=== PATIENT | female | born 1970 | race Caucasian/White ===

== ENCOUNTER 2020-03-21 13:27 | Emergency (ER) | payer BC, SELFPAY ==
[2020-03-21 13:34] VITALS: BP 143/101; PULSE 91; RESP 20; TEMP 35.7; O2SAT 100
--- NOTE | 2020-03-21 13:53 | ED.WOUNDLAC ---
HPI - Wound/Laceration General Chief Complaint: Wound/Laceration Stated Complaint: L FINGER LAC Time Seen by Provider: 03/21/20 13:30 Source: patient and RN notes reviewed Mode of arrival: ambulatory Limitations: no limitations History of Present Illness HPI narrative: 49-year-old female presents with concern for an injury to her finger that she sustained last night while using a knife in the kitchen. She reports she has been unable to get it to stop bleeding. Reports she is used a bandage, elevation, pressure with no success. Related Data Home Medications Medication Instructions Recorded Confirmed alprazolam 03/21/20 amlodipine 03/21/20 carvedilol 03/21/20 duloxetine mg PO 03/21/20 Allergies Allergy/AdvReac Type Severity Reaction Status Date / Time No Known Allergies Allergy Verified 09/02/18 07:28 Review of Systems Review of Systems: Narrative: CONSTITUTIONAL: Denies malaise, chills, sweats, or fever. CARDIOVASCULAR: Denies chest pain, palpitations, or edema. RESPIRATORY: Denies cough or dyspnea. SKIN: Reports wound to the second digit of the left hand MUSCULOSKELETAL: Denies musculoskeletal pain NEUROLOGIC: Denies numbness, weakness All systems reviewed & are unremarkable except as noted in HPI and below PMFSH Comments At time of signature, agree with nursing past medical, surgical, social and family history. There is no relevant family history pertinent to the presenting complaint Exam Narrative: Exam Narrative: GENERAL: Well-appearing, well-nourished, and in no acute distress. HEAD: Normocephalic EYES: PERRLA, conjunctivae clear NECK: Supple. CHEST: Speaks in full sentences. No respiratory distress. HEART: Regular rate and rhythm. Normal and equal peripheral pulses. EXTREMITIES: Second digit of left hand has normal strength and sensation. 5/5 strength with digit flexion, extension. Range of motion normal. No clubbing, cyanosis, or edema noted. No tenderness. Normal digital cascade with flexion of fingers, median, ulnar and radial nerve intact. Normal sensation of each side of finger. Normal thumb opposition. Good capillary refill and radial pulse. Distal capillary refill less than 3 seconds. SKIN: Warn, dry, intact, pink. Avulsion approximately 1 cm x 0.5 cm noted to the lateral edge of the second digit of the left hand NEURO: Alert and oriented x3. PSYCH: Normal mood and affect Course Course Emergency Course: Surgicel applied to the wound, pressure held and finger elevated until hemostasis achieved. Sterile dressing applied. Patient is aware of diagnosis, understands and agrees to treatment plan. Anticipatory guidance given. Patient agrees to follow-up as directed and is aware of reasons to seek care at the emergency department. Portions of this record may have been created with voice recognition software Vital Signs Vital signs: Vital Signs Temperature 96.2 F L 03/21/20 13:34 Pulse Rate 91 03/21/20 13:34 Respiratory Rate 20 03/21/20 13:34 Blood Pressure 143/101 H 03/21/20 13:34 Pulse Oximetry 100 03/21/20 13:34 Temperature 96.2 F L 03/21/20 13:34 Pulse Rate 91 03/21/20 13:34 Respiratory Rate 20 03/21/20 13:34 Blood Pressure 143/101 H 03/21/20 13:34 Pulse Oximetry 100 03/21/20 13:34 Reviewed. Patient has history of hypertension MDM - Wound/Laceration MDM Narrative Medical decision making narrative: Exam findings show no acute concerns or changes; patient is non-toxic appearing and is in no distress. Patient is appropriate for outpatient treatment and follow-up. Differential Diagnosis Differential diagnosis: Likely laceration, abrasion and avulsion of skin Critical Care Time Critical Care Time Critical Care Time: No Discharge Plan Discharge Clinical Impression: Avulsion of skin Patient Disposition: Home, Self-Care Condition: Stable Instructions: Skin Avulsion (ED) Additional Instructions: Keep bandage in place for 24 hours. When y
== END 2020-03-21 14:05 | disposition home or self-care (01) ==
PROVIDERS: Emergency Provider Nurse Practitioner; PCP Nurse Practitioner Family
DX: S61.201A Unspecified open wound of left index finger without damage to nail, initial encounter (principal); W26.0XXA Contact with knife, initial encounter; I10 Essential (primary) hypertension
CPT/HCPCS: 99212; G0463

== ENCOUNTER 2020-09-05 12:38 | Outpatient (CLI) | payer OTHER, SELFPAY | END 2020-09-05 12:39 | disposition home or self-care (01) | LOC: ANHLAB 12:45 | PROVIDERS: PCP Nurse Practitioner Family; Visit Provider Nurse Practitioner Family | DX: R77.8 Other specified abnormalities of plasma proteins (principal) | CPT/HCPCS: 36415; 81256 ==

== ENCOUNTER → 2023-01-07 15:28 | Outpatient (CLI) | payer OTHER, SELFPAY ==
--- NOTE | ~2023-01-07 | US_ITS ---
EXAMINATION: US soft tissue head and neck DATE: 01/07/2023 16:27 INDICATION: Mass at the left base of the neck with difficulty swallowing TECHNIQUE: Multiple grayscale and Doppler ultrasound images of the neck were obtained. COMPARISON: None FINDINGS: Right thyroid lobe measures 5.2 x 1.7 x 1.5 cm. The left thyroid lobe measures 4.6 x 1.5 x 1.4 cm. 5 mm wide than tall solid very hypoechoic right thyroid nodule with smooth margins and no echogenic foc i (TI-RADS 4, moderately suspicious , FNA if >=1.5 cm, annual followup is >=1 cm). The thyroid isthmu s measures 4 mm in thickness. There are couple normal-sized left cervical lymph nodes in the region o f the palpable abnormality which measure 4 mm and 3 mm in short axis diameter with central echogenic fatty hilum. No other abnormal masses or fluid collections identified. There is a similar normal righ t cervical lymph node measuring 5 mm in short axis diameter with central fatty echogenic hilum. IMPRESSION: 1. Normal sized and appearing bilateral cervical lymph nodes. No abnormal masses or fluid collections identified. 2. 5 mm BI-RADS 4 right thyroid nodule which remains below criteria for either biopsy or follow-up. Reviewed, dictated and finalized at location B. IMPRESSION: 1. Normal sized and appearing bilateral cervical lymph nodes. No abnormal pippa s or fluid collections identified. 2. 5 mm BI-RADS 4 right thyroid nodule which remains below criteria for either biopsy or follow-up.
== END ==
PROVIDERS: PCP Nurse Practitioner Family; Visit Provider Nurse Practitioner Family
DX: E04.1 Nontoxic single thyroid nodule (principal)
CPT/HCPCS: 76536

== ENCOUNTER 2023-03-07 11:52 | Emergency (ER) | payer OTHER, SELFPAY ==
[2023-03-07 12:06] VITALS: BP 118/82; PULSE 92; RESP 16; TEMP 36.7; O2SAT 99
--- NOTE | 2023-03-07 12:11 | ED.EYEPROB ---
HPI - Eye Problem General Chief complaint: Eye Problems Stated complaint: Rt Eye Irritation Source: patient and RN notes reviewed History of Present Illness HPI Narrative: 52 yo F presents to urgent care with complaints of right eye pain x 3 nights. Pt states she woke up 3 nights ago with severe right eye pain. Pt has a hx of dry eyes so she attempted treating for this with eye drops, ointment, and eye mask without relief. Pt denies any known scratch or injury. Reports watery drainage from the right eye. Reports somewhat blurry vision but doesn't know if this is from the watery eye and/or pain. Pt does not wear contacts but does wear glasses. Pt states 2 months ago she was dx with a corneal abrasion and infection and was placed a couple different Abx for this. Pt also states she developed a stye in this eye about a month ago. Related Data Home Medications Medication Instructions Recorded Confirmed alprazolam 0.25 mg tablet 0.25 mg PO PRN PRN Anxiety 03/21/20 03/07/23 amlodipine 5 mg tablet 5 mg PO DAILY 03/21/20 03/07/23 lamotrigine 100 mg tablet 100 mg PO DAILY 03/07/23 03/07/23 losartan 50 mg tablet 50 mg PO DAILY 03/07/23 03/07/23 rosuvastatin 10 mg tablet 10 mg PO HS 03/07/23 03/07/23 sertraline 50 mg tablet 50 mg PO DAILY 03/07/23 03/07/23 venlafaxine 75 mg capsule,extended 75 mg PO DAILY 03/07/23 03/07/23 release 24 hr Allergies Allergy/AdvReac Type Severity Reaction Status Date / Time No Known Allergies Allergy Verified 03/07/23 12:07 Review of Systems Review of Systems: CONSTITUTIONAL: Denies fever, chills, or sweats. EYES: right eye pain and watery discharge ENT: Denies otalgia and sore throat CARDIOVASCULAR: Denies chest pain, palpitations, or edema. RESPIRATORY: Denies cough or dyspnea. GASTROINTESTINAL: Denies abdominal pain, nausea, vomiting, or diarrhea. GENITOURINARY: Denies dysuria or hematuria. SKIN: Denies rash or itching. MUSCULOSKELETAL: Denies back pain, joint pain, or myalgia. NEUROLOGIC: Denies headache, numbness, or weakness. Pertinent positives per HPI. PMFSH Comments At the time of my signature, I reviewed and agree with the nursing past medical, surgical, social, and family history. There is no relevant family history pertinent to the patient complaint. Exam Narrative: GENERAL: This is a well-nourished, well-developed patient, in no apparent distress. HEAD: normocephalic, atraumatic. EYES: Sclera clear/white. Conjunctivae pale pink. no discharge. Vision is grossly intact. Mackay lamp exam performed. No fluorecin uptake noted. No FB noted. No abrasion. Lid inversion performed with no acute findings. EARS: External ears normal, auditory canals clear and without drainage, TMs normal without perforation. Hearing grossly intact. NOSE: External nose normal with no obvious nasal discharge, nares without redness, no rhinorrhea. THROAT: Mucous membranes moist, posterior pharynx clear. NECK: Neck supple, non-tender without lymphadenopathy, masses or thyromegaly. CARDIOVASCULAR: Regular rate RESPIRATORY: No respiratory distress SKIN: warm, intact with no suspicious lesions or rash, good texture and turgor. NEURO: awake, alert, and oriented to person, place and time. There were no obvious focal neurologic abnormalities. Course Course Level of Care: Express Care Visit Vital Signs Vital signs: Vital Signs Temperature 98.1 F 03/07/23 12:06 Pulse Rate 92 03/07/23 12:06 Respiratory Rate 16 03/07/23 12:06 Blood Pressure 118/82 03/07/23 12:06 Pulse Oximetry 99 03/07/23 12:06 Oxygen Delivery Room Air 03/07/23 12:06 Temperature 98.1 F 03/07/23 12:06 Pulse Rate 92 03/07/23 12:06 Respiratory Rate 16 03/07/23 12:06 Blood Pressure 118/82 03/07/23 12:06 Pulse Oximetry 99 03/07/23 12:06 Oxygen Delivery Room Air 03/07/23 12:06 reviewed MDM - Eye Problem MDM Narrative Medical decision making narrative: Mackay lamp exam performed wi
== END 2023-03-07 12:57 | disposition short-term general hospital (02) ==
PROVIDERS: Emergency Provider Nurse Practitioner Family; PCP Nurse Practitioner Family
DX: H57.11 Ocular pain, right eye (principal); E78.00 Pure hypercholesterolemia, unspecified; I10 Essential (primary) hypertension; F41.9 Anxiety disorder, unspecified; F32.A Depression, unspecified
CPT/HCPCS: 99213; A9270; G0463

== ENCOUNTER 2024-03-24 16:02 | Emergency (ER) | payer OTHER, SELFPAY ==
[2024-03-24] VITALS (19 sets, daily range): BP systolic 114–155; BP diastolic 86–99; PULSE 75–95; RESP 12–18; TEMP 36.4; O2SAT 96–100
--- NOTE | ~2024-03-24 | XR_ITS ---
XR chest 2V Ordering provider: David Og MD History: 53 years Female with . cp . Comparison: August 24, 2008 FINDINGS: MEDIASTINUM: The cardiac silhouette is not enlarged. LUNGS: No infiltrates, effusions or pneumothorax. OTHER: No free air under the diaphragm. IMPRESSION: No acute cardiopulmonary pathology. Reviewed, dictated and finalized at location A.
--- NOTE | 2024-03-24 16:05 | ECG_ITS ---
Test Date: 2024-03-24 20:00:54 Measurements Intervals [place] Rate: 73 P: 18 AL: 155 QRS: -18 QRSD: 89 T: 73 QT: 402 QTc: 443 Interpretive Statements SINUS RHYTHM POOR R WAVE PROGRESSION NONSPECIFIC T-WAVE ABNORMALITY Compared to ECG 03/24/2024 16:11:51 NO SIGNIFICANT CAHNGES Electronically Signed On 03-25-2024 15:30:00 CDT by Dean Wilson M.D.
[2024-03-24 16:27] LABS: Basophils Absolute Auto 0.1 K/mm3 (0.0-0.1); Basophils Percent Auto 0.8 % (0.2-1.2); Eosinophils Absolute Auto 0.1 K/mm3 (0-0.3); Eosinophils Percent Auto 0.9 % (0-4.4); Hematocrit 43.5 % (37.0-47.0); Hemoglobin 14.4 g/dL (12.0-15.0); Immature Granulocyte Absolute 0.03 K/mm3 (0.00-0.031); Immature Granulocyte Percent A 0.3 % (0-0.5); Lymphocytes Percent Auto 28.5 % (18.3-44.2); Mean Corpuscular HGB Conc 33.1 g/dl (32-36); Mean Corpuscular Hemoglobin 30.8 pg (26-34); Mean Corpuscular Volume 92.9 fl (80-100); Mean Platelet Volume 10.3 fl (7.4-10.4); Monocytes Absolute Auto 0.7 K/mm3 (0.1-0.6); Monocytes Percent Auto 6.4 % (2.6-8.5); Neutrophils Absolute Auto 6.4 K/mm3 (1.3-6.7); Neutrophils Percent Auto 63.1 % (45.5-73.1); Platelet Count Result 372 k/mm3 (150-375); Red Blood Count 4.68 M/mm3 (4.2-5.4); Red Cell Distribution Width 12.9 % (11.5-14.5); White Blood Count 10.2 K/mm3 (4.5-10.0)
[2024-03-24] MEDS: ASPIRIN 81 MG CHEWABLE TABLET 324 MG PO (16:35)
[2024-03-24 16:38] LABS: Alanine Aminotransferase 21 U/L (6-35); Alkaline Phosphatase 74 U/L (38-126); Anion Gap 10 mmol/L (4-12); Aspartate Amino Transferase 25 U/L (14-36); Bilirubin,Total 0.4 mg/dL (0.2-1.3); Blood Urea Nitrogen 16 mg/dL (7-17); Calcium 10.3 mg/dL (8.4-10.2); Carbon Dioxide 28 mmol/L (22-30); Chloride 99 mmol/L (98-107); Estimated CRCL calculation 80 ml/min; Estimated Glomerular Filt Rate > 60; Glucose 94 mg/dL (65-110); Lipase 150 U/L (23-300); Potassium 4.5 mmol/L (3.4-5.0); Sodium 137 mmol/L (137-145)
[2024-03-24 16:39] LABS: Prothrombin Time 13.4 Seconds (11.1-14.7)
[2024-03-24 16:40] LABS: Partial Thromboplastin Time 28.4 Seconds (22.3-36.8)
[2024-03-24 16:50] LABS: Troponin I < 0.012 ng/mL (0.000-0.034)
--- NOTE | 2024-03-24 17:14 | ED.CHESTPAIN ---
HPI - Chest Pain General Chief Complaint: Chest Pain Stated Complaint: chest pressure, dizzy, sob, fluctuating BP Time Seen by Provider: 03/24/24 16:59 History of Present Illness HPI narrative: 53-year-old female with history of prediabetes, hyperlipidemia and hypertension presents to the emergency department for exertional dyspnea, intermittent chest pressure, lightheadedness, fatigue and palpitations with exertion for 2 weeks. Patient states her symptoms started 2 weeks ago with tachycardia when she would stand and lightheadedness. She states she would check her blood pressure and note that it was elevated she finally sit down. She went to her PCPs office and they discontinued her amlodipine and her losartan due to concerns that she was becoming hypotensive while standing. Patient states she has not been taking his medications for approximately 1 week her symptoms have persisted. States she began having exertional dyspnea, and fatigue ambulation. She denies radiating chest pain symptoms, cough or congestion, fever, hemoptysis, lower extremity edema, history of VTE. She has no known personal history of cardiac disease but does state that her parents and brother have known cardiac disease. Related Data Home Medications Medication Instructions Recorded Confirmed alprazolam 0.25 mg tablet 0.25 mg PO PRN PRN Anxiety 03/21/20 03/07/23 amlodipine 5 mg tablet 5 mg PO DAILY 03/21/20 03/07/23 lamotrigine 100 mg tablet 100 mg PO DAILY 03/07/23 03/07/23 losartan 50 mg tablet 50 mg PO DAILY 03/07/23 03/07/23 rosuvastatin 10 mg tablet 10 mg PO HS 03/07/23 03/07/23 sertraline 50 mg tablet 50 mg PO DAILY 03/07/23 03/07/23 venlafaxine 75 mg capsule,extended 75 mg PO DAILY 03/07/23 03/07/23 release 24 hr Allergies Allergy/AdvReac Type Severity Reaction Status Date / Time No Known Allergies Allergy Verified 03/24/24 16:04 Review of Systems Review of Systems: All systems reviewed & are unremarkable except as noted in HPI and below Exam Narrative: GENERAL: Well-appearing, well-nourished, and in no acute distress. HEAD: Normocephalic, atraumatic. EYES: PERRLA and EOMI. ENT: Nares clear, no rhinorrhea or epistaxis. Mucous membranes dry. NECK: Supple. CHEST: Clear to auscultation. No respiratory distress. HEART: Regular rate and rhythm. No murmur heard. Normal peripheral pulses. ABDOMEN: Soft, nontender, nondistended, normal active bowel sounds. EXTREMITIES: Normal range of motion. No edema. negative Homans bilaterally SKIN: Warm, dry, no rash. NEURO: No focal deficits. Alert and oriented x3 Course Vital Signs Vital signs: Vital Signs Temperature 97.6 F 03/24/24 16:06 Pulse Rate 91 03/24/24 16:06 Respiratory Rate 16 03/24/24 16:06 Blood Pressure 121/89 03/24/24 16:06 Pulse Oximetry 97 03/24/24 16:06 Oxygen Delivery Room Air 03/24/24 16:06 Temperature 97.6 F 03/24/24 16:06 Pulse Rate 87 03/24/24 20:45 Respiratory Rate 16 03/24/24 20:45 Blood Pressure 119/93 H 03/24/24 19:50 Pulse Oximetry 100 03/24/24 20:45 Oxygen Delivery Room Air 03/24/24 16:28 MDM - Chest Pain MDM Narrative Medical decision making narrative: 53-year-old female with history of prediabetes, hypertension and hyperlipidemia presents to the emergency department for exertional dyspnea, intermittent chest pressure, palpitations, fatigue for 2 weeks. Her triage vitals are stable. On exam she is well-appearing and resting comfortably in the exam bed with normal vital signs. Her exam is significant for dry mucous membranes. Will obtain chest pain workup, D-dimer, chest x-ray, orthostatic vital signs and provide a L of fluids and re-evaluate. CBC with mild leukocytosis of 10.2. Chemistries with no electrolyte derangements. EKG reveals sinus rhythm, nonspecific T-wave abnormality, normal MS interval, normal QRS duration, normal QTC, no ischemic changes. Troponin is undetectable x2. BNP is within normal limits. D-dimer is mildly elevated at 0.51, however VTE is excluded with Years criteria and age adjusted D-dimer. UPT is negative. Urinalysis is indicative of a UTI with positive nitrates, 6-10 wbc's and 2+ bacteria 1+ leuk esterase. urine culture pending. Patient was started on Keflex. COVID, flu and RSV are negative. Chest x-ray shows no acute findings. Orthostatic vital signs are positive. Workup discussed with the patient. She received a total 2 L of fluids. She did remain orthostatic positive when vitals were repeated, however she does states that she feels much better. She is ambulatory in the ED and states her sx have improved, however does feel somewhat lightheaded still. I discussed admission for rehydration and further management, however she politely declined states she would like to go home. I discussed her need to follow-up closely with cardiology she will also benefit from a stress test given her history. I advised her to increase fluid intake and follow closely with her PCP. Strict ED return precautions discussed. She is agreeable to plan verbalized understanding. Discharged in stable condition. Lab Data 03/24/24 16:19 03/24/24 16:19 Labs: Lab Results 03/24/24 03/24/24 03/24/24 Range/Units 16:19 17:20 17:25 WBC 10.2 H (4.5-10.0) K/mm3 RBC 4.68 (4.2-5.4) M/mm3 Hgb 14.4 (12.0-15.0) g/dL Hct 43.5 (37.0-47.0) % MCV 92.9 (80-100) fl MCH 30.8 (26-34) pg MCHC 33.1 (32-36) g/dl RDW 12.9 (11.5-14.5) % Plt Count 372 (150-375) k/mm3 MPV 10.3 (7.4-10.4) fl Immature Gran % (Auto) 0.3 (0-0.5) % Neut % (Auto) 63.1 (45.5-73.1) % Lymph % (Auto) 28.5 (18.3-44.2) % [place] % (Auto) 6.4 (2.6-8.5) % Eos % (Auto) 0.9 (0-4.4) % Baso % (Auto) 0.8 (0.2-1.2) % Lymph # (Auto) 2.90 (0.9-3.2) K/mm3 [place] # (Auto) 0.7 H (0.1-0.6) K/mm3 Eos # (Auto) 0.1 (0-0.3) K/mm3 Baso # (Auto) 0.1 (0.0-0.1) K/mm3 Abs Immat Gran (auto) 0.03 (0.00-0.031) K/mm3 Absolute Neuts (auto) 6.4 (1.3-6.7) K/mm3 Absolute Nucleated RBC 0.000 (0.0-0.012) K/mm3 Nucleated RBC % 0.0 (0.0-0.2) % PT 13.4 (11.1-14.7) Seconds INR 1.0 APTT 28.4 (22.3-36.8) Seconds D-Dimer 0.51 H (<0.48) ug/mL Sodium 137 (137-145) mmol/L Potassium 4.5 (3.4-5.0) mmol/L Chloride 99 (98-107) mmol/L Carbon Dioxide 28 (22-30) mmol/L Anion Gap 10 (4-12) mmol/L BUN 16 (7-17) mg/dL Creatinine 0.80 (0.7-1.0) mg/dL Estim Creat Clear Calc 80 ml/min Estimated GFR > 60 (59 - ) Glucose 94 (65-110) mg/dL Calcium 10.3 H (8.4-10.2) mg/dL Total Bilirubin 0.4 (0.2-1.3) mg/dL AST 25 (14-36) U/L ALT 21 (6-35) U/L Alkaline Phosphatase 74 (38-126) U/L Troponin I < 0.012 (0.000-0.034) ng/mL NT-Pro-B Natriuret Pep 37 (19.9-100) pg/mL Total Protein 9.0 H (6.3-8.2) g/dL Albumin 5.0 (3.5-5.1) g/dL Lipase 150 (23-300) U/L Urine Color Yellow (Yellow) Urine Appearance Clear (Clear) Urine pH 7.0 (5.0-9.0) Ur Specific [place] 1.024 (1.001-1.035) Urine Protein Negative (Negative) mg/dL Urine Glucose (UA) Negative (Negative) mg/dL Urine Ketones Trace H (Negative) mg/dL Ur Blood (Man) Negative (Negative) Urine Nitrate Positive H (Negative) Urine Bilirubin Negative (Negative) Urine Urobilinogen 1.0 (<2.0) mg/dL Leukocyte Esterase Rfl 1+ H (Negative) LEE/UL Urine RBC 3-5 H (0-2) /hpf Urine WBC 6-10 H (0-3) /hpf Ur Squamous Epith Cells Few (Few) /hpf Urine Bacteria 2+ H /hpf Urine Casts 0-2 POC Urine HCG, Qual (Negative) Influenza A (RT-PCR) Negative (Negative) Influenza B (RT-PCR) Negative (Negative) RSV (RT-PCR) Negative (Negative) SARS-CoV-2 RNA (RT-PCR) Negative (Negative) 03/24/24 03/24/24 Range/Units 17:27 18:54 WBC (4.5-10.0) K/mm3 RBC (4.2-5.4) M/mm3 Hgb (12.0-15.0) g/dL Hct (37.0-47.0) % MCV (80-100) fl MCH (26-34) pg MCHC (32-36) g/dl RDW (11.5-14.5) % Plt Count (150-375) k/mm3 MPV (7.4-10.4) fl Immature Gran % (Auto) (0-0.5) % Neut % (Auto) (45.5-73.1) % Lymph % (Auto) (18.3-44.2) % [place] % (Auto) (2.6-8.5) % Eos % (Auto) (0-4.4) % Baso % (Auto) (0.2-1.2) % Lymph # (Auto) (0.9-3.2) K/mm3 [place] # (Auto) (0.1-0.6) K/mm3 Eos # (Auto) (0-0.3) K/mm3 Baso # (Auto) (0.0-0.1) K/mm3 Abs Immat Gran (auto) (0.00-0.031) K/mm3 Absolute Neuts (auto) (1.3-6.7) K/mm3 Absolute Nucleated RBC (0.0-0.012) K/mm3 Nucleated RBC % (0.0-0.2) % PT (11.1-14.7) Seconds INR APTT (22.3-36.8) Seconds D-Dimer (<0.48) ug/mL Sodium (137-145) mmol/L Potassium (3.4-5.0) mmol/L Chloride (98-107) mmol/L Carbon Dioxide (22-30) mmol/L Anion Gap (4-12) mmol/L BUN (7-17) mg/dL Creatinine (0.7-1.0) mg/dL Estim Creat Clear Calc ml/min Estimated GFR (59 - ) Glucose (65-110) mg/dL Calcium (8.4-10.2) mg/dL Total Bilirubin (0.2-1.3) mg/dL AST (14-36) U/L ALT (6-35) U/L Alkaline Phosphatase (38-126) U/L Troponin I < 0.012 (0.000-0.034) ng/mL NT-Pro-B Natriuret Pep (19.9-100) pg/mL Total Protein (6.3-8.2) g/dL Albumin (3.5-5.1) g/dL Lipase (23-300) U/L Urine Color (Yellow) Urine Appearance (Clear) Urine pH (5.0-9.0) Ur Specific [place] (1.001-1.035) Urine Protein (Negative) mg/dL Urine Glucose (UA) (Negative) mg/dL Urine Ketones (Negative) mg/dL Ur Blood (Man) (Negative) Urine Nitrate (Negative) Urine Bilirubin (Negative) Urine Urobilinogen (<2.0) mg/dL Leukocyte Esterase Rfl (Negative) LEE/UL Urine RBC (0-2) /hpf Urine WBC (0-3) /hpf Ur Squamous Epith Cells (Few) /hpf Urine Bacteria /hpf Urine Casts POC Urine HCG, Qual Negative (Negative) Influenza A (RT-PCR) (Negative) Influenza B (RT-PCR) (Negative) RSV (RT-PCR) (Negative) SARS-CoV-2 RNA (RT-PCR) (Negative) Discharge Plan Discharge Clinical Impression: Orthostatic hypotension UTI (urinary tract infection) Qualifiers: Urinary tract infection type: acute cystitis Hematuria presence: with hematuria Qualified Code(s): N30.01 - Acute cystitis with hematuria Patient Disposition: Home, Self-Care Condition: Stable Instructions: Antibiotic Form, Urinary Tract Infection in Women (DC), Hypotension (DC) Additional Instructions: Your evaluated in the emergency department for dizziness, weakness, shortness of breath and chest discomfort. Your found have urinary tract infection or also found have low blood pressure when he stand. This may be secondary to dehydration. We discussed having the stay in the hospital for further workup and management, however you would like to go home. Please make sure to increase her fluid intake and follow closely with her primary care provider and retail loan originator assistant I have referred you to. Return to the emergency department if you develop chest pain, shortness of breath, worsening lightheadedness, fever or other concerning symptoms. Please take the antibiotic as directed for UTI. Prescriptions: New cephalexin 500 mg capsule 500 mg PO Q6H Qty: 28 0RF No Action losartan 50 mg tablet 50 mg PO DAILY venlafaxine 75 mg capsule,extended release 24hr 75 mg PO DAILY sertraline 50 mg tablet 50 mg PO DAILY lamotrigine 100 mg tablet 100 mg PO DAILY rosuvastatin 10 mg tablet 10 mg PO HS amlodipine 5 mg tablet 5 mg PO DAILY alprazolam 0.25 mg tablet 0.25 mg PO PRN PRN (Reason: Anxiety) Follow-up/Referrals: Dean Wilson MD [Physician] - 1 Day Huber,Margarette Guerra APRN [Primary Care Provider] -
[2024-03-24 17:29] LABS: BEDSIDEPREGUCG Negative (Negative)
[2024-03-24 17:31] LABS: NT Pro B Type Natriuretic Pept 37 pg/mL (19.9-100)
[2024-03-24] MEDS: SODIUM CHLORIDE 0.9% IV 1,000 ML 999 ML IV CONT ×2 (17:31→18:55)
[2024-03-24 17:36] LABS: Add Urine Microscopic? YES; Appearance Urine Clear (Clear); Bacteria Urine 2+ /hpf; Bilirubin Urine Negative (Negative); Blood Urine Negative (Negative); Color Urine Yellow (Yellow); Glucose Urine UA Negative (Negative); Ketones Urine Trace mg/dL (Negative); Leukocyte Esterase Ur 1+ LEU/UL (Negative); Nitrate Urine Positive (Negative); Non Pathogenic Casts 0-2; Protein Urine Negative (Negative); Specific Grav Ur 1.024 (1.001-1.035); Squamous Epithelial Cell Urine Few /hpf (Few)
[2024-03-24 17:54] LABS: D Dimer 0.51 ug/mL (<0.48)
[2024-03-24 18:02] LABS: Influenza A QL RT-PCR Negative (Negative); Influenza B QL RT-PCR Negative (Negative); RSV RNA, RT-PCR Negative (Negative); SARS-CoV-2 RNA PCR Negative (Negative)
--- NOTE | 2024-03-24 19:05 | ECG_ITS ---
Test Date: 2024-03-24 16:11:51 Measurements Intervals [place] Rate: 89 P: 40 ND: 135 QRS: -22 QRSD: 90 T: 77 QT: 360 QTc: 440 Interpretive Statements SINUS RHYTHM POOR R WAVE PROGRESSION No previous ECG available for comparison Electronically Signed On 03-25-2024 15:25:22 CDT by Dean Wilson M.D.
[2024-03-24 19:23] LABS: Troponin I < 0.012 ng/mL (0.000-0.034)
[2024-03-24] MEDS: CEPHALEXIN 500 MG CAPSULE PO (20:55)
== END 2024-03-24 21:02 | disposition home or self-care (01) ==
PROVIDERS: Family Medicine; Emergency Provider Physician Assistant
DX: I95.1 Orthostatic hypotension (principal); N30.01 Acute cystitis with hematuria; I10 Essential (primary) hypertension; E78.5 Hyperlipidemia, unspecified; Z20.822 Contact with and (suspected) exposure to COVID-19
CPT/HCPCS: 36415; 71046; 80053; 81001; 81025; 83690; 83880; 84484; 85025; 85380; 85610; 85730; 87077; 87086; 87186; 87637; 93005; 96360; 96361; 99284; A9270; J7030

== ENCOUNTER 2024-05-07 13:23 | Emergency (ER) | payer OTHER, SELFPAY ==
[2024-05-07 13:32] VITALS: BP 117/89; PULSE 86; RESP 16; TEMP 35.9; O2SAT 100
--- NOTE | 2024-05-07 13:32 | ED.NAVMDI ---
HPI - Nausea/Vomiting/Diarrhea General Chief complaint: Nausea/Vomiting/Diarrhea Stated complaint: Diarrhea/Stomach Pain Time Seen by Provider: 05/07/24 13:32 Source: patient and RN notes reviewed Mode of arrival: ambulatory Limitations: no limitations History of Present Illness HPI Narrative: 53 y/o female presented for c/o diarrhea after returning from [facility] 2 days ago. Reports diarrhea hourly x3 -4 days described as liquid brown, as well as cramping to lower abdomen and stomach pains, also possible fever 2 days ago. Endorses decreased appetite, last ate mcdonalds last night. Pt denies vomiting dizziness, or lethargy, hematochezia. Has not taken anything for symptoms. Related Data Home Medications Medication Instructions Recorded Confirmed alprazolam 0.25 mg tablet 0.25 mg PO PRN PRN Anxiety 03/21/20 03/07/23 amlodipine 5 mg tablet 5 mg PO DAILY 03/21/20 03/07/23 lamotrigine 100 mg tablet 100 mg PO DAILY 03/07/23 03/07/23 losartan 50 mg tablet 50 mg PO DAILY 03/07/23 03/07/23 rosuvastatin 10 mg tablet 10 mg PO HS 03/07/23 03/07/23 sertraline 50 mg tablet 50 mg PO DAILY 03/07/23 03/07/23 venlafaxine 75 mg capsule,extended 75 mg PO DAILY 03/07/23 03/07/23 release 24 hr Allergies Allergy/AdvReac Type Severity Reaction Status Date / Time No Known Allergies Allergy Verified 03/24/24 16:04 Review of Systems Review of Systems: CONSTITUTIONAL: Denies body aches, reports fever ENT: Reports rhinorrhea, congestion CARDIOVASCULAR: Denies chest pain, palpitations, or edema. RESPIRATORY: Denies cough or dyspnea. GASTROINTESTINAL: Endorses abdominal pain, diarrhea. Denies nausea, vomiting, hematochezia, melena GENITOURINARY: Denies dysuria, hematuria, or CVA tenderness. SKIN: Denies rash MUSCULOSKELETAL: Denies back pain, joint pain, or myalgia. NEUROLOGIC: Denies headache, numbness, tingling, or weakness. All systems reviewed & are unremarkable except as noted in HPI and below PENDING SALE TO [facility] Past Medical History Medical History (Updated 05/07/24 @ 14:06 by Anastasiya Nobles, JAY) Pre-diabetes Comments At time of signature, I have reviewed and agree with nursing past medical, surgical, social and family history unless otherwise noted. Please see nursing chart for further information. There is no relevant family history pertinent to the presenting complaint Exam Narrative: GENERAL: mildly ill-appearing, and in no acute distress. EYES: EOMI. Conjunctivae normal. ENT: Mucous membranes pink and moist. CHEST: No respiratory distress. Clear to auscultation. HEART: Regular rate and rhythm. No murmur appreciated. Normal peripheral pulses. ABDOMEN: abd soft, nondistended, normal active bowel sounds. Tender abdomen, generalized. No guarding, rebound tenderness, asymmetry EXTREMITIES: Normal range of motion. No edema. SKIN: Warm, dry, no rash. Capillary refill normal. Normal skin turgor. NEURO: No focal deficits. Alert and oriented x3. PSYCH: Normal affect. Course Course Emergency Course: Patient is aware of diagnosis, understands and agrees to treatment plan. Anticipatory guidance given. Patient agrees to follow-up as directed and is aware of reasons to seek care at the emergency department. Portions of this record may have been created with voice recognition software Level of Care: Express Care Visit Transfer Transfered to: [facility] Transportation: Other (Private vehicle) Transfer rationale: Pt is agreeable to transfer. Requests transfer to [facility] via private vehicle. Risks of transportation reviewed with pt including injury, worsening of condition and . v/u. Report called to hospital, spoke with Martha Aragon NP, accepting physician. Pt is in stable condition at time of transfer. Advised to remain NPO and go directly to the hospital. MDM - Nausea/Vomiting/Diarrhea MDM Narrative Medical decision making narrative: Discussed physical exam findings, abdominal pain with diarrhea after international travel. Advised ER transfer. Differential Diagnosis Differential diagnosis: Likely traveler's diarrhea, food poisoning, gastroenteritis, clostridium difficile infection, dehydration and other (gastroenteritis, gastritis, appendicitis, pancreatitis, bowel obstruction, bowel perforation, hernia, gall bladder disease) Discharge Plan Discharge Clinical Impression: Traveler's diarrhea Patient Disposition: Acute Care Hospital Condition: Stable Prescriptions: No Action losartan 50 mg tablet 50 mg PO DAILY venlafaxine 75 mg capsule,extended release 24hr 75 mg PO DAILY sertraline 50 mg tablet 50 mg PO DAILY lamotrigine 100 mg tablet 100 mg PO DAILY rosuvastatin 10 mg tablet 10 mg PO HS amlodipine 5 mg tablet 5 mg PO DAILY alprazolam 0.25 mg tablet 0.25 mg PO PRN PRN (Reason: Anxiety) cephalexin 500 mg capsule 500 mg PO Q6H Qty: 28 0RF Follow-up/Referrals: Huber,Margarette Guerra, SOFTLINES SUPERVISOR [Primary Care Provider] - Time of Disposition: 14:06
== END 2024-05-07 13:55 | disposition short-term general hospital (02) ==
PROVIDERS: Emergency Provider Nurse Practitioner Family
DX: A09 Infectious gastroenteritis and colitis, unspecified (principal); R73.03 Prediabetes
CPT/HCPCS: 99212; 99213; G0463

== ENCOUNTER 2024-05-07 14:55 | Emergency (ER) | payer OTHER, SELFPAY ==
[2024-05-07 14:58] VITALS: BP 143/94; PULSE 74; RESP 16; TEMP 36.4; O2SAT 98
--- NOTE | 2024-05-07 20:34 | PC.NURSE ---
Pt ambulatory to triage desk reporting she was no longer wanting to be seen d/t wait times. pt educated on importance of returning to closes emergency facility if sx persist or worsen. pt ambulatory out of dept w steady gait.
== END 2024-05-07 20:34 | disposition left against medical advice (07) ==
DX: R10.9 Unspecified abdominal pain (principal)
CPT/HCPCS: 99199

== ENCOUNTER 2024-05-08 10:38 | Emergency (ER) | payer OTHER, SELFPAY ==
--- NOTE | ~2024-05-08 | CT_ITS ---
EXAMINATION: CT abdomen pelvis w con DATE: 05/08/2024 16:30 INDICATION: Abdominal pain, nausea, vomiting, diarrhea TECHNIQUE: Computed tomography (CT) of the abdomen and pelvis was performed without intravenous contr ast. Automated exposure control and iterative reconstruction technique were employed. Exam dose: 536 .45 mGy-cm total exam DLP. COMPARISON: None. FINDINGS: The lung bases are clear of infiltrate or consolidation. Normal heart size. No pericardial or pleural effusion. The liver, gallbladder, bile ducts, pancreas, pancreatic duct, spleen and adrenal glands are unremark able. No renal mass lesion or urinary tract calculus or hydroureteronephrosis. Normal caliber of the abdominal aorta. No intraperitoneal or retroperitoneal or pelvic mass lesion or adenopathy or ascites. Status post hysterectomy. The urinary bladder is unremarkable. Small sliding hiatal hernia. Normal appendix. There are air-fluid levels rectum, suggesting enterocolitis. No bowel wall thickening or pneumatosis or intraperitoneal free air is detected. Probable 12 mm sebaceous cyst of the upper mid anterior abdominal wall. Included skeletal structures are unremarkable. No suspicious osteolytic or osteoblastic lesions. IMPRESSION: Enterocolitis Normal appendix Small sliding hiatal hernia Reviewed, dictated and finalized at [facility] Reviewed, dictated and finalized at [facility]. [facility]
[2024-05-08 11:08] VITALS: BP 124/62; PULSE 129; RESP 20; TEMP 36.8; O2SAT 100
--- NOTE | 2024-05-08 14:24 | ED_ITS ---
HPI - Abdominal Pain General Chief Complaint: Abdominal Pain Stated Complaint: abd cramping/N/D/chills Time Seen by Provider: 05/08/24 14:06 Source: patient Mode of arrival: ambulatory Limitations: no limitations History of Present Illness HPI narrative: Patient is a 53-year-old female who presents the ED with report of diarrhea and abdominal pain. Patient recently traveled with her family to [facility] for 2 weeks. They returned home late last week. She states she experienced some diarrhea while traveling, but has had worsening diarrhea and abdominal pain since being home. Complains of multiple episodes of watery diarrhea per day. Complains of diffuse pain throughout her abdomen, cramping in nature. Reports nausea, denies vomiting. Reports some chills, denies known fever. States her family has had similar symptoms. Daughter was seen in the ED yesterday and had malaria and dengue fever testing performed. Patient also reports urinary frequency. Denies dysuria, hematuria. Related Data Home Medications Medication Instructions Recorded Confirmed alprazolam 0.25 mg tablet 0.25 mg PO PRN PRN Anxiety 03/21/20 03/07/23 amlodipine 5 mg tablet 5 mg PO DAILY 03/21/20 03/07/23 lamotrigine 100 mg tablet 100 mg PO DAILY 03/07/23 03/07/23 losartan 50 mg tablet 50 mg PO DAILY 03/07/23 03/07/23 rosuvastatin 10 mg tablet 10 mg PO HS 03/07/23 03/07/23 sertraline 50 mg tablet 50 mg PO DAILY 03/07/23 03/07/23 venlafaxine 75 mg capsule,extended 75 mg PO DAILY 03/07/23 03/07/23 release 24 hr Allergies Allergy/AdvReac Type Severity Reaction Status Date / Time No Known Allergies Allergy Verified 05/08/24 11:13 Review of Systems Review of Systems: All systems reviewed & are unremarkable except as noted in HPI. All systems reviewed & are unremarkable except as noted in HPI and below PMFSH Past Medical History Medical History Pre-diabetes Exam Narrative: GENERAL: Mildly ill/uncomfortable appearing, well-nourished, non-toxic, in no acute distress. HEAD: Normocephalic, atraumatic. RESPIRATORY: Airway patent, respirations nonlabored. Clear to auscultation bilaterally, no rales, rhonchi, wheezing. CARDIOVASCULAR: Tachycardic with regular rhythm without murmurs, rubs, or gallops. ABDOMINAL: Soft, diffuse tenderness throughout abdomen, worse throughout left lower quadrant. Nondistended. Normoactive BS. MUSCULOSKELETAL: Moves all extremities. No gross deformities. SKIN: Warm, dry, normal color. NEURO: A&O X3. Speech clear. Cranial nerves II-XII grossly intact. Steady gait. No ataxic movements. PSYCHIATRIC: Appropriate mood and affect. Normal interaction. Course Vital Signs Vital signs: Vital Signs Temperature 98.3 F 05/08/24 11:08 Pulse Rate 129 H 05/08/24 11:08 Respiratory Rate 20 05/08/24 11:08 Blood Pressure 124/62 05/08/24 11:08 Pulse Oximetry 100 05/08/24 11:08 Oxygen Delivery Room Air 05/08/24 11:08 Temperature 98.3 F 05/08/24 11:08 Pulse Rate 73 05/08/24 18:17 Respiratory Rate 18 05/08/24 18:17 Blood Pressure 130/87 05/08/24 18:17 Pulse Oximetry 100 05/08/24 18:17 Oxygen Delivery Room Air 05/08/24 11:08 MDM - Abdominal Pain MDM Narrative Medical decision making narrative: Patient presented to ED with diarrhea, diffuse abdominal pain, recent travel to [place]. Family members with similar symptoms. Patient is tachycardic upon arrival. Fluids initiated. She is afebrile here. Denies fevers at home. Laboratory studies without leukocytosis or anemia. Stable electrolytes, bicarb slightly low at 20. Fluids ongoing. Stable kidney function. Lactic acid is elevated to 3.9. Fluids ongoing. UA with trace ketones, multiple blood, no WBC, 2+ urine bacteria. Sent for culture. Stool culture was obtained as well. CDiff testing negative. Testing for malaria and dengue fever were sent out. CT scan of abdomen/pelvis was obtained and showing findings consistent with enterocolitis. Consistent with clinical picture. Patient given 2 L of fluid in the ED in addition to pain and nausea medicine. Repeat lactic acid has normalized. She is feeling much better with supportive therapy. Discussed discharge home on antibiotics versus admission for IV antibiotics for colitis and continued hydration. Utilize shared decision-making with patient. Patient would prefer to go home. She feels comfortable going home. Will discharge on Cipro and Flagyl, with pain meds/zofran. Recommended close follow-up with PCP for further evaluation. Given strict return precautions. Patient voiced understanding. In agreement with plan. Discharged in stable condition. Vital signs stable at time of D/C. Medical Records Attestation: I reviewed the patient's medical records. Lab Data Attestation: I reviewed the patient's lab results. 05/08/24 14:35 05/08/24 14:35 Labs: Lab Results 05/08/24 05/08/24 Range/Units 14:35 17:48 WBC 8.8 (4.5-10.0) K/mm3 RBC 4.40 (4.2-5.4) M/mm3 Hgb 13.6 (12.0-15.0) g/dL Hct 41.0 (37.0-47.0) % MCV 93.2 (80-100) fl MCH 30.9 (26-34) pg MCHC 33.2 (32-36) g/dl RDW 14.1 (11.5-14.5) % Plt Count 319 (150-375) k/mm3 MPV 10.6 H (7.4-10.4) fl Immature Gran % (Auto) 0.3 (0-0.5) % Neut % (Auto) 69.4 (45.5-73.1) % Lymph % (Auto) 20.8 (18.3-44.2) % Barren % (Auto) 8.7 H (2.6-8.5) % Eos % (Auto) 0.5 (0-4.4) % Baso % (Auto) 0.3 (0.2-1.2) % Lymph # (Auto) 1.82 (0.9-3.2) K/mm3 Barren # (Auto) 0.8 H (0.1-0.6) K/mm3 Eos # (Auto) 0.0 (0-0.3) K/mm3 Baso # (Auto) 0.0 (0.0-0.1) K/mm3 Abs Immat Gran (auto) 0.03 (0.00-0.031) K/mm3 Absolute Neuts (auto) 6.1 (1.3-6.7) K/mm3 Absolute Nucleated RBC 0.000 (0.0-0.012) K/mm3 Nucleated RBC % 0.0 (0.0-0.2) % Sodium 137 (137-145) mmol/L Potassium 3.5 (3.4-5.0) mmol/L Chloride 106 (98-107) mmol/L Carbon Dioxide 20 L (22-30) mmol/L Anion Gap 11 (4-12) mmol/L BUN 9 D (7-17) mg/dL Creatinine 0.80 (0.7-1.0) mg/dL Estim Creat Clear Calc 71 ml/min Estimated GFR > 60 (59 - ) Glucose 110 (65-110) mg/dL Lactic Acid 3.9 H 1.5 (0.7-2.0) mmol/L Calcium 9.8 (8.4-10.2) mg/dL Magnesium 1.8 (1.6-2.3) mg/dL Total Bilirubin 0.7 (0.2-1.3) mg/dL AST 22 (14-36) U/L ALT 20 (6-35) U/L Alkaline Phosphatase 68 (38-126) U/L Total Protein 7.0 (6.3-8.2) g/dL Albumin 4.5 (3.5-5.1) g/dL Lipase 99 (23-300) U/L Urine Color Yellow (Yellow) Urine Appearance Cloudy H (Clear) Urine pH 5.0 (5.0-9.0) Ur Specific [place] 1.031 (1.001-1.035) Urine Protein 1+ H (Negative) mg/dL Urine Glucose (UA) Negative (Negative) mg/dL Urine Ketones Trace H (Negative) mg/dL Ur Blood (Man) 3+ H (Negative) Urine Nitrate Negative (Negative) Urine Bilirubin Negative (Negative) Urine Urobilinogen 0.2 (<2.0) mg/dL Add Ur Microanalysis Reviewed Leukocyte Esterase Rfl Trace H (Negative) LEE/UL Urine RBC 51-100 H (0-2) /hpf Urine WBC 0-5 (0-3) /hpf Ur Squamous Epith Cells Many H (Few) /hpf Calcium Oxalate Crystal Present (None) /hpf Urine Bacteria 2+ H /hpf Urine Casts 0-2 C. difficile (PCR) Negative (NEGATIVE) Malaria Smear Pending Imaging Data Attestation: I personally reviewed and interpreted this imaging study as follows: Radiologist's impression: ITS Impressions Abdomen/Pelvis CT 05/08/24 16:40 IMPRESSION: Enterocolitis Normal appendix Small sliding hiatal hernia Discharge Plan Discharge Clinical Impression: Enterocolitis, Travelers' diarrhea Patient Disposition: Home, Self-Care Condition: Stable Instructions: Antibiotic Form, Traveler's Diarrhea (ED), Acute Diarrhea (ED), Colitis (ED) Additional Instructions: Take antibiotics as prescribed. It is important you finish both courses. Avoid alcohol while taking Flagyl. Continue Tylenol and ibuprofen as needed for pain. [place] as needed for more severe pain. Utilize Zofran as needed for nausea. Stay very well hydrated, recommended increasing fluid intake. Recommend electrolyte rich fluids, Gatorade, Pedialyte, body armor. Follow-up with your primary care doctor for further evaluation. Return to the ED if you experience worsening or severe symptoms, unable to keep down food or drink, persistent fevers, difficulty breathing, severe pain, rectal bleeding, dark black stools, or any other symptoms of concern. Prescriptions: New hydrocodone-acetaminophen 5-325 mg tablet 1 tablet PO Q6H PRN (Reason: pain) Qty: 10 0RF metronidazole 500 mg tablet 500 mg PO Q8H 7 Days Qty: 21 0RF ciprofloxacin HCl 500 mg tablet 500 mg PO Q12H 7 Days Qty: 14 0RF ondansetron 4 mg tablet,disintegrating 4 mg PO Q8H PRN (Reason: nausea and vomiting) Qty: 15 0RF No Action losartan 50 mg tablet 50 mg PO DAILY venlafaxine 75 mg capsule,extended release 24hr 75 mg PO DAILY sertraline 50 mg tablet 50 mg PO DAILY lamotrigine 100 mg tablet 100 mg PO DAILY rosuvastatin 10 mg tablet 10 mg PO HS amlodipine 5 mg tablet 5 mg PO DAILY alprazolam 0.25 mg tablet 0.25 mg PO PRN PRN (Reason: Anxiety) cephalexin 500 mg capsule 500 mg PO Q6H Qty: 28 0RF Follow-up/Referrals: Huber,Margarette Guerra, JAVA SPRING DEVELOPER [Primary Care Provider] - Time of Disposition: 17:55
[2024-05-08 14:30] VITALS: BP 117/81; PULSE 108; RESP 18; O2SAT 98
[2024-05-08] MEDS: SODIUM CHLORIDE 0.9% IV 1,000 ML 999 ML IV CONT ×2 (14:36→17:04)
[2024-05-08] MEDS: ONDANSETRON INJ 4 MG/2 ML VIAL IV PUSH (14:37)
[2024-05-08] MEDS: MORPHINE SULFATE (*CRX) 4 MG/ML INJ IV PUSH (14:38)
[2024-05-08 14:48] LABS: Basophils Percent Auto 0.3 % (0.2-1.2); Eosinophils Percent Auto 0.5 % (0-4.4); Hemoglobin 13.6 g/dL (12.0-15.0); Immature Granulocyte Absolute 0.03 K/mm3 (0.00-0.031); Immature Granulocyte Percent A 0.3 % (0-0.5); Lymphocytes Absolute Auto 1.82 K/mm3 (0.9-3.2); Lymphocytes Percent Auto 20.8 % (18.3-44.2); Mean Corpuscular HGB Conc 33.2 g/dl (32-36); Mean Corpuscular Hemoglobin 30.9 pg (26-34); Mean Corpuscular Volume 93.2 fl (80-100); Mean Platelet Volume 10.6 fl (7.4-10.4); Monocytes Absolute Auto 0.8 K/mm3 (0.1-0.6); Monocytes Percent Auto 8.7 % (2.6-8.5); Neutrophils Absolute Auto 6.1 K/mm3 (1.3-6.7); Neutrophils Percent Auto 69.4 % (45.5-73.1); Platelet Count Result 319 k/mm3 (150-375); Red Cell Distribution Width 14.1 % (11.5-14.5); White Blood Count 8.8 K/mm3 (4.5-10.0)
[2024-05-08 14:57] LABS: Lactic Acid Reflex 3.9 mmol/L (0.7-2.0)
[2024-05-08 14:58] LABS: Alanine Aminotransferase 20 U/L (6-35); Albumin Level 4.5 g/dL (3.5-5.1); Alkaline Phosphatase 68 U/L (38-126); Anion Gap 11 mmol/L (4-12); Aspartate Amino Transferase 22 U/L (14-36); Bilirubin,Total 0.7 mg/dL (0.2-1.3); Blood Urea Nitrogen 9 mg/dL (7-17); Calcium 9.8 mg/dL (8.4-10.2); Carbon Dioxide 20 mmol/L (22-30); Chloride 106 mmol/L (98-107); Estimated CRCL calculation 71 ml/min; Estimated Glomerular Filt Rate > 60; Glucose 110 mg/dL (65-110); Lipase 99 U/L (23-300); Magnesium 1.8 mg/dL (1.6-2.3); Potassium 3.5 mmol/L (3.4-5.0); Sodium 137 mmol/L (137-145)
[2024-05-08 15:02] LABS: Add Urine Microscopic? YES; Appearance Urine Cloudy (Clear); Bacteria Urine 2+ /hpf; Bilirubin Urine Negative (Negative); Blood Urine 3+ (Negative); Calcium Oxalate Crystals Urine Present /hpf; Color Urine Yellow (Yellow); Glucose Urine UA Negative (Negative); Ketones Urine Trace mg/dL (Negative); Leukocyte Esterase Ur Trace LEU/UL (Negative); Need Manual Microscopic Reviewed; Nitrate Urine Negative (Negative); Non Pathogenic Casts 0-2; Protein Urine 1+ mg/dL (Negative); RBC Urine 51-100 /hpf (0-2); Specific Grav Ur 1.031 (1.001-1.035); Squamous Epithelial Cell Urine Many /hpf (Few); Urobilinogen Urine 0.2 mg/dL (<2.0); WBC Urine 0-5 /hpf (0-3)
[2024-05-08 15:30] VITALS: BP 135/90; PULSE 104; RESP 14; O2SAT 97
[2024-05-08 15:36] LABS: Toxigenic C. Diff NEGATIVE (NEGATIVE)
[2024-05-08 16:30] VITALS: BP 152/97; PULSE 100; RESP 18; O2SAT 95
[2024-05-08 17:45] LABS: Reflex Lactic Acid Yes or No Add Lactic
[2024-05-08 18:08] LABS: Lactic Acid 1.5 mmol/L (0.7-2.0)
[2024-05-08] MEDS: CIPROFLOXACIN 500 MG TAB PO (18:12)
[2024-05-08] MEDS: metroNIDAZOLE 500 MG TABLET PO (18:12)
[2024-05-08 18:17] VITALS: BP 130/87; PULSE 73; RESP 18; O2SAT 100
== END 2024-05-08 18:21 | disposition home or self-care (01) ==
PROVIDERS: Emergency Provider Physician Assistant
DX: K52.9 Noninfective gastroenteritis and colitis, unspecified (principal)
CPT/HCPCS: 36415; 74177; 80053; 81001; 83605; 83690; 83735; 85025; 87045; 87086; 87207; 87427; 87449; 87493; 96361; 96374; 96375; 99284; A9270; J2270; J2405; J7030; Q9967

== ENCOUNTER 2024-07-01 13:34 | Emergency (ER) | payer OTHER, SELFPAY ==
[2024-07-01] VITALS (11 sets, daily range): BP systolic 111–148; BP diastolic 74–93; PULSE 68–100; RESP 9–16; TEMP 36.6; O2SAT 96–100
--- NOTE | ~2024-07-01 | XR_ITS ---
EXAMINATION: XR abdomen/kub 1V DATE: 07/01/2024 22:00 INDICATION: Left ureteral stone. TECHNIQUE: A supine view of the abdomen was obtained. COMPARISON: CT abdomen and pelvis 07/01/2024 FINDINGS: There are no dilated loops of bowel. There are phleboliths in the pelvis. IMPRESSION: 1. No visible urolithiasis. Reviewed, dictated and finalized at location A. H RANGING CREWMEMBER IMPRESSION: 1. No visible urolithiasis.
--- NOTE | ~2024-07-01 | CT_ITS ---
EXAMINATION: CT abdomen pelvis wo con DATE: 07/01/2024 18:25 INDICATION: Left flank pain. TECHNIQUE: Computed tomography (CT) of the abdomen and pelvis was performed without intravenous contr ast. Automated exposure control and iterative reconstruction technique were employed. The dose-length product was 237.95 mGy-cm. COMPARISON: CT abdomen and pelvis 05/08/2024 FINDINGS: The visualized portions of the lung bases demonstrate mild atelectasis. No pleural effusion . The heart size is normal. No pericardial effusion. The liver, spleen, gallbladder, pancreas, adrena l glands, and right kidney are normal. There is mild left hydronephrosis. There is a 4 mm stone in pr oximal left ureter. There is diverticulosis of the colon without evidence of diverticulitis. The appe ndix is normal. There are no pathologically enlarged lymph nodes. There is no free intraperitoneal fl uid. There is a 12 mm subcutaneous cyst in the epigastric region, likely a sebaceous cyst. There is m ild thoracic and lumbar spondylosis. IMPRESSION: 1. 4 mm stone in proximal left ureter with mild left hydronephrosis. Reviewed, dictated and finalized at location A. TMAKER
--- OUTSIDE RECORDS SUMMARY | 2024-07-01 13:37 | XMS_ITS | Clinical Summary ---
Author Organization [facility] Address [address] [place] [address] Care Team Providers Care Personnel Manager Name Role Phone Corinna Coburn JOURNEYMAN WIREMAN Primary Care Provider + Amanda Pabon MD Unavailable [phone] Allergies No known active allergies Medications DULoxetine DR (CYMBALTA) 60 mg capsule 90 mg daily 60mg & 30mg every day 2 11/23/2018 Active ALPRAZolam (XANAX) 0.25 mg tablet TK 1 T PO QD PRA 09/07/2019 Active rosuvastatin (CRESTOR) 10 mg tablet TAKE 1 TABLET BY MOUTH EVERY DAY AT NIGHT 08/29/2020 Active sertraline (ZOLOFT) 50 mg tablet Take 50 mg by mouth daily 08/22/2020 Active amLODIPine (NORVASC) 5 mg tablet Take 1 tablet (5 mg total) by mouth daily 30 tablet 11 12/27/2020 Active lamoTRIgine (LaMICtal) 100 mg tablet 08/07/2021 Active Active Problems Problem Noted Date Diagnosed Date Essential hypertension 12/14/2019 BERTRAND (obstructive sleep apnea) 12/14/2019 Chest pain 12/14/2019 Migraine without aura and responsive to treatmen t 02/03/2017 Mixed anxiety depressive disorder 08/27/2016 Hyperlipidemia 08/27/2016 Episodic tension-type headache 07/14/2016 Atypical facial pain 07/14/2016 Immunizations Name Administration Dates Next Due DTaP, Unspecified 06/01/2009 Influenza, Trivalent, Preser vative Free, Intramuscular 03/25/2015,07/13/2013,06/29/2013 Surgical History Surgery Date Site/Laterality Comments COLONOSCOPY ABDOMINAL HYSTERECTOMY BREAST BIOPSY 08/20/2021 Left Medical History Medical History Date Comments Personal history of traumatic brain injury History of concussion - 1983 (Added by TW Conv) Personal history of urinary calculi History of kidney stones - (Added by TW Conv) Chronic migraine without aur a without status migrainosus, not intractable Chronic migraine w ithout aura without status migrainosus, not intractable - (Added by TW Conv) Anxiety and depression Hypertension Hyperlipidemia Family History Medical History Relation Name Comments Heart attack Brother Huber Family history of myocardial infarction - (Added by TW Conv) Hypertension Brother Huber Basal cell carcinoma Father Crohn's disease Father Family histo ry of Crohn's disease - (Added by TW Conv) Hypertension Father Family history of hypertension - (Added by TW Conv) Squamous cell carcinoma Father of t ongue Heart attack Maternal Grandfather Family history of myocardial infarction - Relation: Grandfather (Added by TW Conv) Heart attack Mother Family history of myocardial infarction - (Added by TW Conv) Hypertension Mother Family history of hypertension - (Added by TW Conv) Migraines Mother Family history of migraine headaches - (Added by TW Conv) Breast cancer Mother's Sister 1 Flakito Breast cancer Mother's Sister 2 Eloy Breast cancer Mother's Sister 3 Nohemi Breast cancer Other 1 M Great Aunt Breast cancer Other 2 M Great Aunt Esophageal cancer Paternal Grandfather esophageal cancer Paternal Grandfather Leukemia Paternal Grandmother Relation Name Status Comments Brother Huber Alive Father Alive Father's Brother Huber (Age 62) d. hea rt Father's Sister Hernando Alive Maternal Grandfather (Age 55) d heart Maternal Grandmother (Age 34) d. child Mother Alive Mother's Sister 1 Flakito Alive Mother's Sister 2 Eloy Alive Mother's Sister 3 Nohemi Alive Mother's Sister 4 Pauline Alive Other 1 M Great Aunt Other 2 M Great Aunt Paternal Grandfather (Age 80) Paternal Grandmother (Age 95) Social History Tobacco Use Types Packs/Day Years Used Date Smoking Tobacco: Never Smokeless Tobacco: Never AUDIT-C Answer Date Recorded Q1: How often do you have a drink containing alc ohol? 2-4 times a month 01/16/2022 Q2: How many drinks containi ng alcohol do you have on a typical day when you are drinking? 1 or 2 01/16/2022 Q3: How often do you have si x or more drinks on one occasion? 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 Not on file Not on file Not on file Obstetrics History Last Filed Vital Signs Vital Sign Reading Time Taken Comments Blood Pressure 148/98 01/16/2022 12:57 PM CDT hi gh bp Pulse 85 01/16/2022 12:57 PM CDT Temperature 37.1 ??C (98.8 ??F) 01/16/2022 12:57 PM C DT Respiratory Rate 20 01/16/2022 12:57 PM CDT Oxygen Saturation 100% 01/16/2022 12:57 PM CDT Inhaled Oxygen Concentration - - Weight 94.9 kg (209 lb 3.2 oz) 01/16/2022 12:57 PM CDT Height 172.7 cm (5' 8 ) 01/16/2022 12:57 PM CDT Body Mass Index 31.81 01/16/2022 12:57 PM CDT Plan of Treatment Health Maintenance Due Date Last Done Comments Cervical Cancer Screening 1970 Colon Cancer Screening-Colonoscopy 1970 Depression Screening 1970 Hepatitis C Screening 1970 Hepatitis B Screening 1988 Regular Well Visit/Exam 18-64 1988 Zoster Vaccine (1 of 2) 2020 Covid-19 Vaccine (3 - 2023- season) 2024 07/31/2020, 07/03/2020 Influenza Vaccine (#1) 2024 5, 03/25/2015, 07/13/2013, Additional history exists Breast Cancer Screening-Mammogram 09/13/2024 09/14/2023, 09/12/2022, 09/12/2022, Additional history exists DTaP/Tdap/Td Vaccine (3 - Td or Tdap) 06/01/2028 06/01/2018, 06/01/2009 Pneumococcal vaccine <65 Aged Out No longer eligible based on patient's age to complete this topic Procedures Procedure Name Priority Date/Time Associated Diagnosis Comments SCREENING MAMMOGRAM BILATERAL W [place] Schedule Routine, Read Routine (OP Routine) 09/14/2023 1:30 PM CDT Screening mammogram, encounter for from Last 3 Months or Most Recently Relevant to Health Maintenance Results * (ABNORMAL) Screening Mammogram Bilateral W [place] (09/14/2023 1:30 PM CDT) Anatomical Region Laterality Modality Breast Bilateral Mammography Narrative 09/14/2023 1:40 PM CDT Examination: Screening Mammogram Bilateral W [place]: 09/14/23 Clinical: Screening mammogram, encounter for. Prior Study Comparisons: Comparison was made to the prior available relevant studies at the time of interpretation. Findings: Screening Mammogram Bilateral W [place] Left 1) Asymmetry: There is an asymmetry seen in the outer region of the left breast on the CC view. Right No significant masses, malignant type calcifications, skin thickening, nipple retraction, or significant lymphadenopathy is noted in this breast. The CAD review showed no significant findings. The breasts are heterogeneously dense, which may obscure small masses. The patient will be notified of results by letter. Impression: BI-RADS?? ATLAS category (overall): 0 - Incomplete: Needs Additional Imaging Evaluation ?? Additional Mammography views with possible ultrasound is recommended. Overall Assessment: 0 - Incomplete: Needs Additional Imaging Evaluation us Self Screening Mammogram IMG MAMMO PROCEDURES Fi nal Result from Last 3 Months or Most Recently Relevant to Health Maintenance [place] [address] [facility] [id number] [place] [address] Member Subscriber Plan / Payer ( fective 2021-Present) Name:Zahira Mark Relation to Subscriber:Spouse Name:OMEGA MARK Date of :1972 (Home) Address: [place] [address] Payer ID:[id number] Group ID:[id number] Type:COMMERCIAL Address: [address] [place] [address] [facility] Member Subscriber Plan / Payer ( fective 2021-Present) Name:Zahira Mark Relation to Subscriber:Spouse Name:OMEGA MARK Date of :1972 (Home) Address: [place] [address] Payer ID:[id number] Group ID:[id number] Type:MANAGED CARE OTHER Address: [address] [place] [address] Care Teams Personnel Manager Relationship Specialty Start Date End Date Corinna Coburn NP [address] [place] [address] [place] [address] PCP - General Nurse Practitioner 11/14/19 Amanda Pabon MD [address] [place] [address] Medical Oncologist/Hematologis t Hematology and Oncology 09/12/21
--- OUTSIDE RECORDS SUMMARY | 2024-07-01 13:37 | XMS_ITS | Referral Summary ---
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 Not on file Not on file Not on file Last Filed Vital Signs Vital Sign Reading [...] 01/16/2022 12:57 PM CDT Plan of Treatment Not on file Procedures Procedure Name Priority Date/Time Associated Diagnosis [...] Most Recently Relevant to [place] [address] [place] [id number] [place] Member Subscriber Plan / Payer (Ef fective 2021-Present) Name:Zahira Mark Relation to Subscriber:Spouse Name:OMEGA MARK Date of :1972 (Home) Address: [address] [place], [place] [address] [address] Payer ID:[id number] Group ID:[id number] Type:COMMERCIAL Address: [id number] [place] [id number] [place] [address] [facility] Member Subscriber Plan / Payer (Ef fective 2021-Present) Name:Zahira Mark Relation to Subscriber:Spouse Name:JASOMEGA Gloria Date of :1972 (Home) Address: [address] [place], [place] [address] [address] Payer ID:[id number] Group ID:[id number] Type:MANAGED CARE OTHER Address: [id number] [place] [address] Care Teams Nanofabrication Specialist Relationship Specialty Start Date End Date Corinna Coburn NP [address] [facility] [place] [address] PCP - General Nurse Practitioner 11/14/19 Amanda Pabon MD [address] [place] [address] Medical Oncologist/Hematologis t Hematology and Oncology 09/12/21
--- OUTSIDE RECORDS SUMMARY | 2024-07-01 13:37 | XMS_ITS | Data Portability ---
Author Organization [facility] [address], Main Office Address [address] [place] [address] Care Team Providers Care E Commerce Architect Name Role Phone KARTIK ADHIKARI Primary Care Provider Assessment No assessment recorded. Plan of Treatment Reminders Order Date Submit Date Provider Last Modified By Organization Details Last Modified Time Details Appointments None recorded. Lab glycohemogl obin, total, blood [address] (Lab), [address] [place], [address], 4 08:13:44 glycohemogl obin, total, blood [address] (Lab), [address] [place], [address], 4 08:08:12 CBC w/ auto diff 2023 024 [facility] (Lab), [address] [place], [address], 4 20:34:02 iron + total iron-bindin g capacity (TIBC), serum [address] (Lab), [address] [place], [address], 4 08:13:38 Referral None recorded. Procedures colonoscopy screening (PROC) 2023 024 [facility] (Pre-Screen), [address] [place], [address], 4 13:22:18 upper endoscopy procedure (EGD) (PROC) 2023 024 [facility] (Pre-Screen), [address] [place], [address], 4 13:21:58 Surgeries None recorded. Imaging [place], modified barium swallow study [email or web address] ([facility] Sched[facility]), [address] [place], [address], 4 08:16:59 Medication Orders Ozempic 0.25 mg or 0.5 mg (2 mg/3 mL) subcutaneou s pen injector 2023 [id number] [address] [place], [address], 4 12:39:01 Golytely 236 gram-22.74 gram-6.74 gram-5.86 gram oral solution [address] [facility]/Pharmacy #3259, [address] [place], [address], 4 11:49:36 losartan 50 mg tablet 2023 024 [facility]/Pharmacy #3259, [address] [place], [address], 4 12:03:36 amlodipine 5 mg tablet 2023 024 [facility]/Pharmacy #3259, [address] [place], [address], 4 12:03:37 rosuvastati n 10 mg tablet 2023 024 [facility]/Pharmacy #3259, [address] [place], [address], 4 12:03:39 Macrobid 100 mg capsule [address] [facility]/Pharmacy #3259, [address] [place], [address], 15:38:03 Patient TargetsNo targets recorded. Patient Instructions Encounter Date Encounter Id Patient Instructions Last Modified By Organization Details Last Modified Time 11/18/2023 [id number] GOLYTELY/ REFLUX DIET [email or web address] Not available 11/18/2023 15:37:53 PT NEEDS A SCREENING COLON . R/O POLYP . RECOMMEND A COLONOSOPY. PT WITH DYSPHAGIA. R/O H. PYLORI/ STRICTURE / MOTILITY D/O . RECOMMEND EGD /MBS. RISKS BENEFITS AND COMPLICATIONS WERE EXPLAINED TO PT . ( BLEEDING , PERFORATION , INFECTION , ) PT VERBALIZES UNDERSTANDING AND IS WILLING TO PROCEDE . [email or web address] Not available 11/18/2023 15:38:38 Reason for Referral None Reported. Results Created Date Observation Date Name Description Value Unit Range Abnormal Flag Note LastModifiedBy Organization Detail LastModifiedTime 09/14/1909/14/2023 adilson ACOSTA, sherry al, bilat eral No observ ation record ed. [place] [address] , [place], [address], 09/17/2023 08:38:45 10/05/19 24 10/05/2023 adilson ACOSTA, bilat eral No observ ation record ed. [email or web address], [place], [address], 11/24/2023 11:14:27 10/05/19 24 10/05/2023 adilson ACOSTA bilat eral No observ ation record ed. [address] , [place], [address], 11/24/2023 11:14:37 03/24/20 24 03/24/2024 XR, chest , 2 view No observ ation record ed. [facility] [address], [place], [address], 03/25/2024 09:05:55 05/09/20 24 05/08/2024 CT, abdom en + pelvi s, w/ contr ast No observ ation record ed. [facility] [address], [place], [address], 05/10/2024 11:10:56 Result Notes None recorded. Problems Name Problem SNOMED Code Status Onset Date Resolution Date Notes Provider Name and Address Organization Details Recorded Time Excessive cerumen in ear canal 517813648 Active Not Available [facility] 3 07:31:35 Abscess 362049204 Active 2016 Not Available [facility] 3 07:31:35 Otalgia 84783559 Active 2016 Not Available [facility] 3 07:31:36 Family history of Rheumatoid arthritis 223738579 Active 2017 Not Available [facility] 3 07:31:36 Mammograph y abnormal 209757506 Active 2021 Not Available [facility] 3 07:31:36 Mood swings 77235329 Active 2020 Not Available [facility] 3 07:31:36 Feeling stressed 121746109 Active Not Available [facility] 3 07:31:36 Screening mammograph y Active 2021 Not Available [facility] 3 07:31:36 Knee pain Active Not Available [facility] 3 07:31:36 Depressive disorder 13940893 Active Not Available [facility] 3 07:31:36 Elevated blood-pres sure reading without diagnosis of hypertensi on 191598020 Active Not Available [facility] 3 07:31:36 Screening for malignant neoplasm of colon done 6771069408769 01 Active 2020 Not Available [facility] 3 07:31:36 Anxiety 32220743 Active Not Available [facility] 3 07:31:37 Hyperlipid emia 16998043 Active Not Available [facility] 3 07:31:37 Joint pain 29748316 Active 2017 Not Available [facility] 3 07:31:37 Diarrhea 91313725 Active Not Available [facility] 3 07:31:37 Snoring 85262253 Active 2016 Not Available [facility] 3 07:31:37 Stress 13299525 Active Not Available [facility] 3 07:31:37 Posterior rhinorrhea 63196889 Active Not Available [facility] 3 07:31:37 Obstructiv e sleep apnea syndrome 39503887 Active 2017 Not Available [facility] 3 07:31:37 Neck pain 79583897 Active 2016 Not Available [facility] 3 07:31:37 Fatigue 32381028 Active 2016 Not Available [facility] 3 07:31:38 Lesion of scalp 080596789004 Active Not Available [facility] 3 07:31:38 Disorder of the nose 43436106 Active Not Available [facility] 3 07:31:38 Skin lesion 74288663 Active Not Available [facility] 3 07:31:38 Essential hypertensi on 80510763 Active 2022 Corinna Coburn NP [address], [place], [address] , [employer] 3 12:07:44 Difficulty swallowing 658575290 Active 2022 Corinna Coburn NP [address], [place], [address] , [employer] 3 12:08:24 Mass of neck 876405724 Active 2022 Corinna Coburn NP [address], [place], [address] , [employer] 3 12:48:07 Obesity 611687317 Active 2023 LENNY Weiss [address], [place], [address] , [place] [facility] 4 11:04:29 Dry eyes 603205690 Active 2023 LENNY Weiss [address], [place], [address] , [place] [facility] 4 11:06:44 Feeling of lump in throat 461269416 Active 2023 LENNY Weiss [address], [place], [address] , [place] [facility] [facility] 4 11:13:12 Deviated nasal septum 641964749 Active 2023 Dmitri Tran MD [address], [place], [address] , [place] [facility] 4 16:37:16 Hypertroph y of nasal turbinates 70732825 Active 2023 Dmitri Tran MD [address], [place], [address] , [place] [facility] 4 16:37:30 Chronic maxillary sinusitis 38783989 Active 2023 Dmitri Tran MD [address], [place], [address] , [place] [facility] 4 16:37:48 Dysphagia 09828595 Active 2023 Dmitri Tran MD [address], [place], [address] , [place] [facility] 4 16:41:54 Acute sinusitis 74985802 Active 2023 Dmitri Tran MD [address], [place], [address] , [place] [facility] 4 16:43:25 Prediabete s 332992370 Active 2023 LENNY Weiss [address] [facility], [place], [address] , [facility] [employer] [facility] 4 14:28:35 Esophageal dysphagia 82226197 Active 2023 Marie Hoskins MD [address], [place], [address] , [facility] [employer] [facility] 4 15:37:33 Orthostati c hypotensio n 85552088 Active [address] 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 [address], [place], [address] , [facility] [employer] [facility] [employer] [facility] 5 15:37:26 Problem Notes None recorded. Procedures Surgical History Date Name Laterality Status Provider Name and Address Organization Details Recorded Time 09/14/19 24 Most Recent Mammogram completed Corinna Sotelo RN [facility] [employer] [facility] 03/03/2024 11:53:52 06/01/19 18 Date of Last Colonoscopy completed Not Available [facility] 07/30/2022 07:27:15 Hysterectomy, Partial completed Not Available [facility] 07/30/2022 07:27:16 biopsy of breast completed Not Available [facility] 07/30/2022 07:27:16 Imaging Results Imaging Date Name Status LastModified by [facility] Details LastModified Time 09/14/2023 MAMMO, screening, digital, bilateral completed [email or web address] [address], [place], [address], 09/17/2023 08:38:45 10/05/2023 MAMMO, screening, bilateral completed [email or web address] [facility] [address] , [place], [address], 11/24/2023 11:14:27 10/05/2023 MAMMO, screening, bilateral completed [email or web address] [facility] [address], [place], [address], 11/24/2023 11:14:37 03/24/2024 XR, chest, [address], [place], [address], 03/25/2024 09:05:55 05/08/2024 CT, abdomen + pelvis, w/ contrast completed [address], [place], [address], 05/10/2024 11:10:56 Procedure Notes None recorded. Medical Equipment None Reported. Allergies No known drug allergies Medications Name Sig Start Date Stop Date Status Note LastModified by Organization Details LastModified Time Prescripti on - Prior Authorizat ion Request active Not Available Not Available Not Available losartan 50 mg tablet Take 1 tablet every day by oral route for 90 days. active Not Available Not Available No t Available cyclobenza abeba 10 mg tablet Take 1 tablet 3 times a day by oral route as needed. active Not Available Not Available No t Available amoxicilli n 500 mg capsule Take 1 capsule every 12 hours by oral route. active Not Available Not Available No t Available medroxypro gesterone 10 mg tablet 08/25 completed Not Available Not Available Not Available venlafaxin e ER 37.5 mg capsule,ex tended release 24 hr TAKE 1 CAPSULE BY MOUTH EVERY MORNING 01/02 completed Not Available Not Available Not Available venlafaxin e ER 75 mg capsule,ex tended release 24 hr TAKE 1 CAPSULE BY MOUTH IN THE MORNING ONCE A DAY FOR 90 DAYS active Not Available Not Available No t Available doxycyclin e hyclate 100 mg capsule active Not Available Not Available Not Available carvedilol 12.5 mg tablet TK 1 T PO BID 01/27 completed Not Available Not Available Not Available cetirizine 10 mg tablet TK 1 T PO D 02/10 completed Not Available Not Available Not Available atorvastat in 10 mg tablet take one tablet daily 08/30 completed Not Available Not Available Not Available ibuprofen 800 mg tablet active Not Available Not Available Not Available ofloxacin 0.3 % eye drops INSTILL 1 DROP IN RIGHT EYE FOUR TIMES DAILY AFTER SURGERY FOR 7 DAYS 09/02 completed Not Available Not Available Not Available fluconazol e 150 mg tablet TAKE 1 TABLET BY MOUTH ONCE DIRECTED 01/27 completed Not Available Not Available Not Available sumatripta n 100 mg tablet TK 1 T PO AOS OF HEADACHE . MAY REPEAT 1 TIME AFTER 2 H NEEDED. DO NOT EXCEED 2 T IN 24 H 08/08 completed Not Available Not Available Not Available hydrocodon e 5 mg-acetami nophen 325 mg tablet Take 1 tablet every 6-8 hours by oral route as needed for 7 days. 08/25 completed Not Available Not Available Not Available meloxicam 15 mg tablet Take 1 tablet every day by oral route. active Not Available Not Available No t Available atovaquone 250 mg-proguan il 100 mg tablet active Not Available Not Available Not Available dextroamph etamine-am phetamine 10 mg tablet TAKE 1 TABLET BY MOUTH TWICE DAILY 01/27 completed Not Available Not Available Not Available rizatripta n 10 mg tablet 08/24 completed Not Available Not Available Not Available sumatripta n 50 mg tablet 02/10 completed Not Available Not Available Not Available topiramate 25 mg tablet TAKE 1 TABLET BY MOUTH ONCE DAILY ALONG WITH 100 MG TABLET. 08/24 completed Not Available Not Available Not Available meclizine 12.5 mg tablet TK 1 T PO TID PRF DIZZINES S 02/10 completed Not Available Not Available Not Available metronidaz ole 500 mg tablet 06/03 completed Not Available Not Available Not Available acetaminop hen 300 mg-codeine 30 mg tablet 12/08 completed Not Available Not Available Not Available amlodipine 5 mg tablet TAKE 1 TABLET BY MOUTH EVERY DAY active Not Available Not Available No t Available ciprofloxa rah 500 mg tablet Take 1 tablet every 12 hours by oral route for 5 days. 06/03 completed Not Available Not Available Not Available peg-electr olyte solution 420 gram oral solution 01/27 completed Not Available Not Available Not Available omeprazole 40 mg capsule,de layed release Take 1 capsule every day by oral route for 30 days. 08/30 completed Not Available Not Available Not Available aspirin 81 mg tablet,del ayed release TK 1 T PO D 08/08 completed Not Available Not Available Not Available tramadol 50 mg tablet 12/08 completed Not Available Not Available Not Available acyclovir 800 mg tablet TAKE 1 TABLET BY MOUTH TWICE DAILY X7 DAYS 10/11 completed Not Available Not Available Not Available lamotrigin e 25 mg tablet TAKE 1 TABLET BY MOUTH EVERY NIGHT AT BEDTIME FOR 2 WEEKS. INCREASE TO 2 TABLETS AT BEDTIME 01/27 completed Not Available Not Available Not Available oxycodone- acetaminop hen 5 mg-325 mg tablet active Not Available Not Available Not Available ceftriaxon e 1 gram solution for injection Take 1 g by injectio n route. 08/25 completed Not Available Not Available Not Available alprazolam 0.25 mg tablet TAKE 1 TABLET BY MOUTH EVERY DAY NEEDED FOR ANXIETY active Not Available Not Available No t Available prednisolo ne acetate 1 % eye drops,susp ension SHAKE LIQUID AND INSTILL 1 DROP IN RIGHT EYE THREE TIMES DAILY FOR 14 DAYS AFTER SURGERY 10/11 completed Not Available Not Available Not Available topiramate 25 mg sprinkle capsule 08/08 completed Not Available Not Available Not Available ropinirole 0.25 mg tablet TK 1 T PO QHS 11/04 completed Not Available Not Available Not Available cephalexin 500 mg capsule TAKE 1 CAPSULE BY MOUTH EVERY 6 HOURS 06/03 completed Not Available Not Available Not Available pantoprazo le 40 mg tablet,del ayed release TAKE 1 TABLET BY MOUTH ONCE A DAY FOR ACID REFLUX 30 MIN BEFORE BREAKFAS T active Not Available Not Available No t Available simvastati n 20 mg tablet 1 tab po nightly. 02/10 completed Not Available Not Available Not Available ferrous sulfate 325 mg (65 mg iron) tablet TAKE 1 T PO D 02/10 completed Not Available Not Available Not Available buspirone 10 mg tablet active Not Available Not Available Not Available clotrimazo le-betamet hasone 1 %-0.05 % topical cream 01/27 completed Not Available Not Available Not Available dextroamph etamine-am phetamine 15 mg tablet TAKE 1 TABLET BY MOUTH TWICE DAILY 01/27 completed Not Available Not Available Not Available diclofenac sodium 75 mg tablet,del ayed release TK 1 T PO BID WITH FOOD 12/08 completed Not Available Not Available Not Available folic acid 1 mg tablet TAKE 1 TABLET BY MOUTH EVERY DAY 01/27 completed Not Available Not Available Not Available desonide 0.05 % lotion active Not Available Not Available Not Available ibuprofen 600 mg tablet Take 1 tablet every 8 hours by oral route as needed for 7 days. active Not Available Not Available No t Available methylpred nisolone 4 mg tablets in a dose pack FPD 08/08 completed Not Available Not Available Not Available Vitamin D2 1,250 mcg (50,000 unit) capsule Take 1 capsule every week by oral route. 08/08 completed Not Available Not Available Not Available topiramate 100 mg tablet TAKE 1 TABLET PO DAILY WITH THE 25 MG TABLET 01/27 completed Not Available Not Available Not Available fluticason e propionate 50 mcg/actuat ion nasal spray,susp ension active Not Available Not Available Not Available sertraline 50 mg tablet TAKE 1 TABLET BY MOUTH EVERY DAY FOR 90 DAYS active Not Available Not Available No t Available lamotrigin e 100 mg tablet TAKE 1 TABLET BY MOUTH EVERY DAY active Not Available Not Available No t Available amoxicilli n 875 mg-potassi um clavulanat e 125 mg tablet 07/06 completed Not Available Not Available Not Available buspirone 15 mg tablet TK 1 T PO BID 11/04 completed Not Available Not Available Not Available Bactrim DS 800 mg-160 mg tablet Take 1 tablet every 12 hours by oral route for 4 days. 08/25 completed Not Available Not Available Not Available azithromyc in 500 mg tablet Take 1 tablet every day by oral route for 3 days. 06/03 completed Not Available Not Available Not Available escitalopr am 10 mg tablet TK 1 T PO QD 08/25 completed Not Available Not Available Not Available escitalopr am 20 mg tablet active Not Available Not Available Not Available atomoxetin e 25 mg capsule 03/03 completed Not Available Not Available Not Available atomoxetin e 40 mg capsule TAKE 1 CAPSULE BY MOUTH EVERY DAY IN THE MORNING 03/17 completed Not Available Not Available Not Available moxifloxac in 0.5 % eye drops INSTILL 1 DROP IN RIGHT EYE ONCE EVERY DAY 09/02 completed Not Available Not Available Not Available rosuvastat in 5 mg tablet TK 1 T PO QD 12/08 completed not taking recentl y- went off after hystere ctomy. Not Available Not Available Not Available rosuvastat in 10 mg tablet TAKE 1 TABLET BY MOUTH EVERY NIGHT active Not Available Not Available No t Available rosuvastat in 40 mg tablet 1 tab po nightly 08/08 completed Not Available Not Available Not Available bupropion HCl XL 150 mg 24 hr tablet, extended release TK 1 T PO QAM 12/08 completed Not Available Not Available Not Available escitalopr am 5 mg tablet 08/25 completed Not Available Not Available Not Available nitrofuran toin monohydrat e/macrocry stals 100 mg capsule Take 1 capsule every 12 hours by oral route for 10 days. active Not Available Not Available No t Available duloxetine 30 mg capsule,de layed release TAKE 1 CAPSULE BY MOUTH EVERY DAY 09/02 completed Not Available Not Available Not Available duloxetine 60 mg capsule,de layed release TAKE 1 CAPSULE BY MOUTH EVERY DAY 01/02 completed Not Available Not Available Not Available Flovent HFA 220 mcg/actuat ion aerosol inhaler active Not Available Not Available Not Available multivitam in 2 gummies daily 08/30 completed Not Available Not Available Not Available atomoxetin e 80 mg capsule TAKE 1 CAPSULE BY MOUTH DAILY IN THE MORNING FOR 90 DAYS active Not Available Not Available No t Available Fish Oil 1,000 mg capsule 2 DAILY 08/30 completed Not Available Not Available Not Available Vyvanse 30 mg capsule TAKE 1 CAPSULE BY MOUTH EVERY MORNING 01/27 completed Not Available Not Available Not Available Besivance 0.6 % eye drops,susp ension INSTILL 1 DROP IN AFFECTED EYE(S) EVERY 2 HOURS WHILE AWAKE 09/02 completed Not Available Not Available Not Available GaviLyte-G 236 gram-22.74 gram-6.74 gram-5.86 gram oral solution DIRECTED 03/03 completed Not Available Not Available Not Available Lo Loestrin Fe 1 mg-10 mcg (24)/10 mcg (2) tablet Take 1 tablet every day by oral route as directed . 08/30 completed Not Available Not Available Not Available Dialyvite Vitamin D3 Max 1,250 mcg (50,000 unit) tablet TK ONE T PO EVERY WEEK 02/10 completed Not Available Not Available Not Available Trulicity 0.75 mg/0.5 mL subcutaneo us pen injector Inject by subcutan eous route for 28 days. 12/06 completed Not Available Not Available Not Available Fluvirin 9419-5592 45 mcg (15 mcg x 3)/0.5 mL intramuscu lar suspension active Not Available Not Available N ot Available Xiidra 5 % eye drops in a dropperett e INSTILL 1 DROP INTO BOTH EYES TWICE A DAY active Not Available Not Available No t Available Qelbree 200 mg capsule,ex tended release TAKE 2 CAPSULES BY MOUTH DAILY 03/03 completed Not Available Not Available Not Available Ozempic 0.25 mg or 0.5 mg (2 mg/3 mL) subcutaneo us pen injector Inject by subcutan eous route for 28 days. 12/06 completed Not Available Not Available Not Available Zepbound 10 mg/0.5 mL subcutaneo us pen injector INJECT 10 MG EVERY WEEK BY SUBCUTAN EOUS ROUTE DIRECTED FOR 28 DAYS. active Not Available Not Available No t Available Zepbound 5 mg/0.5 mL subcutaneo us pen injector INJECT 5 MG EVERY WEEK BY SUBCUTAN EOUS ROUTE DIRECTED FOR 28 DAYS. 03/03 completed Not Available Not Available Not Available Zepbound 2.5 mg/0.5 mL subcutaneo us pen injector INJECT 2.5 MG EVERY WEEK BY SUBCUTAN EOUS ROUTE DIRECTED FOR 28 DAYS. 03/03 completed Not Available Not Available Not Available Zepbound 12.5 mg/0.5 mL subcutaneo us pen injector INJECT 12.5 MG EVERY WEEK BY SUBCUTAN EOUS ROUTE DIRECTED FOR 28 DAYS. active Not Available Not Available No t Available Zepbound 7.5 mg/0.5 mL subcutaneo us pen injector Inject 7.5 mg every week by subcutan eous route as directed for 28 days. active Not Available Not Available No t Available Vitals Date Recorded Body height Provider Name an d Address Organization Details Last Updated DateTime 10/12/2023 172.72 cm Corinna Sotelo RN [facility] [employer] [facility] 10/12/2023 14:05:41 Date Recorded Body mass index (BMI) Body weight Provider Name and Address Organization Details Last Updated DateTime 10/12/2023 32.7 kg/m2 34097.36 g Corinna Sotelo RN [facility] [employer] [facility] 10/12/2023 14:05:50 Date Recorded Body temperature Provider Name a nd Address Organization Details Last Updated DateTime 10/12/2023 95.9 [degF] Corinna Sotelo RN [facility] [employer] [facility] 10/12/2023 14:08:14 Date Recorded Heart rate Provider Name an d Address Organization Details Last Updated DateTime 10/12/2023 113 /min Corinna Sotelo RN [facility] [employer] [facility] 10/12/2023 14:08:22 Date Recorded Respiratory rate Provider Name a nd Address Organization Details Last Updated DateTime 10/12/2023 20 /min Corinna Sotelo RN [facility] [employer] [facility] 10/12/2023 14:08:27 Date Recorded Oxygen saturation Oxygen saturation in Arterial blood by Pulse oximetry Provider Name and Address Organization Details Last Updated DateTime 10/12/2023 98 % 98 % Corinna Sotelo RN [facility] [employer] [facility] 10/12/2023 14:08:32 Date Recorded Pain severity - 0-10 verbal numeric rating [Score] - Reported Provider Name and Address Organization Details Last Updated DateTime 10/12/2023 0 Corinna Sotelo RN [facility] [employer] [facility] 10/12/2023 14:08:37 Date Recorded Body height Provider Name an d Address Organization Details Last Updated DateTime 11/18/2023 172.72 cm Sudha French [place] [employer] [facility] [employer] [facility] 11/18/2023 15:30:36 Date Recorded Body mass index (BMI) Provider Name and Address Organization Details Last Updated DateTime 11/18/2023 32.7 kg/m2 Sudha French [place] [employer] [facility] [employer] [facility] 11/18/2023 15:30:39 Date Recorded Body weight Provider Name an d Address Organization Details Last Updated DateTime 11/18/2023 92606.36 g Sudha French [facility] [employer] [facility] [employer] [facility] 11/18/2023 15:30:40 Date Recorded Heart rate Provider Name an d Address Organization Details Last Updated DateTime 11/18/2023 105 /min Sudha French [facility] [employer] [facility] [employer] [facility] 11/18/2023 15:30:47 Date Recorded Oxygen saturation Oxygen saturation in Arterial blood by Pulse oximetry Provider Name and Address Organization Details Last Updated DateTime 11/18/2023 99 % 99 % Sudha French [facility] [employer] [facility] 11/18/2023 15:30:50 Date Recorded Body height Provider Name an d Address Organization Details Last Updated DateTime 03/03/2024 172.72 cm Corinna Sotelo RN [facility] [employer] [facility] 03/03/2024 11:48:41 Date Recorded Body mass index (BMI) Body weight Provider Name and Address Organization Details Last Updated DateTime 03/03/2024 30.1 kg/m2 74855.29 g Corinna Sotelo RN [facility] [employer] [facility] 03/03/2024 11:48:46 Date Recorded Body temperature Provider Name a nd Address Organization Details Last Updated DateTime 03/03/2024 97.3 [degF] Corinna Sotelo RN [facility] [employer] [facility] 03/03/2024 11:51:08 Date Recorded Heart rate Provider Name an d Address Organization Details Last Updated DateTime 03/03/2024 89 /min Cornina Sotelo RN [facility] [employer] [facility] 03/03/2024 11:51:42 Date Recorded Respiratory rate Provider Name a nd Address Organization Details Last Updated DateTime 03/03/2024 20 /min Corinna Sotelo RN [facility] [employer] [facility] 03/03/2024 11:51:44 Date Recorded Oxygen saturation Oxygen saturation in Arterial blood by Pulse oximetry Provider Name and Address Organization Details Last Updated DateTime 03/03/2024 97 % 97 % Corinna Sotelo RN [facility] [employer] [facility] 03/03/2024 11:51:52 Date Recorded Pain severity - 0-10 verbal numeric rating [Score] - Reported Provider Name and Address Organization Details Last Updated DateTime 03/03/2024 0 Corinna Sotelo RN [facility] [employer] [facility] 03/03/2024 11:51:56 Date Recorded Body height Provider Name an d Address Organization Details Last Updated DateTime 03/17/2024 172.72 cm Corinna Sotelo RN [facility] [employer] [facility] 03/17/2024 09:47:03 Date Recorded Body mass index (BMI) Body weight Provider Name and Address Organization Details Last Updated DateTime 03/17/2024 28.4 kg/m2 60450.33 g Corinna Sotelo RN [facility] [employer] [facility] 03/17/2024 09:47:09 Date Recorded Body temperature Provider Name a nd Address Organization Details Last Updated DateTime 03/17/2024 96.8 [degF] Corinna Sotelo RN [facility] [employer] [facility] 03/17/2024 09:48:41 Date Recorded Heart rate Provider Name an d Address Organization Details Last Updated DateTime 03/17/2024 95 /min Corinna Sotelo RN [facility] [employer] [facility] 03/17/2024 09:48:50 Date Recorded Respiratory rate Provider Name a nd Address Organization Details Last Updated DateTime 03/17/2024 20 /min Corinna Sotelo RN [facility] [employer] [facility] 03/17/2024 09:48:55 Date Recorded Oxygen saturation Oxygen saturation in Arterial blood by Pulse oximetry Provider Name and Address Organization Details Last Updated DateTime 03/17/2024 99 % 99 % Corinna Sotelo RN [facility] [employer] [facility] 03/17/2024 09:49:02 Date Recorded Pain severity - 0-10 verbal numeric rating [Score] - Reported Provider Name and Address Organization Details Last Updated DateTime 03/17/2024 2 Corinna Sotelo RN [facility] [employer] [facility] 03/17/2024 09:49:13 Date Recorded Body height Provider Name an d Address Organization Details Last Updated DateTime 06/03/2024 172.72 cm Corinna Sotelo RN [facility] [employer] [facility] 06/03/2024 15:27:40 Date Recorded Body mass index (BMI) Body weight Provider Name and Address Organization Details Last Updated DateTime 06/03/2024 26.9 kg/m2 01732.2 g Corinna Sotelo RN [facility] [employer] [facility] 06/03/2024 15:27:46 Date Recorded Body temperature Provider Name a nd Address Organization Details Last Updated DateTime 06/03/2024 97.2 [degF] Corinna Sotelo RN [facility] [employer] [facility] 06/03/2024 15:29:18 Date Recorded Heart rate Provider Name an d Address Organization Details Last Updated DateTime 06/03/2024 99 /min Corinna Sotleo RN [facility] [employer] [facility] 06/03/2024 15:29:26 Date Recorded Respiratory rate Provider Name a nd Address Organization Details Last Updated DateTime 06/03/2024 20 /min Corinna Sotelo RN [facility] [employer] [facility] 06/03/2024 15:29:30 Date Recorded Oxygen saturation Oxygen saturation in Arterial blood by Pulse oximetry Provider Name and Address Organization Details Last Updated DateTime 06/03/2024 97 % 97 % Corinna Sotelo RN [facility] [employer] [facility] 06/03/2024 15:29:33 Date Recorded Pain severity - 0-10 verbal numeric rating [Score] - Reported Provider Name and Address Organization Details Last Updated DateTime 06/03/2024 2 Corinna Sotelo RN [facility] [employer] [facility] 06/03/2024 15:30:33 Date Recorded Systolic blood pressure Diastolic blood pressure Provider Name and Address Organization Details Last Updated DateTime 10/12/2023 138 mm[Hg] 84 mm[Hg] Corinna Sotelo RN [facility] [employer] [facility] 10/12/2023 14:09:59 Date Recorded Systolic blood pressure Diastolic blood pressure Provider Name and Address Organization Details Last Updated DateTime 11/18/2023 134 mm[Hg] 80 mm[Hg] YOSELIN Rao [facility] [employer] [facility] 11/18/2023 15:30:44 Date Recorded Systolic blood pressure Diastolic blood pressure Provider Name and Address Organization Details Last Updated DateTime 03/03/2024 126 mm[Hg] 84 mm[Hg] Corinna Sotelo RN [facility] [employer] [facility] 03/03/2024 11:52:59 Date Recorded Systolic blood pressure Diastolic blood pressure Provider Name and Address Organization Details Last Updated DateTime 03/17/2024 130 mm[Hg] 90 mm[Hg] Corinna Sotelo RN [facility] 03/17/2024 09:50:15 Date Recorded Systolic blood pressure Diastolic blood pressure Provider Name and Address Organization Details Last Updated DateTime 06/03/2024 130 mm[Hg] 90 mm[Hg] Corinna Sotelo RN [facility] [employer] 06/03/2024 15:31:41 Social History Question Answer Notes LastModified by Organizat ion Details LastModified Time Tobacco Smoking Status Never Smoker Not Available [employer] 07/30/2022 07:26:56 Do You Have An Advance Directive? No Information not available 01/02/2023 What Is Your Level Of Alcohol Consumption? Occasional [id number] Information not available 07/30/2022 Is Blood Transfusion Acceptable In An Emergency? Yes Information not available 01/02/2023 What Is Your Level Of Caffeine Consumption? Moderate MIGRATION.[id number] Information not available 07/30/2022 What Is Your Code Status? Full Code Information not available 01/02/2023 In The 14 Days Before Symptom Onset, Have You Had Close Contact With A Laboratory-confir med COVID-19 While That Case Was Ill? No MIGRATION.[id number] Information not available 07/30/2022 In The 14 Days Before Symptom Onset, Have You Had Close Contact With A Person Who Is Under Investigation For COVID-19 While That Person Was Ill? No MIGRATION.[id number] Information not available 07/30/2022 Are You Currently Employed? Yes Information not available 10/12/2023 What Type Of Diet Are You Following? REGULAR MIGRATION.[id number] [id number] Information not available 07/30/2022 What Is The Highest Grade Or Level Of School You Have Completed Or The Highest Degree You Have Received? 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 No MIGRATION.19439 61197 Information not available 07/30/2022 Do You Use Insect Repellent Routinely? No MIGRATION.67331 54305 Information not available 07/30/2022 Where Do You Live? [place]House MIGRATION.61170 85928 Information not available 07/30/2022 Do You Have A Medical Power Of Blood Bank Attendant? No Information not available 01/02/2023 How Many Children Do You Have? 2 Information not available 03/03/2024 Do You Have Any Pets? Yes MIGRATION.12191 75253 Information not available 07/30/2022 What Is Your Relationship Status? MIGRATION.69036 41220 Information not available 07/30/2022 Do You Use Your Seat Belt Or Car Seat Routinely? Yes Information not available 01/02/2023 Do You Have Smoke And Carbon Monoxide Detectors In Your Home? Yes MIGRATION.54741 77802 Information not available 07/30/2022 Are You Passively Exposed To Smoke? No MIGRATION.67294 62868 Information not available 07/30/2022 Are There Any Smokers In Your House? No MIGRATION.75840 01123 Information not available 07/30/2022 Do You Participate In Social Media? Yes MIGRATION.69358 15533 Information not available 07/30/2022 Do You Feel Stressed (tense, Restless, Nervous, Or Anxious, Or Unable To Sleep At Night)? [id number] MIGRATION.24840 61419 Information not available 07/30/2022 Do You Use Sunscreen Routinely? Yes MIGRATION.13375 97632 Information not available 07/30/2022 Have You Recently Traveled Abroad? No Information not available 01/02/2023 Are You Currently In School? No MIGRATION.82205 72116 Information not available 07/30/2022 Do You Have Any Dietary Restrictions? No MIGRATION.26215 04464 Information not available 07/30/2022 Sex: Female Functional Status Question Answer Note LastModified by Organizat ion Details LastModified Time What is your exercise level? None [id number] Information not available 07/30/2022 Mental Status None recorded. Family History Relationship Description Onset Age of this Age Resolved Age Notes LastModified by Organization Details LastModified Time Father Hyperlipidem ia [email or web address] Not available 03/03 11:38:17 Father Essential hypertension [email or web address] Not available 11:38:17 Father Tongue carcinoma [email or web address] Not available 03/03 11:38:17 Father Crohn's disease [email or web address] Not available 03/03 11:38:17 Maternal Uncle Hyperlipidem ia [email or web address] Not available 03/03 11:38:17 Brother Hyperlipidem ia [email or web address] Not available 03/03 11:38:17 Brother Essential hypertension [email or web address] Not available 11:38:18 Brother Seasonal allergy [email or web address] Not available 03/03 11:38:18 Brother Myocardial infarction [id number].[id number] Not available 07/30/2022 07:27:18 Brother Asthma MIGRATION.[id number] Not available 07/30/2022 07:27:18 Mother Essential hypertension [email or web address] Not available 11:38:18 Mother Rheumatoid arthritis [email or web address] Not available 03/03 11:38:18 Mother Seasonal allergy [email or web address] Not available 03/03 11:38:18 Mother Myocardial infarction MIGRATION.[id number] Not available 07/30/2022 07:27:18 Mother Asthma MIGRATION.[id number] Not available 07/30/2022 07:27:18 Medical History Condition Response BLINDNESS N RHEUMATIC FEVER N BLADDER PROBLEMS N KIDNEY STONES N MRSA N OTHER # 1 N POLIO N LUNG DISEASE/DISORDER N RADIATION / CHEMOTHERAPY N COPD N Other # 2 N BLOOD DISEASES N SURGERY N EAR OR HEARING PROBLEMS N MUMPS N DEPRESSION (INCLUDING POST ) N FEMALE PROBLEMS / INFECTIONS N BOWEL PROBLEMS N STROKE/TIA N THYROID DISEASE N ULCERS N BENIGN PROSTATIC HYPERPLASIA N MEASLES N CERVICALGIA N HYPOTENSION Y TB SKIN TEST N MYOCARDIAL INFARCTION N PARAPELGIA N OBESITY Y GERD/NAUSEA Y ANEURYSM N URINARY/BLADDER/KIDNEY PROBLEMS N CORONARY ARTERY DISEASE (CAD) N MENIERE'S DISEASE N ADDICTION CONCERNS N ENDOMETRIOSIS N USE OF BLOOD THINNERS N SKIN PROBLEMS N EMPHYSEMA N GASTROINTESTINAL DISORDER N MUSCLE,JOINT OR BONE PROBLEMS N GASTROINTESTINAL BLEEDING N BLOOD CLOTS N ASTHMA N CATARACTS N ERECTILE DYSFUNCTION N GI PROBLEMS N CHF N Low Testosterone N NEUROPATHY N INFERTILITY N AIDS/HIV N FRACTURES N CHEMOTHERAPY / RADIATION N VISION/EYE PROBLEMS N LIVER DISEASE N MALE HYPOGONADISM N HYPERTENSION Y ANXIETY DISORDER N BLOOD TRANSFUSION N ANEMIA/BLOOD DISORDER N CHRONIC EAR INFECTIONS N BRONCHITIS N TUBERCULOSIS N GLAUCOMA N FOOT PROBLEM N DIVERTICULITIS N CHICKENPOX N SLEEP APNEA N ALLERGIES/HAYFEVER N INFECTIOUS DISEASE N HEART ARRHYTHMIA N PROSTATE N INSOMNIA N HIGH CHOLESTEROL / HYPERLIPIDEMIA Y HYPERTHYROIDISM N EYE PROBLEMS N EATING DISORDER N NEUROLOGICAL PROBLEMS N EDEMA N CHRONIC PAIN SYNDROME N HYPOTHYROIDISM N CAROTID BLOCKAGE N CONSTIPATION N BACK / NECK PROBLEMS N HAVE YOU BEEN HOSPITALIZED OR SEEN IN THE MEDICAL CENTER IN THE PAST YEAR ? N ATHEROSCLEROSIS N BREAST PROBLEMS N DIALYSIS N ECZEMA N FIBROMYALGIA N OSTEOPOROSIS N ARTHRITIS N NO SIGNIFICANT PAST MEDICAL HISTORY N APPENDICITIS N DIABETES, TYPE N BAD TEETH N HEARTBURN / REFLUX N ADD/ADHD N AUTISM SPECTRUM DISORDER (ASD) N HEPATITIS / LIVER DISEASE N PULMONARY DISEASE N GOUT N SLEEP DISORDER N ALZHEIMER'S DISEASE N PAIN N HERPES N DEMENTIA N HEADACHES/MIGRAINES N SEIZURES/EPILEPSY N VASCULAR DISEASE N PACEMAKER N DIZZINESS N HEART DISEASE/HEART PROBLEMS N KIDNEY DISEASE N DEVELOPMENTAL OR BEHAVIORAL DISORDERS N MULTIPLE SCLEROSIS N SCARLET FEVER N MENTAL DISORDER/ILLNESS N CARDIAC ARRHYTHMIA N CANCER: SPECIFY N PNEUMONIA N ATRIAL FIBRILLATION N Gall Stones N PULMONARY EMBOLISM N AUTOIMMUNE DISEASE N Gynecological History Statement/Question Response If Post Menopausal, Age at Menopause Date of Last Mammogram 09/12/2022 Date of Last Colonoscopy 06/01/2017 Most Recent Bone Density Date of LMP Date of Last Pap 06/01/2021 Date of Last Pap Smear Most Recent Mammogram 09/14/2023 Obstetrics History GPAL:G 2 P 0 0 0 2 Type Value Living 2 Total 2 Immunizations Vaccine Type Date Status Note Provider Nam e and Address Organization Details Recorded Time SARS-COV-2 (COVID-19) vaccine, UNSPECIFIED 1 completed Not Available [facility] 07/30/2022 07:37:33 SARS-COV-2 (COVID-19) vaccine, UNSPECIFIED 1 completed Not Available [facility] 07/30/2022 07:37:33 SARS-COV-2 (COVID-19) vaccine, UNSPECIFIED 1 completed Not Available [facility] 07/30/2022 07:37:33 Tdap 9 completed Not Available [facility] 07/30/2022 07:37:33 Influenza, split virus, trivalent, preservative 5 completed Not Available [facility] 07/30/2022 07:37:33 Influenza, split virus, trivalent, preservative 4 completed Not Available [facility] 07/30/2022 07:37:33 DTaP, unspecified formulation 0 completed Not Available [facility] 07/30/2022 07:37:34 Influenza, split virus, trivalent, PF 4 completed Not Available [facility] 07/30/2022 07:37:34 Past Encounters Encounter ID Performer Location Encounter Start Date Encounter Closed Date Diagnosis/Indication Diagnosis SNOMED-CT Code Diagnosis ICD10 Code Diagnosis Note [id number] [address] [address] 08/24/2020 00:00:00 08/24/2020 16:16:[id number] [address] 01/27/2022 00:00:00 01/27/2022 10:36:05 [id number] Corinna Coburn NP [address] [address] 01/02/2023 12:13:59 01/02/2023 13:54:49 Hyperlipidemia 37726666 E78.5 rosuvastat in 10 mg po nightly.Lo w fat diet. Essential hypertension 71774311 I10 Amlodipine 5 mg po daily.Add on losartan 50 mg po daily on 01/02/23 Difficulty swallowing 28 1741913 R13.10 Referring to GI. Diabetes m ellitus screening 058346969 Z13.1 Anemia screening 6975561 07 Z13.0 Screening for malignant neoplasm of colon 834418188 Z12.11 Mass of neck 830603824 R 22.1 US neck soft tissueUS thyroid Thyroid di sorder screening 240502266 Z13.29 [id number] LENNY Weiss [address] [address] 09/03/2023 10:26:36 09/03/2023 11:26:55 Hyperlipidemia 59400093 E78.5 Essential hypertension 86305707 I10 Screening for malignant neoplasm of colon 060786555 Z12.11 Obesity 553284284 E66.9 Dry eyes 637219419 H04.1 23 Feeling of lump in throat 246922694 R09.89 [id number] [facility] ENT Mari Donaldson [address] [place] [address] 09/30/2023 15:24:41 10/01/2023 11:00:18 Deviated nasal septum 044291531 J34.2 Hypertroph y of nasal turbinates 72789943 J34.3 Chronic ma xillary sinusitis 24042949 J32.0 Dysphagia 40121716 R13.1 0 she has [id number] Marie Hoskins MD [facility] General Surgery [address] [facility] [place] [address] 11/18/2023 15:29:59 11/23/2023 09:02:23 Screening for malignant neoplasm of colon 792405056 Z12.11 History of polyp of colon 436758038 Z86.010 Esophageal dysphagia 408 23808 R13.19 R/O ACHALASIA . [id number] Kartik Adhikari [address] [address] 10/12/2023 14:01:07 10/12/2023 15:04:51 Prediabetes 712550495 R73.03 [id number] Kartik Adhikari [address] [address] 03/03/2024 11:36:02 03/03/2024 12:07:21 Essential hypertension 51990178 I10 Well controlled with current regimen. May D/C medication s with future weight loss Prediabetes 199706018 R7 3.03 Will increase Zepbound at next refill Hyperlipidemia 24272019 E78.5 [id number] LENNY Weiss [address] [address] 03/17/2024 09:40:19 03/17/2024 10:11:06 Orthostatic hypotension 50655866 I95.1 Advised to hold amlodipine and losartan [id number] Kartik Adhikari [address] [place] [address] 06/03/2024 15:16:15 06/03/2024 15:54:45 Acute urinary tract infection 182732117 N39.0 Health Concerns Section Related Observation LastModified by Organization Detai ls LastModified Time None Recorded Concern Status LastModified by Organization Details LastModified Time None Recorded Advance Directives Directive N: Payers Encounter Date Sequence Insurance Name Policy Number Policy Zuniga Covered Member ID Zuniga Member ID Guarantor Name 10/12/2023 1 [employer] Gerald Terry [id number] Zahira Terry 11/18/2023 1 [employer] Gerald Bendert [id number] Zahira Bendert 03/03/2024 1 [employer] Gerald Terry [id number] Zahira Bendert 03/17/2024 1 [employer] Gerald Terry [id number] Zahira Bendert 06/03/2024 1 [employer] Gerald Terry [id number] Zahira Terry Notes Date Note Type Note Provider Name and Address Organization Details Recorded Time 10/12/2023 text/html Zahira Bender is a 52 year old female patient here today to follow up on blood work. Her most recent labs resulted that she is prediabetic, A1C of 6.0. She would like to start medication. She is obese. Her cholesterol is elevated. She is taking rosuvastatin 10 mg and does not want to increase today. Kartik Adhikari, LENNY [address] [facility], [place] [address], [place], [address], [place] [facility] [place] [employer] [facility] 10/12/2023 14:42:58 11/18/2023 text/html PT WAS SEEN IN T HE OFFICE TODAY FOR COLON SCREENING . PT DENIES ABD PAIN /N/V/D/BLEEDING /WT LOSS. LAST COLON WAS X 3 YRS WITH A LARGE POLYP .PT WAS SEEN IN THE OFFICE C/O DYSPHAGIA . SHE REPORTS A ROCK LIKE FEELING IN THE RIGHT SIDE OF HER . THROAT PT WAS SEEN BY ENT W/U WAS NEGATIVE . SHE ADMITS TO OCCASSIONAL PYROSIS . SHE REGURGITATES WHAT SHE JUST ATE . SHE STATES THAT FOOD WOULD STACK IN HER ESOPHAGUS. DENIES ALLERGIES . Marie Hoskins MD [address] [facility], [place], [address], [employer] 11/18/2023 15:51:58 03/03/2024 text/html Zahira Bender is a 52 year old female patient here today to follow up on blood work. Her most recent labs resulted that she is prediabetic, A1C of 6.0. She would like to start medication. We initiated Zepbound 7.5 mg weekly. She is down 34 pounds.Admits that she is struggling with protein intake She is obese. Her cholesterol is elevated. She is taking rosuvastatin 10 mg and does not want to increase today. She has hypertension LENNY Weiss [address], [place], [address], [employer] 03/03/2024 12:04:48 03/17/2024 text/html Zahira Terry is a 53 year old female patient here today to FU on BP Since losing weight, she has noticed low blood pressures. She notes she will have light-headedness and dizziness upon changing positions. She stopped taking her losartan this weekend. She notes her home BP is normal but is still low some mornings. She also states she is feeling SOB and weak with activity and will have palpitations. States this is not dependant on the level of activity. States she this is now occurring every time she stands up. Orthostatic hypotension on assessment.Supine: 132/86Sittin/82Standin/82 LENNY Weiss [address], [address], [place], [address], [employer] 03/17/2024 10:08:09 06/03/2024 text/html Zahira Terry is a 53 year old female patient here today for urinary concerns. Notes that on MIMA she had very dark urine, she believes this was urine. She has had dark urine since. She is having burning in the urethra. She is having some mild stomach pain. She recently had colitis and took two different antibiotics. Was told she had UTI while in ER LENNY Weiss [address], [place], [address], [employer] [id number] [employer] 06/03/2024 15:53:31 OBGyn Episode No OBEpisode recorded.
--- OUTSIDE RECORDS SUMMARY | 2024-07-01 13:38 | XMS_ITS | Clinical Summary ---
Author Organization [facility] Address [address] [place] [address] Care Team Providers Care Windsmith Name Role Phone Corinna Coburn APRN-SUPERVISOR [facility] ROOM Primary Care Provider Source Comments [facility],non-owned Affiliates and Associated Physician Practices is amultiple site organization consisting of ambulatory clinics and hospital sitesin [place], [place], [place] and [place]. This disclosure is being madepursuant to the Care Everywhere program and may not contain all information available regarding this patient. Last updated 18.[facility] Allergies No known active allergies Medications * Be aware that medications may not be up to date on this document. Alwaysverify current medications with the patient. Medication Sig Dispensed Refills Start Date End Date Status ALPRAZolam (XANAX) 0.25 MG tablet Take 0.25 mg by mouth once daily as needed FOR ANXIETY 08/28/2021 Active amLODIPine (NORVASC) 5 MG tablet 10/09/2021 Active DULoxetine (CYMBALTA) 60 MG capsule Take 60 mg by mouth once daily 09/30/2021 Active lamoTRIgine (LAMICTAL) 100 MG tablet 10/07/2021 Active rosuvastatin (CRESTOR) 10 MG tablet TAKE 1 TABLET BY MOUTH EVERY NIGHT 09/30/2021 Active sertraline (ZOLOFT) 50 MG tablet Take 50 mg by mouth once daily 10/02/2021 Active moxifloxacin (Vigamox) 0.5 % ophthalmic solution Instill 1 (one) drop into right eye once daily 3 mL 2 04/15/2023 Active sodium chloride, hypertonic, (Jassi 128) 5 % Instill 1 (one) Each into right eye at bedtime 3.5 g 1 04/15/2023 Active Active Problems Problem Noted Date Diagnosed Date Right corneal abrasion 03/07/2023 Hordeolum externum of right lower eyelid 023 Seborrheic keratosis 10/24/2021 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 (AF LURIA, FLUZONE TRIVALENT; 6MO+) (IIV3) 03/26/2015,06/29/2013 Covid Moderna primary monovalent 12+ yr 0.5mL ,07/03/2020 DTAP, HISTORIC VACCINE 06/01/2009 FLU VACCINE TRI IIV3 SPLIT PF IM (FLUVIRIN) 07/02 TDAP (7yrs+) 06/01/2018 Social History Tobacco Use Types Packs/Day Years Used Date Smoking Tobacco: Never Smokeless Tobacco: Never Tobacco Cessation:Counseling Given: Not Answered Alcohol Use Standard Drinks/Week Comments Yes 0 (1 standard drink = 0.6 oz pur e alcohol) occasionally Sex and Gender Information Value Date Recorded Sex Assigned at Not on file Gender Identity Not on file Sexual Orientation Not on file Last Filed Vital Signs Vital Sign Reading Time Taken Comments Blood Pressure 155/95 03/07/2023 1:34 PM CDT Pulse 94 03/07/2023 1:34 PM CDT Temperature 36.6 ??C (97.9 ??F) 03/07/2023 1:34 PM CD T Respiratory Rate 18 03/07/2023 1:34 PM CDT Oxygen Saturation 99% 03/07/2023 1:34 PM CDT Inhaled Oxygen Concentration - - Weight 97.5 kg (215 lb) 03/07/2023 1:34 PM CDT Height 172.7 cm (5' 8 ) 03/07/2023 1:34 PM CDT Body Mass Index 32.69 03/07/2023 1:34 PM CDT Plan of Treatment Health Maintenance Due Date Last Done Comments COLOGUARD (AGES 45-75) - COLON CA SCREENING 1970 COLON MONITORING 1970 COLONOSCOPY - COLON CA SCREENING 1970 CT COLONOGRAPHY - COLON CA SCREENING 1970 Colorectal Cancer Screening 1970 FIT - COLON CA SCREENING 1970 FLEX SIG - COLON CA SCREENING 1970 PAP SMEAR 1970 HIV SCREENING 1985 HEPATITIS C SCREENING 11/08/1988 HEPATITIS B VACCINE (1 of 3 - 19+ 3-dose series) 1989 PNEUMOCOCCAL VACCINE 50+ (1 of 1 - PCV) 2020 ZOSTER VACCINE (1 of 2) 2020 SCREENING FOR DIABETES 03/17/2023 COVID-19 VACCINE ( season) 2024 04/25/2022, 05/09/2021, 07/31/2020, Additional history exists INFLUENZA VACCINE (#1) 2024 , 05/09/2021, 03/26/2015, Additional history exists DEPRESSION SCREENING 06/01/2024 MAMMOGRAM 09/12/2024 09/12/2022, 08/30, 08/06/2021 DTAP/TDAP/TD VACCINES (3 - Td or Tdap) 06/01/2028 06/01/2018, 06/01/2009 HIB VACCINE Aged Out No longer eligi ble based on patient's age to complete this topic HPV VACCINE Aged Out No longer eligi ble based on patient's age to complete this topic MENINGOCOCCAL (Group B) VACCINE Aged Out No longer eligible based on patient's age to complete this topic MENINGOCOCCAL VACCINE Aged Out No ramesh johnson eligible based on patient's age to complete this topic PNEUMOCOCCAL VACCINE Aged Out No long er eligible based on patient's age to complete this topic Care Teams Windsmith Relationship Specialty Start Date End Date Corinna Coburn, ASSOCIATE THEATRE PROFESSOR-SUPERVISOR [facility] ROOM [address] [place] [phone] PCP - General 09/02/21
--- OUTSIDE RECORDS SUMMARY | 2024-07-01 13:38 | XMS_ITS | CONTINUITY OF CARE DOCUMENT ---
Author Name vidhi, filemonratna Address Unknown Organization [facility] Address [address] [place] [address] Phone [phone] Care Team Providers Care Canned Food Reconditioning Inspector Name Role Phone Trey MITCHELL, Danny Unavailable Huber C SOFTWARE DEVELOPER, Margarette Unavailable [phone] [place] STITCHER AROUND-BC, Corinna L Unavailable PROBLEMS Condition Status Date Provider Notes Vitamin D deficiency active Danny Brown B12 deficiency active Danny Yang MD IRON DEFICIENCY active Danny Yang MD Migraine headaches active Danny Yang MD FAMILY HISTORY OF HEART DISEASE active Danny Yang MD mothe mi and brother mi Hyperlipidemia active Danny Yang MD Dizziness completed - Danny Yang MD Screening active Danny Yang MD Obesity active Danny Yang MD Diastolic dysfunction active Danny Yang MD Hypertriglyceridemia active Danny Brown HTN borderline active Danny Yang MD SLEEP APNEA;on rx active Danny Yang MD ENCOUNTERS Date Type Provider Location Encounter Diag nosis - In-person encounter Office Visit Danny Yang MD [place] [facility] DizzinessScreeningDiastolic dysfunctionHypertriglyceridemiaHTN borderlineSLEEP APNEA;on rx - In-person encounter Office Visit Danny Yang MD [place] [facility] Migraine headachesFAMILY HISTORY OF HEART DISEASEHyperlipidemiaScreeningObesity VITAL SIGNS Date Observation Value Provider Body Mass Index (Ratio) 30.86 kg/m2 Raymond Yang MD blood pressure, cuff size regular Cy oksana Pérez blood pressure, diastolic 80 mm[Hg] Cy oksana Pérez blood pressure, systolic 124 mm[Hg] Angi debbie Pérez oxygen saturation, oximetry 98 % Vale éPrez respiratory rate E&M 16 /min Vale Pérez pulse rate 81 /min Vale bean weight E&M 203 [lb_av] Vale Mcgarry l height E&M 68 [in_i] Vale Vasquezbel l blood pressure, diastolic 84 mm[Hg] Chema Tamez blood pressure, systolic 110 mm[Hg] Robyb Tamez Body Mass Index (Ratio) 30.77 kg/m2 Wanda ica N Enmanuel blood pressure, cuff size regular Je ssica N Enmanuel blood pressure, diastolic 80 mm[Hg] Je ssica N Enmanuel blood pressure, systolic 120 mm[Hg] Génesis orlando N Enmanuel oxygen saturation, oximetry 99 % Dary N Enmanuel respiratory rate E&M 18 /min Dary N Enmanuel pulse rate 73 /min Dary N Wilso n weight E&M 202.4 [lb_av] Dary N Wils on Body Mass Index (Ratio) 31.11 kg/m2 Wanda ica N Enmanuel blood pressure, cuff size regular Je ssica N Enmanuel blood pressure, diastolic 90 mm[Hg] Je ssica N Enmanuel blood pressure, systolic 140 mm[Hg] Génesis orlando N Enmanuel oxygen saturation, oximetry 99 % Dary N Enmanuel respiratory rate E&M 18 /min Dary N Enmanuel pulse rate 79 /min Dary Katty Mccormick n weight E&M 204.6 [lb_av] Dary Katty Arenas on Body Mass Index (Ratio) 31.62 kg/m2 Raymond Yang MD blood pressure, cuff size regular Cy oksana Pérez blood pressure, diastolic 84 mm[Hg] Cy oksana Pérez blood pressure, systolic 120 mm[Hg] Angi Pérez oxygen saturation, oximetry 98 % Vale Pérez respiratory rate E&M 18 /min Vale Pérez pulse rate 71 /min Vale bean height E&M 68 [in_i] Vale Mcgarry l weight E&M 208 [lb_av] Vale Mcgarry l ALLERGIES No Known Drug Allergies RESULTS Date Observation Value Provider Reference Range Interpretation Location B-12, serum 502 pg/mL [facility] 232-1245 lipoprotein, beta, serum, point, quantitative, calculated See report mg/dL [facility] 0-99 very low density lipoproteins See report mg/dL [facility] 5-40 HDL cholesterol, serum 36 mg/dL [facility] >39 Low triglyceride, serum, random 469 mg/dL [facility] 0-149 High cholesterol, serum 265 mg/dL [facility] 100-199 High ferritin, serum 640 ng/mL [facility] 15-150 High iron saturation percent, serum 50 % [facility] 15-55 iron, serum 132 ug/dL [facility] 27-159 iron binding capacity, unsaturated 133 ug/dL [facility] 671-855 4583/09/ 21 iron binding capacity, total 265 ug/dL [facility] 305-491 7160/09/ 21 basophil count, absolute 0.1 x10E3/uL [facility] 0.0-0.2 Eosinophil Absolute Count 0.0 X10E3/UL [facility] 0.0-0.4 monocyte count, blood, automated 0.9 X10E3/UL [facility] 0.1-0.9 lymphocyte count, blood, automated 3.4 X10E3/UL [facility] 0.7-3.1 High Absolute Neutrophils 6.6 X10E3/UL [facility] 1.4-7.0 basophils as percent of blood leukocytes 1 % [facility] Not Estab. eosinophils as percent of blood leukocytes 0 % [facility] Not Estab. monocytes as percent of blood leukocytes 8 % [facility] Not Estab. lymphocytes as percent of blood leukocytes 31 % [facility] Not Estab. neutrophils as percent of blood leukocytes 60 % [facility] Not Estab. platelet count 296 X10E3/UL [facility] 375-420 2629/09/ 21 red blood cell distribution width 14.8 % [facility] 12.3-15.4 mean corpuscular hemoglobin concentration, RBC 32.5 G/DL [facility] 31.5-35.7 mean corpuscular hemoglobin, RBC 31.5 pg [facility] 26.6-33.0 mean corpuscular volume, RBC 97 fL [facility] 79-97 hematocrit, blood 42.8 % [facility] 34.0-46.6 hemoglobin, blood 13.9 g/dL [facility] 11.1-15.9 erythrocyte (RBC) count 4.41 X10E6/UL [facility] 3.77-5.28 leukocyte count, blood 10.9 X10E3/UL [facility] 3.4-10.8 High ferritin, serum 41 ng/mL [facility] 15-150 B-12, serum 244 pg/mL [facility] 232-1245 iron saturation percent, serum 19 % [facility] 15-55 iron, serum 76 ug/dL [facility] 27-159 iron binding capacity, unsaturated 322 ug/dL [facility] 105-868 3418/08/ 01 iron binding capacity, total 398 ug/dL [facility] 094-237 6692/08/ 01 prothrombin time (patient) 9.9 s [facility] 9.1-12.0 international normalized ratio (INR) 1.0 [facility] 0.8-1.2 lipoprotein, beta, serum, point, quantitative, calculated 159 mg/dL [facility] 0-99 High very low density lipoproteins 59 mg/dL [facility] 5-40 High HDL cholesterol, serum 42 mg/dL [facility] >39 triglyceride, serum, random 297 mg/dL [facility] 0-149 High cholesterol, serum 260 mg/dL [facility] 100-199 High basophil count, absolute 0.1 x10E3/uL [facility] 0.0-0.2 Eosinophil Absolute Count 0.2 X10E3/UL [facility] 0.0-0.4 monocyte count, blood, automated 0.7 X10E3/UL [facility] 0.1-0.9 lymphocyte count, blood, automated 3.1 X10E3/UL [facility] 0.7-3.1 Absolute Neutrophils 5.6 X10E3/UL [facility] 1.4-7.0 basophils as percent of blood leukocytes 1 % [facility] Not Estab. eosinophils as percent of blood leukocytes 2 % [facility] Not Estab. monocytes as percent of blood leukocytes 7 % [facility] Not Estab. lymphocytes as percent of blood leukocytes 32 % [facility] Not Estab. neutrophils as percent of blood leukocytes 58 % [facility] Not Estab. platelet count 285 X10E3/UL [facility] 360-370 2628/08/ 01 red blood cell distribution width 13.9 % [facility] 12.3-15.4 mean corpuscular hemoglobin concentration, RBC 33.1 G/DL [facility] 31.5-35.7 mean corpuscular hemoglobin, RBC 30.9 pg [facility] 26.6-33.0 mean corpuscular volume, RBC 93 fL [facility] 79-97 hematocrit, blood 40.8 % [facility] 34.0-46.6 hemoglobin, blood 13.5 g/dL [facility] 11.1-15.9 erythrocyte (RBC) count 4.37 X10E6/UL [facility] 3.77-5.28 leukocyte count, blood 9.7 X10E3/UL [facility] 3.4-10.8 alanine aminotransferase (SGPT), serum 14 1/L [facility] 0-32 aspartate aminotransferase (SGOT), serum 16 1/L [facility] 0-40 alkaline phosphatase, serum 67 1/L [facility] 39-117 bilirubin, serum, total 0.3 mg/dL [facility] 0.0-1.2 albumin/globulin ratio, serum 1.9 [facility] 1.2-2.2 globulin, serum 2.5 [facility] 1.5-4.5 albumin, serum 4.7 g/dL [facility] 3.5-5.5 protein, total, serum 7.2 g/dL [facility] 6.0-8.5 calcium, serum 9.6 mg/dL [facility] 8.7-10.2 carbon dioxide, venous blood 22 mmol/L [facility] 20-29 chloride, serum 108 mmol/L [facility] 96-106 High potassium, serum 4.4 mmol/L [facility] 3.5-5.2 sodium, serum 142 mmol/L [facility] 516-503 9444/08/ 01 urea nitrogen/creatinine ratio, serum 15 [facility] 9-23 eGFR if 105 mL/min/{1. 73_m2} [facility] >59 eGFR if not 91 mL/min/{1. 73_m2} [facility] >59 creatinine, serum 0.78 mg/dL [facility] 0.57-1.00 urea nitrogen, blood 12 mg/dL [facility] 6-24 blood glucose, random 73 mg/dL [facility] 65-99 HISTORY OF MEDICATION USE Medication Status Instructions Dates Provider Indications Com ments CRESTOR 10 MG ORAL TABLET active ONE TAB. DAILY Danny Yang MD COREG 12.5 MG ORAL TABLET active ONE TAB. TWICE DAILY as needed for blood pressure Danny Yang MD ADIPEX-P 37.5 MG ORAL TABLET active one tab by mouth daily Danny Yang MD CYMBALTA 60 MG ORAL CAPSULE DELAYED RELEASE PARTICLES active take 1 tab daily Vale Pérez CRESTOR 40 MG ORAL TABLET completed ONE TAB. DAILY - Vale Pérez VITAMIN D3 48250 UNIT ORAL TABLET active TAKE ONE TAB BY MOUTH WEEKLY Danny Yagn MD FERROUS SULFATE 325 (65 FE) MG ORAL TABLET completed ONE PER DAY - Charlene Cervantes VITAMIN B-12 1000 MCG ORAL TABLET active One tablet daily Danny Yang MD ASPIRIN ADULT LOW DOSE 81 MG ORAL TABLET DELAYED RELEASE completed One Tab By Mouth Daily - Vale Pérez TOPIRAMATE 100 MG ORAL TABLET active Take one tablet daily Vale Pérez TOPIRAMATE 25 MG ORAL TABLET active Take once daily Vale Pérez SOCIAL HISTORY Date Observation Value Provider social history E&M Smoking Histo ry: P ateugenie has never smoked. Danny Ynag MD social history reviewed E&M revi ewed - no changes required Danny Yang MD smoking status Never smoker Hoa Tamez social history E&M S moking History: P atient has never smoked. Danny Yang MD social history reviewed E&M revi ewed - no changes required Danny Yang MD smoking status Never smoker Vale miranda FUNCTIONAL STATUS Date Observation Value Provider periodic limb movement index absent (0) Hoa Tamez FAMILY HISTORY Family Member Condition Full Brother Family History of Hy pertension: Full Brother Family History of CV A or Stroke: Father Family History of Hy pertension: Father Family History of Hy perlipidemia: Mother Family History of Hy pertension: Mother Family History of Hy perlipidemia: Mother Family History of CV A or Stroke: INSURANCE PROVIDERS Payer name Policy type / Coverage type [employer] red libertarian [employer] Other [id number] ADVANCE DIRECTIVES Name Date DISCUSSED - NO DECISION MADE TREATMENT PLAN Date Name Performer Cardiology follow up Danny herrmann MD Cardiology follow up Danny herrmann MD Cardiology follow up Danny herrmann MD Cardiology follow up Danny herrmann MD Cardiology follow up Danny herrmann MD Cardiology follow up :will rx Gan carla Yang MD Cardiology follow up :zero ganesh and negt treadmill adn zio and brain elizabeth Danny Yang MD Cardiology follow up :better wit infuision Danny Yang MD Cardiology follow up Danny herrmann MD Cardiology New Patient Danny hollis MD Cardiology New Patient Danny hollis MD Cardiology New Patient Danny hollis MD Cardiology New Patient :has scri pt but not taken Danny Yang MD Date Name LIPID PANEL VITAMIN B12 IRON AND TOTAL IRON BINDING CAPACITY FERRITIN CBC (INCLUDES DIFF/P LT) CXR- PA/Lat IRON AND TOTAL IRON BINDING CAPACITY FERRITIN COMPREHENSIVE METABO LIC PANEL, W/EGFR VITAMIN B12 Vitamin D, 25-Hydrox y Holter Monitor 24 Hr PROTHROMBIN TIME WIT H INR LIPID PANEL CBC (INCLUDES DIFF/P LT) STR - Routine Complete Echo CT, Coronary Calcium Score HISTORY OF PROCEDURES Procedure Date Procedure Name Provider Procedure Notes S tatus EKG Danny Yang MD complete d IM or SQ Injection Danny Yang MD completed B12 Injection Danny Yang MD compl eted IM or SQ Injection Danny Yang MD completed B12 Injection Danny Yang MD compl eted Stress EKG Diaz Krishna Jiang completed IM or SQ Injection Danny Yang MD completed B12 Injection Danny Yang MD compl eted Injectafer 750mg Danny Yang MD co mpleted Therapeutic IV Infus ion up to 1 hour Danny Yang MD completed IM or SQ Injection Danny Yang MD completed B12 Injection Danny Yang MD compl eted Injectafer 750mg Danny Yang MD co mpleted Therapeutic IV Infus ion up to 1 hour Danny Yang MD completed PAPO Yang MD c ompleted EKG Danny Yang MD complete d
--- OUTSIDE RECORDS SUMMARY | 2024-07-01 13:38 | XMS_ITS | Patient Health Summary ---
Author Organization [facility] Address [address] [place] [address] Care Team Providers Care Typing Teacher Name Role Phone Corinna Coburn APRN-REGULATORY AFFAIRS STRATEGY SPECIALIST Primary Care Provider Note from [facility],non-owned Affiliates and Associated Physician Practices is amultiple site organization consisting of ambulatory clinics and hospital sitesin [place], [place], [place] and [place]. This disclosure is being madepursuant to the Care Everywhere program and may not contain all information available regarding this patient. Last updated 18.[facility] Allergies No known active allergies Medications * Be aware that medications may not be up to date on this document. Alwaysverify current medications with the patient. * ALPRAZolam (XANAX) 0.25 MG tablet(Started 08/28/2021) Take 0.25 mg by mouth once daily as needed FOR ANXIETY * amLODIPine (NORVASC) 5 MG tablet(Started 10/09/2021) * DULoxetine (CYMBALTA) 60 MG capsule(Started 09/30/2021) Take 60 mg by mouth once daily * lamoTRIgine (LAMICTAL) 100 MG tablet(Started 10/07/2021) * rosuvastatin (CRESTOR) 10 MG tablet(Started 09/30/2021) TAKE 1 TABLET BY MOUTH EVERY NIGHT * sertraline (ZOLOFT) 50 MG tablet(Started 10/02/2021) Take 50 mg by mouth once daily * moxifloxacin (Vigamox) 0.5 % ophthalmic solution(Started 04/15/2023) Instill 1 (one) drop into right eye once daily 2 refills by 04/14/2024 * sodium chloride, hypertonic, (Jassi 128) 5 %(Started 04/15/2023) Instill 1 (one) Each into right eye at bedtime 1 refill by 04/14/2024 Active Problems Problem Noted Date Diagnosed Date Right corneal abrasion 03/07/2023 Hordeolum externum of right lower eyelid 023 Seborrheic keratosis 10/24/2021 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 (AFLURIA, FLUZONE TRIVALENT; 6MO+) (IIV3)(Given 03/26/2015, 06/29/2013) * Covid Moderna primary monovalent 12+ yr 0.5mL(Given 07/31/2020, 07/03/2020) * DTAP, HISTORIC VACCINE(Given 06/01/2009) * FLU VACCINE TRI IIV3 SPLIT PF IM (FLUVIRIN)(Given 07/13/2013) * TDAP (7yrs+)(Given 06/01/2018) Social History Tobacco Use Types Packs/Day Years [...] Mass Index 32.69 03/07/2023 1:34 PM CDT Care Teams Typing Teacher Relationship Specialty Start Date End Date Corinna Coburn, INSURANCE LOSS CONTROL SURVEYOR-REGULATORY AFFAIRS STRATEGY SPECIALIST [address] [place] [phone] PCP - General 09/02/21
--- OUTSIDE RECORDS SUMMARY | 2024-07-01 13:38 | XMS_ITS | Encounter Summary ---
Author Organization [facility] Address [address] [place] [address] Care Team Providers Care Analytical Clerk Name Role Phone Corinna Coburn Primary Care Provider Encounter Details Date Type Department Care Team (Late st Contact Info) Description 03/07/2023 Ophth Exam [facility] - Ophthalmology [address] [place] [address] Jessie Martin MD [address] [facility] [place] [address] Social History Tobacco Use Types Packs/Day Years Used Date Smoking Tobacco: Never Smokeless Tobacco: Never Alcohol Use Standard Drinks/Week Comments Yes 0 (1 standard drink = 0.6 oz pur e alcohol) occasionally Sex and Gender Information Value Date Recorded Sex Assigned at Not on file Gender Identity Not on file Sexual Orientation Not on file documented as of this encounter Plan of Treatment Not on file documented as of this encounter Visit Diagnoses Not on filedocumented in this encounter Care Teams Analytical Clerk Relationship Specialty Start Date End Date Corinna Coburn APRN-CNP [address] [place] [phone] PCP - General 09/02/21 documented as of this encounter
--- OUTSIDE RECORDS SUMMARY | 2024-07-01 13:38 | XMS_ITS | Clinical Summary ---
Author Organization [facility] Address [address] [place] [address] Care Team Providers Care Charge Manager Name Role Phone Unavailable Primary Care Provider Unavailabl e Social History Tobacco Use Types Packs/Day Years Used Date Smoking Tobacco: Never Assessed Comments Unknown Sex and Gender Information Value Date Recorded Sex Assigned at Not on file Legal Sex Female 3:47 PM QUALITY CLOTH TESTER Gender Identity Not on file Sexual Orientation Not on file Plan of Treatment Health Maintenance Due Date Last Done Comments Hepatitis C Virus (HCV) Screening 1970 TdaP Immunization 1970 Hepatitis B Immunization (1 of 3 - 19+ 3-dose series) 1989 Pap Smear 11/14/1991 Cervical Cancer Screening (CCS) 2000 HPV/Cotest 2000 Colonoscopy 11/14/2015 Colorectal Cancer Screening 11/14/2015 Cologuard 2020 Immunochemical Fecal Occult Blood 2020 Mammogram 2020 Pneumococcal Immunization (5 0+ years) (1 of 1 - PCV) 2020 Zoster Immunization (1 of 2) 2020 Influenza Immunization (#1) 01/31/202403/02, 07/13/2013, 06/29/2013 SARS-COV-2 Immunization ( season) 2024 Respiratory Syncytial Virus (RSV) Immunization (Adult) (1 - 1-dose 75+ series) 2045 DTaP/Tdap/Td Immunization Discontinued 06/01/2009 Meningococcal Immunization (ACWY) Aged Out No longer eligible based on patient's age to complete this topic Pneumococcal Immunization Combined Aged Out No longer eligible based on patient's age to complete this topic Rotavirus Immunization Aged Out No lo nger eligible based on patient's age to complete this topic
--- OUTSIDE RECORDS SUMMARY | 2024-07-01 13:38 | XMS_ITS | Referral Summary ---
Author Organization [facility] Address [address] [facility] [place] [address] Care Team Providers Care Cement Sprayer Helper Name Role Phone Corinna Coburn APRN-BLOCKER HAND Primary Care Provider Source Comments [facility],non-owned Affiliates and Associated Physician Practices is amultiple site organization consisting of ambulatory clinics and hospital sitesin [place], [place], [place] and [place]. This disclosure is being madepursuant to the Care Everywhere program and may not contain all information available regarding this patient. Last updated 18.[facility] Allergies No known active allergies Medications * [...] 03/07/2023 1:34 PM CDT Plan of Treatment Not on file Care Teams Cement Sprayer Helper Relationship Specialty Start Date End Date Corinna Coburn, MANAGER OF CONSTRUCTION-BLOCKER HAND [address] [place] [phone] PCP - General 09/02/21
--- NOTE | 2024-07-01 14:24 | ED.BACK ---
HPI - Back Pain/Injury General Chief Complaint: Back Pain/Injury <Lashanda Vogt PA-C - Last Filed: 07/02/24 16:45> Stated Complaint: L. lower back pain <Lashanda Vogt PA-C - Last Filed: 07/02/24 16:45> Time Seen by Provider: 07/01/24 14:24 <Lashanda Vogt PA-C - Last Filed: 07/02/24 16:45> Focused HPI: This is a 53 year old female that presents to the ER for left flank pain. Ongoing since this morning. Reports history of kidney stones. Reports she has been fighting a UTI for some time. Reports hematuria. Denies fevers. GENERAL: Well-appearing, well-nourished, and in no acute distress. HEAD: Normocephalic, atraumatic. CHEST: Clear to auscultation. ?No respiratory distress. HEART: Regular rate and rhythm.? NEURO: ?Alert and oriented x3. Patient screened in triage and initial orders placed.? ?Additional care and disposition to be based upon?diagnostic testing and treatment. <Lashanda Vogt PA-C - Last Filed: 07/02/24 16:45> History of Present Illness HPI Narrative: 53-year-old female presents to the ED for hematuria for the past several days and left flank pain that started today. Patient endorses a history of kidney stone 14 years ago and had undergo lithotripsy. She has not established with urologist. She denies dysuria, urinary frequency urgency, fever. She is reporting some left lower quadrant abdominal pain. States over the past few months she has been treated for urinary tract infection. Most recently she was on Macrobid and finished a course June 13. <Christina Wong PA-C - Last Filed: 07/01/24 22:47> Related Data Home Medications: Home Medications ?Medication ?Instructions ?Recorded ?Confirmed ?Last Taken ?Type alprazolam 0.25 mg tablet 0.25 mg PO PRN PRN Anxiety 03/21/20 03/07/23 Unknown History amlodipine 5 mg tablet 5 mg PO DAILY 03/21/20 03/07/23 Unknown History lamotrigine 100 mg tablet 100 mg PO DAILY 03/07/23 03/07/23 Unknown History losartan 50 mg tablet 50 mg PO DAILY 03/07/23 03/07/23 Unknown History rosuvastatin 10 mg tablet 10 mg PO HS 03/07/23 03/07/23 Unknown History sertraline 50 mg tablet 50 mg PO DAILY 03/07/23 03/07/23 Unknown History venlafaxine 75 mg capsule,extended 75 mg PO DAILY 03/07/23 03/07/23 Unknown History release 24 hr <Lashanda Vogt PA-C - Last Filed: 07/02/24 16:45> Allergies/Adverse Reactions: Allergies Allergy/AdvReac Type Severity Reaction Status Date / Time No Known Allergies Allergy Verified 07/01/24 13:36 <Lashanda Vogt PA-C - Last Filed: 07/02/24 16:45> Review of Systems Review of Systems: All systems reviewed & are unremarkable except as noted in HPI and below <Christina Wong PA-C - Last Filed: 07/01/24 22:47> PMFSH Past Medical History Medical History: Medical History Pre-diabetes <Lashanda Vogt PA-C - Last Filed: 07/02/24 16:45> Exam Narrative: GENERAL: Well-appearing, well-nourished, and in no acute distress. HEAD: Normocephalic, atraumatic. EYES: EOMI. ENT: Nares clear, no rhinorrhea or epistaxis. Mucous membranes moist. NECK: Supple. CHEST: Clear to auscultation. No respiratory distress. HEART: Regular rate and rhythm. No murmur heard. Normal peripheral pulses. ABDOMEN: Soft, nontender, nondistended, normal active bowel sounds. No rebound, guarding or rigidity. No CVA tenderness EXTREMITIES: Normal range of motion. No edema. SKIN: Warm, dry, no rash. NEURO: No focal deficits. Alert and oriented x3 <Christina Wong PA-C - Last Filed: 07/01/24 22:47> Course Vital Signs Vital signs: Vital Signs Temperature 97.9 F 07/01/24 14:19 Pulse Rate 100 07/01/24 14:19 Respiratory Rate 16 07/01/24 14:19 Blood Pressure 111/84 07/01/24 14:19 Temperature 97.9 F 07/01/24 17:21 Pulse Rate 75 07/01/24 22:16 Respiratory Rate 15 07/01/24 22:16 Blood Pressure 140/89 07/01/24 22:16 Pulse Oximetry 99 07/01/24 22:16 <Lashanda Vogt PA-C - Last Filed: 07/02/24 16:45> Vital Signs Temperature 97.9 F 07/01/24 14:19 Pulse Rate 100 07/01/24 14:19 Respiratory Rate 16 07/01/24 14:19 Blood Pressure 111/84 07/01/24 14:19 Temperature 97.9 F 07/01/24 17:21 Pulse Rate 75 07/01/24 22:16 Respiratory Rate 15 07/01/24 22:16 Blood Pressure 140/89 07/01/24 22:16 Pulse Oximetry 99 07/01/24 22:16 <Christina Wong PA-C - Last Filed: 07/01/24 22:47> MDM - Back Pain/Injury MDM Narrative Medical decision making narrative: 53-year-old female presents emergency department for hematuria for the past several days and left flank pain that started today. Triage vitals are stable. Patient is afebrile nontoxic appearing. Exam significant for the above. CBC without leukocytosis. Chemistries are unremarkable, creatinine stable at 0.85. UA with large amount of hematuria, 6-10 wbc's, 4+ bacteria, many squamous cells. Urine culture pending. CT abdomen pelvis shows a 4 mm stone in the proximal left ureter with mild left hydronephrosis. Patient and at bedside updated on workup. She received morphine and Toradol with improvement. Discussed findings with urologist on-call, Dr. Varner, who advises antibiotics, KUB, Flomax and outpatient follow-up. Patient was started on Keflex, [place], Zofran and Flomax to pharmacy. Return precautions discussed. She and her are agreeable with the plan verbalized understanding. Discharged in stable condition. <Christina Wong PA-C - Last Filed: 07/01/24 22:47> Lab Data Result diagrams: 07/01/24 17:14 07/01/24 17:14 <Lashanda Vogt PA-C - Last Filed: 07/02/24 16:45> Labs: Lab Results 07/01/24 Range/Units 17:14 WBC 9.1 (4.5-10.0) K/mm3 RBC 4.95 (4.2-5.4) M/mm3 Hgb 15.1 H (12.0-15.0) g/dL Hct 46.0 (37.0-47.0) % MCV 92.9 (80-100) fl MCH 30.5 (26-34) pg MCHC 32.8 (32-36) g/dl RDW 13.2 (11.5-14.5) % Plt Count 382 H (150-375) k/mm3 MPV 10.6 H (7.4-10.4) fl Immature Gran % (Auto) 0.2 (0-0.5) % Neut % (Auto) 63.9 (45.5-73.1) % Lymph % (Auto) 26.0 (18.3-44.2) % Faulkner % (Auto) 8.4 (2.6-8.5) % Eos % (Auto) 0.8 (0-4.4) % Baso % (Auto) 0.7 (0.2-1.2) % Lymph # (Auto) 2.36 (0.9-3.2) K/mm3 Faulkner # (Auto) 0.8 H (0.1-0.6) K/mm3 Eos # (Auto) 0.1 (0-0.3) K/mm3 Baso # (Auto) 0.1 (0.0-0.1) K/mm3 Abs Immat Gran (auto) 0.02 (0.00-0.031) K/mm3 Absolute Neuts (auto) 5.8 (1.3-6.7) K/mm3 Absolute Nucleated RBC 0.000 (0.0-0.012) K/mm3 Nucleated RBC % 0.0 (0.0-0.2) % Sodium 141 (137-145) mmol/L Potassium 4.4 (3.4-5.0) mmol/L Chloride 102 (98-107) mmol/L Carbon Dioxide 27 (22-30) mmol/L Anion Gap 12 (4-12) mmol/L BUN 14 D (7-17) mg/dL Creatinine 0.85 (0.7-1.0) mg/dL Estim Creat Clear Calc 68 ml/min Estimated GFR > 60 (59 - ) Glucose 86 (65-110) mg/dL Calcium 10.6 H (8.4-10.2) mg/dL Total Bilirubin 0.5 (0.2-1.3) mg/dL AST 23 (14-36) U/L ALT 20 (6-35) U/L Alkaline Phosphatase 89 (38-126) U/L Total Protein 8.0 (6.3-8.2) g/dL Albumin 4.7 (3.5-5.1) g/dL Lipase 222 (23-300) U/L Urine Color Dark yellow (Yellow) Urine Appearance Turbid H (Clear) Urine pH 6.5 (5.0-9.0) Ur Specific [place] 1.022 (1.001-1.035) Urine Protein 2+ H (Negative) mg/dL Urine Glucose (UA) Negative (Negative) mg/dL Urine Ketones Trace H (Negative) mg/dL Ur Blood (Man) 3+ H (Negative) Urine Nitrate Negative (Negative) Urine Bilirubin 1+ H (Negative) Urine Urobilinogen 1.0 (<2.0) mg/dL Add Ur Microanalysis Reviewed Leukocyte Esterase Rfl 1+ H (Negative) LEE/UL Urine RBC >100 H (0-2) /hpf Urine WBC 6-10 H (0-3) /hpf Ur Squamous Epith Cells Many H (Few) /hpf Urine Bacteria 4+ H /hpf Urine Casts 3-5 Urine Mucus Present /lpf <Lashanda Vogt PA-C - Last Filed: 07/02/24 16:45> Lab Results 07/01/24 Range/Units 17:14 WBC 9.1 (4.5-10.0) K/mm3 RBC 4.95 (4.2-5.4) M/mm3 Hgb 15.1 H (12.0-15.0) g/dL Hct 46.0 (37.0-47.0) % MCV 92.9 (80-100) fl MCH 30.5 (26-34) pg MCHC 32.8 (32-36) g/dl RDW 13.2 (11.5-14.5) % Plt Count 382 H (150-375) k/mm3 MPV 10.6 H (7.4-10.4) fl Immature Gran % (Auto) 0.2 (0-0.5) % Neut % (Auto) 63.9 (45.5-73.1) % Lymph % (Auto) 26.0 (18.3-44.2) % Faulkner % (Auto) 8.4 (2.6-8.5) % Eos % (Auto) 0.8 (0-4.4) % Baso % (Auto) 0.7 (0.2-1.2) % Lymph # (Auto) 2.36 (0.9-3.2) K/mm3 [place] # (Auto) 0.8 H (0.1-0.6) K/mm3 Eos # (Auto) 0.1 (0-0.3) K/mm3 Baso # (Auto) 0.1 (0.0-0.1) K/mm3 Abs Immat Gran (auto) 0.02 (0.00-0.031) K/mm3 Absolute Neuts (auto) 5.8 (1.3-6.7) K/mm3 Absolute Nucleated RBC 0.000 (0.0-0.012) K/mm3 Nucleated RBC % 0.0 (0.0-0.2) % Sodium 141 (137-145) mmol/L Potassium 4.4 (3.4-5.0) mmol/L Chloride 102 (98-107) mmol/L Carbon Dioxide 27 (22-30) mmol/L Anion Gap 12 (4-12) mmol/L BUN 14 D (7-17) mg/dL Creatinine 0.85 (0.7-1.0) mg/dL Estim Creat Clear Calc 68 ml/min Estimated GFR > 60 (59 - ) Glucose 86 (65-110) mg/dL Calcium 10.6 H (8.4-10.2) mg/dL Total Bilirubin 0.5 (0.2-1.3) mg/dL AST 23 (14-36) U/L ALT 20 (6-35) U/L Alkaline Phosphatase 89 (38-126) U/L Total Protein 8.0 (6.3-8.2) g/dL Albumin 4.7 (3.5-5.1) g/dL Lipase 222 (23-300) U/L Urine Color Dark yellow (Yellow) Urine Appearance Turbid H (Clear) Urine pH 6.5 (5.0-9.0) Ur Specific [place] 1.022 (1.001-1.035) Urine Protein 2+ H (Negative) mg/dL Urine Glucose (UA) Negative (Negative) mg/dL Urine Ketones Trace H (Negative) mg/dL Ur Blood (Man) 3+ H (Negative) Urine Nitrate Negative (Negative) Urine Bilirubin 1+ H (Negative) Urine Urobilinogen 1.0 (<2.0) mg/dL Add Ur Microanalysis Reviewed Leukocyte Esterase Rfl 1+ H (Negative) LEE/UL Urine RBC >100 H (0-2) /hpf Urine WBC 6-10 H (0-3) /hpf Ur Squamous Epith Cells Many H (Few) /hpf Urine Bacteria 4+ H /hpf Urine Casts 3-5 Urine Mucus Present /lpf <Christina Wong PA-C - Last Filed: 07/01/24 22:47> Imaging Data Radiologist's impression: ITS Impressions Abdomen/Pelvis CT 07/01/24 18:30 IMPRESSION: 1. 4 mm stone in proximal left ureter with mild left hydronephrosis. Abdomen X-Ray 07/01/24 22:01 IMPRESSION: 1. No visible urolithiasis. <Lashanda Vogt PA-C - Last Filed: 07/02/24 16:45> Critical Care Time Critical Care Time Critical Care Time: No <SHAKIRA Farr Last Filed: 07/02/24 16:45> Discharge Plan Discharge Clinical Impression: Left ureteral calculus <SHAKIRA Farr Last Filed: 07/02/24 16:45> Patient Disposition: Home, Self-Care <SHAKIRA Farr Last Filed: 07/02/24 16:45> Condition: Stable <SHAKIRA Farr Last Filed: 07/02/24 16:45> Instructions: Antibiotic Form, Kidney Stones (ED) <SHAKIRA Farr Last Filed: 07/02/24 16:45> Additional Instructions: Your evaluated in the emergency department for back pain and abdominal pain. Your found have a 4 mm stone in the left ureter as discussed. Please take Flomax as directed, hydrocodone as needed for pain, ondansetron as needed for nausea. Use the urine strainer as directed. Follow-up with urologist. Return to the emergency department if he develops uncontrollable pain, fever, you are unable to tolerate food or fluids, or other concerning symptoms. <Lashanda Vogt PA-C - Last Filed: 07/02/24 16:45> Patient Language: Georgian <Lashanda Vogt PA-C - Last Filed: 07/02/24 16:45> Prescriptions: New hydrocodone-acetaminophen 5-325 mg tablet 1 tablet PO Q8H PRN (Reason: pain) Qty: 14 0RF tamsulosin [Flomax] 0.4 mg capsule 0.4 mg PO HS Qty: 14 0RF cephalexin 500 mg capsule 500 mg PO Q6H Qty: 28 0RF ondansetron 4 mg tablet,disintegrating 4 mg PO Q8H Qty: 14 0RF No Action losartan 50 mg tablet 50 mg PO DAILY venlafaxine 75 mg capsule,extended release 24hr 75 mg PO DAILY sertraline 50 mg tablet 50 mg PO DAILY lamotrigine 100 mg tablet 100 mg PO DAILY rosuvastatin 10 mg tablet 10 mg PO HS amlodipine 5 mg tablet 5 mg PO DAILY alprazolam 0.25 mg tablet 0.25 mg PO PRN PRN (Reason: Anxiety) cephalexin 500 mg capsule 500 mg PO Q6H Qty: 28 0RF hydrocodone-acetaminophen 5-325 mg tablet 1 tablet PO Q6H PRN (Reason: pain) Qty: 10 0RF metronidazole 500 mg tablet 500 mg PO Q8H 7 Days Qty: 21 0RF ciprofloxacin HCl 500 mg tablet 500 mg PO Q12H 7 Days Qty: 14 0RF ondansetron 4 mg tablet,disintegrating 4 mg PO Q8H PRN (Reason: nausea and vomiting) Qty: 15 0RF <Lashanda Vogt PA-C - Last Filed: 07/02/24 16:45> Follow-up/Referrals: Jeff Varner MD [Physician] - Huber,Margarette Guerra APRN [Primary Care Provider] - <Lashanda Vogt PA-C - Last Filed: 07/02/24 16:45>
[2024-07-01 17:27] LABS: Basophils Absolute Auto 0.1 K/mm3 (0.0-0.1); Basophils Percent Auto 0.7 % (0.2-1.2); Eosinophils Absolute Auto 0.1 K/mm3 (0-0.3); Eosinophils Percent Auto 0.8 % (0-4.4); Hemoglobin 15.1 g/dL (12.0-15.0); Immature Granulocyte Absolute 0.02 K/mm3 (0.00-0.031); Immature Granulocyte Percent A 0.2 % (0-0.5); Lymphocytes Absolute Auto 2.36 K/mm3 (0.9-3.2); Mean Corpuscular HGB Conc 32.8 g/dl (32-36); Mean Corpuscular Hemoglobin 30.5 pg (26-34); Mean Corpuscular Volume 92.9 fl (80-100); Mean Platelet Volume 10.6 fl (7.4-10.4); Monocytes Absolute Auto 0.8 K/mm3 (0.1-0.6); Monocytes Percent Auto 8.4 % (2.6-8.5); Neutrophils Absolute Auto 5.8 K/mm3 (1.3-6.7); Neutrophils Percent Auto 63.9 % (45.5-73.1); Platelet Count Result 382 k/mm3 (150-375); Red Blood Count 4.95 M/mm3 (4.2-5.4); Red Cell Distribution Width 13.2 % (11.5-14.5); White Blood Count 9.1 K/mm3 (4.5-10.0)
[2024-07-01 17:40] LABS: Alanine Aminotransferase 20 U/L (6-35); Albumin Level 4.7 g/dL (3.5-5.1); Alkaline Phosphatase 89 U/L (38-126); Anion Gap 12 mmol/L (4-12); Aspartate Amino Transferase 23 U/L (14-36); Bilirubin,Total 0.5 mg/dL (0.2-1.3); Blood Urea Nitrogen 14 mg/dL (7-17); Calcium 10.6 mg/dL (8.4-10.2); Carbon Dioxide 27 mmol/L (22-30); Chloride 102 mmol/L (98-107); Estimated CRCL calculation 68 ml/min; Estimated Glomerular Filt Rate > 60; Glucose 86 mg/dL (65-110); Lipase 222 U/L (23-300); Potassium 4.4 mmol/L (3.4-5.0); Sodium 141 mmol/L (137-145)
[2024-07-01 17:52] LABS: Add Urine Microscopic? YES; Appearance Urine Turbid (Clear); Bacteria Urine 4+ /hpf; Bilirubin Urine 1+ (Negative); Blood Urine 3+ (Negative); Color Urine Dark Yellow (Yellow); Glucose Urine UA Negative (Negative); Ketones Urine Trace mg/dL (Negative); Leukocyte Esterase Ur 1+ LEU/UL (Negative); Mucus Urine Present /lpf; Need Manual Microscopic Reviewed; Nitrate Urine Negative (Negative); Protein Urine 2+ mg/dL (Negative); RBC Urine >100 /hpf (0-2); Specific Grav Ur 1.022 (1.001-1.035); Squamous Epithelial Cell Urine Many /hpf (Few); pH Urine 6.5 (5.0-9.0)
--- OUTSIDE RECORDS SUMMARY | 2024-07-01 20:51 | XMS_ITS | Clinical Summary ---
Author Organization [facility] [employer] Address [address] [place] [address] Care Team Providers Care Cone Chocolate Dipper Name Role Phone Corinna Coburn APRN-SEEING EYE DOG TRAINER Primary Care Provider Source Comments [facility] [employer],non-owned Affiliates and Associated Physician Practices is amultiple site organization consisting of ambulatory clinics and hospital sitesin [place], [place], [place] and [place]. This disclosure is being madepursuant to the Care Everywhere program and may not contain all information available regarding this patient. Last updated 18.[facility] [employer] Allergies No known active allergies Medications * [...] age to complete this topic Care Teams Cone Chocolate Dipper Relationship Specialty Start Date End Date Corinna Coburn, SEPARATOR TENDER-SEEING EYE DOG TRAINER [address] [place] [id number] PCP - General 09/02/21
--- OUTSIDE RECORDS SUMMARY | 2024-07-01 20:51 | XMS_ITS | Clinical Summary ---
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
--- OUTSIDE RECORDS SUMMARY | 2024-07-01 20:51 | XMS_ITS | Referral Summary ---
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 Not on file Not on file [...] Relevant to [place] [address] [place] [id number] [place] Member Subscriber Plan / Payer (Ef fective 2021-Present) Name:Zahira Mark Relation to Subscriber:Spouse Name:OMEGA MARK Date of :1972 (Home) Address: [address] [place], [place] [address] [address] Payer ID:[id number] Group ID:[id number] Type:COMMERCIAL Address: [address] [place] [address] [place] [address] [facility] Member Subscriber Plan / Payer (Ef fective 2021-Present) Name:Zahira Mark Relation to Subscriber:Spouse Name:JASOMEGA Gloria Date of :1972 (Home) Address: [address] [place], [place] [address] [address] Payer ID:[id number] Group ID:[id number] Type:MANAGED CARE OTHER Address: [id number] [place] [address] Care Teams Service Tech Relationship Specialty Start Date End Date Corinna Coburn NP [address] [facility] DEPT [place] [address] PCP - General Nurse Practitioner 11/14/19 Amanda Pabon MD [address] [place] [address] Medical Oncologist/Hematologis t Hematology and Oncology 09/12/21
--- OUTSIDE RECORDS SUMMARY | 2024-07-01 20:51 | XMS_ITS | Clinical Summary ---
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 Not on file [...] to Health Maintenance [place] [address] [facility] [address] [place] [address] Member Subscriber Plan / Payer ( fective 2021-Present) Name:Zahira Mark Relation to Subscriber:Spouse Name:OMEGA MARK Date of :1972 (Home) Address: [place] [address] Payer ID:[id number] Group ID:[id number] Type:COMMERCIAL Address: [address] [place] [address] PSYCHIATRIC Member Subscriber Plan / Payer ( fective 2021-Present) Name:Zahira Mark Relation to Subscriber:Spouse Name:OMEGA MARK Date of :1972 (Home) Address: [place] [address] Payer ID:[id number] Group ID:[id number] Type:MANAGED CARE OTHER Address: [address] [place] [address] Care Teams Commercial Lending Assistant Relationship Specialty Start Date End Date Corinna Coburn NP [address] [place] [address] DE[place] [address] PCP - General Nurse Practitioner 11/14/19 Amanda Pabon MD [address] [place] [address] Medical Oncologist/Hematologis t Hematology and Oncology 09/12/21
--- OUTSIDE RECORDS SUMMARY | 2024-07-01 20:51 | XMS_ITS | CONTINUITY OF CARE DOCUMENT ---
Author Name vidhi, filemonratna Address Unknown Organization [facility] Address [address] [place] [address] Phone [phone] Care Team Providers Care School Psychologist Assistant Name Role Phone Trey MITCHELL, Danny Unavailable Huber ENAMEL APPLIER, Margarette Unavailable [phone] Upatoi SUPERVISOR GAME FARM-BC, Corinna L Unavailable [phone] PROBLEMS Condition Status Date Provider Notes Vitamin [...] In-person encounter Office Visit Danny Yang MD [facility] DizzinessScreeningDiastolic dysfunctionHypertriglyceridemiaHTN borderlineSLEEP APNEA;on rx - In-person encounter Office Visit Danny Yang MD [facility] Migraine headachesFAMILY HISTORY OF HEART DISEASEHyperlipidemiaScreeningObesity VITAL SIGNS Date Observation Value Provider Body Mass Index (Ratio) 30.86 kg/m2 Raymond Yang MD blood pressure, cuff size regular Cy oksana Pérez blood pressure, diastolic 80 mm[Hg] Cy oksana Pérez blood pressure, systolic 124 mm[Hg] Angi debbie Pérez oxygen saturation, oximetry 98 % Vale Pérez respiratory rate E&M 16 /min Vale Pérez pulse rate 81 /min Vale bean weight E&M 203 [lb_av] Vale Mcgarry l height E&M 68 [in_i] Vale Vasquezbel l blood pressure, diastolic 84 mm[Hg] Chema Tamez blood pressure, systolic 110 mm[Hg] Robby Tamez Body Mass Index (Ratio) 30.77 kg/m2 [...] iron binding capacity, unsaturated 133 ug/dL [employer] [phone]/09/ 21 iron binding capacity, total 265 ug/dL [employer] 300-290 2617/09/ 21 basophil count, absolute 0.1 x10E3/uL [employer] [...] Not Estab. platelet count 296 X10E3/UL [employer] 332-304 2915/09/ 21 red blood cell distribution width 14.8 [...] iron binding capacity, unsaturated 322 ug/dL [employer] [phone]/08/ 01 iron binding capacity, total 398 ug/dL [employer] 125-536 5387/08/ 01 prothrombin time (patient) 9.9 s [employer] [...] Not Estab. platelet count 285 X10E3/UL [employer] [phone]/08/ 01 red blood cell distribution width 13.9 [...] [employer] 3.5-5.2 sodium, serum 142 mmol/L [employer] [phone]/08/ 01 urea nitrogen/creatinine ratio, serum 15 [employer] [...] TAB. DAILY - Vale Pérez VITAMIN D3 52303 UNIT ORAL TABLET active TAKE ONE TAB BY MOUTH WEEKLY Danny Yang MD FERROUS SULFATE 325 (65 FE) MG [...] ry: P ateugenie has never smoked. Danny Yang MD social [...] red libertarian ID [facility] Other [id number] ADVANCE DIRECTIVES Name Date DISCUSSED - NO [...]
--- OUTSIDE RECORDS SUMMARY | 2024-07-01 20:51 | XMS_ITS | Patient Health Summary ---
Author Organization [facility] Address [address] [place] [address] Care Team Providers Care Net Development Manager Name Role Phone Corinna Coburn APRN-INDUSTRIAL MACHINE SYSTEM TECHNICIAN Primary Care Provider Note from [facility],non-owned Affiliates and Associated Physician Practices is amultiple site organization consisting of ambulatory clinics and hospital sitesin [place], [place], [place] and [place]. This disclosure is being madepursuant to the Care Everywhere program and may not contain all information available regarding this patient. Last updated 18.[facility] Allergies No known active allergies Medications [...] 32.69 03/07/2023 1:34 PM CDT Care Teams Net Development Manager Relationship Specialty Start Date End Date Corinna Coburn, INSULATION INSPECTOR-INDUSTRIAL MACHINE SYSTEM TECHNICIAN [address] [place] [phone] PCP - General 09/02/21
--- OUTSIDE RECORDS SUMMARY | 2024-07-01 20:51 | XMS_ITS | Referral Summary ---
Author Organization [facility] Address [address] [facility] [place] [address] Care Team Providers Care Batch Plant Operator Name Role Phone Corinna Coburn APRN-PRESS SET UP PERSON Primary Care Provider Source Comments [facility] [employer],non-owned Affiliates and Associated Physician Practices is amultiple site organization consisting of ambulatory clinics and hospital sitesin [place], [place], [place] and [place]. This disclosure is being madepursuant to the Care Everywhere program and may not contain all information available regarding this patient. Last updated 18.[facility] [employer] Allergies No known active allergies Medications * [...] of Treatment Not on file Care Teams Batch Plant Operator Relationship Specialty Start Date End Date Corinna Coburn, ANIMAL STICKER-PRESS SET UP PERSON [address] [place] [address] PCP - General 09/02/21
--- OUTSIDE RECORDS SUMMARY | 2024-07-01 20:51 | XMS_ITS | Encounter Summary ---
Author Organization [facility] Address [address] [place] [address] Care Team Providers Care Supervisor Delivery Department Name Role Phone Corinna Coburn Primary Care Provider Encounter Details Date Type Department Care Team (Late st Contact Info) Description 03/07/2023 Ophth Exam [facility] - Ophthalmology [address] [place] [address] Jessie Martin MD [address] [facility] [place] [address] Social History Tobacco Use Types [...] on filedocumented in this encounter Care Teams Supervisor Delivery Department Relationship Specialty Start Date End Date Corinna Coburn APRN-CNP [address] [place] [address] PCP - General 09/02/21 documented as of this encounter
[2024-07-01] MEDS: CEPHALEXIN 500 MG CAPSULE PO (22:14)
[2024-07-01] MEDS: KETOROLAC 15 MG/ML VIAL (*BKC) IV PUSH (22:14)
[2024-07-01] MEDS: MORPHINE SULFATE (*CRX) 4 MG/ML INJ IV PUSH (22:16)
== END 2024-07-01 23:33 | disposition home or self-care (01) ==
PROVIDERS: Physician Assistant; Emergency Provider Physician Assistant
DX: N20.1 Calculus of ureter (principal)
CPT/HCPCS: 36415; 74018; 74176; 80053; 81001; 83690; 85025; 96374; 96375; 99284; A9270; J1885; J2270

== ENCOUNTER 2024-08-24 16:43 | Outpatient (CLI) | payer OTHER, SELFPAY ==
--- NOTE | ~2024-08-24 | XR_ITS ---
XR abdomen/kub 1V 08/24/2024 17:04 Indication: Left ureteral stone Procedure: KUB Comparison: CT dated 08/24/2024 Findings: There is a left renal stone. There are pelvic phleboliths. Bowel gas pattern nonobstructive . No acute osseous abnormality. Impression: 1: Left nephrolithiasis. Reviewed, dictated and finalized at location A. Impression: 1: Left nephrolithiasis.
--- NOTE | ~2024-08-24 | CT_ITS ---
EXAMINATION: CT abdomen pelvis wo con DATE: 08/24/2024 17:01 INDICATION: Left ureteral stone TECHNIQUE: Computed tomography (CT) of the abdomen and pelvis was performed without intravenous contr ast. The dose-length product was 194.76 mGy-cm. Automated exposure control and iterative reconstructi on technique were employed. COMPARISON: None. FINDINGS: Lung bases unremarkable. Heart size normal. No significant pleural or pericardial effusion. There are nonobstructing left renal stones. There are pelvic phleboliths. No ureteral stone is ident ified. Colonic diverticulosis without evidence for diverticulitis. There is a small low-density mass in the subcutaneous tissues of the abdomen anteriorly on image 61, likely sebaceous cyst. The liver, spleen, pancreas, adrenal glands and right kidney are unremarkable. Normal appendix. Nonobstructive b owel gas pattern. No acute osseous abnormality. IMPRESSION: 1. Nonobstructing left nephrolithiasis Reviewed, dictated and finalized at location A.
--- OUTSIDE RECORDS SUMMARY | 2024-08-24 17:17 | XMS_ITS | Referral Summary ---
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 Impression: BI-RADS ATLAS category (overall): 0 - Incomplete: Needs Additional Imaging Evaluation Additional Mammography views with possible ultrasound is recommended. Overall Assessment: 0 - Incomplete: Needs Additional Imaging Evaluation us Self Screening Mammogram IMG MAMMO PROCEDURES Fi nal Result from Last 3 Months or Most Recently Relevant to Health [place] [address] [place] [address] Member Subscriber Plan / Payer (Ef fective 2021-Present) Name:Zahira Mark Relation to Subscriber:Spouse Name:OMEGA MARK Date of :1972 (Home) Address: [address] [place], [place] [address] [address] Payer ID:[id number] Group ID:[id number] Type:COMMERCIAL Address: [address] [place] [address] [facility] Member Subscriber Plan / Payer (Ef fective 2021-Present) Name:Zahira aMrk Relation to Subscriber:Spouse Name:JASOMEGA Gloria Date of :1972 (Home) Address: [place] [address] Payer ID:[id number] Group ID:[id number] Type:MANAGED CARE OTHER Address: [phone] [place] [address] Care Teams Stapler Hand Relationship Specialty Start Date End Date Corinna Coburn NP PCP - General Nurse Practitioner 11/14/19 Amanda Pabon MD [address] [place] [address] Medical Oncologist/Disassembler Hematology and Oncology 09/12/21
--- OUTSIDE RECORDS SUMMARY | 2024-08-24 17:17 | XMS_ITS | Data Portability ---
Author Organization [facility] [employer], Main Office Address [address] [place] [address] Care Team Providers Care Supervisor Wound Name Role Phone KARTIK ADHIKARI Primary Care Provider Assessment No assessment recorded. Plan of Treatment Reminders Order Date Submit Date Provider Last Modified By Organization Details Last Modified Time Details Appointments None recorded. Lab CBC w/ auto diff 2023 024 [facility] (Lab), [address] [place], [address], 4 20:34:02 iron + total iron-bindin g capacity (TIBC), serum [address] (Lab), [address] [place], [address], 4 08:13:38 glycohemogl obin, total, blood [address] (Lab), [address] [place], [address], 4 08:08:12 glycohemogl obin, total, blood [address] (Lab), [address] [place], [address], 4 08:13:44 Referral None recorded. Procedures colonoscopy screening (PROC) 2023 024 [facility] (Pre-Screen), [address] [place], [address], 4 13:22:18 upper endoscopy procedure (EGD) (PROC) 2023 024 [facility] (Pre-Screen), [address] [place], [address], 4 13:21:58 Surgeries None recorded. Imaging [place], modified barium swallow study [address] (One Call Scheduling), [address] [place], [address], 4 08:16:59 Medication Orders Macrobid 100 mg capsule 2024 025 [facility]Pharmacy #3259, [address] [place], [address], 5 15:38:03 losartan 50 mg tablet 2023 024 [facility]Pharmacy #3259, [address] [place], [address], 4 12:03:36 amlodipine 5 mg tablet 2023 024 [facility]acy #3259, [address] [place], [address], 4 12:03:37 rosuvastati n 10 mg tablet 2023 024 [facility]Pharmacy #3259, [address] [place], [address], 4 12:03:39 Golytely 236 gram-22.74 gram-6.74 gram-5.86 gram oral solution 2023 024 [facility]/Pharmacy #3259, [address] [place], [address], 11:49:36 Ozempic 0.25 mg or 0.5 mg (2 mg/3 mL) subcutaneou s pen injector 2023 Shayna he [id number], [address] [place], [address], 12:39:01 Patient TargetsNo targets recorded. Patient Instructions Encounter Date Encounter Id Patient Instructions Last Modified By Organization Details Last Modified Time 11/18/2023 [id number] GOLYTELY/ REFLUX DIET [email or web address] Not available 11/18/2023 15:37:53 PT NEEDS A SCREENING COLON . R/O POLYP . RECOMMEND A COLONOSOPY. PT WITH DYSPHAGIA. R/O H. PYLORI/ STRICTURE / MOTILITY D/O . RECOMMEND EGD /MBS. RISKS BENEFITS AND COMPLICATIONS WERE EXPLAINED TO PT . ( BLEEDING , PERFORATION , INFECTION , ) PT VERBALIZES UNDERSTANDING AND IS WILLING TO PROCEDE . [email or web address] Not available 11/18/2023 15:38:38 Reason for Referral None Reported. Results Created Date Observation Date Name Description Value Unit Range Abnormal Flag Note LastModifiedBy Organization Detail LastModifiedTime 09/14/1909/14/2023 adilson ACOSTA, sherry al, bilat eral No observ ation record ed. [email or web address] , [place], [address], 09/17/2023 08:38:45 10/05/1910/05/2023 adilson ACOSTA, bilat eral No observ ation record ed. [email or web address], [place], [address], 11/24/2023 11:14:27 10/05/19 24 10/05/2023 adilson ACOSTA bilat eral No observ ation record ed. [address] , [place], [address], 11/24/2023 11:14:37 03/24/20 24 03/24/2024 XR, chest , 2 view No observ ation record ed. [address], [place], [address], 03/25/2024 09:05:55 05/09/20 24 05/08/2024 CT, abdom en + pelvi s, w/ contr ast No observ ation record ed. [address], [place], [address], 05/10/2024 11:10:56 07/02/19 25 07/01/2024 CT, abdom en + pelvi s, w/ contr ast No observ ation record ed. [address], [place], [address], 07/03/2024 11:00:41 Result Notes None recorded. Problems Name Problem SNOMED Code Status Onset Date Resolution Date Notes Provider Name and Address Organization Details Recorded Time Excessive cerumen in ear canal 930586494 Active Not Available [employer] 3 07:31:35 Abscess 583727796 Active 2016 Not Available [facility] 3 07:31:35 Otalgia 08056844 Active 2016 Not Available [facility] 3 07:31:36 Family history of Rheumatoid arthritis 905038157 Active 2017 Not Available [facility] 3 07:31:36 Mammograph y abnormal 716762445 Active 2021 Not Available [facility] 3 07:31:36 Mood swings 34916989 Active 2020 Not Available [facility] 3 07:31:36 Feeling stressed 745577263 Active Not Available [facility] 3 07:31:36 Screening mammograph y Active 2021 Not Available [facility] 3 07:31:36 Knee pain Active Not Available [facility] 3 07:31:36 Depressive disorder 95242276 Active Not Available [facility] 3 07:31:36 Elevated blood-pres sure reading without diagnosis of hypertensi on 202371368 Active Not Available [facility] 3 07:31:36 Screening for malignant neoplasm of colon done 9564774267465 01 Active 2020 Not Available [facility] 3 07:31:36 Anxiety 17216148 Active Not Available [facility] 3 07:31:37 Hyperlipid emia 09145824 Active Not Available [facility] 3 07:31:37 Joint pain 10069204 Active 2017 Not Available [facility] 3 07:31:37 Diarrhea 61210384 Active Not Available [facility] 3 07:31:37 Snoring 54182183 Active 2016 Not Available [facility] 3 07:31:37 Stress 18529684 Active Not Available [facility] 3 07:31:37 Posterior rhinorrhea 29946962 Active Not Available [facility] 3 07:31:37 Obstructiv e sleep apnea syndrome 82298260 Active 2017 Not Available [facility] 3 07:31:37 Neck pain 28820095 Active 2016 Not Available [facility] 3 07:31:37 Fatigue 80672840 Active 2016 Not Available [facility] 3 07:31:38 Lesion of scalp 836771481839 Active Not Available [facility] 3 07:31:38 Disorder of the nose 62159381 Active Not Available [facility] 3 07:31:38 Skin lesion 77384762 Active Not Available [facility] 3 07:31:38 Essential hypertensi on 75913620 Active 2022 Corinna Coburn NP [address], [place] [address], [place], [address] , [employer] [facility] [employer] 3 12:07:44 Difficulty swallowing 509577655 Active 2022 Corinna Coburn NP [address], [facility] [address], [place], [address] , [facility] [employer] [facility] 3 12:08:24 Mass of neck 730670487 Active 2022 Corinna Coburn NP [address], [place], [address] , [facility] 3 12:48:07 Obesity 626594690 Active 2023 LENNY Weiss [address], [place], [address] , [facility] 4 11:04:29 Dry eyes 128975601 Active 2023 LENNY Weiss [address], [place], [address] , [facility] 4 11:06:44 Feeling of lump in throat 447930104 Active 2023 LENNY Weiss [address], [place], [address] , [facility] 4 11:13:12 Deviated nasal septum 648437389 Active 2023 Dmitri Tran MD [address], [place], [address] , [facility] 4 16:37:16 Hypertroph y of nasal turbinates 12059024 Active 2023 Dmitri Tran MD [address], [place], [address] , [facility] 4 16:37:30 Chronic maxillary sinusitis 54241397 Active 2023 Dmitri Tran MD [address], [place], [address] , [facility] 4 16:37:48 Dysphagia 03682376 Active 2023 Dmitri Tran MD [address], [place], [address] , [facility] 4 16:41:54 Acute sinusitis 26242295 Active 2023 Dmitri Tran MD [address], [place], [address] , [facility] [employer] [facility] 4 16:43:25 Prediabete s 782433825 Active 2023 LENNY Weiss [address], [place], [address] , [facility] [employer] [facility] [employer] [facility] 4 14:28:35 Esophageal dysphagia 88030467 Active 2023 Marie Hoskins MD [address], [place], [address] , [facility] [employer] [facility] [employer] [facility] 4 15:37:33 Orthostati c hypotensio n 02428753 Active [address] [facility], [address] [address], [place], [address] , [facility] [employer] [facility] [employer] 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 4 08:28:11 Acute urinary tract infection 622502349 Active [address] [facility], [address] [address], [place], [address] , [facility] [employer] [facility] 5 15:37:26 Problem Notes None recorded. Procedures Surgical History Date Name Laterality Status Provider Name and Address Organization Details Recorded Time 09/14/19 24 Most Recent Mammogram completed Corinna Sotelo RN [facility] [employer] [facility] 03/03/2024 11:53:52 06/01/19 18 Date of Last Colonoscopy completed Not Available [facility] 07/30/2022 07:27:15 Hysterectomy, Partial completed Not Available [facility] 07/30/2022 07:27:16 biopsy of breast completed Not Available [facility] 07/30/2022 07:27:16 Imaging Results Imaging Date Name Status LastModified by [facility] Details LastModified Time 09/14/2023 MAMMO, screening, digital, bilateral completed [email or web address] [facility] [address], [place], [address], 09/17/2023 08:38:45 10/05/2023 MAMMO, screening, bilateral completed [email or web address] [facility] [address], [place], [address], 11/24/2023 11:14:27 10/05/2023 MAMMO, screening, bilateral completed [email or web address] [facility] [address] , [place], [address], 11/24/2023 11:14:37 03/24/2024 XR, chest, 2 view completed [address] [place] [address], [address], 03/25/2024 09:05:55 05/08/2024 CT, abdomen + pelvis, w/ contrast completed [address] [place] [address], [address], 05/10/2024 11:10:56 07/01/2024 CT, abdomen + pelvis, w/ contrast completed [address], [address], 07/03/2024 11:00:41 Procedure Notes None recorded. Medical Equipment None [...] Not Available Not Available No t Available meloxicam 15 mg tablet Take 1 [...] completed Not Available Not Available Not Available tamsulosin 0.4 mg capsule active Not Available Not Available Not Available topiramate 25 mg sprinkle capsule 08/08 completed Not Available Not Available Not Available ropinirole 0.25 mg tablet TK 1 T PO QHS 11/04 completed Not Available Not Available Not Available cephalexin 500 mg capsule TAKE 1 CAPSULE BY MOUTH EVERY 6 HOURS active Not Available Not Available No t Available pantoprazo le 40 mg tablet,del ayed [...] completed Not Available Not Available Not Available ondansetro n 4 mg disintegra ting tablet active Not Available Not Available Not Available topiramate [...] Not Available Not Available Not Available Fluvirin 6583-8421 45 mcg (15 mcg x 3)/0.5 mL [...] 2.5 mg/0.5 mL subcutaneo us pen injector active Not Available Not Available Not Available Zepbound 15 mg/0.5 mL subcutaneo us pen injector INJECT 15 MG EVERY WEEK BY SUBCUTAN EOUS ROUTE DIRECTED FOR 28 DAYS. active Not Available Not Available No t Available Zepbound 12.5 mg/0.5 mL subcutaneo us [...] t Available Vitals Date Recorded Body height Body mass index (BMI) Body weight Body temperature Heart rate Respiratory rate Oxygen saturation Oxygen saturation in Arterial blood by Pulse oximetry Pain severity - 0-10 verbal numeric rating [Score] - Reported Systolic blood pressure Diastolic blood pressure Provider Name and Address Organization Details Last Updated DateTime 4 172.72 cm 32.7 kg/m2 55210.3 6 g 95.9 [degF] 113 /min 20 /min 98 % 98 % 0 138 mm[Hg] 84 mm[Hg] Corinna Sotelo RN [facility] [employer] 4 14:09:59 Date Recorded Body height Body mass index (BMI) Body weight Heart rate Oxygen saturation Oxygen saturation in Arterial blood by Pulse oximetry Systolic blood pressure Diastolic blood pressure Provider Name and Address Organization Details Last Updated DateTime 4 172.72 cm 32.7 kg/m2 63606.3 6 g 105 /min 99 % 99 % 134 mm[Hg] 80 mm[Hg] YOSELIN Rao [place] [employer] [facility] [employer] 4 15:30:44 Date Recorded Body height Body mass index (BMI) Body weight Body temperature Heart rate Respiratory rate Oxygen saturation Oxygen saturation in Arterial blood by Pulse oximetry Pain severity - 0-10 verbal numeric rating [Score] - Reported Systolic blood pressure Diastolic blood pressure Provider Name and Address Organization Details Last Updated DateTime 4 172.72 cm 30.1 kg/m2 00786.2 9 g 97.3 [degF] 89 /min 20 /min 97 % 97 % 0 126 mm[Hg] 84 mm[Hg] Corinna Sotelo RN [facility] [employer] [facility] 4 11:52:59 Date Recorded Body height Body mass index (BMI) Body weight Body temperature Heart rate Respiratory rate Oxygen saturation Oxygen saturation in Arterial blood by Pulse oximetry Pain severity - 0-10 verbal numeric rating [Score] - Reported Systolic blood pressure Diastolic blood pressure Provider Name and Address Organization Details Last Updated DateTime 4 172.72 cm 28.4 kg/m2 86239.3 3 g 96.8 [degF] 95 /min 20 /min 99 % 99 % 2 130 mm[Hg] 90 mm[Hg] Corinna Sotelo RN [facility] 4 09:50:15 Date Recorded Body height Body mass index (BMI) Body weight Body temperature Heart rate Respiratory rate Oxygen saturation Oxygen saturation in Arterial blood by Pulse oximetry Pain severity - 0-10 verbal numeric rating [Score] - Reported Systolic blood pressure Diastolic blood pressure Provider Name and Address Organization Details Last Updated DateTime 5 172.72 cm 26.9 kg/m2 06971.2 g 97.2 [degF] 99 /min 20 /min 97 % 97 % 2 130 mm[Hg] 90 mm[Hg] Corinna Sotelo RN [facility] [employer] 5 15:31:41 Social History Question Answer Notes LastModified by Organizat ion Details LastModified Time Tobacco Smoking Status Never Smoker Not Available [facility] 07/30/2022 07:26:56 Do You Have An Advance Directive? No Information not available 01/02/2023 What Is Your Level Of Alcohol Consumption? Occasional [id number] Information not available 07/30/2022 Is Blood Transfusion Acceptable In An Emergency? Yes Information not available 01/02/2023 What Is Your Level Of Caffeine Consumption? Moderate MIGRATION.54336 48477 Information not available 07/30/2022 What Is Your Code Status? Full Code Information not available 01/02/2023 In The 14 Days Before Symptom Onset, Have You Had Close Contact With A Laboratory-confir med COVID-19 While That Case Was Ill? No MIGRATION.83479 [id number] Information not available 07/30/2022 In The 14 Days Before Symptom Onset, Have You Had Close Contact With A Person Who Is Under Investigation For COVID-19 While That Person Was Ill? No MIGRATION.48678 73355 Information not available 07/30/2022 Are You Currently Employed? Yes Information not available 10/12/2023 What Type Of Diet Are You Following? REGULAR MIGRATION.55353 59445 Information not available 07/30/2022 What Is The Highest Grade Or Level Of School You Have Completed Or The Highest Degree You Have Received? [id number] MIGRATION.48948 73031 Information not available 07/30/2022 What Is Your Occupation? [employer]ifon[employer] MIGRATION.17009 33326 Information not available 07/30/2022 Have There Been Any Changes To Your Family Or Social Situation? No MIGRATION.86548 52761 Information not available 07/30/2022 Do You Use Insect Repellent Routinely? No MIGRATION.47883 82644 Information not available 07/30/2022 Where Do You Live? [place]House MIGRATION.53409 24319 Information not available 07/30/2022 Do You Have A Medical Power Of Spiral Gear Generator? No Information not available 01/02/2023 How Many Children Do You Have? 2 Information not available 03/03/2024 Do You Have Any Pets? Yes MIGRATION.65964 19683 Information not available 07/30/2022 What Is Your Relationship Status? MIGRATION.65233 77329 Information not available 07/30/2022 Do You Use Your Seat Belt Or Car Seat Routinely? Yes Information not available 01/02/2023 Do You Have Smoke And Carbon Monoxide Detectors In Your Home? Yes MIGRATION.56761 07653 Information not available 07/30/2022 Are You Passively Exposed To Smoke? No MIGRATION.23292 21158 Information not available 07/30/2022 Are There Any Smokers In Your House? No MIGRATION.00891 04913 Information not available 07/30/2022 Do You Participate In Social Media? Yes MIGRATION.11095 10828 Information not available 07/30/2022 Do You Feel Stressed (tense, Restless, Nervous, Or Anxious, Or Unable To Sleep At Night)? [id number] MIGRATION.64256 63237 Information not available 07/30/2022 Do You Use Sunscreen Routinely? Yes MIGRATION.62372 81541 Information not available 07/30/2022 Have You Recently Traveled Abroad? No Information not available 01/02/2023 Are You Currently In School? No MIGRATION.21794 32192 Information not available 07/30/2022 Do You Have Any Dietary Restrictions? No MIGRATION.94246 06530 Information not available 07/30/2022 Sex: Female Functional Status Question Answer Note LastModified by Organizat ion Details LastModified Time What is your exercise level? None [id number] Information not available 07/30/2022 Mental Status None recorded. Family History Relationship Description Onset Age of this Age Resolved Age Notes LastModified by Organization Details LastModified Time Father Hyperlipidem ia [email or web address] Not available 03/03 11:38:17 Father Essential hypertension [email or web address] Not available 11:38:17 Father Tongue carcinoma Not available 03/03 11:38:17 Father Crohn's disease [email or web address] Not available 03/03 11:38:17 Maternal Uncle Hyperlipidem ia [email or web address] Not available 03/03 11:38:17 Brother Hyperlipidem ia Not available 03/03 11:38:17 Brother Essential hypertension [email or web address] Not available 11:38:18 Brother Seasonal allergy [email or web address] Not available 03/03 11:38:18 Brother Myocardial infarction MIGRATION.791 [id number] Not available 07/30/2022 07:27:18 Brother Asthma MIGRATION.021 [id number] Not available 07/30/2022 07:27:18 Mother Essential hypertension [email or web address] Not available 11:38:18 Mother Rheumatoid arthritis [email or web address] Not available 03/03 11:38:18 Mother Seasonal allergy [email or web address] Not available 03/03 11:38:18 Mother Myocardial infarction MIGRATION.594 [id number] Not available 07/30/2022 07:27:18 Mother Asthma MIGRATION.199 [id number] Not available 07/30/2022 07:27:18 Medical History Condition Response BLINDNESS N RHEUMATIC FEVER N KIDNEY STONES N BLADDER PROBLEMS N MRSA N OTHER # 1 N POLIO N LUNG DISEASE/DISORDER N RADIATION / CHEMOTHERAPY N COPD N Other # 2 N BLOOD DISEASES N SURGERY N EAR OR HEARING PROBLEMS N MUMPS N BOWEL PROBLEMS N FEMALE PROBLEMS / INFECTIONS N DEPRESSION (INCLUDING POST ) N STROKE/TIA N THYROID DISEASE N ULCERS [...] HAVE YOU BEEN HOSPITALIZED OR SEEN IN [facility] IN THE PAST YEAR ? [...] (COVID-19) vaccine, UNSPECIFIED 1 completed Not Available [facility] 07/30/2022 07:37:33 SARS-COV-2 (COVID-19) vaccine, UNSPECIFIED 1 completed Not Available [facility] 07/30/2022 07:37:33 SARS-COV-2 (COVID-19) vaccine, UNSPECIFIED 1 completed Not Available [facility] 07/30/2022 07:37:33 Tdap 9 completed Not Available [facility] 07/30/2022 07:37:33 Influenza, split virus, trivalent, preservative 5 completed Not Available [facility] 07/30/2022 07:37:33 Influenza, split virus, trivalent, preservative 4 completed Not Available [facility] 07/30/2022 07:37:33 DTaP, unspecified formulation 0 completed Not Available [facility] 07/30/2022 07:37:34 Influenza, split virus, trivalent, PF 4 completed Not Available [facility] 07/30/2022 07:37:34 Past Encounters Encounter ID Performer Location Encounter Start Date Encounter Closed Date Diagnosis/Indication Diagnosis SNOMED-CT Code Diagnosis ICD10 Code Diagnosis Note [id number] [address] [address] 08/24/2020 00:00:00 08/24/2020 16:16:[id number] [address] 01/27/2022 00:00:00 01/27/2022 10:36:05 [id number] Corinna Coburn NP [address] [address] 01/02/2023 12:13:59 01/02/2023 13:54:49 Hyperlipidemia 69635956 E78.5 rosuvastat in 10 mg po nightly.Lo w fat diet. Essential hypertension 70882330 I10 Amlodipine 5 mg po daily.Add on losartan 50 mg po daily on 01/02/23 Difficulty swallowing 28 8929078 R13.10 Referring to GI. Diabetes m ellitus screening 972004181 Z13.1 Anemia screening 2482904 07 Z13.0 Screening for malignant neoplasm of colon 461884713 Z12.11 Mass of neck 153296741 R 22.1 US neck soft tissueUS thyroid Thyroid di sorder screening 814716994 Z13.29 [id number] [facility] [address] [address] 09/03/2023 10:26:36 09/03/2023 11:26:55 Hyperlipidemia 28108533 E78.5 Essential hypertension 93426233 I10 Screening for malignant neoplasm of colon 577483506 Z12.11 Obesity 200639809 E66.9 Dry eyes 277998508 H04.1 23 Feeling of lump in throat 361755736 R09.[id number] [facility] [place] [address] [place] [address] 09/30/2023 15:24:41 10/01/2023 11:00:18 Deviated nasal septum 945053999 J34.2 Hypertroph y of nasal turbinates 11930559 J34.3 Chronic ma xillary sinusitis 15308648 J32.0 Dysphagia 06193939 R13.1 0 she has [id number] Marie Hoskins MD [facility] General Surgery 4 [facility] [address] [place] [address] 11/18/2023 15:29:59 11/23/2023 09:02:23 Screening for malignant neoplasm of colon 334696183 Z12.11 History of polyp of colon 244092404 Z86.010 Esophageal dysphagia 408 [address] R13.19 R/O ACHALASIA . [id number] LENNY Weiss [address] [address] 10/12/2023 14:01:07 10/12/2023 15:04:51 Prediabetes 178726198 R73.03 [id number] Kartik [facility]hikari [facility] [address] [place] [address] 03/03/2024 11:36:02 03/03/2024 12:07:21 Essential hypertension 21791668 I10 Well controlled with current regimen. May D/C medication s with future weight loss Prediabetes 676915330 R7 3.03 Will increase Zepbound at next refill Hyperlipidemia 26422347 E78.5 [id number] [facility]ik [facility] [address] 03/17/2024 09:40:19 03/17/2024 10:11:06 Orthostatic hypotension 51078021 I95.1 Advised to hold amlodipine and losartan [id number] Kartik Adhikari [address] [address] 06/03/2024 15:16:15 06/03/2024 15:54:45 Acute urinary tract infection 150392074 N39.0 Health Concerns Section Related Observation LastModified by Organization Detai ls LastModified Time None Recorded Concern Status LastModified by Organization Details LastModified Time None Recorded Advance Directives Directive N: Payers Encounter Date Sequence Insurance Name Policy Number Policy Zuniga Covered Member ID Zuniga Member ID Guarantor Name 10/12/2023 1 [facility] Gerald Bendert [id number] Zahira Bendert 11/18/2023 1 [facility] Gerald Bendert [id number] Zahira Bendert 03/03/2024 1 [facility] Gerald Bendert [id number] Zahira Bendert 03/17/2024 1 [facility] Gerald Bendert [id number] Zahira Bendert 06/03/2024 1 [facility] Gerald Bendert [id number] Zahira Bendert Notes Date Note Type Note Provider Name [...] and does not want to increase today. LENNY Weiss [address], [address], [place], [address], [employer] [facility] [employer] 10/12/2023 14:42:58 11/18/2023 text/html PT WAS SEEN [...] ALLERGIES . Marie Hoskins MD [address] [facility], [place], [address], [employer] 11/18/2023 15:51:58 03/03/2024 text/html Zahira Bender is [...] She has hypertension LENNY Weiss [address], [place], [address], [employer] [facility] [employer] 03/03/2024 12:04:48 03/17/2024 text/html Zahira Terry is [...] hypotension on assessment.Supine: 132/86Sittin/82Standin/82 LENNY Weiss [address] [facility], [facility] [address], [place], [address], [employer] 03/17/2024 10:08:09 06/03/2024 text/html Zahira Terry is [...] told she had UTI while in ER Kartik Adhikari, LENNY [address] [facility], [address] [address], [place], [address], [employer] 06/03/2024 15:53:31 OBGyn Episode No OBEpisode recorded.
--- OUTSIDE RECORDS SUMMARY | 2024-08-24 17:17 | XMS_ITS ---
Author Organization [facility] [employer] [facility] Address [address] [facility] [address] [place] [address] Care Team Providers Care Director Of Technology Name Role Phone Corinna Fields Primary Care Provider Cathleen Andrés Andino Unavailable [phone] REASON FOR VISIT Bill Social History Sex Assigned At : Social History Observation Description Sex Assigned At Female Encounters Encounter Location Date Provider Diagnosis [facility] [employer] [facility] [address] [facility] [address] [place] [address] 08/11/2024 Andrés Garcia Plan Of Treatment Next Appt Details Provider Name:Andrés Garcia , 10/12/2024 02:00:00 PM, [address], [facility] [address], [place], [address], Progress Notes * JASELIAS GloriaIDOB:1970 ( 53 yo F)Acc No.[id number]:08/11/2024 Patient: ASTON WATSON :1970 A ge:53 Y S ex:Female Address:[address] [place] [address] [address], [place], [address] * true * Date: Generated for Domo nuno/Farichg/eTransmitting on: 0 08/24/2024 05:17 PM CDT
--- OUTSIDE RECORDS SUMMARY | 2024-08-24 17:17 | XMS_ITS | Clinical Summary ---
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 Not on file Not on file Not [...] to Health Maintenance [place] [address] [place] [id number] [place] [address] Member Subscriber Plan / Payer ( fective 2021-Present) Name:Zahira Mark Relation to Subscriber:Spouse Name:OMEGA MARK Date of :1972 (Home) Address: [place] [address] Payer ID:[id number] Group ID:[id number] Type:COMMERCIAL Address: [phone] [place] [address] [place] [address] [facility] Member Subscriber Plan / Payer ( fective 2021-Present) Name:Zahira Mark Relation to Subscriber:Spouse Name:JASOMEGA Date of :1972 (Home) Address: [address] [place] [address] Payer ID:[id number] Group ID:[id number] Type:MANAGED CARE OTHER Address: [address] [place] [address] Care Teams Marine Steam Fitter Helper Relationship Specialty Start Date End Date Corinna Coburn NP PCP - General Nurse Practitioner 11/14/19 Amanda Pabon MD [address] [place] [address] Medical Oncologist/Amr Physician Hematology and Oncology 09/12/21
--- OUTSIDE RECORDS SUMMARY | 2024-08-24 17:17 | XMS_ITS | Clinical Summary ---
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
--- OUTSIDE RECORDS SUMMARY | 2024-08-24 17:18 | XMS_ITS ---
Author Organization [facility] [employer] [facility] Address [address] [facility] [facility] [address] [facility] [address] [place] [address] Care Team Providers Care Planer Setup Operator Name Role Phone Corinna Fields Primary Care Provider Cathleen Andrés Andino Unavailable [phone] Social History Sex Assigned At : Social History Observation Description Sex Assigned At Female Encounters Encounter Location Date Provider Diagnosis [facility] [address] [facility] [address] [place] [address] 06/23/2024 Andrés Garcia Plan Of Treatment Next Appt Details Provider Name:Andrés Garcia , 10/12/2024 02:00:00 PM, [address], [facility] [address], [place], [address], Progress Notes * ELIAS MARKIDOB:1970 ( 53 yo F)Acc No.[id number]:06/23/2024 Patient: ASTON WATSON :1970 A ge:53 Y S ex:Female Address:[address] [place] [address] [address], [place], [address] * true * Date: Generated for Domo nuno/Esa/eTransmitting on: 0 08/24/2024 05:18 PM CDT
--- OUTSIDE RECORDS SUMMARY | 2024-08-24 17:18 | XMS_ITS | Clinical Summary ---
Author Organization [facility] [employer] Address [address] [facility] [place] [address] Care Team Providers Care Skull Splitter Name Role Phone Corinna Coburn APRN-[facility] Primary Care Provider Source Comments [facility] [employer],non-owned Affiliates and Associated Physician Practices is amultiple site organization consisting of ambulatory clinics and hospital sitesin [place], [place], [place] and [place]. This disclosure is being madepursuant to the Care Everywhere program and may not contain all information available regarding this patient. Last updated 18.[facility] [employer] Allergies No known active allergies Medications * [...] 94 03/07/2023 1:34 PM CDT Temperature 36.6 C (97.9 F) 03/07/2023 1:34 PM CDT Respiratory Rate 18 03/07/2023 1:34 PM CDT [...] complete this topic MENINGOCOCCAL (Group B) VACCINE SHARED DECISION-MAKING Aged Out No longer eligible based on patient's age to complete this topic MENINGOCOCCAL GROUPS A/C/Y/W VACCINE Aged Out No longer eligible based on patient's age to complete this topic Care Teams Skull Splitter Relationship Specialty Start Date End Date Corinna Coburn, ENGINEER SPECIALIST-[facility] [address] [place] [address] PCP - General 09/02/21
--- OUTSIDE RECORDS SUMMARY | 2024-08-24 17:18 | XMS_ITS ---
Author Organization [facility] [employer] Address [address] [facility] [address] [place] [address] Care Team Providers Care Procurement Engineer Name Role Phone Corinna Fields Primary Care Provider Andrés Newman Unavailable [phone] Allergies No Known Allergies REASON FOR VISIT f/u, Depression screening positive Medications Medication SIG (Take, Route, Frequency, Duration) Notes Start Date End Date Status lamoTRIgine 100 MG TAKE 1 TABLET BY SHUKRI TH EVERY DAY FOR 30 DAYS for 90 Active Sertraline HCl 50 MG TAKE 1 TABLET BY MO UTH EVERY DAY FOR 30 DAYS for 90 Active GaviLyte-G 236 GM Oral for 1 Days Active Xiidra 5 % Ophthalmic for 90 Days Active Zepbound 12.5 MG/0.5ML 0.5 mL Subcutaneous Active Venlafaxine HCl ER 75 MG 1 capsule in th e morning Oral Once a day for 90 days Active Rosuvastatin Calcium 10 MG Oral for 90 Days Active ALPRAZolam 0.25 MG 1 tablet Orally once a day for 30 days As needed Active lamoTRIgine 100 MG 1 tablet Orally Once a day for 90 days Active Sertraline HCl 50 MG 1 tablet Oral Once a day for 90 days Active Venlafaxine HCl ER 75 MG 1 capsule in th e morning Oral Once a day for 90 days Active Social History Tobacco Use: Social History Observation Description Date Details (start date - stop date) Never Smoker NA - NA Sex Assigned At : Social History Observation Description Sex Assigned At Female Tobacco Control (Standard) Question Answer Notes Tobacco use: Nonsmoker Vital Signs Blood pressure systolic 112 mm Hg 07/20/19 25 Blood pressure diastolic 79 mm Hg 025 Heart Rate 80 /min 07/20/2024 Height 68 in 07/20/2024 Weight 171.2 lbs 07/20/2024 BMI 26.03 kg/m2 07/20/2024 Height-cm 172.72 cm 07/20/2024 Weight-kg 77.66 kg 07/20/2024 Encounters Encounter Location Date Provider Diagnosis [facility] [address] [place] [address] [place] [address] 07/20/2024 Andrés Link Major depressive disorder, recurrent, mild F33.0 ; JUMANA (generalized anxiety disorder) F41.1 and ADHD, predominantly inattentive type F90.0 Assessments Encounter Date Diagnosis (ICD Code) Assessment Notes Treatment Notes Treatment Clinical Notes Section Notes 07/20/2024 Major depressive disorder, recurrent, mild (ICD-10 - F33.0) 07/20/2024 JUMANA (generalized anxiety disorder) (ICD-10 - F41.1) 07/20/2024 ADHD, predominantly inattentive type (ICD-10 - F90.0) 07/20/2024 Other Mild Depression - Assessment: Patient has mild depression. - Plan: - Continue venlafaxine 75 mg in the morning - Continue sertraline 50 mg once a day - Continue lamotrigine 100 mg daily - Monitor for any worsening of symptoms and adjust treatment as needed Anxiety - Assessment: Patient reports increased frequency and severity of anxiety attacks. Patient is reluctant to change medications despite increased anxiety. - Plan: - Continue Xanax as needed for anxiety attacks - Encourage patient to monitor frequency and severity of anxiety attacks - Consider referral to therapy for additional support if anxiety worsens - Discuss patient's reluctance to change medications Insomnia - Plan: - Encourage patient to maintain good sleep hygiene - Monitor sleep quality and consider adjustments to medications if sleep does not improve Decreased Appetite - Assessment: Patient experiences decreased appetite secondary to Zepbound. - Plan: - Monitor appetite and weight - Consider adjustments to medications if appetite does not improve or weight loss becomes concerning Recent Medical Issues - Assessment: Patient reports recent colitis and kidney stone. - Plan: - Encourage patient to follow up with primary care physician for further evaluation and management of these issues - Monitor for any impact on mental health and adjust treatment as needed Follow-up - Plan: - Schedule a follow-up appointment in 3 months to reassess patient's mental health and overall well-being - Encourage patient to contact the clinic if any concerns or worsening of symptoms occur before the next appointment Plan Of Treatment Medication Medication Name Sig Start Date Stop Date Notes ALPRAZolam 0.25 MG 1 tablet Orally once a day for 30 days lamoTRIgine 100 MG 1 tablet Orally Once a day for 90 days Sertraline HCl 50 MG 1 tablet Oral Once a day for 90 days Venlafaxine HCl ER 75 MG 1 capsule in th e morning Oral Once a day for 90 days Next Appt Details Follow Up: 3 Months, Reason: Provider Name:Andrés Link , 10/12/2024 02:00:00 PM, [address], [facility] [address], [place], [address], Progress Notes * ELIAS MARKIDOB:1970 ( 53 yo F)Acc No.[id number]:07/20/2024 Patient: ASTON WATSON Provider: Loco LINK MD :1970 A ge:53 Y S ex:Female Date:07/20/2024 Address:[address] [place] [address] [address], [facility] Pcp:Corinna GALVEZ- Subjective: * Chief Complaints: * F /uDepression screening positive * HPI: F unctional Status: The patient had three office/outpatient visits with LENNY Weiss. On March 03, 2024, the patient was diagnosed with essential hypertension, hyperlipidemia, and prediabetes. A subsequent visit on March 17, 2024, revealed the patient was suffering from orthostatic hypotension. The most recent visit on June 03, 2024, indicated an acute urinary tract infection. The patient's conditions suggest a need for ongoing management of cardiovascular risk factors and urinary health.View MoreExternal Results Test Name: CT, abdomen + pelvis, w/ contrastDate Performed: [id number]/Findings: Data not providedTest Name: CT, abdomen + pelvis, w/ contrastDate Performed: [id number]/Findings: Data not providedTest Name: XR, chest, 2 viewDate Performed: [id number]/Findings: Data not provided The note is transcribed using speech recognition software. It is a reflection of a visit with the patient. It might have some inaccuracy, including medication names and transcribing errors, though efforts have been made to correct them. Chief Complaint: Increased stress and anxiety The patient reports experiencing increased stress and anxiety over the past month, accompanied by a decrease in motivation. She notes more frequent small panic attacks and increased fatigue throughout the day, often feeling the need to nap. Medical History: The patient has recently dealt with several medical issues, including: - Salmonella poisoning and colitis after returning from vacation - A recent ER visit for a kidney stone These physical health issues have contributed to her overall feeling of unwellness. Mental Health: The patient mentions the of her best friend shortly before her last visit in January as a contributing factor to her current emotional state. She reports increased stress and worrying, particularly in the last month since the inauguration. Sleep Patterns: While her sleep pattern remains largely unchanged, with easy awakening but quick return to sleep, she reports feeling more fatigued during the day. Appetite: Her appetite has not significantly changed, as she is currently taking Zepbound, which suppresses her appetite. Support System: The patient has support at home. Medications: The patient is currently taking Zepbound, which affects her appetite. D epression screening: PHQ-9 L ittle interest or pleasure in doing things?Several days F eeling down, depressed, or hopeless S everal days T rouble falling or staying asleep, or sleeping too much S everal days F eeling tired or having little energy S everal days P oor appetite or overeating S everal F eeling bad about yourself or that you are a failure, or have let yourself or your family down S everal days T rouble concentrating on things, such as reading the newspaper or watching television S everal days M oving or speaking so slowly that other people could have noticed; or the opposite, being so fidgety or restless that you have been moving around a lot more than usual S everal days T houghts that you would be better off or of hurting yourself in some way N ot at all T otal Score 8 I nterpretation M ild Depression Intervention D epression Screening Findings P osquin F ollow-Up for Depression M entmt health treatment assessment, Patient follow-up to return when and if necessary S uicide Risk Assessment Performed 0 07/20/2024 A dditional Evaluation for Depression P sychiatric interview and evaluation N paige of the standardized tool used for adult depression screening: P atient Health Questionnaire (PHQ-9) D epression Screening: JUMANA-7 (2018 Edition) F eeling nervous, anxious, or on edge N early every day N ot being able to stop or control worrying?Nearly every day W orrying too much about different things N early every day T rouble relaxing M ore than half the days B eing so restless that it is hard to sit still M ore than half the days B ecoming easily annoyed or irritable M ore than half the days F eeling afraid as if something awful might happen M ore than half the days T otal JUMANA-7 Score 1 7 I nterpretation of Total ( 15 and over) Severe * Medical History: * Medications: T akingZepbound 12.5 MG/0.5ML Solution Auto-injector 0.5 mL Subcutaneous Xiidra 5 % Solution Ophthalmic GaviLyte-G 236 GM Solution Reconstituted Oral Rosuvastatin Calcium 10 MG Tablet Oral ALPRAZolam 0.25 MG Tablet 1 tablet Orally once a day As neededVenlafaxine HCl ER 75 MG Capsule Extended Release 24 Hour 1 capsule in the morning Oral Once a day Sertraline HCl 50 MG Tablet TAKE 1 TABLET BY MOUTH EVERY DAY FOR 30 DAYS lamoTRIgine 100 MG Tablet TAKE 1 TABLET BY MOUTH EVERY DAY FOR 30 DAYS Taking Zepbound 12.5 MG/0.5ML Solution Auto-injector 0.5 mL Subcutaneous Taking Xiidra 5 % Solution Ophthalmic Taking GaviLyte-G 236 GM Solution Reconstituted Oral Taking Rosuvastatin Calcium 10 MG Tablet Oral Taking ALPRAZolam 0.25 MG Tablet 1 tablet Orally once a day As neededTaking Venlafaxine HCl ER 75 MG Capsule Extended Release 24 Hour 1 capsule in the morning Oral Once a day Taking Sertraline HCl 50 MG Tablet TAKE 1 TABLET BY MOUTH EVERY DAY FOR 30 DAYS Taking lamoTRIgine 100 MG Tablet TAKE 1 TABLET BY MOUTH EVERY DAY FOR 30 DAYS DiscontinuedamLODIPine Besylate 5 MG Tablet TAKE 1 TABLET BY MOUTH EVERY DAY Oral Losartan Potassium 50 MG Tablet Oral Atomoxetine HCl 80 MG Capsule 1 capsule every morning Orally Once a day Medication List reviewed and reconciled with the patientDiscontinued amLODIPine Besylate 5 MG Tablet TAKE 1 TABLET BY MOUTH EVERY DAY Oral Discontinued Losartan Potassium 50 MG Tablet Oral Discontinued Atomoxetine HCl 80 MG Capsule 1 capsule every morning Orally Once a day Medication List reviewed and reconciled with the patient * Allergies: N .K.D.A.no[Allergies Verified] Objective: * Vitals: B P:112/79mm Hg, HR:80/min, Wt:171.2lbs, Wt-k.66 kg, Ht: 68 in, Ht-cm: 172.72 cm, BMI:26.03Index, Body Surface Area: 1.93. * Examination: G eneral Examination: M ental Status Examination: Patient reports increased stress and anxiety, with small, more frequent anxiety attacks. Describes decreased motivation and general feelings of being overwhelmed. Reports feelings of depression, possibly exacerbated by anxiety. Sleep pattern includes waking easily but generally able to return to sleep; however, feels more tired throughout the day. No significant changes in appetite reported, attributed to Zepbound medication. Vital Signs: in the chart Physical Examination: Patient reports recent medical issues including insomnia and poisoning after returning from vacation, colitis, and a kidney stone. Physical discomfort mentioned, but specific findings not documented. Patient feels physically unwell and alone, despite having support at home. Diagnostic Test Results and Labs: Abdominal CT scan performed, specific date and findings not documented. Mention of recent ER visit for a kidney stone, but no specific dates or results provided. Assessment: * Assessment: 1. M ajor depressive disorder, recurrent, mild - F33.0 (Primary) 2 . G AD (generalized anxiety disorder) - F41.1 3 . A DHD, predominantly inattentive type - F90.0 Plan: * Treatment: 2. G AD (generalized anxiety disorder) Continue ALPRAZolam Tablet, 0.25 MG, 1 tablet, Orally, once a day As needed, 30 days, 30 Tablet, Refills 0. 3. O thers Clinical Notes: Mild Depression - Assessment: Patient has mild depression. - Plan: - Continue venlafaxine 75 mg in the morning - Continue sertraline 50 mg once a day - Continue lamotrigine 100 mg daily - Monitor for any worsening of symptoms and adjust treatment as needed Anxiety - Assessment: Patient reports increased frequency and severity of anxiety attacks. Patient is reluctant to change medications despite increased anxiety. - Plan: - Continue Xanax as needed for anxiety attacks - Encourage patient to monitor frequency and severity of anxiety attacks - Consider referral to therapy for additional support if anxiety worsens - Discuss patient's reluctance to change medications Insomnia - Plan: - Encourage patient to maintain good sleep hygiene - Monitor sleep quality and consider adjustments to medications if sleep does not improve Decreased Appetite - Assessment: Patient experiences decreased appetite secondary to Zepbound. - Plan: - Monitor appetite and weight - Consider adjustments to medications if appetite does not improve or weight loss becomes concerning Recent Medical Issues - Assessment: Patient reports recent colitis and kidney stone. - Plan: - Encourage patient to follow up with primary care physician for further evaluation and management of these issues - Monitor for any impact on mental health and adjust treatment as needed Follow-up - Plan: - Schedule a follow-up appointment in 3 months to reassess patient's mental health and overall well-being - Encourage patient to contact the clinic if any concerns or worsening of symptoms occur before the next appointment * Procedure Codes: 9 6127 BEHAV ASSMT W/SCORE & DOCD/STAND [id number] CLIN DEPRESSION SCREEN DOC * Follow Up: 3 Months * Billing Information: * Visit Code: 48158 OFFICE OUTPATIENT VISIT 25 MINUTES DETAILED HISTORY AND EXAM/MODERATE MEDICAL DECISION MAKING. * Procedure Codes: 47149 BEHAV ASSMT W/SCORE & DOCD/STAND INSTRUMENT. G8431 CLIN DEPRESSION SCREEN DOC. * HER TENDER Sign off status: Completed true * Provider: Loco LINK MD Date: 0 07/20/2024 Generated for Domo nuno/Esa/eTransmkeely on: 0 08/24/2024 05:17 PM CDT History and Physical Notes * HPI (History of Present Illness) Category Sub-Category Detail Notes Category Not es Depression screening PHQ-9 Little inte rest or pleasure in doing things: Several days Feeling down, depressed, or hopeless: Se veral days Trouble falling or staying asleep, or sl eeping too much: Several days Feeling tired or having little energy: S everal days Poor appetite or overeating: Several day s Feeling bad about yourself o r that you are a failure, or have let yourself or your family down: Several days Trouble concentrating on thi ngs, such as reading the newspaper or watching television: Several days Moving or speaking so slowly that other people could have noticed; or the opposite, being so fidgety or restless that you have been moving around a lot more than usual: Several days Thoughts that you would be b ling off or of hurting yourself in some way: Not at all Total Score: 8 Interpretation: Mild Depression Intervention Depression Screening Findings: P ositve Follow-Up for Depression: [facility] treatment assessment, Patient follow-up to return when and if necessary Suicide Risk Assessment Performed: 07/20 Additional Evaluation for Depression: Ps ychiatric interview and evaluation Name of the standardized too l used for adult depression screening:: Patient Health Questionnaire (PHQ-9) Depression Screening JUMANA-7 (2018 Edition) Feelin g nervous, anxious, or on edge: Nearly every day Not being able to stop or control worryi ng: Nearly every day Worrying too much about different things : Nearly every day Trouble relaxing: More than half the day s Being so restless that it is hard to sit still: More than half the days Becoming easily annoyed or irritable: Mo re than half the days Feeling afraid as if something awful boston ht happen: More than half the days Total JUMANA-7 Score: 17 Interpretation of Total: (15 and over) S evere Examination Category Sub-Category Detail Notes Category Not es General Examination Mental Status Examination: Patient reports increased stress and anxiety, with small, more frequent anxiety attacks. Describes decreased motivation and general feelings of being overwhelmed. Reports feelings of depression, possibly exacerbated by anxiety. Sleep pattern includes waking easily but generally able to return to sleep; however, feels more tired throughout the day. No significant changes in appetite reported, attributed to Zepbound medication. Vital Signs: in the chart Physical Examination: Patient reports recent medical issues including insomnia and poisoning after returning from vacation, colitis, and a kidney stone. Physical discomfort mentioned, but specific findings not documented. Patient feels physically unwell and alone, despite having support at home. Diagnostic Test Results and Labs: Abdominal CT scan performed, specific date and findings not documented. Mention of recent ER visit for a kidney stone, but no specific dates or results provided.
--- OUTSIDE RECORDS SUMMARY | 2024-08-24 17:18 | XMS_ITS | Patient Health Record ---
Author Organization 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 Name Role Phone Corinna Fields Primary Care Provider Andrés Newman Unavailable [phone] Migration, Provider Unavailable Unavailable Allergies No Known Allergies Results Component Value Reference Range Notes UDT Reviewed date:11/20/2023 02:41:47 PM Interpretation: Performing Lab: Notes/Report: THC neg 0 - 50 ng/ml Cocaine neg Amphetamine neg Buprenorphine (BUP) neg Secobarbital (Bar) neg Oxazepam (BZO) neg 6-dlnwtrutbb-1,9-yqnlhasn-3,3-diphenylpyrrolidine (LIZZETH P) neg Methamphetamine (MET) neg Methylenedioxymethamphetamine (MDMA) neg Morphine (MOP 300/TZQ2301) neg Methadone (MTD) neg Phencyclidine (PCP) neg Nortriptyline (TCA) neg x neg Reason For Referral No Information Medications Medication SIG (Take, Route, Frequency, Duration) Notes Start Date End Date Status GaviLyte-G 236 GM Oral for 1 Days Active Xiidra 5 % Ophthalmic for 90 Days Active Zepbound 12.5 MG/0.5ML 0.5 mL Subcutaneous Active ALPRAZolam 0.25 MG 1 tablet Orally once a day for 30 days As needed Active lamoTRIgine 100 MG TAKE 1 TABLET BY SH[facility] EVERY DAY FOR 30 DAYS for 90 Active lamoTRIgine 100 MG 1 tablet Orally Once a day for 90 days Active Sertraline HCl 50 MG TAKE 1 TABLET BY [facility] EVERY DAY FOR 30 DAYS for 90 Active Sertraline HCl 50 MG 1 tablet Oral Once a day for 90 days Active Venlafaxine HCl ER 75 MG 1 capsule in th e morning Oral Once a day for 90 days Active Venlafaxine HCl ER 75 MG 1 capsule in th e morning Oral Once a day for 90 days Active Rosuvastatin Calcium 10 MG Oral for 90 Days Active Social History Tobacco Use: Social History Observation Description Date Details (start date - stop date) Never Smoker NA - NA Sex Assigned At : Social History Observation Description Sex Assigned At Female Tobacco Control (Standard) Question Answer Notes Tobacco use: Nonsmoker AUDIT-C (Standard) Question Answer Notes Did you have a drink contain ing alcohol in the past year? Yes How often did you have six o r more drinks on one occasion in the past year? Never (0 point) How many drinks did you have on a typical day when you were drinking in the past year? 1 or 2 drinks (0 point) How often did you have a dri nk containing alcohol in the past year? 2 to 4 times a month (2 points) Points 2 Interpretation Negative Problems Problem Type SNOMED Code ICD Code Onset Dates Problem Status W/U Status Risk Notes Problem 882958900 Major depressive disorder, recurrent, mild (F33.0) Active confirmed Problem [id number] JUMANA (generalized anxiety disorder) (F41.1) Active confirmed Problem 36341731 ADHD, predominantly inattentive type (F90.0) Active confirmed Vital Signs Heart Rate 80 /min 07/20/2024 Height-cm 172.72 cm 07/20/2024 Blood pressure diastolic 79 mm Hg 07/20/2024 Weight-kg 77.66 kg 07/20/2024 Height 68 in 07/20/2024 Blood pressure systolic 112 mm Hg 07/20/2024 Weight 171.2 lbs 07/20/2024 BMI 26.03 kg/m2 07/20/2024 Encounters Encounter Location Date Provider Diagnosis [employer] [address] [place] [address] 11/20/2023 Andrés Jose Major depressive disorder, recurrent, mild F33.0 ; JUMANA (generalized anxiety disorder) F41.1 and ADHD, predominantly inattentive type F90.0 [facility] [employer] [facility] [address] [place] [address] 11/25/2023 Andrés Garcia ADHD (attention deficit hyperactivity disorder), combined type 314.01 [employer] [facility] [address] [place] [address] 12/18/2023 Andrés Jose Major depressive disorder, recurrent, mild F33.0 ; JUMANA (generalized anxiety disorder) F41.1 and ADHD, predominantly inattentive type F90.0 [facility] [address] [place] [address] 02/19/2024 Andrés Jose Major depressive disorder, recurrent, mild F33.0 ; JUMANA (generalized anxiety disorder) F41.1 and ADHD, predominantly inattentive type F90.0 [facility] [address] [place] [address] 05/20/[address] [facility], [facility] [address] [place] [address] 07/20/2024 Andrés Jose Major depressive disorder, recurrent, mild F33.0 ; JUMANA (generalized anxiety disorder) F41.1 and ADHD, predominantly inattentive type F90.0 [facility] [address] [place] [address] 10/15/[address] [facility], [facility] [address] [place] [address] 10/17/[address] [facility], [facility] [address] [place] [address] 10/18/[address] [facility], [facility] [address] [place] [address] 04/15/[address] [facility], [facility] [address] [place] [address] 06/23/[address] [facility], [facility] [address] [place] [address] 01/31/2024 Andrés Jose ADHD, predominantly inattentive type F90.0 [facility] [address] [place] [address] 04/18/[address] [facility], [facility] [address] [place] [address] 08/11/2024 Andrés Jose Assessments Encounter Date Diagnosis (ICD Code) Assessment Notes Treatment Notes Treatment Clinical Notes Section Notes 11/25/2023 ADHD (attention deficit hyperactivity disorder), combined type (ICD9-CM - 314.01) 12/18/2023 Major depressive disorder, recurrent, mild (ICD-10 - F33.0) ADHD, Inattentive Type (mild) - Assessment: Based on the patient's self-report and rating scales, a mild inattentive type ADHD diagnosis is suspected, despite the test not picking up ADHD symptoms. - Plan: Start Atomoxetine (Strattera) at 25 mg once a day for one month, then increase to 40 mg daily. Monitor for improvement in attention and tolerability. Elevated Blood Pressure - Assessment: Patient reported forgetting to take Losartan last night, resulting in elevated blood pressure today (172/107). - Plan: Instruct the patient to take their blood pressure medication as prescribed and monitor blood pressure for five days before starting Atomoxetine. Advise the patient to carry their blood pressure medication with them. Depression and Anxiety - Assessment: Patient is currently on Bupropion and Sertraline 50 mg daily. - Plan: Continue Bupropion and Sertraline 50 mg daily. Monitor for changes in mood and anxiety levels. Lamotrigine Therapy - Assessment: Patient has been on Lamotrigine for two to three years and reports attention issues throughout their life. - Plan: Continue Lamotrigine at the current dose. Monitor for any worsening of inattentive symptoms. If ADHD is not improving or Atomoxetine is not tolerated, consider tapering Lamotrigine and trying a different medication. Discontinuation of Qelbree - Assessment: Patient stopped taking Qelbree due to stomach issues. - Plan: No further action needed as Atomoxetine will be initiated as an alternative treatment for ADHD. 01/31/2024 ADHD, predominantly inattentive type (ICD-10 - F90.0) 02/19/2024 Major depressive disorder, recurrent, mild (ICD-10 - F33.0) Grief and Coping - Assessment: Patient is experiencing grief due to the recent loss of her best friend and is considering seeking grief counseling from the hospice that provided care. - Plan: - Encourage patient to reach out to the hospice for grief counseling. - Continue attending sessions with current counselor at [facility] in [place]. Patient last saw counselor on Thursday. Attention Deficit Disorder (ADD) - Assessment: Patient reports some improvement in mood and interest in hobbies since starting atomoxetine, but feels she could benefit from a higher dose. Both patient and noticed general mood and interest improvement. - Plan: - Increase atomoxetine dosage from 40 mg to 80 mg daily. - Provide a 90-day prescription. Depression - Assessment: Patient is currently on venlafaxine ER 75 mg, sertraline 50 mg, and lamotrigine 100 mg for depression management. Last venlafaxine refill was in October. - Plan: - Continue current medications and dosages. - Provide 90-day prescriptions for venlafaxine ER 75 mg, sertraline 50 mg, and lamotrigine 100 mg. Anxiety - Assessment: Patient has a history of using Xanax 0.25 mg as needed for severe anxiety and requests a refill. Currently has about 15 tablets left, not anticipating running out in next 3 months. Last filled in June with 30 tablets. - Plan: - Send prescription for Xanax 0.25 mg to pharmacy with instructions not to fill until March 20. Prescription valid for up to 6 months. Follow-up - Plan: - Schedule follow-up appointment in 3 months to assess patient's progress and medication effectiveness. 11/20/2023 Major depressive disorder, recurrent, mild (ICD-10 - F33.0) Depression - Assessment: Patient reports mild to moderate depression, with a history of more severe episodes in the past. Currently on Sertraline 50 mg daily and Effexor XR 75 mg daily. - Plan: Continue current medications (Sertraline 50 mg daily and Effexor XR 75 mg daily). Monitor for any changes in depressive symptoms. Anxiety - Assessment: Patient experiences occasional anxiety attacks and has Xanax on hand for rare occurrences. No recent severe anxiety attacks reported. - Plan: Continue current management with Xanax as needed. Monitor for any changes in anxiety symptoms. ADHD (Inattentive type) - Assessment: Patient was diagnosed with ADHD a few years ago but has not been consistently treated. Reports positive effects from stimulant medications but experienced side effects and insurance issues. - Plan: Redo ADHD testing. Start non-stimulant medication, Qelbree. If samples are available, take one 200 mg capsule once a day for a week, then increase to two capsules. If no samples, write a prescription for 200 mg, two capsules a day to the pharmacy. Monitor for any changes in ADHD symptoms and side effects. Hypertension - Assessment: Patient is on two medications for high blood pressure. - Plan: Continue current medications for hypertension. Monitor blood pressure regularly. Pre-diabetes - Assessment: Patient was recently diagnosed as pre-diabetic. - Plan: Encourage lifestyle modifications, including a healthy diet and regular exercise. Monitor blood sugar levels and follow up as needed. Medication Management - Assessment: Patient is on Lamotrigine 100 mg daily, which can have a negative impact on concentration at higher doses. No reported sensitivity to medication side effects. - Plan: Keep current medications the same. Monitor for any side effects or changes in symptoms. Provide a 90-day prescription as per insurance policy for recurring prescriptions. 11/20/2023 JUMANA (generalized anxiety disorder) (ICD-10 - F41.1) Depression - Assessment: Patient reports mild to moderate depression, with a history of more severe episodes in the past. Currently on Sertraline 50 mg daily and Effexor XR 75 mg daily. - Plan: Continue current medications (Sertraline 50 mg daily and Effexor XR 75 mg daily). Monitor for any changes in depressive symptoms. Anxiety - Assessment: Patient experiences occasional anxiety attacks and has Xanax on hand for rare occurrences. No recent severe anxiety attacks reported. - Plan: Continue current management with Xanax as needed. Monitor for any changes in anxiety symptoms. ADHD (Inattentive type) - Assessment: Patient was diagnosed with ADHD a few years ago but has not been consistently treated. Reports positive effects from stimulant medications but experienced side effects and insurance issues. - Plan: Redo ADHD testing. Start non-stimulant medication, Qelbree. If samples are available, take one 200 mg capsule once a day for a week, then increase to two capsules. If no samples, write a prescription for 200 mg, two capsules a day to the pharmacy. Monitor for any changes in ADHD symptoms and side effects. Hypertension - Assessment: Patient is on two medications for high blood pressure. - Plan: Continue current medications for hypertension. Monitor blood pressure regularly. Pre-diabetes - Assessment: Patient was recently diagnosed as pre-diabetic. - Plan: Encourage lifestyle modifications, including a healthy diet and regular exercise. Monitor blood sugar levels and follow up as needed. Medication Management - Assessment: Patient is on Lamotrigine 100 mg daily, which can have a negative impact on concentration at higher doses. No reported sensitivity to medication side effects. - Plan: Keep current medications the same. Monitor for any side effects or changes in symptoms. Provide a 90-day prescription as per insurance policy for recurring prescriptions. 07/20/2024 Major depressive disorder, recurrent, mild (ICD-10 - F33.0) 07/20/2024 JUMANA (generalized anxiety disorder) (ICD-10 - F41.1) 11/20/2023 ADHD, predominantly inattentive type (ICD-10 - F90.0) Depression - Assessment: Patient reports mild to moderate depression, with a history of more severe episodes in the past. Currently on Sertraline 50 mg daily and Effexor XR 75 mg daily. - Plan: Continue current medications (Sertraline 50 mg daily and Effexor XR 75 mg daily). Monitor for any changes in depressive symptoms. Anxiety - Assessment: Patient experiences occasional anxiety attacks and has Xanax on hand for rare occurrences. No recent severe anxiety attacks reported. - Plan: Continue current management with Xanax as needed. Monitor for any changes in anxiety symptoms. ADHD (Inattentive type) - Assessment: Patient was diagnosed with ADHD a few years ago but has not been consistently treated. Reports positive effects from stimulant medications but experienced side effects and insurance issues. - Plan: Redo ADHD testing. Start non-stimulant medication, Qelbree. If samples are available, take one 200 mg capsule once a day for a week, then increase to two capsules. If no samples, write a prescription for 200 mg, two capsules a day to the pharmacy. Monitor for any changes in ADHD symptoms and side effects. Hypertension - Assessment: Patient is on two medications for high blood pressure. - Plan: Continue current medications for hypertension. Monitor blood pressure regularly. Pre-diabetes - Assessment: Patient was recently diagnosed as pre-diabetic. - Plan: Encourage lifestyle modifications, including a healthy diet and regular exercise. Monitor blood sugar levels and follow up as needed. Medication Management - Assessment: Patient is on Lamotrigine 100 mg daily, which can have a negative impact on concentration at higher doses. No reported sensitivity to medication side effects. - Plan: Keep current medications the same. Monitor for any side effects or changes in symptoms. Provide a 90-day prescription as per insurance policy for recurring prescriptions. 02/19/2024 JUMANA (generalized anxiety disorder) (ICD-10 - F41.1) Grief and Coping - Assessment: Patient is experiencing grief due to the recent loss of her best friend and is considering seeking grief counseling from the hospice that provided care. - Plan: - Encourage patient to reach out to the hospice for grief counseling. - Continue attending sessions with current counselor at [facility] in [place]. Patient last saw counselor on Thursday. Attention Deficit Disorder (ADD) - Assessment: Patient reports some improvement in mood and interest in hobbies since starting atomoxetine, but feels she could benefit from a higher dose. Both patient and noticed general mood and interest improvement. - Plan: - Increase atomoxetine dosage from 40 mg to 80 mg daily. - Provide a 90-day prescription. Depression - Assessment: Patient is currently on venlafaxine ER 75 mg, sertraline 50 mg, and lamotrigine 100 mg for depression management. Last venlafaxine refill was in October. - Plan: - Continue current medications and dosages. - Provide 90-day prescriptions for venlafaxine ER 75 mg, sertraline 50 mg, and lamotrigine 100 mg. Anxiety - Assessment: Patient has a history of using Xanax 0.25 mg as needed for severe anxiety and requests a refill. Currently has about 15 tablets left, not anticipating running out in next 3 months. Last filled in June with 30 tablets. - Plan: - Send prescription for Xanax 0.25 mg to pharmacy with instructions not to fill until March 20. Prescription valid for up to 6 months. Follow-up - Plan: - Schedule follow-up appointment in 3 months to assess patient's progress and medication effectiveness. 12/18/2023 JUMANA (generalized anxiety disorder) (ICD-10 - F41.1) ADHD, Inattentive Type (mild) - Assessment: Based on the patient's self-report and rating scales, a mild inattentive type ADHD diagnosis is suspected, despite the test not picking up ADHD symptoms. - Plan: Start Atomoxetine (Strattera) at 25 mg once a day for one month, then increase to 40 mg daily. Monitor for improvement in attention and tolerability. Elevated Blood Pressure - Assessment: Patient reported forgetting to take Losartan last night, resulting in elevated blood pressure today (172/107). - Plan: Instruct the patient to take their blood pressure medication as prescribed and monitor blood pressure for five days before starting Atomoxetine. Advise the patient to carry their blood pressure medication with them. Depression and Anxiety - Assessment: Patient is currently on Bupropion and Sertraline 50 mg daily. - Plan: Continue Bupropion and Sertraline 50 mg daily. Monitor for changes in mood and anxiety levels. Lamotrigine Therapy - Assessment: Patient has been on Lamotrigine for two to three years and reports attention issues throughout their life. - Plan: Continue Lamotrigine at the current dose. Monitor for any worsening of inattentive symptoms. If ADHD is not improving or Atomoxetine is not tolerated, consider tapering Lamotrigine and trying a different medication. Discontinuation of Qelbree - Assessment: Patient stopped taking Qelbree due to stomach issues. - Plan: No further action needed as Atomoxetine will be initiated as an alternative treatment for ADHD. 12/18/2023 ADHD, predominantly inattentive type (ICD-10 - F90.0) ADHD, Inattentive Type (mild) - Assessment: Based on the patient's self-report and rating scales, a mild inattentive type ADHD diagnosis is suspected, despite the test not picking up ADHD symptoms. - Plan: Start Atomoxetine (Strattera) at 25 mg once a day for one month, then increase to 40 mg daily. Monitor for improvement in attention and tolerability. Elevated Blood Pressure - Assessment: Patient reported forgetting to take Losartan last night, resulting in elevated blood pressure today (172/107). - Plan: Instruct the patient to take their blood pressure medication as prescribed and monitor blood pressure for five days before starting Atomoxetine. Advise the patient to carry their blood pressure medication with them. Depression and Anxiety - Assessment: Patient is currently on Bupropion and Sertraline 50 mg daily. - Plan: Continue Bupropion and Sertraline 50 mg daily. Monitor for changes in mood and anxiety levels. Lamotrigine Therapy - Assessment: Patient has been on Lamotrigine for two to three years and reports attention issues throughout their life. - Plan: Continue Lamotrigine at the current dose. Monitor for any worsening of inattentive symptoms. If ADHD is not improving or Atomoxetine is not tolerated, consider tapering Lamotrigine and trying a different medication. Discontinuation of Qelbree - Assessment: Patient stopped taking Qelbree due to stomach issues. - Plan: No further action needed as Atomoxetine will be initiated as an alternative treatment for ADHD. 02/19/2024 ADHD, predominantly inattentive type (ICD-10 - F90.0) Grief and Coping - Assessment: Patient is experiencing grief due to the recent loss of her best friend and is considering seeking grief counseling from the hospice that provided care. - Plan: - Encourage patient to reach out to the hospice for grief counseling. - Continue attending sessions with current counselor at [facility] in [place]. Patient last saw counselor on Thursday. Attention Deficit Disorder (ADD) - Assessment: Patient reports some improvement in mood and interest in hobbies since starting atomoxetine, but feels she could benefit from a higher dose. Both patient and noticed general mood and interest improvement. - Plan: - Increase atomoxetine dosage from 40 mg to 80 mg daily. - Provide a 90-day prescription. Depression - Assessment: Patient is currently on venlafaxine ER 75 mg, sertraline 50 mg, and lamotrigine 100 mg for depression management. Last venlafaxine refill was in October. - Plan: - Continue current medications and dosages. - Provide 90-day prescriptions for venlafaxine ER 75 mg, sertraline 50 mg, and lamotrigine 100 mg. Anxiety - Assessment: Patient has a history of using Xanax 0.25 mg as needed for severe anxiety and requests a refill. Currently has about 15 tablets left, not anticipating running out in next 3 months. Last filled in June with 30 tablets. - Plan: - Send prescription for Xanax 0.25 mg to pharmacy with instructions not to fill until March 20. Prescription valid for up to 6 months. Follow-up - Plan: - Schedule follow-up appointment in 3 months to assess patient's progress and medication effectiveness. 07/20/2024 ADHD, predominantly inattentive type (ICD-10 - F90.0) 11/20/2023 Other Learning About Depression Screening material was printed Depression - Assessment: Patient reports mild to moderate depression, with a history of more severe episodes in the past. Currently on Sertraline 50 mg daily and Effexor XR 75 mg daily. - Plan: Continue current medications (Sertraline 50 mg daily and Effexor XR 75 mg daily). Monitor for any changes in depressive symptoms. Anxiety - Assessment: Patient experiences occasional anxiety attacks and has Xanax on hand for rare occurrences. No recent severe anxiety attacks reported. - Plan: Continue current management with Xanax as needed. Monitor for any changes in anxiety symptoms. ADHD (Inattentive type) - Assessment: Patient was diagnosed with ADHD a few years ago but has not been consistently treated. Reports positive effects from stimulant medications but experienced side effects and insurance issues. - Plan: Redo ADHD testing. Start non-stimulant medication, Qelbree. If samples are available, take one 200 mg capsule once a day for a week, then increase to two capsules. If no samples, write a prescription for 200 mg, two capsules a day to the pharmacy. Monitor for any changes in ADHD symptoms and side effects. Hypertension - Assessment: Patient is on two medications for high blood pressure. - Plan: Continue current medications for hypertension. Monitor blood pressure regularly. Pre-diabetes - Assessment: Patient was recently diagnosed as pre-diabetic. - Plan: Encourage lifestyle modifications, including a healthy diet and regular exercise. Monitor blood sugar levels and follow up as needed. Medication Management - Assessment: Patient is on Lamotrigine 100 mg daily, which can have a negative impact on concentration at higher doses. No reported sensitivity to medication side effects. - Plan: Keep current medications the same. Monitor for any side effects or changes in symptoms. Provide a 90-day prescription as per insurance policy for recurring prescriptions. 07/20/2024 Other Mild Depression - Assessment: Patient [...] before the next appointment Plan Of Treatment Pending Test Test Name Order Date UDT 11/25/2023 Future Test Test Name Order Date ADHD Testing 11/20/2023 Next Appt Details Provider Name:Andrés Garcia , 10/12/2024 02:00:00 PM, [address], [facility] [address], [place], [address], Insurance Providers Payer Name Payer Address Payer Phone Subscriber Number Group Number Insured Name Patient Relationship to Insured Coverage Start Date Coverage End Date [employer] Administrative Services [address] [place] [address] [id number] ASTON MARK Self - patient is the insured Medical (General) History Medical History History ICD Code Past Psychiatric History: Anxiety Disord er,Panic Disorder abdominal aortic aneurysm: No atrial fibrillation: No chronic fatigue syndrome: No essential tremor: No hyperlipidemia: No hypertension: Yes Parkinson's disease: No restless leg syndrome: Yes stroke: No subdural hematoma: No type 1 diabetes mellitus: No type 2 diabetes mellitus: No vitamin B12 deficiency: Yes vitamin D deficiency: Yes Surgical History Surgery Date(Month/Year) partial hysterectomy 06/2017
--- OUTSIDE RECORDS SUMMARY | 2024-08-24 17:18 | XMS_ITS | CONTINUITY OF CARE DOCUMENT ---
Author Name vidhi, filemonratna Address Unknown Organization [facility] Address [address] [place] [address] Phone [phone] Care Team Providers Care Special Delivery Worker Name Role Phone Trey MITCHELL, Danny Unavailable [phone] [facility] TRAVEL REGISTERED NURSE ONCOLOGY, Margarette Unavailable [phone] [employer] INDIVIDUAL PENSION ADVISER-BC, Corinna L Unavailable PROBLEMS Condition Status Date Provider Notes Vitamin D deficiency active Danny Brown B12 deficiency active Danny Yang MD IRON DEFICIENCY active Danny Yang MD Migraine headaches active Danny Yang MD FAMILY HISTORY OF HEART DISEASE active Danny Yang MD mothe mi and brother mi Hyperlipidemia active Danny Yagn MD Dizziness completed - Danny Yang MD Screening active Danny Yang MD Obesity active Danny Yang MD Diastolic dysfunction active Danny Yang MD Hypertriglyceridemia active Danny Brown HTN borderline active Danny Yang MD SLEEP APNEA;on rx active Danny Yang MD ENCOUNTERS Date Type Provider Location Encounter Diag nosis - In-person encounter Office Visit Danny Yang MD [place] [facility] DizzinessScreeningDiastolic dysfunctionHypertriglyceridemiaHTN borderlineSLEEP APNEA;on rx - In-person encounter Office Visit Danny Yang MD [place] [facility] Migraine headachesFAMILY HISTORY OF HEART DISEASEHyperlipidemiaScreeningObesity [...] iron binding capacity, unsaturated 133 ug/dL [employer] [phone]/09/ 21 iron binding capacity, total 265 ug/dL [employer] 371-096 4209/09/ 21 basophil count, absolute 0.1 x10E3/uL [employer]Log[employer] [...] Not Estab. platelet count 296 X10E3/UL [employer] [phone]/09/ 21 red blood cell distribution width 14.8 [...] iron binding capacity, unsaturated 322 ug/dL [employer] 232-108 7563/08/ 01 iron binding capacity, total 398 ug/dL [employer] 852-373 1270/08/ 01 prothrombin time (patient) 9.9 s LinkLogic [...] Not Estab. platelet count 285 X10E3/UL [facility] 294-253 5731/08/ 01 red blood cell distribution width 13.9 [...] LinkLogic 3.5-5.2 sodium, serum 142 mmol/L [employer] [phone]/08/ 01 urea nitrogen/creatinine ratio, serum 15 LinkLogic [...] TAB. DAILY - Vale Pérez VITAMIN D3 73964 UNIT ORAL TABLET active TAKE ONE TAB [...] Policy type / Coverage type Sedrick red alliance party ID [employer] Other [id number] ADVANCE DIRECTIVES Name Date DISCUSSED - NO [...]
--- OUTSIDE RECORDS SUMMARY | 2024-08-24 17:18 | XMS_ITS | Encounter Summary ---
Author Organization [facility] Address [address] [place] [address] Care Team Providers Care Supervisor Wet Room Name Role Phone Corinna Coburn Primary Care Provider Encounter Details Date Type Department Care Team (Late st Contact Info) Description 03/07/2023 Ophth Exam [facility] - Ophthalmology [address] [place] [address] Jessie Martin MD [address] [facility] [place] [address] Social History Tobacco Use Types [...] filedocumented in this encounter Care Teams Supervisor Wet Room Relationship Specialty Start Date End Date Corinna Coburn APRN-CNP [address] [place] [address] PCP - General 09/02/21 documented as of this encounter
== END 2024-08-24 16:44 | disposition home or self-care (01) ==
PROVIDERS: Visit Provider Urology
DX: N20.2 Calculus of kidney with calculus of ureter (principal)
CPT/HCPCS: 74018; 74176

== ENCOUNTER 2024-09-19 14:30 | Outpatient (CLI) | payer OTHER, SELFPAY ==
[2024-09-19 15:11] LABS: Prothrombin Time 13.5 Seconds (11.1-14.7)
[2024-09-19 15:13] LABS: Partial Thromboplastin Time 27.9 Seconds (22.3-36.8)
--- OUTSIDE RECORDS SUMMARY | 2024-09-19 16:27 | XMS_ITS | Referral Summary ---
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 Not on file Not on file [...] Relevant to Health [place] [address] [place] [address] Member Subscriber Plan / Payer (Ef fective 2021-Present) Name:Zahira Mark Relation to Subscriber:Spouse Name:OMEGA MARK Date of :1972 (Home) Address: [address] [place], [place] [address] [address] Payer ID:[id number] Group ID:[id number] Type:COMMERCIAL Address: [address] [place] [address] [facility] Member Subscriber Plan / Payer (Ef fective 2021-Present) Name:Zahira Mark Relation to Subscriber:Spouse Name:JASOMEGA Gloria Date of :1972 (Home) Address: [place] [address] Payer ID:[id number] Group ID:[id number] Type:MANAGED CARE OTHER Address: [id number] [place] [address] Care Teams Clinical Business Analyst Relationship Specialty Start Date End Date Margarette Ngo NP [address] [place] [address] PCP - General Nurse Practitioner 09/19/24 Amanda Pabon MD [address] [place] [address] Medical Oncologist/Hematologis t Hematology and Oncology 09/12/21
--- OUTSIDE RECORDS SUMMARY | 2024-09-19 16:27 | XMS_ITS | Clinical Summary ---
Author Organization [facility] Address [address] [place] [address] Care Team Providers Care Instructional Manager Name Role Phone Unavailable Primary Care Provider Unavailabl e Social History Tobacco Use Types Packs/Day Years Used Date Smoking Tobacco: Never Assessed Comments Unknown Sex and Gender Information Value Date Recorded Sex Assigned at Not on file Legal Sex Female 3:47 PM CASING FLUID TENDER Gender Identity Not on file Sexual Orientation [...]
--- OUTSIDE RECORDS SUMMARY | 2024-09-19 16:27 | XMS_ITS | Clinical Summary ---
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 Not on file Not on file [...] Vaccine (1 of 2) 2020 Covid-19 Vaccine ( - 2023- season) 2024 07/31/2020, 07/03/2020 Breast Cancer Screening-Mammogram 09/13/2024 09/14/2023, 09/12/2022, 09/12/2022, Additional history exists Influenza Vaccine (Season Ended) 2025 03/26/2015, 03/25/2015, 07/13/2013, Additional history exists DTaP/Tdap/Td Vaccine (3 - [...] to Health Maintenance [place] [address] [facility] [id number] [place] [address] Member Subscriber Plan / Payer ( fective 2021-Present) Name:Zahira Mark Relation to Subscriber:Spouse Name:OMEGA MARK Date of :1972 (Home) Address: [place] [address] Payer ID:[id number] Group ID:[id number] Type:COMMERCIAL Address: [address] [place] [address] [place] [address] [facility] Member Subscriber Plan / Payer ( fective 2021-Present) Name:Zahira Mark Relation to Subscriber:Spouse Name:OMEGA MARK Date of :1972 (Home) Address: [address] [place] [address] Payer ID:[id number] Group ID:[id number] Type:MANAGED CARE OTHER Address: [address] [place] [address] Care Teams Boat Outboard Engine Mechanic Relationship Specialty Start Date End Date Margarette Ngo NP [address] [place] [address] PCP - General Nurse Practitioner 09/19/24 Amanda Pabon MD [address] [place] [address] Medical Oncologist/Hematologis t Hematology and Oncology 09/12/21
--- OUTSIDE RECORDS SUMMARY | 2024-09-19 16:28 | XMS_ITS | CONTINUITY OF CARE DOCUMENT ---
Author Name vidhi, filemonratna Address Unknown Organization [facility] Address [address] [place] [address] Phone [phone] Care Team Providers Care Bottle House Quality Control Technician Name Role Phone Trey MITCHELL, Danny Unavailable [phone] [facility] DENTAL TECHNICIAN INSTRUCTOR, Margarette Unavailable [phone] [place] FILM MASKER-BC, Corinna L Unavailable [phone] PROBLEMS Condition Status Date Provider Notes Vitamin D deficiency active Danny Brown B12 deficiency active Danny Yang MD IRON DEFICIENCY active Danny Yang MD Screening active Danny Yang MD SLEEP APNEA;on rx active Danny Yang MD HTN borderline active Danny Yang MD Hypertriglyceridemia active Danny Brown Diastolic dysfunction active Danny Yang MD Obesity active Danny Yang MD Dizziness completed - Danny Yang MD Hyperlipidemia active Danny Yang MD FAMILY HISTORY OF HEART DISEASE active Danny Yang MD mothe mi and brother mi Migraine headaches active Danny Yang MD ENCOUNTERS Date Type Provider Location Encounter Diag nosis - In-person encounter Office Visit Danny Yang MD [place] [facility] DizzinessScreeningDiastolic dysfunctionHypertriglyceridemiaHTN borderlineSLEEP APNEA;on rx - In-person encounter Office Visit Danny Yang MD [place] [facility] Migraine headachesFAMILY HISTORY OF HEART DISEASEHyperlipidemiaScreeningObesity [...] Vale Pérez pulse rate 81 /min Vale bena weight E&M 203 [lb_av] Vale Mcgarry l height E&M 68 [in_i] Vale Vasquezbel l blood pressure, diastolic 84 mm[Hg] Chema Tamez blood pressure, systolic 110 mm[Hg] Robby Tamez Body Mass Index (Ratio) 30.77 kg/m2 Wanda ica N Enmanuel blood pressure, cuff size regular Je ssica N Enmanuel blood pressure, diastolic 80 mm[Hg] Je ssica N Enmanuel blood pressure, systolic 120 mm[Hg] Égnesis orlando N Enmanuel oxygen saturation, oximetry 99 [...] iron binding capacity, unsaturated 133 ug/dL [facility] 550-357 8630/09/ 21 iron binding capacity, total 265 ug/dL [facility] 396-703 8907/09/ 21 basophil count, absolute 0.1 x10E3/uL [employer]Logic [...] Not Estab. platelet count 296 X10E3/UL [facility] 493-558 1944/09/ 21 red blood cell distribution width 14.8 [...] iron binding capacity, unsaturated 322 ug/dL [facility]Log[facility] 505-211 3596/08/ 01 iron binding capacity, total 398 ug/dL [facility] [phone]/08/ 01 prothrombin time (patient) 9.9 s LinkLogic [...] Not Estab. platelet count 285 X10E3/UL [facility] [phone]/08/ 01 red blood cell distribution width 13.9 [...] LinkLogic 3.5-5.2 sodium, serum 142 mmol/L [facility] [phone]/08/ 01 urea nitrogen/creatinine ratio, serum 15 LinkLogic [...] active one tab by mouth daily Danny Ynag MD CYMBALTA 60 MG ORAL CAPSULE DELAYED RELEASE PARTICLES active take 1 tab daily Vale Pérez CRESTOR 40 MG ORAL TABLET completed ONE TAB. DAILY - Vale Pérez VITAMIN D3 06895 UNIT ORAL TABLET active TAKE ONE TAB [...] red libertarian ID [employer] Other [id number] ADVANCE DIRECTIVES Name Date DISCUSSED - NO [...]
--- OUTSIDE RECORDS SUMMARY | 2024-09-19 16:28 | XMS_ITS | Clinical Summary ---
Author Organization [facility] Address [address] [facility] [place] [address] Care Team Providers Care Web Site Administrator Name Role Phone Corinna Coburn APRN-FORMS ANALYSIS MANAGER Primary Care Provider Source Comments [facility],non-owned Affiliates and Associated Physician Practices is amultiple site organization consisting of ambulatory clinics and hospital sitesin [place], [place], [place] and [place]. This disclosure is being madepursuant to the Care Everywhere program and may not contain all information available regarding this patient. Last updated 18.[facility] Allergies No known active allergies Medications * Be aware that medications may not be up to date on this document. Alwaysverify current medications with the patient. ALPRAZolam (XANAX) 0.25 MG tablet Take 0.25 [...] 10/24/2021 Dermatofibroma of right calf 10/24/2021 Immunizations Immunization Administration Dates Next Due INFLUENZA VACCINE, TRIV. [...] = 0.6 oz pur e alcohol) occasionally Comments Unknown Sex and Gender Information Value Date Recorded Sex Assigned at Not on file Legal Sex Female 1:39 PM CDT Gender Identity Not on file Sexual Orientation [...] 2024 04/25/2022, 05/09/2021, 07/31/2020, Additional history exists DEPRESSION SCREENING 06/01/2024 MAMMOGRAM 09/12/2024 09/12/2022, 08/30, 08/06/2021 INFLUENZA VACCINE (Season Ended) 2025 05/09/2022, 05/09/2021, 03/26/2015, Additional history exists DTAP/TDAP/TD VACCINES (3 - Td or Tdap) [...] on patient's age to complete this topic Insurance [place] [address] COMMERCIAL GENERIC Member Subscriber Plan / Payer (Ef fective 2020-Present) Name:Zahira [place] Relation to Subscriber:Spouse Name:Omega [place] Date of :1972 (Home) Address: [address] [place] [address] [place] [address] Payer ID:Not on file Group ID:[id number] Type:Commercial Address: [facility] [id number] [place] [address] [place] [address] Care Teams Web Site Administrator Relationship Specialty Start Date End Date Corinna Coburn, TEACHER [employer]-FORMS ANALYSIS MANAGER [address] [place] [address] PCP - General 09/02/21
--- OUTSIDE RECORDS SUMMARY | 2024-09-19 16:28 | XMS_ITS | Encounter Summary ---
Author Organization [facility] Address [address] [place] [address] Care Team Providers Care Charge Account Identification Clerk Name Role Phone Corinna Coburn Primary Care Provider Encounter Details Date Type Department Care Team (Late st Contact Info) Description 03/07/2023 Ophth Exam [facility] - Ophthalmology [address] [place] [address] Jessie Martin MD [address] [facility] [place] [address] Social History Tobacco Use Types [...] on filedocumented in this encounter Care Teams Charge Account Identification Clerk Relationship Specialty Start Date End Date Corinna Coburn APRN-CNP [address] [place] [address] PCP - General 09/02/21 documented as of this encounter
--- OUTSIDE RECORDS SUMMARY | 2024-09-19 16:28 | XMS_ITS | Patient Health Record ---
Author Organization [facility] [facility] Address [address] [facility] [address] [place] [address] Care Team Providers Care Messenger Copy Name Role Phone Corinna Fields Primary Care Provider Andrés Newman Unavailable [phone] Migration, Provider Unavailable Unavailable Allergies No Known Allergies Results Component Value Reference Range Notes UDT Reviewed date:11/20/2023 02:41:47 PM Interpretation: Performing Lab: Notes/Report: THC neg 0 - 50 ng/ml Cocaine neg Amphetamine neg Buprenorphine (BUP) neg Secobarbital (Bar) neg Oxazepam (BZO) neg 8-hnzjjkgmxq-9,0-omufwgwo-9,3-diphenylpyrrolidine (LIZZETH P) neg Methamphetamine (MET) neg Methylenedioxymethamphetamine (MDMA) neg Morphine (MOP 300/ERK4257) neg Methadone (MTD) neg Phencyclidine (PCP) neg [...] 50 MG TAKE 1 TABLET BY [facility] EVERY DAY FOR 30 DAYS for 90 [...] Problem Status W/U Status Risk Notes Problem [id number] Major depressive disorder, recurrent, mild (F33.0) Active confirmed Problem 58535328 JUMANA (generalized anxiety disorder) (F41.1) Active confirmed Problem 47823131 ADHD, predominantly inattentive type (F90.0) Active confirmed Vital Signs Heart Rate 80 /min 07/20/2024 Height-cm 172.72 cm 07/20/2024 Blood pressure diastolic 79 mm Hg 07/20/2024 Weight-kg 77.66 kg 07/20/2024 Height 68 in 07/20/2024 Blood pressure systolic 112 mm Hg 07/20/2024 Weight 171.2 lbs 07/20/2024 BMI 26.03 kg/m2 07/20/2024 Encounters Encounter Location Date Provider Diagnosis [employer] [address] [place] [address] 11/20/2023 Andrés Jose Major depressive disorder, recurrent, mild F33.0 ; JUMANA (generalized anxiety disorder) F41.1 and ADHD, predominantly inattentive type F90.0 [facility] [address] [place] [address] 11/25/2023 Andrés Garcia ADHD (attention deficit hyperactivity disorder), combined type 314.01 [employer] [facility] [address] [place] [address] 12/18/2023 Andrés Jose Major depressive disorder, recurrent, mild F33.0 ; JUMANA (generalized anxiety disorder) F41.1 and ADHD, predominantly inattentive type F90.0 [facility] [address] [place] [address] 02/19/2024 Andrés Jose Major depressive disorder, recurrent, mild F33.0 ; JUMANA (generalized anxiety disorder) F41.1 and ADHD, predominantly inattentive type F90.0 [facility] [address] [place] [address] 05/20/2024 Andrés Garcia [facility], [facility] [address] [place] [address] 07/20/2024 Andrés Jose Major depressive disorder, recurrent, mild F33.0 ; JUMANA (generalized anxiety disorder) F41.1 and ADHD, predominantly inattentive type F90.0 [facility] [address] [place] [address] 10/15/2023 Provider Migration [facility], [facility] [address] [place] [address] 10/17/2023 Provider Migration [facility], [facility] [address] [place] [address] 10/18/2023 Provider Migration [facility], [facility] [address] [place] [address] 04/15/2024 Andrés Garcia [facility], [facility] [address] [place] [address] 06/23/2024 Andrés Garcia [facility], [facility] [address] [place] [address] 01/31/2024 Andrés Jose ADHD, predominantly inattentive type F90.0 [facility] [address] [place] [address] 04/18/2024 Nadrés Jose [facility], [facility] [address] [place] [address] 08/11/2024 Andrés Jose Assessments Encounter Date Diagnosis [...] Continue attending sessions with current counselor at [facility] in [place]. Patient last saw counselor on Thursday. Attention [...] Continue attending sessions with current counselor at [facility] in [place]. Patient last saw counselor on Thursday. Attention [...] Continue attending sessions with current counselor at [facility] in [place]. Patient last saw counselor on Thursday. Attention [...] 10/12/2024 02:00:00 PM, [address], [facility] [address], [place], [address], Insurance Providers Payer Name Payer Address Payer Phone Subscriber Number Group Number Insured Name Patient Relationship to Insured Coverage Start Date Coverage End Date [employer] Administrative Services [address] [place] [address] [id number] ASTON MARK Self - patient is the [...]
--- OUTSIDE RECORDS SUMMARY | 2024-09-19 16:28 | XMS_ITS | Data Portability ---
Author Organization [facility], Main Office Address [address] [place] [address] Care Team Providers Care Chief Supply Chain Officer Name Role Phone KARTIK ADHIKARI Primary Care Provider [phone] Assessment No assessment recorded. Plan of Treatment Reminders Order Date Submit Date Provider Last Modified By Organization Details Last Modified Time Details Appointments None recorded. Lab CBC w/ auto diff 2023 024 [facility] (Lab), [address] [place], [address], 4 20:34:02 iron + total iron-bindin g capacity (TIBC), serum [address] (Lab), [address] [place], [address], 4 08:13:38 glycohemogl obin, total, blood [address] (Lab), [address] [place], [address], 4 08:08:12 glycohemogl obin, total, blood [address] (Lab), [address] [place], [address], 4 08:13:44 Referral None recorded. Procedures colonoscopy screening (PROC) 2023 024 [facility] (Pre-Screen), [address] [place], [address], 4 13:22:18 upper endoscopy procedure (EGD) (PROC) 2023 024 [facility] (Pre-Screen), [address] [place], [address], 4 13:21:58 Surgeries None recorded. Imaging [place], modified barium swallow study [address] ([facility] Scheduling), [address] [place], [address], 4 08:16:59 Medication Orders Macrobid 100 mg capsule 2024 025 [facility] #3259, [address] [place], [address], 5 15:38:03 losartan 50 mg tablet 2023 024 [facility] #3259, [address] [place], [address], 4 12:03:36 amlodipine 5 mg tablet 2023 024 [facility]armacy #3259, [address] [place], [address], 4 12:03:37 rosuvastati n 10 mg tablet 2023 024 [facility] #3259, [address] [place], [address], 4 12:03:39 Golytely 236 gram-22.74 gram-6.74 gram-5.86 gram oral solution 2023 024 [facility]/Pharmacy #3259, [address] [place], [address], 11:49:36 Ozempic 0.25 mg or 0.5 mg (2 mg/3 mL) subcutaneou s pen injector 2023 Shayna he [facility], [address] [place], [address], 12:39:01 Patient TargetsNo targets recorded. Patient Instructions Encounter Date Encounter Id Patient Instructions Last Modified By Organization Details Last Modified Time 11/18/2023 [id number] GOLYTELY/ REFLUX DIET Not available 11/18/2023 15:37:53 PT NEEDS A SCREENING COLON . R/O POLYP . RECOMMEND A COLONOSOPY. PT WITH DYSPHAGIA. R/O H. PYLORI/ STRICTURE / MOTILITY D/O . RECOMMEND EGD /MBS. RISKS BENEFITS AND COMPLICATIONS WERE EXPLAINED TO PT . ( BLEEDING , PERFORATION , INFECTION , ) PT VERBALIZES UNDERSTANDING AND IS WILLING TO PROCEDE . [email or web address] Not available 11/18/2023 15:38:38 Reason for Referral None Reported. Results Created Date Observation Date Name Description Value Unit Range Abnormal Flag Note LastModifiedBy Organization Detail LastModifiedTime 09/14/1909/14/2023 adilson ACOSTA, sherry al, bilat eral No observ ation record ed. [email or web address] [id number] , [place], [address], 09/17/2023 08:38:45 10/05/1910/05/2023 adilson ACOSTA, bilat eral No observ ation record ed. [email or web address], [place], [address], 11/24/2023 11:14:27 10/05/19 24 10/05/2023 adilson ACOSTA bilat eral No observ ation record ed. [address] , [place], [address], 11/24/2023 11:14:37 03/24/20 24 03/24/2024 XR, chest , 2 view No observ ation record ed. [address], [place], [address], 03/25/2024 09:05:55 05/09/20 24 05/08/2024 CT, abdom en + pelvi s, w/ contr ast No observ ation record ed. [address], [place], [address], 05/10/2024 11:10:56 07/02/19 25 07/01/2024 CT, abdom en + pelvi s, w/ contr ast No observ ation record ed. [address] [facility], [place], [address], 07/03/2024 11:00:41 08/26/19 25 08/24/2024 XR, abdom en No observ ation record ed. [address] [facility], [place], [address], 08/25/2024 12:39:14 08/26/19 25 08/24/2024 XR, abdom en No observ ation record ed. [address] [facility], [place], [address], 08/25/2024 16:51:16 Result Notes None recorded. Problems Name Problem SNOMED Code Status Onset Date Resolution Date Notes Provider Name and Address Organization Details Recorded Time Excessive cerumen in ear canal 282320223 Active Not Available [facility] 3 07:31:35 Abscess 311041143 Active 2016 Not Available [facility] 3 07:31:35 Otalgia 09216775 Active 2016 Not Available [facility] 3 07:31:36 Family history of Rheumatoid arthritis 751573898 Active 2017 Not Available [facility] 3 07:31:36 Mammograph y abnormal 986562314 Active 2021 Not Available [facility] 3 07:31:36 Mood swings 53588272 Active 2020 Not Available [facility] 3 07:31:36 Feeling stressed 525622034 Active Not Available [facility] 3 07:31:36 Screening mammograph y Active 2021 Not Available [facility] 3 07:31:36 Knee pain Active Not Available [facility] 3 07:31:36 Depressive disorder 91658619 Active Not Available [employer] 3 07:31:36 Elevated blood-pres sure reading without diagnosis of hypertensi on 949007697 Active Not Available [facility] 3 07:31:36 Screening for malignant neoplasm of colon done 8723296393749 01 Active 2020 Not Available [facility] 3 07:31:36 Anxiety 56522368 Active Not Available [facility] 3 07:31:37 Hyperlipid emia 62404425 Active Not Available [facility] 3 07:31:37 Joint pain 89184426 Active 2017 Not Available [facility] 3 07:31:37 Diarrhea 94415450 Active Not Available [facility] 3 07:31:37 Snoring 06597658 Active 2016 Not Available [facility] 3 07:31:37 Stress 42101054 Active Not Available [facility] 3 07:31:37 Posterior rhinorrhea 09609479 Active Not Available [facility] 3 07:31:37 Obstructiv e sleep apnea syndrome 60316338 Active 2017 Not Available [facility] 3 07:31:37 Neck pain 37631305 Active 2016 Not Available [facility] 3 07:31:37 Fatigue 80451095 Active 2016 Not Available [facility] 3 07:31:38 Lesion of scalp 609115842152 Active Not Available [facility] 3 07:31:38 Disorder of the nose 25316823 Active Not Available [facility] 3 07:31:38 Skin lesion 11591525 Active Not Available [facility] 3 07:31:38 Essential hypertensi on 99844942 Active 2022 Corinna Coburn NP [address], [place], [address] , [employer] 3 12:07:44 Difficulty swallowing 052679489 Active 2022 Corinna Coburn NP [address], [address], [place], [address] , [employer] 3 12:08:24 Mass of neck 986966594 Active 2022 Corinna Coburn NP [address], [address], [place], [address] , [employer] 3 12:48:07 Obesity 532499730 Active 2023 LENNY Weiss [address], [address] [employer], [place], [address] , [employer] 4 11:04:29 Dry eyes 268323335 Active 2023 LENNY Weiss [address], [place], [address] , [employer] 4 11:06:44 Feeling of lump in throat 215584317 Active 2023 LENNY Weiss [address], [address], [place], [address] , [employer] 4 11:13:12 Deviated nasal septum 562239536 Active 2023 Dmitri Tran MD [address], [address], [place], [address] , [employer] 4 16:37:16 Hypertroph y of nasal turbinates 72891423 Active 2023 Dmitri Tran MD [address], [address], [place], [address] , [employer] 4 16:37:30 Chronic maxillary sinusitis 19097050 Active 2023 Dmitri Tran MD [address], [place], [address] , [facility] 4 16:37:48 Dysphagia 49852763 Active 2023 Dmitri Tran MD [address], [place], [address] , [facility] 4 16:41:54 Acute sinusitis 48611815 Active 2023 Dmitri Tran MD [address], [place], [address] , [facility] 4 16:43:25 Prediabete s 372082323 Active 2023 LENNY Weiss [address], [place], [address] , [facility] 4 14:28:35 Esophageal dysphagia 41885588 Active 2023 Marie Hoskins MD [address], [place], [address] , [facility] 4 15:37:33 Orthostati c hypotensio n 42399129 Active 2023 LENNY Weiss [address], [place], [address] , [facility] 4 10:01:45 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 Procedures Surgical History Date Name Laterality Status Provider Name and Address Organization Details Recorded Time 09/14/19 Most Recent Mammogram completed TRACY Figueroa - [facility] [place] [email or web address] [facility] 03/03/2024 11:53:52 06/01/19 18 Date of Last Colonoscopy completed Not Available [facility] 07/30/2022 07:27:15 Hysterectomy, Partial completed Not Available [facility] 07/30/2022 07:27:16 biopsy of breast completed Not Available [facility] 07/30/2022 07:27:16 Imaging Results Imaging Date Name Status LastModified by [facility] Details LastModified Time 09/14/2023 MAMMO, screening, digital, bilateral completed [place] [address] , [place], [address], 09/17/2023 08:38:45 10/05/2023 MAMMO, screening, bilateral completed [place] [address] , [place], [address], 11/24/2023 11:14:27 10/05/2023 MAMMO, screening, bilateral completed [place] [address] , [place], [address], 11/24/2023 11:14:37 03/24/2024 XR, chest, [address], [address], 03/25/2024 09:05:55 05/08/2024 CT, abdomen + pelvis, w/ contrast completed [address], [address], 05/10/2024 11:10:56 07/01/2024 CT, abdomen + pelvis, w/ contrast completed [address], [address], 07/03/2024 11:00:41 08/24/2024 XR, abdomen completed [address], [place], [address], 08/25/2024 12:39:14 08/24/2024 XR, abdomen completed [facility] [address] [facility] [address], [place], [address], 08/25/2024 16:51:16 Procedure Notes None recorded. Medical Equipment None [...] hr TAKE 1 CAPSULE BY MOUTH EVERY DAY IN THE MORNING active Not Available Not Available No t [...] TABLET BY MOUTH EVERY DAY AT NIGHT active Not Available Not Available No [...] Not Available Not Available Not Available Fluvirin 1359-5336 45 mcg (15 mcg x 3)/0.5 mL [...] Updated DateTime 4 172.72 cm 32.7 kg/m2 74082.3 6 g 95.9 [degF] 113 /min 20 /min 98 % 98 % 0 138 mm[Hg] 84 mm[Hg] Corinna Sotelo RN [facility] [employer] [facility] 4 14:09:59 Date Recorded Body height Body mass index (BMI) Body weight Heart rate Oxygen saturation Oxygen saturation in Arterial blood by Pulse oximetry Systolic blood pressure Diastolic blood pressure Provider Name and Address Organization Details Last Updated DateTime 4 172.72 cm 32.7 kg/m2 16144.3 6 g 105 /min 99 % 99 % 134 mm[Hg] 80 mm[Hg] YOSELIN Rao [facility] [employer] [facility] 4 15:30:44 Date Recorded Body height Body mass index (BMI) Body weight Body temperature Heart rate Respiratory rate Oxygen saturation Oxygen saturation in Arterial blood by Pulse oximetry Pain severity - 0-10 verbal numeric rating [Score] - Reported Systolic blood pressure Diastolic blood pressure Provider Name and Address Organization Details Last Updated DateTime 4 172.72 cm 30.1 kg/m2 20769.2 9 g 97.3 [degF] 89 /min 20 /min 97 % 97 % 0 126 mm[Hg] 84 mm[Hg] Corinna Sotelo RN [facility] [employer] [facility] 4 11:52:59 Date Recorded Body height Body mass index (BMI) Body weight Body temperature Heart rate Respiratory rate Oxygen saturation Oxygen saturation in Arterial blood by Pulse oximetry Pain severity - 0-10 verbal numeric rating [Score] - Reported Systolic blood pressure Diastolic blood pressure Provider Name and Address Organization Details Last Updated DateTime 4 172.72 cm 28.4 kg/m2 58363.3 3 g 96.8 [degF] 95 /min 20 /min 99 % 99 % 2 130 mm[Hg] 90 mm[Hg] Corinna Sotelo RN [facility] [employer] [facility] 4 09:50:15 Date Recorded Body height Body mass index (BMI) Body weight Body temperature Heart rate Respiratory rate Oxygen saturation Oxygen saturation in Arterial blood by Pulse oximetry Pain severity - 0-10 verbal numeric rating [Score] - Reported Systolic blood pressure Diastolic blood pressure Provider Name and Address Organization Details Last Updated DateTime 5 172.72 cm 26.9 kg/m2 32858.2 g 97.2 [degF] 99 /min 20 /min 97 % 97 % 2 130 mm[Hg] 90 mm[Hg] Corinna Sotelo RN [place] [facility] [email or web address] 5 15:31:41 Social History Question Answer Notes LastModified by Organizat ion Details LastModified Time Tobacco Smoking Status Never Smoker Not Available [facility] 07/30/2022 07:26:56 Do You Have An Advance Directive? No Information not available 01/02/2023 What Is Your Level Of Alcohol Consumption? Occasional MIGRATION.[id number] Information not available 07/30/2022 Is Blood Transfusion Acceptable In An Emergency? Yes Information not available 01/02/2023 What Is Your Level Of Caffeine Consumption? Moderate MIGRATION.32949 22791 Information not available 07/30/2022 What Is Your Code Status? Full Code Information not available 01/02/2023 In The 14 Days Before Symptom Onset, Have You Had Close Contact With A Laboratory-confir med COVID-19 While That Case Was Ill? No MIGRATION.40603 08838 Information not available 07/30/2022 In The 14 Days Before Symptom Onset, Have You Had Close Contact With A Person Who Is Under Investigation For COVID-19 While That Person Was Ill? No MIGRATION.47079 47517 Information not available 07/30/2022 Are You Currently Employed? Yes Information not available 10/12/2023 What Type Of Diet Are You Following? REGULAR MIGRATION.60142 54944 Information not available 07/30/2022 What Is The Highest Grade Or Level Of School You Have Completed Or The Highest Degree You Have Received? 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 No MIGRATION.90380 12326 Information not available 07/30/2022 Do You Use Insect Repellent Routinely? No MIGRATION.24172 77304 Information not available 07/30/2022 Where Do You Live? [place]House MIGRATION.62672 07079 Information not available 07/30/2022 Do You Have A Medical Power Of Enamel Burner? No Information not available 01/02/2023 How Many Children Do You Have? 2 Information not available 03/03/2024 Do You Have Any Pets? Yes MIGRATION.33258 78909 Information not available 07/30/2022 What Is Your Relationship Status? MIGRATION.22702 60722 Information not available 07/30/2022 Do You Use Your Seat Belt Or Car Seat Routinely? Yes Information not available 01/02/2023 Do You Have Smoke And Carbon Monoxide Detectors In Your Home? Yes MIGRATION.79831 90665 Information not available 07/30/2022 Are You Passively Exposed To Smoke? No MIGRATION.48324 84421 Information not available 07/30/2022 Are There Any Smokers In Your House? No MIGRATION.52493 44849 Information not available 07/30/2022 Do You Participate In Social Media? Yes MIGRATION.50246 07905 Information not available 07/30/2022 Do You Feel Stressed (tense, Restless, Nervous, Or Anxious, Or Unable To Sleep At Night)? HI65370-0 MIGRATION.73947 33101 Information not available 07/30/2022 Do You Use Sunscreen Routinely? Yes MIGRATION.67674 14968 Information not available 07/30/2022 Have You Recently Traveled Abroad? No Information not available 01/02/2023 Are You Currently In School? No MIGRATION.88723 94079 Information not available 07/30/2022 Do You Have Any Dietary Restrictions? No MIGRATION.09761 96810 Information not available 07/30/2022 Sex: Female Functional Status Question Answer Note LastModified by Organizat ion Details LastModified Time What is your exercise level? None [id number].[id number] Information not available 07/30/2022 Mental Status None recorded. Family History Relationship Description Onset Age of this Age Resolved Age Notes LastModified by Organization Details LastModified Time Father Hyperlipidem ia [email or web address] Not available 03/03 11:38:17 Father Essential hypertension Not available 11:38:17 Father Tongue carcinoma [email or web address] Not available 03/03 11:38:17 Father Crohn's disease [email or web address] Not available 03/03 11:38:17 Maternal Uncle Hyperlipidem ia [email or web address] Not available 03/03 11:38:17 Brother Hyperlipidem ia [email or web address] Not available 03/03 11:38:17 Brother Essential hypertension [email or web address] Not available 11:38:18 Brother Seasonal allergy [email or web address] Not available 03/03 11:38:18 Brother Myocardial infarction MIGRATION.461 [id number] Not available 07/30/2022 07:27:18 Brother Asthma MIGRATION.184 [id number] Not available 07/30/2022 07:27:18 Mother Essential hypertension [email or web address] Not available 11:38:18 Mother Rheumatoid arthritis [email or web address] Not available 03/03 11:38:18 Mother Seasonal allergy [email or web address] Not available 03/03 11:38:18 Mother Myocardial infarction MIGRATION.557 [id number] Not available 07/30/2022 07:27:18 Mother Asthma MIGRATION.796 [id number] Not available 07/30/2022 07:27:18 Medical History Condition Response BLINDNESS N RHEUMATIC FEVER N KIDNEY STONES N BLADDER PROBLEMS N MRSA N OTHER # 1 N POLIO N LUNG DISEASE/DISORDER N COPD N RADIATION / CHEMOTHERAPY N Other # 2 N BLOOD DISEASES N SURGERY N EAR OR HEARING PROBLEMS N MUMPS N FEMALE PROBLEMS / INFECTIONS N DEPRESSION (INCLUDING POST ) N BOWEL PROBLEMS N STROKE/TIA N THYROID DISEASE N ULCERS N BENIGN PROSTATIC HYPERPLASIA N MEASLES N CERVICALGIA N HYPOTENSION Y TB SKIN TEST N MYOCARDIAL INFARCTION N OBESITY Y PARAPELGIA N GERD/NAUSEA Y ANEURYSM N URINARY/BLADDER/KIDNEY PROBLEMS N [...] GLAUCOMA N FOOT PROBLEM N DIVERTICULITIS N SLEEP APNEA N CHICKENPOX N ALLERGIES/HAYFEVER N INFECTIOUS DISEASE N PROSTATE N HEART ARRHYTHMIA N INSOMNIA N HIGH CHOLESTEROL / HYPERLIPIDEMIA Y HYPERTHYROIDISM N EYE PROBLEMS N EATING DISORDER N NEUROLOGICAL PROBLEMS N EDEMA N CHRONIC PAIN SYNDROME N HYPOTHYROIDISM N CONSTIPATION N CAROTID BLOCKAGE N BACK / NECK PROBLEMS N HAVE YOU BEEN HOSPITALIZED OR SEEN IN [facility] IN THE PAST YEAR ? N ATHEROSCLEROSIS [...] N PAIN N HERPES N DEMENTIA N SEIZURES/EPILEPSY N HEADACHES/MIGRAINES N VASCULAR DISEASE N PACEMAKER N DIZZINESS N KIDNEY DISEASE N HEART DISEASE/HEART PROBLEMS N SCARLET FEVER N MULTIPLE SCLEROSIS N MENTAL DISORDER/ILLNESS N DEVELOPMENTAL OR BEHAVIORAL DISORDERS N CARDIAC ARRHYTHMIA N CANCER: SPECIFY N PNEUMONIA N Gall Stones N ATRIAL FIBRILLATION N PULMONARY EMBOLISM N AUTOIMMUNE DISEASE N [...] (COVID-19) vaccine, UNSPECIFIED 1 completed Not Available [facility] 07/30/2022 07:37:33 SARS-COV-2 (COVID-19) vaccine, UNSPECIFIED 1 completed Not Available [facility] 07/30/2022 07:37:33 SARS-COV-2 (COVID-19) vaccine, UNSPECIFIED 1 completed Not Available [facility] 07/30/2022 07:37:33 Tdap 9 completed Not Available [facility] 07/30/2022 07:37:33 Influenza, split virus, trivalent, preservative 5 completed Not Available [facility] 07/30/2022 07:37:33 Influenza, split virus, trivalent, preservative 4 completed Not Available [facility] 07/30/2022 07:37:33 DTaP, unspecified formulation 0 completed Not Available [facility] 07/30/2022 07:37:34 Influenza, split virus, trivalent, PF 4 completed Not Available [facility] 07/30/2022 07:37:34 Past Encounters Encounter ID Performer Location Encounter Start Date Encounter Closed Date Diagnosis/Indication Diagnosis SNOMED-CT Code Diagnosis ICD10 Code Diagnosis Note [id number] [address] [address] 08/24/2020 00:00:00 08/24/2020 16:16:[id number] [address] 01/27/2022 00:00:00 01/27/2022 10:36:05 [id number] Corinna Coburn NP [address] [address] 01/02/2023 12:13:59 01/02/2023 13:54:49 Hyperlipidemia 42409481 E78.5 rosuvastat in 10 mg po nightly.Lo w fat diet. Essential hypertension 97343618 I10 Amlodipine 5 mg po daily.Add on losartan 50 mg po daily on 01/02/23 Difficulty swallowing 28 0259622 R13.10 Referring to GI. Diabetes m ellitus screening 615869173 Z13.1 Anemia screening 1029912 07 Z13.0 Screening for malignant neoplasm of colon 632705459 Z12.11 Mass of neck 946157466 R 22.1 US neck soft tissueUS thyroid Thyroid di sorder screening 566817774 Z13.29 [id number] LENNY Weiss [address] [address] 09/03/2023 10:26:36 09/03/2023 11:26:55 Hyperlipidemia 63402144 E78.5 Essential hypertension 56301200 I10 Screening for malignant neoplasm of colon 710100308 Z12.11 Obesity 011044194 E66.9 Dry eyes 294766327 H04.1 23 Feeling of lump in throat 695638140 R09.[id number] [facility] ENT Mari Donaldson [address] [place] [address] 09/30/2023 15:24:41 10/01/2023 11:00:18 Deviated nasal septum 770722255 J34.2 Hypertroph y of nasal turbinates 06941757 J34.3 Chronic ma xillary sinusitis 90915770 J32.0 Dysphagia 61122057 R13.1 0 she has [id number] Marie Hoskins MD [facility] General Surgery [address] [facility] [facility] [address] [place] [address] 11/18/2023 15:29:59 11/23/2023 09:02:23 Screening for malignant neoplasm of colon 983290678 Z12.11 History of polyp of colon 196568891 Z86.010 Esophageal dysphagia 408 84773 R13.19 R/O ACHALASIA . [id number] Kartik Adhikari [address] [address] 10/12/2023 14:01:07 10/12/2023 15:04:51 Prediabetes 865384409 R73.03 [id number] Kartik Adhikari [address] [address] 03/03/2024 11:36:02 03/03/2024 12:07:21 Essential hypertension 48873510 I10 Well controlled with current regimen. May D/C medication s with future weight loss Prediabetes 349841313 R7 3.03 Will increase Zepbound at next refill Hyperlipidemia 88076702 E78.5 [id number] LENNY Weiss [address] [address] 03/17/2024 09:40:19 03/17/2024 10:11:06 Orthostatic hypotension 86467142 I95.1 Advised to hold amlodipine and losartan [id number] LENNY Weiss [address] [address] 06/03/2024 15:16:15 06/03/2024 15:54:45 Acute urinary tract infection 692065046 N39.0 Health Concerns Section Related Observation LastModified by Organization Detai ls LastModified Time None Recorded Concern Status LastModified by Organization Details LastModified Time None Recorded Advance Directives Directive N: Payers Encounter Date Sequence Insurance Name Policy Number Policy Zuniga Covered Member ID Zuniga Member ID Guarantor Name 10/12/2023 1 [employer] Gerald Terry [id number] Zahira Terry 11/18/2023 1 [employer] Gerald Terry [id number] Zahira Bendert 03/03/2024 1 [employer] Gerald Terry [id number] Zahira Bendert 03/17/2024 1 [employer] Gerald Bendert [id number] Zahira Bendert 06/03/2024 1 [employer] Gerald Terry [id number] Zahira Bendert Notes Date Note Type Note [...] want to increase today. LENNY Weiss [address] [facility], [place], [address], [employer] 10/12/2023 14:42:58 11/18/2023 text/html PT WAS SEEN [...] DENIES ALLERGIES . Marie Hoskins MD [address], [address], [place] [place], [address], [facility] 11/18/2023 15:51:58 03/03/2024 text/html Zahira Bender is [...] hypertension LENNY Weiss [address], [place], [address], [employer] [facility] [employer] 03/03/2024 12:04:48 03/17/2024 text/html Zahira Terry is [...] LENNY Weiss [address], [place], [address], [employer] [facility] [employer] 03/17/2024 10:08:09 06/03/2024 text/html Zahira Terry is [...] LENNY Weiss [address], [place], [address], [employer] [facility] 06/03/2024 15:53:31 OBGyn Episode No OBEpisode recorded.
== END 2024-09-19 14:31 | disposition home or self-care (01) ==
LOC: ANHSURGERY 14:33
PROVIDERS: Visit Provider Urology
DX: N20.0 Calculus of kidney (principal)
CPT/HCPCS: 36415; 85610; 85730; 87086

== ENCOUNTER 2024-09-23 02:16 | Day surgery (SDC) | payer OTHER, SELFPAY ==
[2024-09-16 10:34] VITALS: BMI 24.3
--- NOTE | 2024-09-16 10:44 | PC.NURSE ---
Report to the Outpatient Waiting Room, entrance under the green pavilion located off [facility], at time ____0600___ on date ___09/23/24____. Planned Procedure Time: ___729 .? Time changes happen often and if your time is changed the preop area will call you the afternoon before. - You and your visitor will be asked to self-screen and do not enter if you have any COVID symptoms. Please call surgeon if you need to reschedule. - A mask is optional within the hospital at this time. Patients may have clear liquids (water, carbonated beverages, clear teas, apple juice) until 3 hours prior to surgery with a maximum of 20 ounces. - No food from midnight until time of surgery and no smoking, or chewing tobacco (or any form of nicotine). No chewing gum, candy or mints. Take only the following medications with a SIP of water on the morning of surgery: ___alprazolam if needed, lamotrigine, sertraline, venlafaxine DO NOT STOP ANY OF YOUR OTHER PRESCRIPTION MEDICATIONS PRIOR TO SURGERY EXCEPT THE FOLLOWING Hold all vitamins and supplements for 3 days per anesthesiologist. Medications to discontinue per physician ____please HOLD tirzepatide for 10 days prior to surgery Please no make-up, nail danish, hairspray, perfume, deodorant, or body powder the day of surgery.? No jewelry (including any body piercings) or valuables the day of surgery, leave them at home.? Please take a shower or bath the night before, or the morning of, surgery with an antibacterial soap.? Wear comfortable, loose fitting clothing.? - Jewelry must be removed prior to entering the operating room.? Rings and piercings that are not removed may be cut off. - The hospital will not accept responsibility for valuables.? - Please leave all valuables, including medications, at home the day of surgery. If you are going home after surgery, a licensed hydraulic lift driver must drive you home.? - NO public transportation without another adult if you receive anesthesia. - We recommend that an adult stay with you for 24 hours following discharge. - We also recommend that you do not drive, make important decision, drink alcoholic beverages, or take any drugs that were not prescribed by your health care provider for at least 24 hours after your discharge time. Follow any additional instructions given to you from your surgeon. Telephone instructions given to Zahira and asked if any additional questions and then verbalized understanding. Patient advised to call surgeon office or pre surgery nurse liaison [phone] if any additional questions.
[2024-09-23] VITALS (8 sets, daily range): BP systolic 101–150; BP diastolic 74–94; PULSE 68–85; RESP 10–16; TEMP 36.4; O2SAT 96–100
--- NOTE | ~2024-09-23 | XR_ITS ---
Supine and upright views of the abdomen Clinical history: Lithotripsy COMPARISON: 08/24/2024 Findings: Bowel gas pattern is nonspecific. No evidence for obstruction or free air. 5 mm left renal stone noted. Osseous structures are intact. Impression: 5 mm left renal stone. Reviewed, dictated and finalized at [facility]. Impression: 5 mm left renal stone.
--- OUTSIDE RECORDS SUMMARY | 2024-09-23 02:23 | XMS_ITS | Referral Summary ---
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 Not on file Not on file [...] to Health [place] [address] [place] [address] Member Subscriber Plan / Payer (Ef fective 2021-Present) Name:Zahira Mark Relation to Subscriber:Spouse Name:OMEGA MARK Date of :1972 (Home) Address: [address] [place], [place] [address] [address] Payer ID:[id number] Group ID:[id number] Type:COMMERCIAL Address: [id number] [place] [address] [facility] Member Subscriber Plan / Payer (Ef fective 2021-Present) Name:Zahira Mark Relation to Subscriber:Spouse Name:JASOMEGA Gloria Date of :1972 (Home) Address: [place] [address] Payer ID:[id number] Group ID:[id number] Type:MANAGED CARE OTHER Address: [id number] [place] [address] Care Teams Rack Pusher Relationship Specialty Start Date End Date Margarette Ngo NP [address] [place] [address] PCP - General Nurse Practitioner 09/19/24 Amanda Pabon MD [address] [place] [address] Medical Oncologist/Hematologis t Hematology and Oncology 09/12/21
--- OUTSIDE RECORDS SUMMARY | 2024-09-23 02:23 | XMS_ITS | Data Portability ---
Author Organization [facility], Main Office Address [address] [place] [address] Care Team Providers Care Buyer Grain Name Role Phone KARTIK ADHIKARI Primary Care Provider Assessment No assessment recorded. Plan of Treatment Reminders Order Date Submit Date Provider Last Modified By Organization Details Last Modified Time Details Appointments None recorded. Lab CBC w/ auto diff 2023 024 [facility] (Lab), [address] [place], [address], 4 20:34:02 iron + total iron-bindin g capacity (TIBC), serum [address] (Lab), [address] [place], [address], 4 08:13:38 glycohemogl obin, total, blood [address] (Lab), [address] [place], [address], 4 08:08:12 glycohemogl obin, total, blood [address] (Lab), [address] [place], [address], 4 08:13:44 Referral None recorded. Procedures colonoscopy screening (PROC) 2023 024 [facility] (Pre-Screen), [address] [place], [address], 4 13:22:18 upper endoscopy procedure (EGD) (PROC) 2023 024 [facility] (Pre-Screen), [address] [place], [address], 4 13:21:58 Surgeries None recorded. Imaging [place], modified barium swallow study [address] (One Call Scheduling), [address] [place], [address], 4 08:16:59 Medication Orders Macrobid 100 mg capsule 2024 025 [facility]3259, [address] [place], [address], 5 15:38:03 losartan 50 mg tablet 2023 024 [facility]3259, [address] [place], [address], 4 12:03:36 amlodipine 5 mg tablet 2023 024 [facility]3259, [address] [place], [address], 4 12:03:37 rosuvastati n 10 mg tablet 2023 024 [facility]3259, [address] [place], [address], 4 12:03:39 Golytely 236 gram-22.74 gram-6.74 gram-5.86 gram oral solution 2023 024 [facility] #3259, [address] [place], [address], 11:49:36 Ozempic 0.25 mg or 0.5 mg (2 mg/3 mL) subcutaneou s pen injector 2023 Shayna he [id number], [address] [place], [address], 12:39:01 Patient TargetsNo targets recorded. Patient Instructions Encounter Date Encounter Id Patient Instructions Last Modified By Organization Details Last Modified Time 11/18/2023 [id number] GOLYTELY/ REFLUX DIET [id number] Not available 11/18/2023 15:37:53 PT NEEDS A SCREENING COLON . R/O POLYP . RECOMMEND A COLONOSOPY. PT WITH DYSPHAGIA. R/O H. PYLORI/ STRICTURE / MOTILITY D/O . RECOMMEND EGD /MBS. RISKS BENEFITS AND COMPLICATIONS WERE EXPLAINED TO PT . ( BLEEDING , PERFORATION , INFECTION , ) PT VERBALIZES UNDERSTANDING AND IS WILLING TO PROCEDE . [email or web address] Not available 11/18/2023 15:38:38 Reason for Referral None Reported. Results Created Date Observation Date Name Description Value Unit Range Abnormal Flag Note LastModifiedBy Organization Detail LastModifiedTime 09/14/1909/14/2023 adilson ACOSTA, sherry al, bilat eral No observ ation record ed. [email or web address] [id number] , [place], [address], 09/17/2023 08:38:45 10/05/1910/05/2023 adilson ACOSTA, bilat eral No observ ation record ed. [email or web address], [place], [address], 11/24/2023 11:14:27 10/05/19 24 10/05/2023 adilson ACOSTA bilat eral No observ ation record ed. [address] , [place], [address], 11/24/2023 11:14:37 03/24/20 24 03/24/2024 XR, chest , 2 view No observ ation record ed. [address], [place], [address], 03/25/2024 09:05:55 05/09/20 24 05/08/2024 CT, abdom en + pelvi s, w/ contr ast No observ ation record ed. [address], [place], [address], 05/10/2024 11:10:56 07/02/19 25 07/01/2024 CT, abdom en + pelvi s, w/ contr ast No observ ation record ed. [address] [facility], [place], [address], 07/03/2024 11:00:41 08/26/19 25 08/24/2024 XR, abdom en No observ ation record ed. [address] [facility], [place], [address], 08/25/2024 12:39:14 08/26/19 25 08/24/2024 XR, abdom en No observ ation record ed. [address] [facility], [place], [address], 08/25/2024 16:51:16 Result Notes None recorded. Problems Name Problem SNOMED Code Status Onset Date Resolution Date Notes Provider Name and Address Organization Details Recorded Time Excessive cerumen in ear canal 578160506 Active Not Available [facility] 3 07:31:35 Abscess 187445614 Active 2016 Not Available [facility] 3 07:31:35 Otalgia 55278995 Active 2016 Not Available [facility] 3 07:31:36 Family history of Rheumatoid arthritis 416804202 Active 2017 Not Available [facility] 3 07:31:36 Mammograph y abnormal 479761161 Active 2021 Not Available [facility] 3 07:31:36 Mood swings 62100430 Active 2020 Not Available [facility] 3 07:31:36 Feeling stressed 239420783 Active Not Available [facility] 3 07:31:36 Screening mammograph y Active 2021 Not Available [facility] 3 07:31:36 Knee pain Active Not Available [facility] 3 07:31:36 Depressive disorder 22461597 Active Not Available [facility] 3 07:31:36 Elevated blood-pres sure reading without diagnosis of hypertensi on 235704691 Active Not Available [facility] 3 07:31:36 Screening for malignant neoplasm of colon done 4603747876700 01 Active 2020 Not Available [facility] 3 07:31:36 Anxiety 49455877 Active Not Available [facility] 3 07:31:37 Hyperlipid emia 00144731 Active Not Available [facility] 3 07:31:37 Joint pain 63218483 Active 2017 Not Available [facility] 3 07:31:37 Diarrhea 02836355 Active Not Available [facility] 3 07:31:37 Snoring 22031563 Active 2016 Not Available [facility] 3 07:31:37 Stress 19576819 Active Not Available [facility] 3 07:31:37 Posterior rhinorrhea 01182098 Active Not Available [facility] 3 07:31:37 Obstructiv e sleep apnea syndrome 21565038 Active 2017 Not Available [facility] 3 07:31:37 Neck pain 07762934 Active 2016 Not Available [facility] 3 07:31:37 Fatigue 78847724 Active 2016 Not Available [facility] 3 07:31:38 Lesion of scalp 755768217501 Active Not Available [facility] 3 07:31:38 Disorder of the nose 13175146 Active Not Available [facility] 3 07:31:38 Skin lesion 68613381 Active Not Available [facility] 3 07:31:38 Essential hypertensi on 64239562 Active 2022 Corinna Coburn NP [address], [address], [place], [address] , [facility] 3 12:07:44 Difficulty swallowing 088255958 Active 2022 Corinna Coburn NP [address], [place], [address] , [facility] 3 12:08:24 Mass of neck 558700107 Active 2022 Corinna Coburn NP [address], [place], [address] , [facility] 3 12:48:07 Obesity 483866680 Active 2023 LENNY Weiss [address] [employer], [place], [address] , [facility] 4 11:04:29 Dry eyes 572411998 Active 2023 LENNY Weiss [address], [place], [address] , [facility] 4 11:06:44 Feeling of lump in throat 149825514 Active 2023 LENNY Weiss [address], [address], [place], [address] , [facility] 4 11:13:12 Deviated nasal septum 057649291 Active 2023 Dmitri Tran MD [address], [address], [place], [address] , [facility] 4 16:37:16 Hypertroph y of nasal turbinates 42244090 Active 2023 Dmitri Tran MD [address], [place], [address] , [facility] 4 16:37:30 Chronic maxillary sinusitis 18998352 Active 2023 Dmitri Tran MD [address], [place], [address] , [facility] 4 16:37:48 Dysphagia 02784616 Active 2023 Dmitri Tran MD [address], [place], [address] , [facility] 4 16:41:54 Acute sinusitis 10358053 Active 2023 Dmitri Tran MD [address], [place], [address] , [facility] 4 16:43:25 Prediabete s 744032953 Active 2023 LENNY Weiss [address], [place], [address] , [facility] 4 14:28:35 Esophageal dysphagia 43145480 Active 2023 Marie Hoskins MD [address], [place], [address] , [facility] 4 15:37:33 Orthostati c hypotensio n 03732807 Active 2023 LENNY Weiss [address], [place], [address] , [facility] 4 10:01:45 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 Procedures Surgical History Date Name Laterality Status Provider Name and Address Organization Details Recorded Time 09/14/19 Most Recent Mammogram completed TRACY Figueroa - [facility] [employer] [facility] 03/03/2024 11:53:52 06/01/19 18 Date of Last Colonoscopy completed Not Available [facility] 07/30/2022 07:27:15 Hysterectomy, Partial completed Not Available [facility] 07/30/2022 07:27:16 biopsy of breast completed Not Available [facility] 07/30/2022 07:27:16 Imaging Results Imaging Date Name Status LastModified by [facility] Details LastModified Time 09/14/2023 MAMMO, screening, digital, bilateral completed [place] [address] , [place], [address], 09/17/2023 08:38:45 10/05/2023 MAMMO, screening, bilateral completed [place] [address] , [place], [address], 11/24/2023 11:14:27 10/05/2023 MAMMO, screening, bilateral completed [place] [address] , [place], [address], 11/24/2023 11:14:37 03/24/2024 XR, chest, [address], [address], 03/25/2024 09:05:55 05/08/2024 CT, abdomen + pelvis, w/ contrast completed [address], [address], 05/10/2024 11:10:56 07/01/2024 CT, abdomen + pelvis, w/ contrast completed [address], [address], 07/03/2024 11:00:41 08/24/2024 XR, abdomen completed [address], [place], [address], 08/25/2024 12:39:14 08/24/2024 XR, abdomen completed [facility] [address] [facility] [address], [place], [address], 08/25/2024 16:51:16 Procedure Notes None recorded. Medical [...] Not Available Not Available Not Available Fluvirin 1063-1314 45 mcg (15 mcg x 3)/0.5 mL [...] Updated DateTime 4 172.72 cm 32.7 kg/m2 11638.3 6 g 95.9 [degF] 113 /min 20 /min 98 % 98 % 0 138 mm[Hg] 84 mm[Hg] Corinna Sotelo RN [facility] [employer] [facility] 4 14:09:59 Date Recorded Body height Body mass index (BMI) Body weight Heart rate Oxygen saturation Oxygen saturation in Arterial blood by Pulse oximetry Systolic blood pressure Diastolic blood pressure Provider Name and Address Organization Details Last Updated DateTime 4 172.72 cm 32.7 kg/m2 03783.3 6 g 105 /min 99 % 99 % 134 mm[Hg] 80 mm[Hg] YOSELIN Rao [facility] [employer] [facility] 4 15:30:44 Date Recorded Body height Body mass index (BMI) Body weight Body temperature Heart rate Respiratory rate Oxygen saturation Oxygen saturation in Arterial blood by Pulse oximetry Pain severity - 0-10 verbal numeric rating [Score] - Reported Systolic blood pressure Diastolic blood pressure Provider Name and Address Organization Details Last Updated DateTime 4 172.72 cm 30.1 kg/m2 70789.2 9 g 97.3 [degF] 89 /min 20 /min 97 % 97 % 0 126 mm[Hg] 84 mm[Hg] Corinna Sotelo RN [facility] [employer] [facility] 4 11:52:59 Date Recorded Body height Body mass index (BMI) Body weight Body temperature Heart rate Respiratory rate Oxygen saturation Oxygen saturation in Arterial blood by Pulse oximetry Pain severity - 0-10 verbal numeric rating [Score] - Reported Systolic blood pressure Diastolic blood pressure Provider Name and Address Organization Details Last Updated DateTime 4 172.72 cm 28.4 kg/m2 98553.3 3 g 96.8 [degF] 95 /min 20 /min 99 % 99 % 2 130 mm[Hg] 90 mm[Hg] Corinna Sotelo RN [facility] [employer] [facility] 4 09:50:15 Date Recorded Body height Body mass index (BMI) Body weight Body temperature Heart rate Respiratory rate Oxygen saturation Oxygen saturation in Arterial blood by Pulse oximetry Pain severity - 0-10 verbal numeric rating [Score] - Reported Systolic blood pressure Diastolic blood pressure Provider Name and Address Organization Details Last Updated DateTime 5 172.72 cm 26.9 kg/m2 93811.2 g 97.2 [degF] 99 /min 20 /min 97 % 97 % 2 130 mm[Hg] 90 mm[Hg] Corinna Sotelo RN [place] [facility] [employer] [facility] 5 15:31:41 Social History Question Answer Notes LastModified by Organizat ion Details LastModified Time Tobacco Smoking Status Never Smoker Not Available [facility] 07/30/2022 07:26:56 Do You Have An Advance Directive? No Information not available 01/02/2023 What Is Your Level Of Alcohol Consumption? Occasional MIGRATION.[id number] Information not available 07/30/2022 Is Blood Transfusion Acceptable In An Emergency? Yes Information not available 01/02/2023 What Is Your Level Of Caffeine Consumption? Moderate MIGRATION.52227 14850 Information not available 07/30/2022 What Is Your Code Status? Full Code Information not available 01/02/2023 In The 14 Days Before Symptom Onset, Have You Had Close Contact With A Laboratory-confir med COVID-19 While That Case Was Ill? No MIGRATION.56423 57737 Information not available 07/30/2022 In The 14 Days Before Symptom Onset, Have You Had Close Contact With A Person Who Is Under Investigation For COVID-19 While That Person Was Ill? No MIGRATION.52262 08373 Information not available 07/30/2022 Are You Currently Employed? Yes Information not available 10/12/2023 What Type Of Diet Are You Following? REGULAR MIGRATION.29177 54721 Information not available 07/30/2022 What Is The Highest Grade Or Level Of School You Have Completed Or The Highest Degree You Have Received? 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 No MIGRATION.40987 25757 Information not available 07/30/2022 Do You Use Insect Repellent Routinely? No MIGRATION.59938 65011 Information not available 07/30/2022 Where Do You Live? [place] MIGRATION.60281 51989 Information not available 07/30/2022 Do You Have A Medical Power Of Pad Machine Feeder? No Information not available 01/02/2023 How Many Children Do You Have? 2 Information not available 03/03/2024 Do You Have Any Pets? Yes MIGRATION.11901 71656 Information not available 07/30/2022 What Is Your Relationship Status? MIGRATION.26647 10538 Information not available 07/30/2022 Do You Use Your Seat Belt Or Car Seat Routinely? Yes Information not available 01/02/2023 Do You Have Smoke And Carbon Monoxide Detectors In Your Home? Yes MIGRATION.54066 38641 Information not available 07/30/2022 Are You Passively Exposed To Smoke? No MIGRATION.96761 49695 Information not available 07/30/2022 Are There Any Smokers In Your House? No MIGRATION.48670 87472 Information not available 07/30/2022 Do You Participate In Social Media? Yes MIGRATION.93963 19253 Information not available 07/30/2022 Do You Feel Stressed (tense, Restless, Nervous, Or Anxious, Or Unable To Sleep At Night)? [id number] MIGRATION.22111 78477 Information not available 07/30/2022 Do You Use Sunscreen Routinely? Yes MIGRATION.46817 79125 Information not available 07/30/2022 Have You Recently Traveled Abroad? No Information not available 01/02/2023 Are You Currently In School? No MIGRATION.15392 81561 Information not available 07/30/2022 Do You Have Any Dietary Restrictions? No MIGRATION.79674 10387 Information not available 07/30/2022 Sex: Female Functional Status Question Answer Note LastModified by Organizat ion Details LastModified Time What is your exercise level? None MIGRATION.[id number] Information not available 07/30/2022 Mental Status None recorded. Family History Relationship Description Onset Age of this Age Resolved Age Notes LastModified by Organization Details LastModified Time Father Hyperlipidem ia [email or web address] Not available 03/03 11:38:17 Father Essential hypertension [email or web address] Not available 11:38:17 Father Tongue carcinoma [email or web address] Not available 03/03 11:38:17 Father Crohn's disease [email or web address] Not available 03/03 11:38:17 Maternal Uncle Hyperlipidem ia Not available 03/03 11:38:17 Brother Hyperlipidem ia [email or web address] Not available 03/03 11:38:17 Brother Essential hypertension [email or web address] Not available 11:38:18 Brother Seasonal allergy [email or web address] Not available 03/03 11:38:18 Brother Myocardial infarction MIGRATION.838 [id number] Not available 07/30/2022 07:27:18 Brother Asthma MIGRATION.990 [id number] Not available 07/30/2022 07:27:18 Mother Essential hypertension [email or web address] Not available 11:38:18 Mother Rheumatoid arthritis [email or web address] Not available 03/03 11:38:18 Mother Seasonal allergy [email or web address] Not available 03/03 11:38:18 Mother Myocardial infarction MIGRATION.600 [id number] Not available 07/30/2022 07:27:18 Mother Asthma MIGRATION.473 [id number] Not available 07/30/2022 07:27:18 Medical History Condition Response BLINDNESS N RHEUMATIC FEVER N BLADDER PROBLEMS N KIDNEY STONES N MRSA N OTHER # 1 N POLIO N LUNG DISEASE/DISORDER N RADIATION / CHEMOTHERAPY N COPD N Other # 2 N BLOOD DISEASES N SURGERY N EAR OR HEARING PROBLEMS N MUMPS N DEPRESSION (INCLUDING POST ) N BOWEL PROBLEMS N FEMALE PROBLEMS / INFECTIONS N STROKE/TIA N THYROID DISEASE N ULCERS N BENIGN PROSTATIC HYPERPLASIA N MEASLES N CERVICALGIA N TB SKIN TEST N HYPOTENSION Y MYOCARDIAL INFARCTION N PARAPEL[place]IA N OBESITY Y [...] INSOMNIA N HIGH CHOLESTEROL / HYPERLIPIDEMIA Y EYE PROBLEMS N HYPERTHYROIDISM N EATING DISORDER N NEUROLOGICAL PROBLEMS N EDEMA N CHRONIC PAIN SYNDROME N HYPOTHYROIDISM N CONSTIPATION N CAROTID BLOCKAGE N BACK / NECK PROBLEMS N HAVE YOU BEEN HOSPITALIZED OR SEEN IN [facility] IN THE PAST YEAR ? N [...] DISORDER N ALZHEIMER'S DISEASE N PAIN N DEMENTIA N HERPES N SEIZURES/EPILEPSY N HEADACHES/MIGRAINES N VASCULAR DISEASE N PACEMAKER N DIZZINESS N HEART DISEASE/HEART PROBLEMS N KIDNEY DISEASE N SCARLET FEVER N MULTIPLE SCLEROSIS N DEVELOPMENTAL OR BEHAVIORAL DISORDERS N MENTAL DISORDER/ILLNESS N CANCER: SPECIFY N CARDIAC ARRHYTHMIA N PNEUMONIA N ATRIAL FIBRILLATION N Gall [...] (COVID-19) vaccine, UNSPECIFIED 1 completed Not Available [facility] 07/30/2022 07:37:33 SARS-COV-2 (COVID-19) vaccine, UNSPECIFIED 1 completed Not Available [facility] 07/30/2022 07:37:33 SARS-COV-2 (COVID-19) vaccine, UNSPECIFIED 1 completed Not Available [facility] 07/30/2022 07:37:33 Tdap 9 completed Not Available [facility] 07/30/2022 07:37:33 Influenza, split virus, trivalent, preservative 5 completed Not Available [facility] 07/30/2022 07:37:33 Influenza, split virus, trivalent, preservative 4 completed Not Available [facility] 07/30/2022 07:37:33 DTaP, unspecified formulation 0 completed Not Available [facility] 07/30/2022 07:37:34 Influenza, split virus, trivalent, PF 4 completed Not Available [facility] 07/30/2022 07:37:34 Past Encounters Encounter ID Performer Location Encounter Start Date Encounter Closed Date Diagnosis/Indication Diagnosis SNOMED-CT Code Diagnosis ICD10 Code Diagnosis Note [id number] [address] [address] 08/24/2020 00:00:00 08/24/2020 16:16:[id number] [address] 01/27/2022 00:00:00 01/27/2022 10:36:05 [id number] Corinna Coburn NP [address] [address] 01/02/2023 12:13:59 01/02/2023 13:54:49 Hyperlipidemia 63670322 E78.5 rosuvastat in 10 mg po nightly.Lo w fat diet. Essential hypertension 13996154 I10 Amlodipine 5 mg po daily.Add on losartan 50 mg po daily on 01/02/23 Difficulty swallowing 28 8229378 R13.10 Referring to GI. Diabetes m ellitus screening 270324315 Z13.1 Anemia screening 3477440 07 Z13.0 Screening for malignant neoplasm of colon 733186945 Z12.11 Mass of neck 361887297 R 22.1 US neck soft tissueUS thyroid Thyroid di sorder screening 867498009 Z13.29 [id number] LENNY Weiss [address] [address] 09/03/2023 10:26:36 09/03/2023 11:26:55 Hyperlipidemia 02837003 E78.5 Essential hypertension 74508101 I10 Screening for malignant neoplasm of colon 937128802 Z12.11 Obesity 406455840 E66.9 Dry eyes 716302143 H04.1 23 Feeling of lump in throat 473049204 R09.89 [id number] Dmitri Tran MD [facility] ENT Mari Donaldson [address] [place] [address] 09/30/2023 15:24:41 10/01/2023 11:00:18 Deviated nasal septum 600703306 J34.2 Hypertroph y of nasal turbinates 96257090 J34.3 Chronic ma xillary sinusitis 49722868 J32.0 Dysphagia 62505677 R13.1 0 she has [id number] Marie Hoskins MD [facility] [address] [facility] [place] [address] 11/18/2023 15:29:59 11/23/2023 09:02:23 Screening for malignant neoplasm of colon 685607996 Z12.11 History of polyp of colon 839356123 Z86.010 Esophageal dysphagia 408 [address]86 R13.19 R/O ACHALASIA . [id number] Kartik Adhikari [address] [address] 10/12/2023 14:01:07 10/12/2023 15:04:51 Prediabetes 705737522 R73.03 [id number] Kartik Adhikari [address] [address] 03/03/2024 11:36:02 03/03/2024 12:07:21 Essential hypertension 88400058 I10 Well controlled with current regimen. May D/C medication s with future weight loss Prediabetes 801907266 R7 3.03 Will increase Zepbound at next refill Hyperlipidemia 66784725 E78.5 [id number] LENNY Weiss [address] [address] 03/17/2024 09:40:19 03/17/2024 10:11:06 Orthostatic hypotension 77558704 I95.1 Advised to hold amlodipine and losartan [id number] LENNY Weiss [address] [address] 06/03/2024 15:16:15 06/03/2024 15:54:45 Acute urinary tract infection 348614150 N39.0 Health Concerns Section Related Observation LastModified by Organization Detai ls LastModified Time None Recorded Concern Status LastModified by Organization Details LastModified Time None Recorded Advance Directives Directive N: Payers Encounter Date Sequence Insurance Name Policy Number Policy Zuniga Covered Member ID Zuniga Member ID Guarantor Name 10/12/2023 1 [employer] Gerald Terry [id number] Zahira Terry 11/18/2023 1 [employer] Gerald Terry [id number] Zahira Bendert 03/03/2024 1 [employer] Gerald Terry [id number] Zahira Bendert 03/17/2024 1 [employer] Gerald Bendert [id number] Zahira Bendert 06/03/2024 1 [employer] Gerald Terry [id number] Zahira Bendert Notes Date Note Type Note [...] want to increase today. LENNY Weiss [address] [facility], [place], [address], [employer] 10/12/2023 14:42:58 11/18/2023 text/html PT WAS SEEN [...] Hoskins MD [address], [place], [address], [employer] 11/18/2023 15:51:58 03/03/2024 text/html Zahira Bender is [...] LENNY Weiss [address], [address], [place], [address], [employer] [facility] [employer] 03/03/2024 12:04:48 03/17/2024 text/html Zahira Terry is [...] LENNY Weiss [address], [place], [address], [employer] [facility] [facility] 03/17/2024 10:08:09 06/03/2024 text/html Zahira Terry is [...] LENNY Weiss [address], [address], [place], [address], [employer] [facility] 06/03/2024 15:53:31 OBGyn Episode No OBEpisode recorded.
--- OUTSIDE RECORDS SUMMARY | 2024-09-23 02:23 | XMS_ITS | Clinical Summary ---
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 Not on file Not on file [...] to Health Maintenance Insurance [place] [address] [facility] [address] [place] [address] Member Subscriber Plan / Payer ( fective 2021-Present) Name:Zahira Mark Relation to Subscriber:Spouse Name:OMEGA MARK Date of :1972 (Home) Address: [place] [address] Payer ID:[id number] Group ID:[id number] Type:COMMERCIAL Address: [address] [address] [place] [address] [facility] Member Subscriber Plan / Payer ( fective 2021-Present) Name:Zahira Mark Relation to Subscriber:Spouse Name:OMEGA MARK Date of :1972 (Home) Address: [address] [place] [address] Payer ID:[id number] Group ID:[id number] Type:MANAGED CARE OTHER Address: [address] [place] [address] Care Teams Dishing Machine Operator Relationship Specialty Start Date End Date Margarette Ngo NP [address] [place] [address] PCP - General Nurse Practitioner 09/19/24 Amanda Pabon MD [address] [place] [address] Medical Oncologist/Hematologis t Hematology and Oncology 09/12/21
--- OUTSIDE RECORDS SUMMARY | 2024-09-23 02:23 | XMS_ITS | Clinical Summary ---
Author Organization 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
--- OUTSIDE RECORDS SUMMARY | 2024-09-23 02:23 | XMS_ITS | Clinical Summary ---
Author Organization [facility] [employer] Address [address] [facility] [place] [address] Care Team Providers Care Cushion Former Name Role Phone Corinna Coburn APRN-CENTRIFUGAL SEPARATOR Primary Care Provider Source Comments [facility] [employer],non-owned Affiliates and Associated Physician Practices is amultiple site organization consisting of ambulatory clinics and hospital sitesin [place], [place], [place] and [place]. This disclosure is being madepursuant to the Care Everywhere program and may not contain all information available regarding this patient. Last updated 18.[facility] [employer] Allergies No known active allergies Medications * [...] complete this topic [place] [address] [employer] Member Subscriber Plan / Payer (Ef fective 2020-Present) Name:Zahira Terry Relation to Subscriber:Spouse Name:Omega Terry Date of :1972 (Home) Address: [address] [place] [address] [place] [address] Payer ID:Not on file Group ID:[id number] Type:Commercial Address: [facility] [address] [place] [address] [place] [address] Care Teams Cushion Former Relationship Specialty Start Date End Date Corinna Coburn, RN CHEMICAL DEPENDENCY-CENTRIFUGAL SEPARATOR [address] [place] [phone] PCP - General 09/02/21
--- OUTSIDE RECORDS SUMMARY | 2024-09-23 02:23 | XMS_ITS | Patient Health Record ---
Author Organization [facility] Patient Home Monitoring [facility] Address [address] [facility] [address] [place] [address] Care Team Providers Care Provider Relations Representative Name Role Phone Corinna Fields Primary Care Provider Andrés Newman Unavailable [phone] Migration, Provider Unavailable Unavailable Allergies No Known Allergies Results Component Value Reference Range Notes UDT Reviewed date:11/20/2023 02:41:47 PM Interpretation: Performing Lab: Notes/Report: THC neg 0 - 50 ng/ml Cocaine neg Amphetamine neg Buprenorphine (BUP) neg Secobarbital (Bar) neg Oxazepam (BZO) neg 9-rlfogleraa-7,3-jfnsoddw-2,3-diphenylpyrrolidine (LIZZETH P) neg Methamphetamine (MET) neg Methylenedioxymethamphetamine (MDMA) neg Morphine (MOP 300/LKY8021) neg Methadone (MTD) neg Phencyclidine (PCP) neg [...] 50 MG TAKE 1 TABLET BY [place] [facility] EVERY DAY FOR 30 DAYS for 90 [...] Problem Status W/U Status Risk Notes Problem [id number] Major depressive disorder, recurrent, mild (F33.0) Active confirmed Problem 70926319 JUMANA (generalized anxiety disorder) (F41.1) Active confirmed Problem 99298852 ADHD, predominantly inattentive type (F90.0) Active confirmed Vital Signs Heart Rate 80 /min 07/20/2024 Height-cm 172.72 cm 07/20/2024 Blood pressure diastolic 79 mm Hg 07/20/2024 Weight-kg 77.66 kg 07/20/2024 Height 68 in 07/20/2024 Blood pressure systolic 112 mm Hg 07/20/2024 Weight 171.2 lbs 07/20/2024 BMI 26.03 kg/m2 07/20/2024 Encounters Encounter Location Date Provider Diagnosis [email or web address] [address] [place] [address] 11/20/2023 Andrés Jose Major depressive disorder, recurrent, mild F33.0 ; JUMANA (generalized anxiety disorder) F41.1 and ADHD, predominantly inattentive type F90.0 [facility] [address] [place] [address] 11/25/2023 Andrés Garcia ADHD (attention deficit hyperactivity disorder), combined type 314.01 [facility] [address] [place] [address] 12/18/2023 Andrés Jose Major depressive disorder, recurrent, mild F33.0 ; JUMANA (generalized anxiety disorder) F41.1 and ADHD, predominantly inattentive type F90.0 [facility] [address] [place] [address] 02/19/2024 Andrés Jose Major depressive disorder, recurrent, mild F33.0 ; JUMANA (generalized anxiety disorder) F41.1 and ADHD, predominantly inattentive type F90.0 [facility] [address] [place] [address] 05/20/2024 Andrés Garcia [facility], [facility] [address] [place] [address] 07/20/2024 Andrés Jose Major depressive disorder, recurrent, mild F33.0 ; JUMANA (generalized anxiety disorder) F41.1 and ADHD, predominantly inattentive type F90.0 [facility] [address] [place] [address] 10/15/2023 Provider Migration [facility], [facility] [address] [place] [address] 10/17/2023 Provider Migration [facility], [facility] [address] [place] [address] 10/18/2023 Provider Migration [facility], [facility] [address] [place] [address] 04/15/2024 Andrés Garcia [facility], [facility] [address] [place] [address] 06/23/2024 Andrés Garcia [facility], [facility] [address] [place] [address] 01/31/2024 Andrés Jose ADHD, predominantly inattentive type F90.0 [facility] [address] [place] [address] 04/18/2024 Andrés Jose [facility], [facility] [address] [place] [address] 08/11/2024 Andrés Jose Assessments Encounter Date Diagnosis [...] Continue attending sessions with current counselor at [facility] [place]. Patient last saw counselor on Thursday. Attention [...] Continue attending sessions with current counselor at [facility] [place]. Patient last saw counselor on Thursday. Attention [...] Continue attending sessions with current counselor at [facility] [place]. Patient last saw counselor on Thursday. Attention [...] 10/12/2024 02:00:00 PM, [address], [facility] [address], [place], [address], Insurance Providers Payer Name Payer Address Payer Phone Subscriber Number Group Number Insured Name Patient Relationship to Insured Coverage Start Date Coverage End Date [employer] [address] [place] [address] [id number] ASTON MARK Self - patient is the [...]
--- OUTSIDE RECORDS SUMMARY | 2024-09-23 02:23 | XMS_ITS | Encounter Summary ---
Author Organization [facility] Address [address] [facility] [place] [address] Care Team Providers Care Mink Slicer Name Role Phone Corinna Coburn Primary Care Provider Encounter Details Date Type Department Care Team (Late st Contact Info) Description 03/07/2023 Ophth Exam [facility] - Ophthalmology [address] [place] [phone] Jessie Martin MD [address] [facility] [place] [address] Social History Tobacco Use Types [...] on filedocumented in this encounter Care Teams Mink Slicer Relationship Specialty Start Date End Date Corinna Coburn APRN-CNP [address] [place] [address] PCP - General 09/02/21 documented as of this encounter
--- OUTSIDE RECORDS SUMMARY | 2024-09-23 02:24 | XMS_ITS | CONTINUITY OF CARE DOCUMENT ---
Author Name vidhi, filemonratna Address Unknown Organization [facility] Address [address] [facility] [address] [place] [address] Phone [phone] Care Team Providers Care Pulverizer Operator Name Role Phone Trey MITCHELL, Danny Unavailable Huber INSOLE CHANNELER, Margarette Unavailable [place] PLATING TANK OPERATOR-BC, Corinna L Unavailable [phone] PROBLEMS Condition Status Date Provider Notes Vitamin [...] In-person encounter Office Visit Danny Yang MD [facility] DizzinessScreeningDiastolic dysfunctionHypertriglyceridemiaHTN borderlineSLEEP APNEA;on rx - In-person encounter Office Visit Danny Yang MD [facility] Migraine headachesFAMILY HISTORY OF HEART DISEASEHyperlipidemiaScreeningObesity [...] pressure, systolic 120 mm[Hg] Génesis orlando N Enmaunel oxygen saturation, oximetry 99 % Dary N [...] iron binding capacity, unsaturated 133 ug/dL [facility] [phone]/09/ 21 iron binding capacity, total 265 ug/dL [facility] [phone]/09/ 21 basophil count, absolute 0.1 x10E3/uL [facility] [...] Not Estab. platelet count 296 X10E3/UL [facility] [phone]/09/ 21 red blood cell distribution width 14.8 [...] iron binding capacity, unsaturated 322 ug/dL [facility] [phone]/08/ 01 iron binding capacity, total 398 ug/dL [facility] [phone]/08/ 01 prothrombin time (patient) 9.9 s [employer] [...] Not Estab. platelet count 285 X10E3/UL [facility] [phone]/08/ 01 red blood cell distribution width 13.9 [...] [employer] 3.5-5.2 sodium, serum 142 mmol/L [facility] [phone]/08/ 01 urea nitrogen/creatinine ratio, serum 15 [employer] [...] TAB. DAILY - Vale Pérez VITAMIN D3 16812 UNIT ORAL TABLET active TAKE ONE TAB [...] Policy type / Coverage type [place] red green party ID [employer] Other [id number] ADVANCE DIRECTIVES Name Date DISCUSSED - NO [...]
[2024-09-23] MEDS: LACTATED RINGERS 1,000 ML 30 ML IV CONT (06:30)
--- NOTE | 2024-09-23 06:44 | WPDANESEPPF ---
Anes - Initial Pre Proc Eval Procedure: Operation Date: 09/23/24 07:30 Proposed Procedures p Left Extracorporeal Shock Wave Lithotripsy - Jeff Varner MD Date/Time: 09/23/24 06:44 Surgeon: Jeff Varner MD Pre Op Diagnosis: left renal stone Patient Data Age: 53 Gender: F Height: 1.73 m Weight: 72.7 kg Allergies Allergy/AdvReac Type Severity Reaction Status Date / Time No Known Allergies Allergy Verified 09/16/24 10:28 Home Medications ?Medication ?Instructions ?Recorded ?Confirmed ?Type alprazolam 0.25 mg tablet 0.25 mg PO PRN PRN Anxiety 03/21/20 09/16/24 History lamotrigine 100 mg tablet 100 mg PO DAILY 03/07/23 09/16/24 History rosuvastatin 10 mg tablet 10 mg PO HS 03/07/23 09/16/24 History sertraline 50 mg tablet 50 mg PO DAILY 03/07/23 09/16/24 History venlafaxine 75 mg capsule,extended 75 mg PO DAILY 03/07/23 09/16/24 History release 24 hr lifitegrast 5 % eye drops in a 1 drp EACH EYE DAILY 09/16/24 09/16/24 History dropperette (Xiidra) tirzepatide (weight loss) 15 15 mg subcut WEEKLY 09/16/24 09/16/24 History mg/0.5 mL subcutaneous pen injector (Zepbound) Patient hx anesthesia problems: none Family hx anesthesia problems: none Results Review: All pre-operative results and documents have been reviewed as part of the pre-operative evaluation. [facility]LY [facility], [facility] Past Medical History Medical History (Updated 09/23/24 @ 06:47 by Huber Alejandre MD) BERTRAND on CPAP Anxiety Pre-diabetes Surgical History Surgical History (Updated 09/23/24 @ 06:47 by Huber Alejandre MD) H/O: hysterectomy Social History Social History Smoking status: Never smoker Living arrangements: with family Anes - Eval Final PreProcedure Day of Procedure 09/23/24 06:44 Patient weight: normal Heart: regular rate and rhythm Lungs: clear to auscultation Airway: Mallampati scale class II Neurological: alert and oriented Last oral intake: >/= 8 hours ASA classification: III Emergent: no Anesthetic plan: proceed Anesthesia type and monitoring: general LMA and standard monitoring Results Review: All pre-operative results and documents have been reviewed as part of the pre-operative evaluation. Informed Consent: The patient's anesthetic plan and its attendant risks and benefits were discussed with the patient/family/POA. Questions were solicited and answers provided to the satisfaction of the patient/family/POA.
[2024-09-23 06:52] LABS: Glucose Point of Care 104 mg/dl (65-105)
--- NOTE | 2024-09-23 07:22 | PM.IMHP ---
H&P: HPI History of Present Illness Date/Time: 09/23/24 07:22 Chief Complaint: left renal calculus Narrative: 53yr old female with left renal calculus. Review of Systems Review of Systems: All systems reviewed & are unremarkable except as noted in HPI and below PMFSH Past Medical History Medical History BERTRAND on CPAP Anxiety Pre-diabetes Surgical History Surgical History H/O: hysterectomy Social History Social History Smoking status: Never smoker Living arrangements: with family Meds Home Medications and Allergies Home Medications ?Medication ?Instructions ?Recorded ?Confirmed ?Type alprazolam 0.25 mg tablet 0.25 mg PO PRN PRN Anxiety 03/21/20 09/16/24 History lamotrigine 100 mg tablet 100 mg PO DAILY 03/07/23 09/16/24 History rosuvastatin 10 mg tablet 10 mg PO HS 03/07/23 09/16/24 History sertraline 50 mg tablet 50 mg PO DAILY 03/07/23 09/16/24 History venlafaxine 75 mg capsule,extended 75 mg PO DAILY 03/07/23 09/16/24 History release 24 hr lifitegrast 5 % eye drops in a 1 drp EACH EYE DAILY 09/16/24 09/16/24 History dropperette (Xiidra) tirzepatide (weight loss) 15 15 mg subcut WEEKLY 09/16/24 09/23/24 History mg/0.5 mL subcutaneous pen injector (Zepbound) Allergies Allergy/AdvReac Type Severity Reaction Status Date / Time No Known Allergies Allergy Verified 09/23/24 07:21 Exam Const: General: cooperative and comfortable Resp: Effort & Inspection: normal respiratory effort Cardio: Rate: regular rate Rhythm: regular rhythm Assessment and Plan Assessment and plan (1) Left renal stone: Code(s): N20.0 - Calculus of kidney Status: Acute Assessment and Plan: eswl of left renal calculus
--- NOTE | 2024-09-23 07:24 | WPDHPUPDATE1 ---
History and Physical Update Update Date/Time: 09/23/24 07:24 History and Physical has been reviewed, including an updated exam of the patient. There are NO changes in the patient's condition. Risks, benefits, and alternatives have been discussed and questions answered. Patient agrees to proceed with procedure.
[2024-09-23] MEDS: ceFAZolin 2 GM/D5W 50 ML 2 GM/50 ML BAG IVPB (07:30)
--- NOTE | 2024-09-23 08:03 | W.PM.PROC2 ---
Procedure Note - Detailed Date of Procedure 09/23/24 Pre-op Diagnosis left renal stone Post-op Diagnosis Same Procedure Performed Lithotripsy of left renal calculus 5- 6 mm Surgeon Jeff Varner MD Anesthesia General Description of Procedure Patient was taken to the operative suite correctly identified. Once anesthesia was obtained the stone was localized in both planes. Two thousand five hundred shocks were given. There appeared to be good fragmentation. Patient tolerated procedure well without any complications and was taken recovery room in stable condition. She will follow-up in 7-10 days with [facility]. This completes dictation. Please send a copy of op note to my office Estimated Blood Loss 0 Drains No Packing No Pathology None sent Complications No immediate complications Condition Stable Disposition PACU
[2024-09-23] MEDS: oxyCODONE HCL (*CRX) 5 MG TAB IR PO (09:24)
== END 2024-09-23 10:00 | disposition home or self-care (01) ==
PROVIDERS: Visit Provider Urology
PROC: (CPT 50590; principal; 2024-09-23 07:30)
DX: N20.0 Calculus of kidney (principal); G47.33 Obstructive sleep apnea (adult) (pediatric); Z99.89 Dependence on other enabling machines and devices; R73.03 Prediabetes; F41.9 Anxiety disorder, unspecified
CPT/HCPCS: 50590; 74018; 82948; A9270; J0690; J1100; J2003; J2250; J2405; J2704; J3010; J7120

== ENCOUNTER 2024-09-24 21:54 | Emergency (ER) | payer OTHER, SELFPAY ==
--- NOTE | ~2024-09-24 | CT_ITS ---
EXAMINATION: CT abdomen pelvis wo con DATE: 09/25/2024 02:37 INDICATION: Left flank pain, fevers post recent lithotripsy TECHNIQUE: Computed tomography (CT) of the abdomen and pelvis was performed without intravenous contr ast. Automated exposure control and iterative reconstruction technique were employed. The dose-length product was 357.57 mGy-cm. COMPARISON: 08/24/2024 FINDINGS: Lung bases are clear. Heart size is normal. No pericardial or pleural effusion. Liver, gallbladder, s pleen, pancreas, bilateral adrenal glands and right kidney are normal. 7 x 2 mm stone at the lower po le of the left kidney. No stones in the right kidney or along either ureter. Bladder is normal. The u terus is not identified and has likely been surgically resected. Moderate amount of stool scattere d throughout the colon. Moderate diverticulosis along the sigmoid colon without adjacent from trace s tranding to suggest diverticulitis. Bilateral adnexa are unremarkable. No free intraperitoneal gas or fluid. No pathologically enlarged abdominal or pelvic lymphadenopathy. 1 cm low-attenuation subderma l likely epidermoid cyst at the midline of the upper abdomen. Mild lumbar and lower thoracic spondylo sis. IMPRESSION: 1. 7 x 2 mm nonobstructing stone at the lower pole of the left kidney. No ureteral stones or hydronep hrosis. Reviewed, dictated and finalized at location A. IMPRESSION: 1. 7 x 2 mm nonobstructing stone at the lower pole of the left kidney. No urete ral stones or hydronephrosis.
--- NOTE | ~2024-09-24 | XR_ITS ---
EXAMINATION: XR chest 1V portable DATE: 09/25/2024 02:30 INDICATION: Fevers TECHNIQUE: frontal view of the chest was obtained. COMPARISON: Chest radiograph dated 03/24/2024 FINDINGS: The lungs are clear with no focal airspace opacities, pulmonary edema, pleural effusion or pneumothor ax. The cardiomediastinal silhouette is normal. Visualized bones and soft tissues are unremarkable. IMPRESSION: 1. Normal chest radiograph. Reviewed, dictated and finalized at location A. IMPRESSION: 1. Normal chest radiograph.
--- OUTSIDE RECORDS SUMMARY | 2024-09-24 21:56 | XMS_ITS | Clinical Summary ---
Author Organization [facility] [employer] Address [address] [facility] [place] [address] Care Team Providers Care Mobile Application Development Lead Name Role Phone Corinna Coburn APRN-COURIER Primary Care Provider Source Comments [facility] [employer],non-owned Affiliates and Associated Physician Practices is amultiple site organization consisting of ambulatory clinics and hospital sitesin [place], [place], [place] and [place]. This disclosure is being madepursuant to the Care Everywhere program and may not contain all information available regarding this patient. Last updated 18.[facility] [employer] Allergies No known active allergies Medications * [...] complete this topic [place] [address] [employer] Member Subscriber Plan / Payer (Ef fective 2020-Present) Name:Zahira Terry Relation to Subscriber:Spouse Name:Omega Terry Date of :1972 (Home) Address: [address] [place] [address] [place] [address] Payer ID:Not on file Group ID:[id number] Type:Commercial Address: [facility] [address] [place] [address] [place] [address] Care Teams Mobile Application Development Lead Relationship Specialty Start Date End Date Corinna Coburn, PLASTERER JOURNEYMAN-COURIER [address] [place] [phone] PCP - General 09/02/21
--- OUTSIDE RECORDS SUMMARY | 2024-09-24 21:56 | XMS_ITS | Clinical Summary ---
Author Organization [facility] Address [address] [place] [address] Care Team Providers Care Compression Molding Machine Setter Name Role Phone Unavailable Primary Care Provider Unavailabl e Social History Tobacco Use Types Packs/Day Years Used Date Smoking Tobacco: Never Assessed Comments Unknown Sex and Gender Information Value Date Recorded Sex Assigned at Not on file Legal Sex Female 3:47 PM EMULSION COATER Gender Identity Not on file Sexual Orientation [...]
--- OUTSIDE RECORDS SUMMARY | 2024-09-24 21:56 | XMS_ITS | Data Portability ---
Author Organization [facility] [employer], Main Office Address [address] [place] [address] Care Team Providers Care Services Mgr Name Role Phone KARTIK ADHIKARI Primary Care Provider Assessment No assessment recorded. Plan of Treatment Reminders Order Date Submit Date Provider Last Modified By Organization Details Last Modified Time Details Appointments None recorded. Lab CBC w/ auto diff 2023 024 [facility] (Lab), [address] [place], [address], 4 20:34:02 iron + total iron-bindin g capacity (TIBC), serum [address] (Lab), [address] [place], [address], 4 08:13:38 glycohemogl obin, total, blood [address] (Lab), [address] [place], [address], 4 08:08:12 glycohemogl obin, total, blood [address] (Lab), [address] [place], [address], 4 08:13:44 Referral None recorded. Procedures colonoscopy screening (PROC) 2023 024 [facility] (Pre-Screen), [address] [place], [address], 4 13:22:18 upper endoscopy procedure (EGD) (PROC) 2023 024 [facility] (Pre-Screen), [address] [place], [address], 4 13:21:58 Surgeries None recorded. Imaging [place], modified barium swallow study [address] ([facility]), [address] [place], [address], 4 08:16:59 Medication Orders Macrobid 100 mg capsule 2024 025 [facility]3259, [address] [place], [address], 5 15:38:03 losartan 50 mg tablet 2023 024 [facility] #3259, [address] [place], [address], 4 12:03:36 amlodipine 5 mg tablet 2023 024 [facility] #3259, [address] [place], [address], 4 12:03:37 rosuvastati n 10 mg tablet 2023 024 [facility] #3259, [address] [place], [address], 4 12:03:39 Golytely 236 gram-22.74 gram-6.74 gram-5.86 gram oral solution 2023 024 [facility]acy #3259, [address] [place], [address], 11:49:36 Ozempic 0.25 mg or 0.5 mg (2 mg/3 mL) subcutaneou s pen injector 2023 Shayna he [facility], [address] [place], [address], 12:39:01 Patient TargetsNo targets recorded. Patient Instructions Encounter Date Encounter Id Patient Instructions Last Modified By Organization Details Last Modified Time 11/18/2023 [id number] GOLYTELY/ REFLUX DIET [email or web address] Not available 11/18/2023 15:37:53 PT NEEDS A SCREENING COLON . R/O POLYP . RECOMMEND A COLONOSOPY. PT WITH DYSPHAGIA. R/O H. PYLORI/ STRICTURE / MOTILITY D/O . RECOMMEND EGD /MBS. RISKS BENEFITS AND COMPLICATIONS WERE EXPLAINED TO PT . ( BLEEDING , PERFORATION , INFECTION , ) PT VERBALIZES UNDERSTANDING AND IS WILLING TO PROCEDE . Not available 11/18/2023 15:38:38 Reason for Referral None Reported. Results Created Date Observation Date Name Description Value Unit Range Abnormal Flag Note LastModifiedBy Organization Detail LastModifiedTime 09/14/1909/14/2023 adilson ACOSTA, sherry al, bilat eral No observ ation record ed. [email or web address] [id number] , [place], [address], 09/17/2023 08:38:45 10/05/1910/05/2023 adilson ACOSTA, bilat eral No observ ation record ed. [email or web address], [place], [address], 11/24/2023 11:14:27 10/05/19 24 10/05/2023 adilson ACOSTA bilat eral No observ ation record ed. [address] , [place], [address], 11/24/2023 11:14:37 03/24/20 24 03/24/2024 XR, chest , 2 view No observ ation record ed. [address] [facility], [place], [address], 03/25/2024 09:05:55 05/09/20 24 05/08/2024 CT, abdom en + pelvi s, w/ contr ast No observ ation record ed. [address] [facility], [place], [address], 05/10/2024 11:10:56 07/02/19 25 07/01/2024 CT, abdom en + pelvi s, w/ contr ast No observ ation record ed. [address] [facility], [place], [address], 07/03/2024 11:00:41 08/26/19 25 08/24/2024 XR, abdom en No observ ation record ed. [address] [facility], [place], [address], 08/25/2024 12:39:14 08/26/19 25 08/24/2024 XR, abdom en No observ ation record ed. [address] [facility], [place], [address], 08/25/2024 16:51:16 09/24/19 25 09/23/2024 XR, kidne y + urete r + bladd er No observ ation record ed. [address] [facility], [place], [address], 09/23/2024 10:11:57 Result Notes None recorded. Problems Name Problem SNOMED Code Status Onset Date Resolution Date Notes Provider Name and Address Organization Details Recorded Time Excessive cerumen in ear canal 447626000 Active Not Available [facility] 3 07:31:35 Abscess 241306203 Active 2016 Not Available [facility] 3 07:31:35 Otalgia 76885655 Active 2016 Not Available [facility] 3 07:31:36 Family history of Rheumatoid arthritis 691713794 Active 2017 Not Available [facility] 3 07:31:36 Mammograph y abnormal 680412106 Active 2021 Not Available [facility] 3 07:31:36 Mood swings 72233178 Active 2020 Not Available [facility] 3 07:31:36 Feeling stressed 134824718 Active Not Available [facility] 3 07:31:36 Screening mammograph y Active 2021 Not Available [facility] 3 07:31:36 Knee pain Active Not Available [facility] 3 07:31:36 Depressive disorder 18584304 Active Not Available [facility] 3 07:31:36 Elevated blood-pres sure reading without diagnosis of hypertensi on 262750221 Active Not Available [facility] 3 07:31:36 Screening for malignant neoplasm of colon done 5636131442771 01 Active 2020 Not Available [facility] 3 07:31:36 Anxiety 88931693 Active Not Available [facility] 3 07:31:37 Hyperlipid emia 48620161 Active Not Available [facility] 3 07:31:37 Pain of joint 78258196 Active 2017 Not Available [facility] 3 07:31:37 Diarrhea 84472776 Active Not Available [facility] 3 07:31:37 Snoring 25245092 Active 2016 Not Available [facility] 3 07:31:37 Stress 14522964 Active Not Available [facility] 3 07:31:37 Posterior rhinorrhea 62287274 Active Not Available [facility] 3 07:31:37 Obstructiv e sleep apnea syndrome 14382178 Active 2017 Not Available [facility] 3 07:31:37 Neck pain 60906733 Active 2016 Not Available [facility] 3 07:31:37 Fatigue 17679618 Active 2016 Not Available [facility] 3 07:31:38 Lesion of scalp 167749550660 Active Not Available [facility] 3 07:31:38 Disorder of the nose 85798856 Active Not Available [facility] 3 07:31:38 Skin lesion 80049246 Active Not Available [facility] 3 07:31:38 Essential hypertensi on 15302350 Active 2022 Corinna Coburn NP [address], [place], [address] , [facility] 3 12:07:44 Difficulty swallowing 913735890 Active 2022 Corinna Coburn NP [address], [place], [address] , [facility] 3 12:08:24 Mass of neck 634216553 Active 2022 Corinna Coburn NP [address], [place], [address] , [facility] Nival [facility] 3 12:48:07 Obesity 883089323 Active 2023 LENNY Weiss [address], [place], [address] , [facility] 4 11:04:29 Dry eyes 021433530 Active 2023 LENNY Weiss [address], [place], [address] , [facility] 4 11:06:44 Feeling of lump in throat 683790814 Active 2023 LENNY Weiss [address], [place], [address] , [facility] 4 11:13:12 Deviated nasal septum 759219849 Active 2023 Dmitri Tran MD [address], [place], [address] , [facility] 4 16:37:16 Hypertroph y of nasal turbinates 14957523 Active 2023 Dmitri Tran MD [address], [place], [address] , [facility] 4 16:37:30 Chronic maxillary sinusitis 42738093 Active 2023 Dmitri Tran MD [address], [place], [address] , [facility] 4 16:37:48 Dysphagia 92841633 Active 2023 Dmitri Tran MD [address], [place], [address] , [facility] 4 16:41:54 Acute sinusitis 22700898 Active 2023 Dmitri Tran MD [address], [place], [address] , [facility] 4 16:43:25 Prediabete s 987091758 Active 2023 LENNY Weiss [address], [place], [address] , [facility] 4 14:28:35 Esophageal dysphagia 19081720 Active 2023 Marie Hoskins MD [address], [place], [address] , [facility] 4 15:37:33 Orthostati c hypotensio n 98381794 Active 2023 LENNY Weiss [address], [place], [address] , [facility] 4 10:01:45 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 [address], [place], [address] , [facility] Nival [facility] [employer] 15:37:26 Problem Notes None recorded. Procedures Surgical History Date Name Laterality Status Provider Name and Address Organization Details Recorded Time 09/14/19 24 Most Recent Mammogram completed Corinna Sotelo RN [facility] [employer] 03/03/2024 11:53:52 06/01/19 18 Date of Last Colonoscopy completed Not Available [facility] 07/30/2022 07:27:15 Hysterectomy, Partial completed Not Available [facility] 07/30/2022 07:27:16 biopsy of breast completed Not Available [facility] 07/30/2022 07:27:16 Imaging Results Imaging Date Name Status LastModified by Organiz ation Details LastModified Time 09/14/2023 MAMMO, screening, digital, bilateral completed [email or web address] [place], [place] [address] , [place], [address], 09/17/2023 08:38:45 10/05/2023 MAMMO, screening, bilateral completed [address] , [place], [address], 11/24/2023 11:14:27 10/05/2023 MAMMO, screening, bilateral completed [address] , [place], [address], 11/24/2023 11:14:37 03/24/2024 XR, chest, 2 view completed [address] [place] [address], [address], 03/25/2024 09:05:55 05/08/2024 CT, abdomen + pelvis, w/ contrast completed [address], [address], 05/10/2024 11:10:56 07/01/2024 CT, abdomen + pelvis, w/ contrast completed [address] [facility], [place], [address], 07/03/2024 11:00:41 08/24/2024 XR, abdomen completed [facility] ital [address] [place] [address] [address], [place], [address], 08/25/2024 12:39:14 08/24/2024 XR, abdomen completed [address] [facility], [place], [address], 08/25/2024 16:51:16 09/23/2024 XR, kidney + ureter + bladder completed [address] [facility], [place], [address], 09/23/2024 10:11:57 Procedure Notes None recorded. Medical Equipment None [...] Not Available Not Available Not Available Fluvirin 8700-1575 45 mcg (15 mcg x 3)/0.5 mL [...] Updated DateTime 4 172.72 cm 32.7 kg/m2 13138.3 6 g 95.9 [degF] 113 /min 20 /min 98 % 98 % 0 138 mm[Hg] 84 mm[Hg] Corinna Sotelo RN [facility] [employer] [facility] 4 14:09:59 Date Recorded Body height Body mass index (BMI) Body weight Heart rate Oxygen saturation Oxygen saturation in Arterial blood by Pulse oximetry Systolic blood pressure Diastolic blood pressure Provider Name and Address Organization Details Last Updated DateTime 4 172.72 cm 32.7 kg/m2 34245.3 6 g 105 /min 99 % 99 % 134 mm[Hg] 80 mm[Hg] YOSELIN Rao [facility] [employer] [facility] 4 15:30:44 Date Recorded Body height Body mass index (BMI) Body weight Body temperature Heart rate Respiratory rate Oxygen saturation Oxygen saturation in Arterial blood by Pulse oximetry Pain severity - 0-10 verbal numeric rating [Score] - Reported Systolic blood pressure Diastolic blood pressure Provider Name and Address Organization Details Last Updated DateTime 4 172.72 cm 30.1 kg/m2 86710.2 9 g 97.3 [degF] 89 /min 20 /min 97 % 97 % 0 126 mm[Hg] 84 mm[Hg] Corinna Sotelo RN [facility] [employer] [facility] 4 11:52:59 Date Recorded Body height Body mass index (BMI) Body weight Body temperature Heart rate Respiratory rate Oxygen saturation Oxygen saturation in Arterial blood by Pulse oximetry Pain severity - 0-10 verbal numeric rating [Score] - Reported Systolic blood pressure Diastolic blood pressure Provider Name and Address Organization Details Last Updated DateTime 4 172.72 cm 28.4 kg/m2 24927.3 3 g 96.8 [degF] 95 /min 20 /min 99 % 99 % 2 130 mm[Hg] 90 mm[Hg] Corinna Sotelo RN [place] [facility] [employer] 4 09:50:15 Date Recorded Body height Body mass index (BMI) Body weight Body temperature Heart rate Respiratory rate Oxygen saturation Oxygen saturation in Arterial blood by Pulse oximetry Pain severity - 0-10 verbal numeric rating [Score] - Reported Systolic blood pressure Diastolic blood pressure Provider Name and Address Organization Details Last Updated DateTime 5 172.72 cm 26.9 kg/m2 65327.2 g 97.2 [degF] 99 /min 20 /min 97 % 97 % 2 130 mm[Hg] 90 mm[Hg] Corinna Sotelo RN [place] [facility] [employer] 5 15:31:41 Social History Question Answer Notes LastModified by Organizat ion Details LastModified Time Tobacco Smoking Status Never Smoker Not Available [facility] 07/30/2022 07:26:56 Do You Have An Advance Directive? No Information not available 01/02/2023 What Is Your Level Of Alcohol Consumption? Occasional MIGRATION.[id number] Information not available 07/30/2022 Is Blood Transfusion Acceptable In An Emergency? Yes Information not available 01/02/2023 What Is Your Level Of Caffeine Consumption? Moderate MIGRATION.[id number] [id number] Information not available 07/30/2022 What Is Your Code Status? Full Code Information not available 01/02/2023 In The 14 Days Before Symptom Onset, Have You Had Close Contact With A Laboratory-confir med COVID-19 While That Case Was Ill? No MIGRATION.57383 52384 Information not available 07/30/2022 In The 14 Days Before Symptom Onset, Have You Had Close Contact With A Person Who Is Under Investigation For COVID-19 While That Person Was Ill? No MIGRATION.68219 93501 Information not available 07/30/2022 Are You Currently Employed? Yes Information not available 10/12/2023 What Type Of Diet Are You Following? REGULAR MIGRATION.77915 00044 Information not available 07/30/2022 What Is The Highest Grade Or Level Of School You Have Completed Or The Highest Degree You Have Received? [id number] MIGRATION.57658 54792 Information not available 07/30/2022 What Is Your Occupation? [employer] MIGRATION.07386 54971 Information not available 07/30/2022 Have There Been Any Changes To Your Family Or Social Situation? No MIGRATION.27749 13765 Information not available 07/30/2022 Do You Use Insect Repellent Routinely? No MIGRATION.86694 29475 Information not available 07/30/2022 Where Do You Live? [place]House MIGRATION.90101 20010 Information not available 07/30/2022 Do You Have A Medical Power Of Turpentine Distiller? No Information not available 01/02/2023 How Many Children Do You Have? 2 Information not available 03/03/2024 Do You Have Any Pets? Yes MIGRATION.53656 57480 Information not available 07/30/2022 What Is Your Relationship Status? MIGRATION.49502 95589 Information not available 07/30/2022 Do You Use Your Seat Belt Or Car Seat Routinely? Yes Information not available 01/02/2023 Do You Have Smoke And Carbon Monoxide Detectors In Your Home? Yes MIGRATION.96372 92038 Information not available 07/30/2022 Are You Passively Exposed To Smoke? No MIGRATION.99753 20053 Information not available 07/30/2022 Are There Any Smokers In Your House? No MIGRATION.75165 18772 Information not available 07/30/2022 Do You Participate In Social Media? Yes MIGRATION.19386 92325 Information not available 07/30/2022 Do You Feel Stressed (tense, Restless, Nervous, Or Anxious, Or Unable To Sleep At Night)? [id number] MIGRATION.77023 83675 Information not available 07/30/2022 Do You Use Sunscreen Routinely? Yes MIGRATION.27443 16772 Information not available 07/30/2022 Have You Recently Traveled Abroad? No Information not available 01/02/2023 Are You Currently In School? No MIGRATION.22965 03234 Information not available 07/30/2022 Do You Have Any Dietary Restrictions? No MIGRATION.33626 72279 Information not available 07/30/2022 Sex: Female Functional Status Question Answer Note LastModified by Organizat ion Details LastModified Time What is your exercise level? None [id number].[id number] Information not available 07/30/2022 Mental Status None recorded. Family History Relationship Description Onset Age of this Age Resolved Age Notes LastModified by Organization Details LastModified Time Father Hyperlipidem ia [email or web address] Not available 03/03 11:38:17 Father Essential hypertension [email or web address] Not available 11:38:17 Father Tongue carcinoma [email or web address] Not available 03/03 11:38:17 Father Crohn's disease [email or web address] Not available 03/03 11:38:17 Maternal Uncle Hyperlipidem ia [email or web address] Not available 03/03 11:38:17 Brother Hyperlipidem ia Not available 03/03 11:38:17 Brother Essential hypertension [email or web address] Not available 11:38:18 Brother Seasonal allergy [email or web address] Not available 03/03 11:38:18 Brother Myocardial infarction MIGRATION.539 [id number] Not available 07/30/2022 07:27:18 Brother Asthma MIGRATION.697 [id number] Not available 07/30/2022 07:27:18 Mother Essential hypertension [email or web address] Not available 11:38:18 Mother Rheumatoid arthritis [email or web address] Not available 03/03 11:38:18 Mother Seasonal allergy [email or web address] Not available 03/03 11:38:18 Mother Myocardial infarction MIGRATION.048 [id number] Not available 07/30/2022 07:27:18 Mother Asthma MIGRATION.581 [id number] Not available 07/30/2022 07:27:18 Medical History Condition Response BLINDNESS N RHEUMATIC FEVER N KIDNEY STONES N BLADDER PROBLEMS N MRSA N OTHER # 1 N POLIO N LUNG DISEASE/DISORDER N COPD N RADIATION / CHEMOTHERAPY N Other # 2 N BLOOD DISEASES N SURGERY N EAR OR HEARING PROBLEMS N MUMPS N FEMALE PROBLEMS / INFECTIONS N BOWEL PROBLEMS N DEPRESSION (INCLUDING POST ) N STROKE/TIA [...] HAVE YOU BEEN HOSPITALIZED OR SEEN IN [facility] ER IN THE PAST YEAR ? N ATHEROSCLEROSIS [...] (COVID-19) vaccine, UNSPECIFIED 1 completed Not Available [facility] 07/30/2022 07:37:33 SARS-COV-2 (COVID-19) vaccine, UNSPECIFIED 1 completed Not Available [facility] 07/30/2022 07:37:33 SARS-COV-2 (COVID-19) vaccine, UNSPECIFIED 1 completed Not Available [facility] 07/30/2022 07:37:33 Tdap 9 completed Not Available [facility] 07/30/2022 07:37:33 Influenza, split virus, trivalent, preservative 5 completed Not Available [facility] 07/30/2022 07:37:33 Influenza, split virus, trivalent, preservative 4 completed Not Available [facility] 07/30/2022 07:37:33 DTaP, unspecified formulation 0 completed Not Available [facility] 07/30/2022 07:37:34 Influenza, split virus, trivalent, PF 4 completed Not Available [facility] 07/30/2022 07:37:34 Past Encounters Encounter ID Performer Location Encounter Start Date Encounter Closed Date Diagnosis/Indication Diagnosis SNOMED-CT Code Diagnosis ICD10 Code Diagnosis Note [id number] [address] [address] 08/24/2020 00:00:00 08/24/2020 16:16:[id number] [address] 01/27/2022 00:00:00 01/27/2022 10:36:05 [id number] Corinna Coburn NP [address] [address] 01/02/2023 12:13:59 01/02/2023 13:54:49 Hyperlipidemia 76123921 E78.5 rosuvastat in 10 mg po nightly.Lo w fat diet. Essential hypertension 77056683 I10 Amlodipine 5 mg po daily.Add on losartan 50 mg po daily on 01/02/23 Difficulty swallowing 28 0998289 R13.10 Referring to GI. Diabetes m ellitus screening 718239592 Z13.1 Anemia screening 1857359 07 Z13.0 Screening for malignant neoplasm of colon 543334044 Z12.11 Mass of neck 645573607 R 22.1 US neck soft tissueUS thyroid Thyroid di sorder screening 477851396 Z13.29 [id number] LENNY Weiss [address] [address] 09/03/2023 10:26:36 09/03/2023 11:26:55 Hyperlipidemia 94277731 E78.5 Essential hypertension 66841059 I10 Screening for malignant neoplasm of colon 882656533 Z12.11 Obesity 566547626 E66.9 Dry eyes 645344445 H04.1 23 Feeling of lump in throat 046051342 R09.89 [id number] Dmitri Tran MD [facility] [place] [address] [place] [address] 09/30/2023 15:24:41 10/01/2023 11:00:18 Deviated nasal septum 022082614 J34.2 Hypertroph y of nasal turbinates 51369700 J34.3 Chronic ma xillary sinusitis 46184864 J32.0 Dysphagia 94200284 R13.1 0 she has [id number] Marie Hoskins MD [facility] General Surgery 4 [facility] [address] [place] [address] 11/18/2023 15:29:59 11/23/2023 09:02:23 Screening for malignant neoplasm of colon 388559394 Z12.11 History of polyp of colon 918042671 Z86.010 Esophageal dysphagia 408 66000 R13.19 R/O ACHALASIA . [id number] Kartik Adhikari [address] [address] 10/12/2023 14:01:07 10/12/2023 15:04:51 Prediabetes 116872445 R73.03 [id number] Kartik Adhikari [address] [address] 03/03/2024 11:36:02 03/03/2024 12:07:21 Essential hypertension 10426769 I10 Well controlled with current regimen. May D/C medication s with future weight loss Prediabetes 170036383 R7 3.03 Will increase Zepbound at next refill Hyperlipidemia 76180742 E78.5 [id number] LENNY Weiss [address] [address] 03/17/2024 09:40:19 03/17/2024 10:11:06 Orthostatic hypotension 48759255 I95.1 Advised to hold amlodipine and losartan [id number] LENNY Weiss [facility] [address] [place] [address] 06/03/2024 15:16:15 06/03/2024 15:54:45 Acute urinary tract infection 745248760 N39.0 Health Concerns Section Related Observation LastModified by Organization Detai ls LastModified Time None Recorded Concern Status LastModified by Organization Details LastModified Time None Recorded Advance Directives Directive N: Payers Encounter Date Sequence Insurance Name Policy Number Policy Zuniga Covered Member ID Zuniga Member ID Guarantor Name 10/12/2023 1 [employer] Gerald Bendert [id number] Zahira Bendert 11/18/2023 1 [employer] Gerald Bendert [id number] Zahira Bendert 03/03/2024 1 [employer] Gerald Bendert [id number] Zahira Bendert 03/17/2024 1 [employer] Gerald Bendert [id number] Zahira Bendert 06/03/2024 1 [employer] Gerald Bendert [id number] Zahira Bendert Notes Date Note Type Note [...] want to increase today. LENNY Weiss [address] [facility] [address], [place], [address], [facility] [email or web address] [facility] 10/12/2023 14:42:58 11/18/2023 text/html PT WAS [...] ALLERGIES . Marie Hoskins MD [address], [place], [address], [employer] 11/18/2023 15:51:58 03/03/2024 text/html Zahira Bender is [...] has hypertension LENNY Weiss [address], [facility] [address], [place], [address], [employer] 03/03/2024 12:04:48 03/17/2024 text/html Zahira Terry is [...] LENNY Weiss [address], [address], [place], [address], [employer] [facility] [employer] 03/17/2024 10:08:09 06/03/2024 text/html Zahira Terry is [...] had UTI while in ER Kartik Adhikari, SLUICE TENDER [address] [address], [place], [address], [facility] [employer] 06/03/2024 15:53:31 OBGyn Episode No OBEpisode recorded.
--- OUTSIDE RECORDS SUMMARY | 2024-09-24 21:56 | XMS_ITS | Referral Summary ---
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 Not on file Not on file [...] to Health [place] [address] [place] [address] Member Subscriber Plan / Payer (Ef fective 2021-Present) Name:Zahira Mark Relation to Subscriber:Spouse Name:OMEGA MARK Date of :1972 (Home) Address: [address] [place], [place] [address] [address] Payer ID:[id number] Group ID:[id number] Type:COMMERCIAL Address: [address] [place] [address] [place] Member Subscriber Plan / Payer (Ef fective 2021-Present) Name:Zahira Mark Relation to Subscriber:Spouse Name:JASOMEGA Gloria Date of :1972 (Home) Address: [place] [address] Payer ID:[id number] Group ID:[id number] Type:MANAGED CARE OTHER Address: [id number] [place] [address] Care Teams Vp Hr Diversity Relationship Specialty Start Date End Date Margarette Ngo NP [address] [place] [address] PCP - General Nurse Practitioner 09/19/24 Amanda Pabon MD [address] [place] [address] Medical Oncologist/Hematologis t Hematology and Oncology 09/12/21
--- OUTSIDE RECORDS SUMMARY | 2024-09-24 21:56 | XMS_ITS | Patient Health Record ---
Author Organization [facility] [employer] [facility] Address [address] [facility] [address] [place] [address] Care Team Providers Care Shipyard Helper Name Role Phone Corinna Fields Primary Care Provider Andrés Newman Unavailable [phone] Migration, Provider Unavailable Unavailable Allergies No Known Allergies Results Component Value Reference Range Notes UDT Reviewed date:11/20/2023 02:41:47 PM Interpretation: Performing Lab: Notes/Report: THC neg 0 - 50 ng/ml Cocaine neg Amphetamine neg Buprenorphine (BUP) neg Secobarbital (Bar) neg Oxazepam (BZO) neg 2-pnnuxtmcun-6,6-oikagpjk-4,3-diphenylpyrrolidine (LIZZETH P) neg Methamphetamine (MET) neg Methylenedioxymethamphetamine (MDMA) neg Morphine (MOP 300/CXN8059) neg Methadone (MTD) neg Phencyclidine (PCP) neg [...] 50 MG TAKE 1 TABLET BY [place] [facility] EVERY DAY FOR 30 DAYS for [...] Problem Status W/U Status Risk Notes Problem [id number] Major depressive disorder, recurrent, mild (F33.0) Active confirmed Problem 90761907 JUMANA (generalized anxiety disorder) (F41.1) Active confirmed Problem 70718932 ADHD, predominantly inattentive type (F90.0) Active confirmed Vital Signs Heart Rate 80 /min 07/20/2024 Height-cm 172.72 cm 07/20/2024 Blood pressure diastolic 79 mm Hg 07/20/2024 Weight-kg 77.66 kg 07/20/2024 Height 68 in 07/20/2024 Blood pressure systolic 112 mm Hg 07/20/2024 Weight 171.2 lbs 07/20/2024 BMI 26.03 kg/m2 07/20/2024 Encounters Encounter Location Date Provider Diagnosis [facility] [address] [place] [address] 11/20/2023 Andrés Jose Major depressive disorder, recurrent, mild F33.0 ; JUMANA (generalized anxiety disorder) F41.1 and ADHD, predominantly inattentive type F90.0 [facility] [employer] [facility] [address] [place] [address] 11/25/2023 Andrés Garcia ADHD (attention deficit hyperactivity disorder), combined type 314.01 [employer] [facility] [address] [place] [address] 12/18/2023 Andrés Jose Major depressive disorder, recurrent, mild F33.0 ; JUMANA (generalized anxiety disorder) F41.1 and ADHD, predominantly inattentive type F90.0 [facility] [place] [address] [place] [address] 02/19/2024 Andrés Jose Major depressive disorder, recurrent, mild F33.0 ; JUMANA (generalized anxiety disorder) F41.1 and ADHD, predominantly inattentive type F90.0 [facility] [address] [place] [address] 05/20/2024 Andrés Garcia [facility], [facility] [address] [place] [address] 07/20/2024 Andrés Jose Major depressive disorder, recurrent, mild F33.0 ; JUMANA (generalized anxiety disorder) F41.1 and ADHD, predominantly inattentive type F90.0 [facility] [place] [address] [place] [address] 10/15/2023 Provider Migration [facility], [facility] [address] [place] [address] 10/17/2023 Provider Migration [facility], [facility] [address] [place] [address] 10/18/2023 Provider Migration [facility], [facility] [address] [place] [address] 04/15/2024 Andrés Garcia [facility], [facility] [address] [place] [address] 06/23/2024 Andrés Garcia [facility], [facility] [address] [place] [address] 01/31/2024 Andrés Jose ADHD, predominantly inattentive type F90.0 [facility] [place] [address] [place] [address] 04/18/2024 Andrés Jose [facility], [facility] [address] [place] [address] 08/11/2024 Andrés Jose Assessments Encounter Date Diagnosis [...] Continue attending sessions with current counselor at [facility] in [place]. Patient last saw counselor on Thursday. Attention [...] Continue attending sessions with current counselor at [facility] in [place]. Patient last saw counselor on Thursday. Attention [...] Continue attending sessions with current counselor at [facility] in [place]. Patient last saw counselor on Thursday. Attention [...] 10/12/2024 02:00:00 PM, [address], [facility] [address], [place], [address], Insurance Providers Payer Name Payer Address Payer Phone Subscriber Number Group Number Insured Name Patient Relationship to Insured Coverage Start Date Coverage End Date [employer] [address] [place] [address] [id number] ASTON MARK Self - patient is the [...]
--- OUTSIDE RECORDS SUMMARY | 2024-09-24 21:56 | XMS_ITS | Encounter Summary ---
Author Organization [facility] Address [address] [place] [address] Care Team Providers Care Manager Motor Name Role Phone Corinna Coburn Primary Care Provider Encounter Details Date Type Department Care Team (Late st Contact Info) Description 03/07/2023 Ophth Exam [facility] - Ophthalmology [address] [place] [id number] Jessie Martin MD [address] [facility] [place] [address] Social History Tobacco Use Types [...] on filedocumented in this encounter Care Teams Manager Motor Relationship Specialty Start Date End Date Corinna Coburn APRN-CNP [address] [place] [address] PCP - General 09/02/21 documented as of this encounter
--- OUTSIDE RECORDS SUMMARY | 2024-09-24 21:56 | XMS_ITS | Clinical Summary ---
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 Not on file [...] to Health [place] [address] [facility] [id number] [place] [address] Member Subscriber Plan / Payer ( fective 2021-Present) Name:Zahira Mark Relation to Subscriber:Spouse Name:OMEGA MARK Date of :1972 (Home) Address: [place] [address] Payer ID:[id number] Group ID:[id number] Type:COMMERCIAL Address: [address] [place] [address] [place] [address] [facility] Member Subscriber Plan / Payer ( fective 2021-Present) Name:Zahira Mark Relation to Subscriber:Spouse Name:OMEGA MARK Date of :1972 (Home) Address: [address] [place] [address] Payer ID:[id number] Group ID:[id number] Type:MANAGED CARE OTHER Address: [address] [place] [address] Care Teams Fender Finisher Relationship Specialty Start Date End Date Margarette Ngo NP [address] [place] [address] PCP - General Nurse Practitioner 09/19/24 Amanda Pabon MD [address] [place] [address] Medical Oncologist/Hematologis t Hematology and Oncology 09/12/21
--- OUTSIDE RECORDS SUMMARY | 2024-09-24 21:57 | XMS_ITS | CONTINUITY OF CARE DOCUMENT ---
Author Name vidhi, filemonratna Address Unknown Organization [facility] Address [address] [facility] [address] [place] [address] Phone [phone] Care Team Providers Care Product Coordinator Name Role Phone Trey MITCHELL, Danny Unavailable [phone] WATER INSPECTOR, Margarette Unavailable [place] EDUCATION ASSOCIATE-BC, Corinna L Unavailable [phone] PROBLEMS Condition Status Date Provider Notes Vitamin [...] In-person encounter Office Visit Danny Yang MD [facility] DizzinessScreeningDiastolic dysfunctionHypertriglyceridemiaHTN borderlineSLEEP APNEA;on rx - In-person encounter Office Visit Danny Yang MD [facility] Migraine headachesFAMILY HISTORY OF HEART DISEASEHyperlipidemiaScreeningObesity [...] oksana Pérez blood pressure, systolic 120 mm[Hg] nAgi Pérez oxygen saturation, oximetry 98 % Vale [...] iron binding capacity, unsaturated 133 ug/dL [employer] 568-199 7738/09/ 21 iron binding capacity, total 265 ug/dL [employer] [phone]/09/ 21 basophil count, absolute 0.1 x10E3/uL [employer] [...] Not Estab. platelet count 296 X10E3/UL [employer] 668-800 2861/09/ 21 red blood cell distribution width 14.8 [...] iron binding capacity, unsaturated 322 ug/dL [employer] [phone]/08/ 01 iron binding capacity, total 398 ug/dL [employer] 484-884 8377/08/ 01 prothrombin time (patient) 9.9 s [employer] [...] Not Estab. platelet count 285 X10E3/UL [employer] 142-097 5959/08/ 01 red blood cell distribution width 13.9 [...] [employer] 3.5-5.2 sodium, serum 142 mmol/L [employer] 423-011 3896/08/ 01 urea nitrogen/creatinine ratio, serum 15 [employer] [...] TAB. DAILY - Vale Pérez VITAMIN D3 89424 UNIT ORAL TABLET active TAKE ONE TAB [...] Policy type / Coverage type Sedrick red democrat ID [employer] Other [id number] ADVANCE DIRECTIVES Name Date DISCUSSED - NO [...] Yang MD completed IM or SQ Injection Dnany Yang MD completed B12 Injection Danny Yang MD compl eted Injectafer 750mg Danny Yang MD co mpleted Therapeutic IV Infus ion up to 1 hour Danny Yang MD completed PAPO Yang MD c ompleted EKG Danny Yang MD complete d
[2024-09-24 22:25] VITALS: BP 109/64; PULSE 110; RESP 22; TEMP 37.5; O2SAT 99
[2024-09-25] VITALS (10 sets, daily range): BP systolic 103–152; BP diastolic 71–93; PULSE 79–112; RESP 10–34; TEMP 36.4–37.1; O2SAT 96–100
--- NOTE | 2024-09-25 02:43 | ECG_ITS ---
Test Date: 2024-09-25 02:47:40 Measurements Intervals [place] Rate: 81 P: 26 RI: 129 QRS: -28 QRSD: 81 T: 47 QT: 365 QTc: 424 Interpretive Statements SINUS RHYTHM POSSIBLE LEFT ATRIAL ENLARGEMENT BORDERLINE R WAVE PROGRESSION, ANTERIOR LEADS NONSPECIFIC T-WAVE ABNORMALITY- ANT/HIGH LAT LEADS BASELINE ARTIFACT- I BORDERLINE ECG Compared to ECG 03/24/2024 20:00:54 NO SIGNIFICANT CHANGE Electronically Signed On 09-25-2024 07:55:52 CDT by Nathaniel Chase D.O.
--- OUTSIDE RECORDS SUMMARY | 2024-09-25 02:50 | XMS_ITS | Clinical Summary ---
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
--- OUTSIDE RECORDS SUMMARY | 2024-09-25 02:50 | XMS_ITS | Referral Summary ---
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 Not on file [...] to [place] [address] [place] [address] Member Subscriber Plan / Payer (Ef fective 2021-Present) Name:Zahira Mark Relation to Subscriber:Spouse Name:OMEGA MARK Date of :1972 (Home) Address: [address] [place], [place] [address] [address] Payer ID:[id number] Group ID:[id number] Type:COMMERCIAL Address: [address] [place] [address] [facility] Member Subscriber Plan / Payer (Ef fective 2021-Present) Name:Zahira Mark Relation to Subscriber:Spouse Name:JASOMEGA Gloria Date of :1972 (Home) Address: [place] [address] Payer ID:[id number] Group ID:[id number] Type:MANAGED CARE OTHER Address: [id number] [place] [address] Care Teams Newspaper Distributor Supervisor Relationship Specialty Start Date End Date Margarette Ngo NP [address] [place] [address] PCP - General Nurse Practitioner 09/19/24 Amanda Pabon MD [address] [place] [address] Medical Oncologist/Hematologis t Hematology and Oncology 09/12/21
--- OUTSIDE RECORDS SUMMARY | 2024-09-25 02:50 | XMS_ITS | Clinical Summary ---
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 Not on file [...] to Health Maintenance [place] [address] [facility] [address] [place] [address] Member Subscriber Plan / Payer ( fective 2021-Present) Name:Zahira Mark Relation to Subscriber:Spouse Name:OMEGA MARK Date of :1972 (Home) Address: [place] [address] Payer ID:[id number] Group ID:[id number] Type:COMMERCIAL Address: [address] [place] [address] [place] [address] [facility] Member Subscriber Plan / Payer ( fective 2021-Present) Name:Zahira Mark Relation to Subscriber:Spouse Name:OMEGA MARK Date of :1972 (Home) Address: [address] [place] [address] Payer ID:[id number] Group ID:[id number] Type:MANAGED CARE OTHER Address: [address] [place] [address] Care Teams Cigarette Tester Relationship Specialty Start Date End Date Margarette Ngo NP [address] [place] [address] PCP - General Nurse Practitioner 09/19/24 Amanda Pabon MD [address] [place] [address] Medical Oncologist/Hematologis t Hematology and Oncology 09/12/21
--- OUTSIDE RECORDS SUMMARY | 2024-09-25 02:51 | XMS_ITS | Clinical Summary ---
Author Organization [facility] Address [address] [facility] [place] [address] Care Team Providers Care Social Security Assessor Name Role Phone Corinna Coburn APRN-OIL SPRAYING MACHINE OPERATOR Primary Care Provider Source Comments [facility],non-owned Affiliates and Associated Physician Practices is amultiple site organization consisting of ambulatory clinics and hospital sitesin [place], [place], [place] and [place]. This disclosure is being madepursuant to the Care Everywhere program and may not contain all information available regarding this patient. Last updated 18.[facility] Allergies No known active allergies Medications * [...] complete this topic [place] [address] [employer] GENERIC Member Subscriber Plan / Payer (Ef fective 2020-Present) Name:Zahira Terry Relation to Subscriber:Spouse Name:Omega Terry Date of :1972 (Home) Address: [address] [place] [address] [place] [address] Payer ID:Not on file Group ID:[id number] Type:Commercial Address: [facility] [address] [place] [address] [place] [address] Care Teams Social Security Assessor Relationship Specialty Start Date End Date Corinna Coburn, HEALTH SPA MANAGER-OIL SPRAYING MACHINE OPERATOR [address] [place] [address] PCP - General 09/02/21
--- OUTSIDE RECORDS SUMMARY | 2024-09-25 02:51 | XMS_ITS | Encounter Summary ---
Author Organization [facility] Address [address] [facility] [place] [address] Care Team Providers Care Key Account Director Name Role Phone Corinna Coburn Primary Care Provider Encounter Details Date Type Department Care Team (Late st Contact Info) Description 03/07/2023 Ophth Exam [facility] - Ophthalmology [address] [place] [address] Jessie Martin MD [address] [facility] [place] [address] Social History Tobacco Use Types [...] on filedocumented in this encounter Care Teams Key Account Director Relationship Specialty Start Date End Date Corinna Coburn APRN-CNP [address] [place] [address] PCP - General 09/02/21 documented as of this encounter
--- OUTSIDE RECORDS SUMMARY | 2024-09-25 02:51 | XMS_ITS | Patient Health Record ---
Author Organization [facility] [employer] [facility] Address [address] [facility] [address] [place] [address] Care Team Providers Care Pharmacology Teacher Name Role Phone Corinna Fields Primary Care Provider Andrés Newman Unavailable [phone] Migration, Provider Unavailable Unavailable Allergies No Known Allergies Results Component Value Reference Range Notes UDT Reviewed date:11/20/2023 02:41:47 PM Interpretation: Performing Lab: Notes/Report: THC neg 0 - 50 ng/ml Cocaine neg Amphetamine neg Buprenorphine (BUP) neg Secobarbital (Bar) neg Oxazepam (BZO) neg 6-izacgalygk-2,4-fomrzowo-4,3-diphenylpyrrolidine (LIZZETH P) neg Methamphetamine (MET) neg Methylenedioxymethamphetamine (MDMA) neg Morphine (MOP 300/VEO1917) neg Methadone (MTD) neg Phencyclidine (PCP) neg [...] 50 MG TAKE 1 TABLET BY [facility] EVERY DAY FOR 30 DAYS for [...] Problem Status W/U Status Risk Notes Problem 780994605 Major depressive disorder, recurrent, mild (F33.0) Active confirmed Problem 17046028 JUMANA (generalized anxiety disorder) (F41.1) Active confirmed Problem 80374931 ADHD, predominantly inattentive type (F90.0) Active confirmed Vital Signs Heart Rate 80 /min 07/20/2024 Height-cm 172.72 cm 07/20/2024 Blood pressure diastolic 79 mm Hg 07/20/2024 Weight-kg 77.66 kg 07/20/2024 Height 68 in 07/20/2024 Blood pressure systolic 112 mm Hg 07/20/2024 Weight 171.2 lbs 07/20/2024 BMI 26.03 kg/m2 07/20/2024 Encounters Encounter Location Date Provider Diagnosis [employer] [address] [place] [address] 11/20/2023 Andrés Jose Major depressive disorder, recurrent, mild F33.0 ; JUMANA (generalized anxiety disorder) F41.1 and ADHD, predominantly inattentive type F90.0 [facility] [employer] [facility] [address] [place] [address] 11/25/2023 Andrés Garcia ADHD (attention deficit hyperactivity disorder), combined type 314.01 [employer] [facility] [address] [place] [address] 12/18/2023 Andrés Jose Major depressive disorder, recurrent, mild F33.0 ; JUMANA (generalized anxiety disorder) F41.1 and ADHD, predominantly inattentive type F90.0 [facility] [address] [place] [address] 02/19/2024 Andrés Jose Major depressive disorder, recurrent, mild F33.0 ; JUMANA (generalized anxiety disorder) F41.1 and ADHD, predominantly inattentive type F90.0 [facility] [address] [place] [address] 05/20/2024 Andrés Garcia [facility], [facility] [address] [place] [address] 07/20/2024 Andrés Jose Major depressive disorder, recurrent, mild F33.0 ; JUMANA (generalized anxiety disorder) F41.1 and ADHD, predominantly inattentive type F90.0 [facility] [address] [place] [address] 10/15/2023 Provider Migration [facility], [facility] [address] [place] [address] 10/17/2023 Provider Migration [facility], [facility] [address] [place] [address] 10/18/2023 Provider Migration [facility], [facility] [address] [place] [address] 04/15/2024 Andrés Garcia [facility], [facility] [address] [place] [address] 06/23/2024 Andrés Garcia [facility], [facility] [address] [place] [address] 01/31/2024 Andrés Jose ADHD, predominantly inattentive type F90.0 [facility] [address] [place] [address] 04/18/2024 Andrés Jose [facility], [facility] [address] [place] [address] 08/11/2024 Andrés Jose Assessments Encounter Date Diagnosis [...] Continue attending sessions with current counselor at [facility] in [place]. Patient last saw counselor on Thursday. Attention [...] Continue attending sessions with current counselor at [facility] in [place]. Patient last saw counselor on Thursday. Attention [...] Continue attending sessions with current counselor at [facility] in [place]. Patient last saw counselor on Thursday. Attention [...] 10/12/2024 02:00:00 PM, [address], [facility] [address], [place], [address], Insurance Providers Payer Name Payer Address Payer Phone Subscriber Number Group Number Insured Name Patient Relationship to Insured Coverage Start Date Coverage End Date [employer] [address] [place] [address] [id number] ASTON MARK Self - patient is the [...]
--- OUTSIDE RECORDS SUMMARY | 2024-09-25 02:51 | XMS_ITS | CONTINUITY OF CARE DOCUMENT ---
Author Name vidhi, filemonratna Address Unknown Organization [facility] Address [address] [place] [address] Phone [phone] Care Team Providers Care Business Education Instructor Name Role Phone Trey MITCHELL, Danny Unavailable [phone] Huber PRESALES ENGINEER, Margarette Unavailable [phone] Norman FIELD SOFTWARE ENGINEER-BC, Corinna L Unavailable PROBLEMS Condition Status Date [...] In-person encounter Office Visit Danny Yang MD [facility] DizzinessScreeningDiastolic dysfunctionHypertriglyceridemiaHTN borderlineSLEEP APNEA;on rx - In-person encounter Office Visit Danny Yang MD [facility] Migraine headachesFAMILY HISTORY OF HEART DISEASEHyperlipidemiaScreeningObesity [...] iron binding capacity, unsaturated 133 ug/dL [employer] [phone]/09/ 21 iron binding capacity, total 265 ug/dL [employer] [phone]/09/ 21 basophil count, absolute 0.1 x10E3/uL [employer] [...] Not Estab. platelet count 296 X10E3/UL [employer] [phone]/09/ 21 red blood cell distribution width 14.8 [...] iron binding capacity, unsaturated 322 ug/dL [employer] [phone]/08/ 01 iron binding capacity, total 398 ug/dL [employer] [phone]/08/ 01 prothrombin time (patient) 9.9 s [employer] [...] Not Estab. platelet count 285 X10E3/UL [employer] [phone]/08/ 01 red blood cell distribution width 13.9 [...] [employer]Logic 3.5-5.2 sodium, serum 142 mmol/L [employer] [phone]/08/ 01 urea nitrogen/creatinine ratio, serum 15 [employer]ic [...] TAB. DAILY - Vale Pérez VITAMIN D3 42288 UNIT ORAL TABLET active TAKE ONE TAB [...] red libertarian ID [employer] Other [id number] ADVANCE DIRECTIVES Name Date DISCUSSED - NO [...] Yang MD compl eted Injectafer 750mg Danny aYng MD co mpleted Therapeutic IV Infus ion up to 1 hour Danny Yang MD completed PAPO Yang MD c ompleted EKG Danny Yang MD complete d
[2024-09-25] MEDS: SODIUM CHLORIDE 0.9% IV 3,000 ML 999 ML IV CONT (02:59)
[2024-09-25 03:12] LABS: Basophils Percent Auto 0.2 % (0.2-1.2); Eosinophils Absolute Auto 0.1 K/mm3 (0-0.3); Eosinophils Percent Auto 1.2 % (0-4.4); Hematocrit 39.8 % (37.0-47.0); Hemoglobin 13.1 g/dL (12.0-15.0); Immature Granulocyte Absolute 0.05 K/mm3 (0.00-0.031); Immature Granulocyte Percent A 0.5 % (0-0.5); Lymphocytes Absolute Auto 1.04 K/mm3 (0.9-3.2); Lymphocytes Percent Auto 11.4 % (18.3-44.2); Mean Corpuscular HGB Conc 32.9 g/dl (32-36); Mean Corpuscular Hemoglobin 30.3 pg (26-34); Mean Corpuscular Volume 91.9 fl (80-100); Mean Platelet Volume 11.5 fl (7.4-10.4); Monocytes Absolute Auto 0.9 K/mm3 (0.1-0.6); Monocytes Percent Auto 9.3 % (2.6-8.5); Neutrophils Absolute Auto 7.1 K/mm3 (1.3-6.7); Neutrophils Percent Auto 77.4 % (45.5-73.1); Platelet Count Result 272 k/mm3 (150-375); Red Blood Count 4.33 M/mm3 (4.2-5.4); Red Cell Distribution Width 13.7 % (11.5-14.5); White Blood Count 9.1 K/mm3 (4.5-10.0)
[2024-09-25 03:19] LABS: Alanine Aminotransferase 18 U/L (6-35); Albumin Level 4.2 g/dL (3.5-5.1); Alkaline Phosphatase 66 U/L (38-126); Anion Gap 12 mmol/L (4-12); Aspartate Amino Transferase 23 U/L (14-36); Bilirubin,Total 0.8 mg/dL (0.2-1.3); Blood Urea Nitrogen 15 mg/dL (7-17); Calcium 9.5 mg/dL (8.4-10.2); Carbon Dioxide 23 mmol/L (22-30); Chloride 102 mmol/L (98-107); Estimated CRCL calculation 59 ml/min; Estimated Glomerular Filt Rate 59; Glucose 100 mg/dL (65-110); Potassium 3.7 mmol/L (3.4-5.0); Sodium 137 mmol/L (137-145)
[2024-09-25 03:28] LABS: Add Urine Microscopic? YES; Appearance Urine Cloudy (Clear); Bacteria Urine Rare /hpf; Bilirubin Urine Negative (Negative); Blood Urine 3+ (Negative); Color Urine Yellow (Yellow); Glucose Urine UA Negative (Negative); Ketones Urine Trace mg/dL (Negative); Leukocyte Esterase Ur 3+ LEU/UL (Negative); Need Manual Microscopic Reviewed; Nitrate Urine Negative (Negative); Non Pathogenic Casts 0-2; Protein Urine 1+ mg/dL (Negative); RBC Urine >100 /hpf (0-2); Specific Grav Ur 1.026 (1.001-1.035); Squamous Epithelial Cell Urine Moderate /hpf (Few); WBC Urine 51-100 /hpf (0-3); pH Urine 5.5 (5.0-9.0)
[2024-09-25 03:52] LABS: Influenza A QL RT-PCR Negative (Negative); Influenza B QL RT-PCR Negative (Negative); RSV RNA, RT-PCR Negative (Negative); SARS-CoV-2 RNA PCR Negative (Negative)
[2024-09-25] MEDS: KETOROLAC 15 MG/ML VIAL (*BKC) IV PUSH (03:55)
[2024-09-25] MEDS: ACETAMINOPHEN 500 MG TABLET 1000 MG PO (03:56)
--- NOTE | 2024-09-25 05:24 | ED.GENADULT ---
HPI - General Adult General Chief complaint: Fever Stated complaint: Recent lithotripsy, L flank pain, fever Time Seen by Provider: 09/25/24 02:08 History of Present Illness HPI narrative: This is a 53-year-old female presenting with flu-like symptoms. She had a lithotripsy 2 days ago. The next day she woke up and took bactrim. She then developed headache and flu-like symptoms and thought it was allergy to the sulfas. She stopped taking antibiotics. Her condition has continued to get worse. She has headache, body aches nausea left-sided flank pain. She denies dysuria urgency or frequency. Related Data Home Medications ?Medication ?Instructions ?Recorded ?Confirmed ?Last Taken ?Type alprazolam 0.25 mg tablet 0.25 mg PO PRN PRN Anxiety 03/21/20 09/16/24 Unknown History lamotrigine 100 mg tablet 100 mg PO DAILY 03/07/23 09/16/24 Unknown History rosuvastatin 10 mg tablet 10 mg PO HS 03/07/23 09/16/24 Unknown History sertraline 50 mg tablet 50 mg PO DAILY 03/07/23 09/16/24 Unknown History venlafaxine 75 mg capsule,extended 75 mg PO DAILY 03/07/23 09/16/24 Unknown History release 24 hr lifitegrast 5 % eye drops in a 1 drp EACH EYE DAILY 09/16/24 09/16/24 Unknown History dropperette (Xiidra) tirzepatide (weight loss) 15 15 mg subcut WEEKLY 09/16/24 09/23/24 09/16/24 History mg/0.5 mL subcutaneous pen injector (Zepbound) Allergies Allergy/AdvReac Type Severity Reaction Status Date / Time Sulfa (Sulfonamide Allergy Unknown Other Verified 09/24/24 21:55 Antibiotics) [facility] Past Medical History Medical History BERTRAND on CPAP Anxiety Pre-diabetes Surgical History Surgical History H/O: hysterectomy Social History Social History Smoking status: Never smoker Living arrangements: with family Exam Narrative: APPEARANCE: Patient appears uncomfortable Head: atraumatic. EYES: EOMI, NOSE: Atraumatic NECK: Trachea midline RESPIRATORY: No increased rate of breathing clear auscultation CARDIOVASCULAR: RRR, soft nontender no guarding rebound ABDOMINAL: Non-distended no CVA tenderness MUSCULOSKELETAl: No obvious deformities NEURO: Alert. Moving 4/4 extremities SKIN:: Warm, dry. Normal color PSYCHIATRIC: Normal affect Course Vital Signs Vital signs: Vital Signs Temperature 99.5 F 09/24/24 22:25 Pulse Rate 110 H 09/24/24 22:25 Respiratory Rate 22 H 09/24/24 22:25 Blood Pressure 109/64 09/24/24 22:25 Pulse Oximetry 99 09/24/24 22:25 Temperature 98.7 F 09/25/24 03:07 Pulse Rate 79 09/25/24 03:01 Respiratory Rate 16 09/25/24 03:01 Blood Pressure 123/82 09/25/24 03:05 Pulse Oximetry 100 09/25/24 03:01 Medical Decision Making MDM Narrative Medical decision making narrative: -Course: 53-year-old female presenting with flu-like symptoms 2 days after receiving a lithotripsy. Urine is indicative infection. Started on ceftriaxone IV and will be switched to cefdinir p.o.. White count is normal. Viral swabs negative. Chest x-ray is clear. On re-evaluation she is feeling much better. Vital signs are normalized. She will be discharged on cefdinir. She is instructed to call her urologist tomorrow morning to inform them of her infection. -DDX includes but is not limited to: Pyelo/UTI, viral syndrome, pneumonia -Co-morbidities complicating care: Recent lithotripsy Vital Signs Vital Signs: Vital Signs Temperature 99.5 F 09/24/24 22:25 Pulse Rate 110 H 09/24/24 22:25 Respiratory Rate 22 H 09/24/24 22:25 Blood Pressure 109/64 09/24/24 22:25 Pulse Oximetry 99 09/24/24 22:25 Temperature 98.7 F 09/25/24 03:07 Pulse Rate 79 09/25/24 03:01 Respiratory Rate 16 09/25/24 03:01 Blood Pressure 123/82 09/25/24 03:05 Pulse Oximetry 100 09/25/24 03:01 Lab Data 09/25/24 03:00 09/25/24 03:00 Labs: Lab Results 09/25/24 Range/Units 03:00 WBC 9.1 (4.5-10.0) K/mm3 RBC 4.33 (4.2-5.4) M/mm3 Hgb 13.1 (12.0-15.0) g/dL Hct 39.8 (37.0-47.0) % MCV 91.9 (80-100) fl MCH 30.3 (26-34) pg MCHC 32.9 (32-36) g/dl RDW 13.7 (11.5-14.5) % Plt Count 272 (150-375) k/mm3 MPV 11.5 H (7.4-10.4) fl Immature Gran % (Auto) 0.5 (0-0.5) % Neut % (Auto) 77.4 H (45.5-73.1) % Lymph % (Auto) 11.4 L (18.3-44.2) % [place] % (Auto) 9.3 H (2.6-8.5) % Eos % (Auto) 1.2 (0-4.4) % Baso % (Auto) 0.2 (0.2-1.2) % Lymph # (Auto) 1.04 (0.9-3.2) K/mm3 [place] # (Auto) 0.9 H (0.1-0.6) K/mm3 Eos # (Auto) 0.1 (0-0.3) K/mm3 Baso # (Auto) 0.0 (0.0-0.1) K/mm3 Abs Immat Gran (auto) 0.05 H (0.00-0.031) K/mm3 Absolute Neuts (auto) 7.1 H (1.3-6.7) K/mm3 Absolute Nucleated RBC 0.000 (0.0-0.012) K/mm3 Nucleated RBC % 0.0 (0.0-0.2) % Sodium 137 (137-145) mmol/L Potassium 3.7 (3.4-5.0) mmol/L Chloride 102 (98-107) mmol/L Carbon Dioxide 23 (22-30) mmol/L Anion Gap 12 (4-12) mmol/L BUN 15 (7-17) mg/dL Creatinine 0.98 (0.7-1.0) mg/dL Estim Creat Clear Calc 59 ml/min Estimated GFR 59 (59 - ) Glucose 100 (65-110) mg/dL Calcium 9.5 (8.4-10.2) mg/dL Total Bilirubin 0.8 (0.2-1.3) mg/dL AST 23 (14-36) U/L ALT 18 (6-35) U/L Alkaline Phosphatase 66 (38-126) U/L Total Protein 7.0 (6.3-8.2) g/dL Albumin 4.2 (3.5-5.1) g/dL Urine Color Yellow (Yellow) Urine Appearance Cloudy H (Clear) Urine pH 5.5 (5.0-9.0) Ur Specific [place] 1.026 (1.001-1.035) Urine Protein 1+ H (Negative) mg/dL Urine Glucose (UA) Negative (Negative) mg/dL Urine Ketones Trace H (Negative) mg/dL Ur Blood (Man) 3+ H (Negative) Urine Nitrate Negative (Negative) Urine Bilirubin Negative (Negative) Urine Urobilinogen 1.0 (<2.0) mg/dL Add Ur Microanalysis Reviewed Leukocyte Esterase Rfl 3+ H (Negative) LEE/UL Urine RBC >100 H (0-2) /hpf Urine WBC 51-100 H (0-3) /hpf Ur Squamous Epith Cells Moderate (Few) /hpf Urine Bacteria Rare /hpf Urine Casts 0-2 Influenza A (RT-PCR) Negative (Negative) Influenza B (RT-PCR) Negative (Negative) RSV (RT-PCR) Negative (Negative) SARS-CoV-2 RNA (RT-PCR) Negative (Negative) Discharge Plan Discharge Clinical Impression: Pyelonephritis Patient Disposition: Home Condition: Stable Instructions: Antibiotic Form, Kidney Infection (ED) Additional Instructions: You were seen in the emergency department for a kidney infection. Please take the cefdinir as instructed. Use Motrin and Tylenol for pain control. Please call your urologist's office tomorrow morning to inform them of your infection and arrange follow-up. If you feel your condition is getting worse, please return to the ED re-evaluation. Patient Language: Comoran Prescriptions: New cefdinir 300 mg capsule 300 mg PO Q12H Qty: 20 0RF acetaminophen 500 mg tablet 1,000 mg PO TID PRN (Reason: sergei) 7 Days Qty: 42 0RF ibuprofen 800 mg tablet 800 mg PO TID PRN (Reason: pain) 7 Days Qty: 21 0RF No Action venlafaxine 75 mg capsule,extended release 24hr 75 mg PO DAILY sertraline 50 mg tablet 50 mg PO DAILY lamotrigine 100 mg tablet 100 mg PO DAILY rosuvastatin 10 mg tablet 10 mg PO HS alprazolam 0.25 mg tablet 0.25 mg PO PRN PRN (Reason: Anxiety) Zepbound 15 mg/0.5 mL pen injector 15 mg SUBCUT WEEKLY Xiidra 5 % dropperette 1 drp EACH EYE DAILY sulfamethoxazole-trimethoprim [Bactrim DS] 800-160 mg tablet 1 tablet PO Q12H Qty: 6 0RF tramadol 50 mg tablet 50 mg PO Q6H PRN (Reason: pain) Qty: 15 0RF Follow-up/Referrals: Huber,Margarette Guerra, ARCHITECTURAL ASSOCIATE [Primary Care Provider] -
== END 2024-09-25 05:57 | disposition home or self-care (01) ==
PROVIDERS: Emergency Provider Emergency Medicine
DX: T81.40XA Infection following a procedure, unspecified, initial encounter (principal); N12 Tubulo-interstitial nephritis, not specified as acute or chronic; Z20.822 Contact with and (suspected) exposure to COVID-19; R73.03 Prediabetes; G47.33 Obstructive sleep apnea (adult) (pediatric); F41.9 Anxiety disorder, unspecified; Z90.710 Acquired absence of both cervix and uterus; Z79.899 Other long term (current) drug therapy; Z79.85 Long-term (current) use of injectable non-insulin antidiabetic drugs; Y84.8 Other medical procedures as the cause of abnormal reaction of the patient, or of later complication, without mention of misadventure at the time of the procedure
CPT/HCPCS: 36415; 71045; 74176; 80053; 81001; 85025; 87040; 87637; 93005; 96361; 96365; 96375; 99284; A9270; J0696; J1885; J7030

== ENCOUNTER 2024-10-06 09:49 | Outpatient (CLI) | payer OTHER, SELFPAY ==
--- NOTE | ~2024-10-06 | XR_ITS ---
XR abdomen/kub 1V Ordering provider: Jeff Varner MD History: . Lt ureteral stone, REMOVAL X 1 WEEK . Comparison: September 23, 2024 FINDINGS: BOWEL: Nonobstructive bowel gas pattern. ORGANOMEGALY: None. SIGNIFICANT PATHOLOGIC CALCIFICATIONS: None. OTHER: No free air is seen under the diaphragm. IMPRESSION: NO ACUTE ABDOMINAL FINDINGS. Reviewed, dictated and finalized at location A.
--- OUTSIDE RECORDS SUMMARY | 2024-10-06 10:14 | XMS_ITS | Encounter Summary ---
Author Organization [facility] Address [address] [facility] [address] Care Team Providers Care Payroll Lead Name Role Phone Corinna Coburn Primary Care Provider Encounter Details Date Type Department Care Team (Late st Contact Info) Description 03/07/2023 Ophth Exam [facility] - Ophthalmology [address] [place] [id number] Jessie Martin MD [address] [facility] [place] [address] Social History Tobacco Use Types [...] on filedocumented in this encounter Care Teams Payroll Lead Relationship Specialty Start Date End Date Corinna Coburn APRN-CNP [address] [place] [phone] PCP - General 09/02/21 documented as of this encounter
--- OUTSIDE RECORDS SUMMARY | 2024-10-06 10:14 | XMS_ITS | Clinical Summary ---
Author Organization 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
--- OUTSIDE RECORDS SUMMARY | 2024-10-06 10:14 | XMS_ITS | Referral Summary ---
Author Organization 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 Member Subscriber Plan / Payer (Ef fective 2021-Present) Name:Zahira Mark Relation to Subscriber:Spouse Name:JASOMEGA Gloria Date of :1972 (Home) Address: [place] [address] Payer ID:[id number] Group ID:[id number] Type:MANAGED CARE OTHER Address: [id number] [place] [address] Care Teams Meat Grinder Relationship Specialty Start Date End Date Margarette Ngo NP [address] [place] [address] PCP - General Nurse Practitioner 09/19/24 Amanda Pabon MD [address] [place] [address] Medical Oncologist/Hematologis t Hematology and Oncology 09/12/21
--- OUTSIDE RECORDS SUMMARY | 2024-10-06 10:14 | XMS_ITS | Clinical Summary ---
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 [id number] Member Subscriber Plan / Payer ( fective 2021-Present) Name:Zahira Mark Relation to Subscriber:Spouse Name:OMEGA MARK Date of :1972 (Home) Address: [place] [address] Payer ID:[id number] Group ID:[id number] Type:COMMERCIAL Address: [address] [place] [address] [place] [address] [facility] Member Subscriber Plan / Payer ( fective 2021-Present) Name:Zahira Mark Relation to Subscriber:Spouse Name:OMEGA MARK Date of :1972 (Home) Address: [address] [place] [address] Payer ID:[id number] Group ID:[id number] Type:MANAGED CARE OTHER Address: [address] [place] [address] Care Teams Wardrobe Coordinator Relationship Specialty Start Date End Date Margarette Ngo NP [address] [place] [address] PCP - General Nurse Practitioner 09/19/24 Amanda Pabon MD [address] [place] [address] Medical Oncologist/Hematologis t Hematology and Oncology 09/12/21
--- OUTSIDE RECORDS SUMMARY | 2024-10-06 10:14 | XMS_ITS | CONTINUITY OF CARE DOCUMENT ---
Author Name vidhi, filemonratna Address Unknown Organization [facility] Address [address] [place] [address] Phone [phone] Care Team Providers Care Face Painter Name Role Phone Trey MITCHELL, Danny Unavailable [phone] Huber SAP PORTAL ARCHITECT, Margarette Unavailable [employer] ANALYST-BC, Corinna L Unavailable [phone] PROBLEMS Condition Status Date Provider Notes Vitamin D deficiency active Danny Brown B12 deficiency active Danny Yang MD IRON DEFICIENCY active Danny Yang MD SLEEP APNEA;on rx active Danny Yang MD HTN borderline active Danny Yang MD Hypertriglyceridemia active Danny Brown Diastolic dysfunction active Danny Yang MD Obesity active Danny Yang MD Screening active Danny Yang MD Dizziness completed - Danny Yang MD Hyperlipidemia active Danny Yang MD FAMILY HISTORY OF HEART DISEASE active Danny Yang MD mothe mi and brother mi Migraine headaches active Danny Yang MD ENCOUNTERS Date Type Provider Location Encounter Diag nosis - In-person encounter Office Visit Danny Yang MD [place] [facility] DizzinessScreeningDiastolic dysfunctionHypertriglyceridemiaHTN borderlineSLEEP APNEA;on rx - In-person encounter Office Visit Danny Yang MD [place] Migraine headachesFAMILY HISTORY OF HEART DISEASEHyperlipidemiaScreeningObesity [...] iron binding capacity, unsaturated 133 ug/dL [employer] [phone]/09/ 21 iron binding capacity, total 265 ug/dL [employer] [phone]/09/ 21 basophil count, absolute 0.1 x10E3/uL [employer] [...] Not Estab. platelet count 296 X10E3/UL [employer] [phone]/09/ 21 red blood cell distribution width 14.8 [...] iron binding capacity, unsaturated 322 ug/dL [employer] [phone]/08/ 01 iron binding capacity, total 398 ug/dL [employer] [phone]/08/ 01 prothrombin time (patient) 9.9 s [employer] [...] Not Estab. platelet count 285 X10E3/UL [employer] [phone]/08/ 01 red blood cell distribution width 13.9 [...] [employer]ic 3.5-5.2 sodium, serum 142 mmol/L [employer] [phone]/08/ 01 urea nitrogen/creatinine ratio, serum 15 [employer]Logic [...] TAB. DAILY - Vale Pérez VITAMIN D3 01683 UNIT ORAL TABLET active TAKE ONE TAB [...] Policy type / Coverage type [place] red republican ID [employer] Other [id number] ADVANCE DIRECTIVES Name Date DISCUSSED - NO [...]
--- OUTSIDE RECORDS SUMMARY | 2024-10-06 10:14 | XMS_ITS | Patient Health Record ---
Author Organization [facility] [employer] [facility] Address [address] [facility] [address] [place] [address] Care Team Providers Care Water Softener Servicer Name Role Phone Corinna Fields Primary Care Provider Andrés Newman Unavailable [phone] Migration, Provider Unavailable Unavailable Allergies No Known Allergies Results Component Value Reference Range Notes UDT Reviewed date:11/20/2023 02:41:47 PM Interpretation: Performing Lab: Notes/Report: THC neg 0 - 50 ng/ml Cocaine neg Amphetamine neg Buprenorphine (BUP) neg Secobarbital (Bar) neg Oxazepam (BZO) neg 6-fapzvklfzu-1,2-xgdwdxnh-3,3-diphenylpyrrolidine (LIZZETH P) neg Methamphetamine (MET) neg Methylenedioxymethamphetamine (MDMA) neg Morphine (MOP 300/[id number]) neg Methadone (MTD) neg Phencyclidine (PCP) neg [...] 50 MG [facility] FOR 30 DAYS for 90 [...] Problem Status W/U Status Risk Notes Problem [id number] Major depressive disorder, recurrent, mild (F33.0) Active confirmed Problem [id number] JUMANA (generalized anxiety disorder) (F41.1) Active confirmed Problem [id number] ADHD, predominantly inattentive type (F90.0) Active confirmed Vital Signs Heart Rate 80 /min 07/20/2024 Height-cm 172.72 cm 07/20/2024 Blood pressure diastolic 79 mm Hg 07/20/2024 Weight-kg 77.66 kg 07/20/2024 Height 68 in 07/20/2024 Blood pressure systolic 112 mm Hg 07/20/2024 Weight 171.2 lbs 07/20/2024 BMI 26.03 kg/m2 07/20/2024 Encounters Encounter Location Date Provider Diagnosis [employer] [address] [place] [address] 11/20/2023 Andrés Jose Major depressive disorder, recurrent, mild F33.0 ; JUMANA (generalized anxiety disorder) F41.1 and ADHD, predominantly inattentive type F90.0 [facility] [employer] [facility] [address] [place] [address] 11/25/2023 Andrés Garcia ADHD (attention deficit hyperactivity disorder), combined type 314.01 [employer] [facility] [address] [place] [address] 12/18/2023 Andrés Jose Major depressive disorder, recurrent, mild F33.0 ; JUMANA (generalized anxiety disorder) F41.1 and ADHD, predominantly inattentive type F90.0 [facility] [address] [place] [address] 02/19/2024 Andrés Jose Major depressive disorder, recurrent, mild F33.0 ; JUMANA (generalized anxiety disorder) F41.1 and ADHD, predominantly inattentive type F90.0 [facility] [address] [place] [address] 05/20/2024 Andrés Garcia [facility], [facility] [address] [place] [address] 07/20/2024 Andrés Jose Major depressive disorder, recurrent, mild F33.0 ; JUMANA (generalized anxiety disorder) F41.1 and ADHD, predominantly inattentive type F90.0 [facility] [address] [place] [address] 10/15/2023 Provider Migration [facility], [facility] [address] [place] [address] 10/17/2023 Provider Migration [facility], [facility] [address] [place] [address] 10/18/2023 Provider Migration [facility], [facility] [address] [place] [address] 04/15/2024 Andrés Garcia [facility], [facility] [address] [place] [address] 06/23/2024 Andrés Garcia [facility], [facility] [address] [place] [address] 01/31/2024 Andrés Jose ADHD, predominantly inattentive type F90.0 [facility] [address] [place] [address] 04/18/2024 Andrés Jose [facility], [facility] [address] [place] [address] 08/11/2024 Andrés Jose Assessments Encounter Date Diagnosis [...] Continue attending sessions with current counselor at [facility] in [place]. Patient last saw counselor on Thursday. Attention [...] Continue attending sessions with current counselor at [facility] in [place]. Patient last saw counselor on Thursday. Attention [...] Continue attending sessions with current counselor at [facility] in [place]. Patient last saw counselor on Thursday. Attention [...] 02:00:00 PM, [address], [facility] [address], [place], [address], Insurance Providers Payer Name Payer Address Payer Phone Subscriber Number Group Number Insured Name Patient Relationship to Insured Coverage Start Date Coverage End Date [employer] [address] [place] [address] [id number] MARK Self - patient is the [...]
--- OUTSIDE RECORDS SUMMARY | 2024-10-06 10:14 | XMS_ITS | Data Portability ---
Author Organization [facility], Main Office Address [address] [place] [address] Care Team Providers Care Production Director Name Role Phone KARTIK ADHIKARI Primary Care Provider Assessment No assessment recorded. Plan of Treatment Reminders Order Date Submit Date Provider Last Modified By Organization Details Last Modified Time Details Appointments None recorded. Lab CBC w/ auto diff 2023 024 [facility] (Lab), [address] [place], [address], 4 20:34:02 iron + total iron-bindin g capacity (TIBC), serum [address] (Lab), [address] [place], [address], 4 08:13:38 glycohemogl obin, total, blood [address] (Lab), [address] [place], [address], 4 08:08:12 glycohemogl obin, total, blood [address] (Lab), [address] [place], [address], 4 08:13:44 Referral None recorded. Procedures colonoscopy screening (PROC) 2023 024 [facility] (Pre-Screen), [address] [place], [address], 4 13:22:18 upper endoscopy procedure (EGD) (PROC) 2023 024 [facility] (Pre-Screen), [address] [place], [address], 4 13:21:58 Surgeries None recorded. Imaging [place], modified barium swallow study [address] (One Call Scheduling), [address] [place], [address], 4 08:16:59 Medication Orders Macrobid 100 mg capsule 2024 025 [facility]armacy #3259, [address] [place], [address], 5 15:38:03 losartan 50 mg tablet 2023 024 [facility]/Pharmacy #3259, [address] [place], [address], 4 12:03:36 amlodipine 5 mg tablet 2023 024 [facility]/Pharmacy #3259, [address] [place], [address], 4 12:03:37 rosuvastati n 10 mg tablet 2023 024 [facility]/Pharmacy #3259, [address] [place], [address], 4 12:03:39 Golytely 236 gram-22.74 gram-6.74 gram-5.86 gram oral solution 2023 024 [facility]/Pharmacy #3259, [address] [place], [address], 11:49:36 Ozempic 0.25 mg or 0.5 mg (2 mg/3 mL) subcutaneou s pen injector 2023 Shayna he [facility], [address] [place], [address], 12:39:01 Patient TargetsNo targets recorded. Patient Instructions Encounter Date Encounter Id Patient Instructions Last Modified By Organization Details Last Modified Time 11/18/2023 [id number] GOLYTELY/ REFLUX DIET [email or web address] Not available 11/18/2023 15:37:53 PT NEEDS A SCREENING COLON . R/O POLYP . RECOMMEND A COLONOSOPY. PT WITH DYSPHAGIA. R/O H. PYLORI/ STRICTURE / MOTILITY D/O . RECOMMEND EGD /MBS. RISKS BENEFITS AND COMPLICATIONS WERE EXPLAINED TO PT . ( BLEEDING , PERFORATION , INFECTION , ) PT VERBALIZES UNDERSTANDING AND IS WILLING TO PROCEDE . [email or web address] Not available 11/18/2023 15:38:38 Reason for Referral None Reported. Results Created Date Observation Date Name Description Value Unit Range Abnormal Flag Note LastModifiedBy Organization Detail LastModifiedTime 09/14/1909/14/2023 adilson ACOSTA, sherry al, bilat eral No observ ation record ed. [email or web address] [address] [id number] , [place], [address], 09/17/2023 08:38:45 10/05/1910/05/2023 adilson ACOSTA, bilat eral No observ ation record ed. [email or web address], [place], [address], 11/24/2023 11:14:27 10/05/19 24 10/05/2023 adilson ACOSTA bilat eral No observ ation record ed. [address] , [place], [address], 11/24/2023 11:14:37 03/24/20 24 03/24/2024 XR, chest , 2 view No observ ation record ed. [address] [facility], [place], [address], 03/25/2024 09:05:55 05/09/2005/08/2024 CT, abdom en + pelvi s, w/ contr ast No observ ation record ed. [address] [address], [place], [address], 05/10/2024 11:10:56 07/02/19 25 07/01/2024 CT, abdom en + pelvi s, w/ contr ast No observ ation record ed. [address] [address], [place], [address], 07/03/2024 11:00:41 08/26/19 25 08/24/2024 XR, abdom en No observ ation record ed. [address] [address], [place], [address], 08/25/2024 12:39:14 08/26/1908/24/2024 XR, abdom en No observ ation record ed. [address], [place], [address], 08/25/2024 16:51:16 09/24/1909/23/2024 XR, kidne y + urete r + bladd er No observ ation record ed. [address], [place], [address], 09/23/2024 10:11:57 09/26/1909/25/2024 XR, chest , 1 view No observ ation record ed. [address] [address], [place], [address], 09/27/2024 10:29:53 09/26/19 25 09/25/2024 XR, chest , 1 view No observ ation record ed. [address], [place], [address], 09/27/2024 10:31:03 Result Notes None recorded. Problems Name Problem SNOMED Code Status Onset Date Resolution Date Notes Provider Name and Address Organization Details Recorded Time Excessive cerumen in ear canal 845337172 Active Not Available [facility] 3 07:31:35 Abscess 636917944 Active 2016 Not Available [facility] 3 07:31:35 Otalgia 08304868 Active 2016 Not Available [facility] 3 07:31:36 Family history of Rheumatoid arthritis 073588057 Active 2017 Not Available [facility] 3 07:31:36 Mammograph y abnormal 754922758 Active 2021 Not Available [facility] 3 07:31:36 Mood swings 06212949 Active 2020 Not Available [facility] 3 07:31:36 Feeling stressed 526249729 Active Not Available [facility] 3 07:31:36 Screening mammograph y Active 2021 Not Available [facility] 3 07:31:36 Knee pain Active Not Available [facility] 3 07:31:36 Depressive disorder 19043193 Active Not Available [facility] 3 07:31:36 Elevated blood-pres sure reading without diagnosis of hypertensi on 151550056 Active Not Available [facility] 3 07:31:36 Screening for malignant neoplasm of colon done 1493787801162 01 Active 2020 Not Available [facility] 3 07:31:36 Anxiety 40987284 Active Not Available [facility] 3 07:31:37 Hyperlipid emia 60818853 Active Not Available [facility] 3 07:31:37 Pain of joint 53544626 Active 2017 Not Available [facility] 3 07:31:37 Diarrhea 80309298 Active Not Available [facility] 3 07:31:37 Snoring 63461209 Active 2016 Not Available [facility] 3 07:31:37 Stress 76889983 Active Not Available [facility] 3 07:31:37 Posterior rhinorrhea 75777191 Active Not Available [facility] 3 07:31:37 Obstructiv e sleep apnea syndrome 13206810 Active 2017 Not Available [facility] 3 07:31:37 Neck pain 22232867 Active 2016 Not Available [facility] 3 07:31:37 Fatigue 06996470 Active 2016 Not Available [facility] 3 07:31:38 Lesion of scalp 532657177601 Active Not Available [facility] 3 07:31:38 Disorder of the nose 01275637 Active Not Available [facility] 3 07:31:38 Skin lesion 39207651 Active Not Available [facility] 3 07:31:38 Essential hypertensi on 05301896 Active 2022 Corinna Coburn NP [address], [place], [address] , [employer] [facility] [employer] 3 12:07:44 Difficulty swallowing 195004999 Active 2022 Corinna Coburn NP [address], [place], [address] , [employer] [facility] 3 12:08:24 Mass of neck 677801351 Active 2022 Corinna Coburn NP [address], [place], [address] , [employer] [facility] 3 12:48:07 Obesity 137550492 Active 2023 LENNY Weiss [address], [place], [address] , [employer] [facility] 4 11:04:29 Dry eyes 987754707 Active 2023 LENNY Weiss [address], [place], [address] , [place] [facility] [place] [facility] 4 11:06:44 Feeling of lump in throat 992082063 Active 2023 LENNY Weiss [address], [place], [address] , [place] [facility] [place] [facility] 4 11:13:12 Deviated nasal septum 352685136 Active 2023 Dmitri Tran MD [address], [place], [address] , [place] [facility] [place] [facility] 4 16:37:16 Hypertroph y of nasal turbinates 23297842 Active 2023 Dmitri Tran MD [address], [place], [address] , [facility] 4 16:37:30 Chronic maxillary sinusitis 43861377 Active 2023 Dmitri Tran MD [address], [place], [address] , [facility] 4 16:37:48 Dysphagia 26718694 Active 2023 Dmitri Tran MD [address], [place], [address] , [facility] 4 16:41:54 Acute sinusitis 25667611 Active 2023 Dmitri Tran MD [address], [place], [address] , [facility] 4 16:43:25 Prediabete s 313795381 Active 2023 LENNY Weiss [address], [place], [address] , [facility] 4 14:28:35 Esophageal dysphagia 23499020 Active 2023 Marie Hoskins MD [address], [place], [address] , [facility] 4 15:37:33 Orthostati c hypotensio n 27482300 Active 2023 LENNY Weiss [address], [address] , [facility] [employer] [facility] 4 10:01:45 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 Procedures Surgical History Date Name Laterality Status Provider Name and Address Organization Details Recorded Time 09/14/19 24 Most Recent Mammogram completed Corinna Sotelo RN [facility] [employer] [facility] 03/03/2024 11:53:52 06/01/19 18 Date of Last Colonoscopy completed Not Available [facility] 07/30/2022 07:27:15 Hysterectomy, Partial completed Not Available [facility] 07/30/2022 07:27:16 biopsy of breast completed Not Available [facility] 07/30/2022 07:27:16 Imaging Results Imaging Date Name Status LastModified by [facility] Details LastModified Time 09/14/2023 MAMMO, screening, digital, [email or web address] [address], [place], [address], 09/17/2023 08:38:45 10/05/2023 MAMMO, screening, bilateral [email or web address] [address], [place], [address], 11/24/2023 11:14:27 10/05/2023 MAMMO, screening, bilateral [email or web address] [address], [place], [address], 11/24/2023 11:14:37 03/24/2024 XR, chest, 2 view completed [address] [facility], [place], [address], 03/25/2024 09:05:55 05/08/2024 CT, abdomen + pelvis, w/ contrast completed [address] [facility], [place], [address], 05/10/2024 11:10:56 07/01/2024 CT, abdomen + pelvis, w/ contrast completed [address] [facility], [place], [address], 07/03/2024 11:00:41 08/24/2024 XR, abdomen completed [facility] [address] [place], [place] [address]e [facility], [place], [address], 08/25/2024 12:39:14 08/24/2024 XR, abdomen completed [facility] [address] [place] [address] [address]te [facility], [place], [address], 08/25/2024 16:51:16 09/23/2024 XR, kidney + ureter + bladder completed [address] [facility], [place], [address], 09/23/2024 10:11:57 09/25/2024 XR, chest, 1 view completed [address] [facility], [place], [address], 09/27/2024 10:29:53 09/25/2024 XR, chest, 1 view completed [address], [address], 09/27/2024 10:31:03 Procedure Notes None recorded. Medical Equipment None [...] TIMES DAILY FOR 14 DAYS AFTER SURGERY 05/13 /2024 completed Not Available Not Available Not Available [...] Not Available Not Available Not Available Fluvirin 3383-7101 45 mcg (15 mcg x 3)/0.5 mL [...] Updated DateTime 4 172.72 cm 32.7 kg/m2 47801.3 6 g 95.9 [degF] 113 /min 20 /min 98 % 98 % 0 138 mm[Hg] 84 mm[Hg] Corinna Sotelo RN [facility] 4 14:09:59 Date Recorded Body height Body mass index (BMI) Body weight Heart rate Oxygen saturation Oxygen saturation in Arterial blood by Pulse oximetry Systolic blood pressure Diastolic blood pressure Provider Name and Address Organization Details Last Updated DateTime 4 172.72 cm 32.7 kg/m2 08616.3 6 g 105 /min 99 % 99 % 134 mm[Hg] 80 mm[Hg] YOSELIN Rao [place] [employer] [facility] 4 15:30:44 Date Recorded Body height Body mass index (BMI) Body weight Body temperature Heart rate Respiratory rate Oxygen saturation Oxygen saturation in Arterial blood by Pulse oximetry Pain severity - 0-10 verbal numeric rating [Score] - Reported Systolic blood pressure Diastolic blood pressure Provider Name and Address Organization Details Last Updated DateTime 4 172.72 cm 30.1 kg/m2 94482.2 9 g 97.3 [degF] 89 /min 20 /min 97 % 97 % 0 126 mm[Hg] 84 mm[Hg] Corinna Sotelo RN [facility] [employer] [facility] 4 11:52:59 Date Recorded Body height Body mass index (BMI) Body weight Body temperature Heart rate Respiratory rate Oxygen saturation Oxygen saturation in Arterial blood by Pulse oximetry Pain severity - 0-10 verbal numeric rating [Score] - Reported Systolic blood pressure Diastolic blood pressure Provider Name and Address Organization Details Last Updated DateTime 4 172.72 cm 28.4 kg/m2 11120.3 3 g 96.8 [degF] 95 /min 20 /min 99 % 99 % 2 130 mm[Hg] 90 mm[Hg] Corinna Sotelo RN [facility] [employer] [facility] 4 09:50:15 Date Recorded Body height Body mass index (BMI) Body weight Body temperature Heart rate Respiratory rate Oxygen saturation Oxygen saturation in Arterial blood by Pulse oximetry Pain severity - 0-10 verbal numeric rating [Score] - Reported Systolic blood pressure Diastolic blood pressure Provider Name and Address Organization Details Last Updated DateTime 5 172.72 cm 26.9 kg/m2 22603.2 g 97.2 [degF] 99 /min 20 /min 97 % 97 % 2 130 mm[Hg] 90 mm[Hg] Corinna Sotelo RN [facility] [employer] [facility] 5 15:31:41 Social History Question Answer Notes LastModified by Organizat ion Details LastModified Time Tobacco Smoking Status Never Smoker Not Available [facility] 07/30/2022 07:26:56 Do You Have An Advance Directive? No Information not available 01/02/2023 What Is Your Level Of Alcohol Consumption? Occasional [id number] Information not available 07/30/2022 Is Blood Transfusion Acceptable In An Emergency? Yes Information not available 01/02/2023 What Is Your Level Of Caffeine Consumption? Moderate MIGRATION.37334 [id number] Information not available 07/30/2022 What Is Your Code Status? Full Code Information not available 01/02/2023 In The 14 Days Before Symptom Onset, Have You Had Close Contact With A Laboratory-confir med COVID-19 While That Case Was Ill? No MIGRATION.96960 [id number] Information not available 07/30/2022 In The 14 Days Before Symptom Onset, Have You Had Close Contact With A Person Who Is Under Investigation For COVID-19 While That Person Was Ill? No MIGRATION.89263 70294 Information not available 07/30/2022 Are You Currently Employed? Yes Information not available 10/12/2023 What Type Of Diet Are You Following? REGULAR MIGRATION.26621 86503 Information not available 07/30/2022 What Is The Highest Grade Or Level Of School You Have Completed Or The Highest Degree You Have Received? 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 No MIGRATION.77700 08603 Information not available 07/30/2022 Do You Use Insect Repellent Routinely? No MIGRATION.63611 43945 Information not available 07/30/2022 Where Do You Live? [place] MIGRATION.22492 56029 Information not available 07/30/2022 Do You Have A Medical Power Of Camera Maker? No Information not available 01/02/2023 How Many Children Do You Have? 2 Information not available 03/03/2024 Do You Have Any Pets? Yes MIGRATION.48747 92159 Information not available 07/30/2022 What Is Your Relationship Status? MIGRATION.30306 07646 Information not available 07/30/2022 Do You Use Your Seat Belt Or Car Seat Routinely? Yes Information not available 01/02/2023 Do You Have Smoke And Carbon Monoxide Detectors In Your Home? Yes MIGRATION.52694 89792 Information not available 07/30/2022 Are You Passively Exposed To Smoke? No MIGRATION.96546 59380 Information not available 07/30/2022 Are There Any Smokers In Your House? No MIGRATION.90715 09929 Information not available 07/30/2022 Do You Participate In Social Media? Yes MIGRATION.51434 80459 Information not available 07/30/2022 Do You Feel Stressed (tense, Restless, Nervous, Or Anxious, Or Unable To Sleep At Night)? [id number] MIGRATION.42832 80015 Information not available 07/30/2022 Do You Use Sunscreen Routinely? Yes MIGRATION.43746 45717 Information not available 07/30/2022 Have You Recently Traveled Abroad? No Information not available 01/02/2023 Are You Currently In School? No MIGRATION.63238 11984 Information not available 07/30/2022 Do You Have Any Dietary Restrictions? No MIGRATION.91729 75233 Information not available 07/30/2022 Sex: Female Functional Status Question Answer Note LastModified by Organizat ion Details LastModified Time What is your exercise level? None [id number] Information not available 07/30/2022 Mental Status None recorded. Family History Relationship Description Onset Age of this Age Resolved Age Notes LastModified by Organization Details LastModified Time Father Hyperlipidem ia [email or web address] Not available 03/03 11:38:17 Father Essential hypertension [email or web address] Not available 11:38:17 Father Tongue carcinoma [email or web address] Not available 03/03 11:38:17 Father Crohn's disease [email or web address] Not available 03/03 11:38:17 Maternal Uncle Hyperlipidem ia [email or web address] Not available 03/03 11:38:17 Brother Hyperlipidem ia Not available 03/03 11:38:17 Brother Essential hypertension [email or web address] Not available 11:38:18 Brother Seasonal allergy [email or web address] Not available 03/03 11:38:18 Brother Myocardial infarction MIGRATION.914 [id number] Not available 07/30/2022 07:27:18 Brother Asthma MIGRATION.967 [id number] Not available 07/30/2022 07:27:18 Mother Essential hypertension [email or web address] Not available 11:38:18 Mother Rheumatoid arthritis [email or web address] Not available 03/03 11:38:18 Mother Seasonal allergy [email or web address] Not available 03/03 11:38:18 Mother Myocardial infarction MIGRATION.798 [id number] Not available 07/30/2022 07:27:18 Mother Asthma MIGRATION.669 [id number] Not available 07/30/2022 07:27:18 Medical History Condition [...] TEST N HYPOTENSION Y MYOCARDIAL INFARCTION N OBESITY Y [place] N [...] HAVE YOU BEEN HOSPITALIZED OR SEEN IN [facility] IN THE PAST YEAR ? N [...] (COVID-19) vaccine, UNSPECIFIED 1 completed Not Available [facility] 07/30/2022 07:37:33 SARS-COV-2 (COVID-19) vaccine, UNSPECIFIED 1 completed Not Available [facility] 07/30/2022 07:37:33 SARS-COV-2 (COVID-19) vaccine, UNSPECIFIED 1 completed Not Available [facility] 07/30/2022 07:37:33 Tdap 9 completed Not Available [facility] 07/30/2022 07:37:33 Influenza, split virus, trivalent, preservative 5 completed Not Available [facility] 07/30/2022 07:37:33 Influenza, split virus, trivalent, preservative 4 completed Not Available [facility] 07/30/2022 07:37:33 DTaP, unspecified formulation 0 completed Not Available [facility] 07/30/2022 07:37:34 Influenza, split virus, trivalent, PF 4 completed Not Available [facility] 07/30/2022 07:37:34 Past Encounters Encounter ID Performer Location Encounter Start Date Encounter Closed Date Diagnosis/Indication Diagnosis SNOMED-CT Code Diagnosis ICD10 Code Diagnosis Note [id number] Catracho Wilson MD [facility] Jonn [address] [place] [address] 08/24/2020 00:00:00 08/24/2020 16:16:26 [id number] Corinna Coburn NP [facility] [address] [place] [address] 01/27/2022 00:00:00 01/27/2022 10:36:05 [id number] Corinna Coburn NP [address] [address] 01/02/2023 12:13:59 01/02/2023 13:54:49 Hyperlipidemia 09033107 E78.5 rosuvastat in 10 mg po nightly.Lo w fat diet. Essential hypertension 90060935 I10 Amlodipine 5 mg po daily.Add on losartan 50 mg po daily on 01/02/23 Difficulty swallowing 28 8721451 R13.10 Referring to GI. Diabetes m ellitus screening 701522906 Z13.1 Anemia screening 4570532 07 Z13.0 Screening for malignant neoplasm of colon 991987740 Z12.11 Mass of neck 830198097 R 22.1 US neck soft tissueUS thyroid Thyroid di sorder screening 733249395 Z13.29 [id number] Catrahco Wilson MD [address] [address] 09/03/2023 10:26:36 09/03/2023 11:26:55 Hyperlipidemia 57040271 E78.5 Essential hypertension 22386062 I10 Screening for malignant neoplasm of colon 436902952 Z12.11 Obesity 205807934 E66.9 Dry eyes 561491952 H04.1 23 Feeling of lump in throat 736609704 R09.89 [id number] Dmitri Tran MD [facility] [place] [address] [place] [address] 09/30/2023 15:24:41 10/01/2023 11:00:18 Deviated nasal septum 836900053 J34.2 Hypertroph y of nasal turbinates 54039495 J34.3 Chronic ma xillary sinusitis 01572223 J32.0 Dysphagia 89926306 R13.1 0 she has [id number] Marie Hoskins MD [facility] General [facility] [address] [facility] [place] [address] 11/18/2023 15:29:59 11/23/2023 09:02:23 Screening for malignant neoplasm of colon 313173675 Z12.11 History of polyp of colon 526792608 Z86.010 Esophageal dysphagia 408 68286 R13.19 R/O ACHALASIA . [id number] Catracho Wilson MD [address] [address] 10/12/2023 14:01:07 10/12/2023 15:04:51 Prediabetes 046653447 R73.03 [id number] Catracho Wilson MD [address] [address] 03/03/2024 11:36:02 03/03/2024 12:07:21 Essential hypertension 88240849 I10 Well controlled with current regimen. May D/C medication s with future weight loss Prediabetes 606389549 R7 3.03 Will increase Zepbound at next refill Hyperlipidemia 91450479 E78.5 [id number] Catracho Wilson MD [address] [address] 03/17/2024 09:40:19 03/17/2024 10:11:06 Orthostatic hypotension 38618034 I95.1 Advised to hold amlodipine and losartan [id number] Catracho Wilson MD [address] [address] 06/03/2024 15:16:15 06/03/2024 15:54:45 Acute urinary tract infection 014130578 N39.0 Health Concerns Section Related Observation LastModified by Organization Detai ls LastModified Time None Recorded Concern Status LastModified by Organization Details LastModified Time None Recorded Advance Directives Directive N: Payers Encounter Date Sequence Insurance Name Policy Number Policy Zuniga Covered Member ID Zuniga Member ID Guarantor Name 10/12/2023 1 [employer] Gerald Terry [id number] Zahira Harrison 11/18/2023 1 [employer] Gerald Terry [id number] Zahira Harrison 03/03/2024 1 [employer] Gerald Harrison [id number] Zahira Terry 03/17/2024 1 [facility] Gerald Terry [id number] Zahira Terry 06/03/2024 1 [facility] Gerald Terry [id number] Zahira Terry Notes Date Note Type Note [...] want to increase today. LENNY Weiss [address], [place], [address], 2nd Watch 10/12/2023 14:42:58 11/18/2023 text/html PT WAS SEEN [...] DENIES ALLERGIES . Marie Hoskins MD [address], [place], [address], 2nd Watch 11/18/2023 15:51:58 03/03/2024 text/html Zahira Bender is [...] today. She has hypertension LENNY Weiss [address], [place], [address], 2nd Watch 03/03/2024 12:04:48 03/17/2024 text/html Zahira Terry is [...] hypotension on assessment.Supine: 132/86Sittin/82Standin/82 LENNY Weiss [address], [place], [address], [facility] 03/17/2024 10:08:09 06/03/2024 text/html Zahira Terry is [...] UTI while in ER LENNY Weiss [address], [place], [address], [facility] [employer] 06/03/2024 15:53:31 OBGyn Episode No OBEpisode recorded.
--- OUTSIDE RECORDS SUMMARY | 2024-10-06 10:14 | XMS_ITS | Clinical Summary ---
Author Organization [facility] [employer] Address [address] [place] [address] Care Team Providers Care Life Sciences Instructor Name Role Phone Corinna Coburn APRN-LINE PATROLLER Primary Care Provider Source Comments [facility] [employer],non-owned Affiliates and Associated Physician Practices is amultiple site organization consisting of ambulatory clinics and hospital sitesin [place], [place], [place] and [place]. This disclosure is being madepursuant to the Care Everywhere program and may not contain all information available regarding this patient. Last updated 18.[facility] [employer] Allergies No known active allergies Medications * [...] complete this [place] [address] COMMERCIAL GENERIC Member Subscriber Plan / Payer (Ef fective 2020-Present) Name:Zahira Terry Relation to Subscriber:Spouse Name:Omega Terry Date of :1972 (Home) Address: [address] [place] [address] [place] [address] Payer ID:Not on file Group ID:[id number] Type:Commercial Address: [facility] [id number] [place] [address] Care Teams Life Sciences Instructor Relationship Specialty Start Date End Date Corinna Coburn, [employer] AGENT-LINE PATROLLER [address] [place] [phone] PCP - General 09/02/21
== END 2024-10-06 09:50 | disposition home or self-care (01) ==
PROVIDERS: Visit Provider Urology
DX: N20.1 Calculus of ureter (principal)
CPT/HCPCS: 74018

== ENCOUNTER 2024-12-01 15:26 | Outpatient (CLI) | payer OTHER, SELFPAY ==
--- NOTE | ~2024-12-01 | US_ITS ---
EXAMINATION: US thyroid DATE: 12/01/2024 15:48 INDICATION: Multiple thyroid nodules TECHNIQUE: Multiple ultrasound images of the thyroid were obtained. COMPARISON: None. FINDINGS: The right thyroid lobe measures 5.7 x 1.8 x 1.8 cm. Within the upper pole of the right lobe of the thyroid gland is a 5.5 x 2.2 x 4.7 mm nodule: Composition - spongiform Echogenicity - hypoechoic Shape - wider than tall Margin - smooth Echogenic foci - none. = TR2 not suspicious. The left thyroid lobe measures 4.2 x 1.3 x 1.4 cm. Within the upper pole of the left lobe of the thyroid gland is a 3.2 x 1.6 x 2.7 mm nodule: Composition - spongiform Echogenicity - hypoechoic (2) Shape - wider than tall Margin - smooth Echogenic foci - none. = TR2 not suspicious. The isthmus measures 0.3cm in anterior to posterior dimension. There is otherwise normal echotexture and echogenicity throughout the remainder of the thyroid gland. No additional discrete nodules identified. Normal vascular flow is present. IMPRESSION: TR2 nodules detected bilaterally. These nodules are not sonographically suspicious and no FNA or follow-up is recommended While follow-up is not recommended (as per TIRADs criteria) it may be performed, at the discretion of the referring clinician. Reviewed, dictated and finalized at location A. IMPRESSION: TR2 nodules detected bilaterally. These nodules are not sonographically suspicious and no FNA or follow-up is rec ommended While follow-up is not recommended (as per TIRADs criteria) it may be performed , at the discretion of the referring clinician.
== END 2024-12-01 15:27 | disposition home or self-care (01) ==
LOC: MICIMG 15:27
PROVIDERS: PCP Physician Assistant; Visit Provider Physician Assistant
DX: E04.2 Nontoxic multinodular goiter (principal)
CPT/HCPCS: 76536